=== PATIENT | male | born 1940 | race African-American/Black ===

== ENCOUNTER 2016-03-14 09:25 | Inpatient (IN) | payer OTHER ==
[~2016-03-14] VITALS: Ht 182.9 cm; Wt 72.1 kg
[~2016-03-14 09:25] MED LIST: ACETAMINOPHEN325 M2 GT; ACETAMINOPHEN325 M2 PO; AMLODIPINE10 M1 PO; ASPIRIN EC325 MG PO; BACTROBAN 2%20 MG/GM NS; COLACE100 M1 PO; DULCOLAX10 MG RC; FLEET ENEMA118 ML RC; GLUCOPHAGE500 MG PO; LANTUS INS100 UNITS/ SUBQ; LANTUS100 U/ML SC; LEVAQUIN500 MG PO; METFORMIN850 MG PO; MILK OF MA400 MG/5 M GT; MVI-1210 ML PO; NICOTINE T14 MG/241 TD; ROCEPHIN1 G1 IV; THERAGRAN M PO; ZESTRIL30 MG PO; [UNRECOGNIZED DRUG - OTHER]; [UNRECOGNIZED DRUG - OTHER] PO
--- NOTE | 2016-03-14 09:30 | NUR ---
75/M [facility] C/O NO EATING OR TAKING PO PILLS AND GENERALIZED WEAKNESS X3 DAYS. HX CVA, R HEMIPLEGIA, DM, DYSPHAGIA. DENIES N/V/D; SKIN IS PINK/WARM/DRY. DRAINING PRESSURE WOUND TO RIGHT HEEL; ALOC, NON-VERBAL. BEDRIDDEN WITH RIGHT SIDE FLACCID; LUNGS CLEAR BL; HR EVEN, REGULAR, TACHYCARDIC; CEC DENIES ANY FEVER, CP, SOB, OR COUGH AT THIS TIME; VSS; PATIENT POSITIONED FOR COMFORT; HOB ELEVATED; BEDRAILS UP X2; BED DOWN. ER MD MADE AWARE OF PT STATUS.
[2016-03-14 09:42] VITALS: BP 143/85
--- NOTE | 2016-03-14 10:39 | NUR ---
SHELLEY ORTIZ SON UPDATED ABOUT PTS CONDITION.
[2016-03-14] MEDS ORDERED: AZITHROMYCIN 500 MG in DEXTROSE 5% 250 ML IV ONE (10:55)
[2016-03-14] MEDS ORDERED: cefTRIAXone 1,000 MG in DEXT 5% MINI-BAG PLUS 50 ML IV ONE (10:55)
--- NOTE | 2016-03-14 10:55 | NUR ---
Patient being evaluated by physician at bedside.
[2016-03-14] MEDS ORDERED: NACL 0.9% 1,000 ML IV ONE (11:05)
[2016-03-14] MEDS ORDERED: cefTRIAXone 1,000 MG VIAL ONE (11:10)
--- NOTE | 2016-03-14 11:59 | NUR ---
UPDATED SHELLEY, SON OF PT, REGARDING ADMISSION. ADMIT TO RM 120.
[2016-03-14] MEDS ORDERED: AZITHROMYCIN 500 MG INJ VIAL IV ONE ×2 (12:13→12:25)
--- NOTE | 2016-03-14 12:49 | NUR ---
Patient will be admitted to care of DR. SPAIN. Admited to TELE. Will go to [id number]. Belongings list completed. GAVE Report to SATHYA GONZALES.
[2016-03-14] MEDS ORDERED: BISACODYL 10 MG SUPP RC SCH (12:55)
[2016-03-14] MEDS: NACL 0.45% 1,000 ML IV SCH (12:55)
[2016-03-14] MEDS ORDERED: ONDANSETRON 4 MG/2 ML VIAL IVP PRN (13:00)
[2016-03-14] MEDS ORDERED: MAG SULF 2000 MG/WATER PREMIX 50 ML IV PRN (13:00)
[2016-03-14] MEDS ORDERED: IPRATROPIUM 0.02% 0.5 MG/2.5 ML NEBU INH PRN (13:00)
[2016-03-14] MEDS ORDERED: diphenhydrAMINE 50 MG/ML VIAL IVP PRN (13:00)
[2016-03-14] MEDS ORDERED: ACETAMINOPHEN 325 MG TAB PO PRN (13:00)
[2016-03-14] MEDS ORDERED: MORPHINE SULFATE 2 MG/ML SYR IVP PRN (13:00)
[2016-03-14] MEDS ORDERED: ALBUTEROL 0.083% 2.5 MG/3 ML NEBU INH PRN (13:00)
[2016-03-14] MEDS ORDERED: SODIUM PHOSPHATE 118 ML ENEM RC PRN (13:00)
[2016-03-14] MEDS ORDERED: ACETAMINOPHEN 650 MG SUPP RC PRN (13:00)
[2016-03-14] MEDS ORDERED: DEXTROSE 50% 50 ML SYR IVP PRN (13:00)
[2016-03-14] MEDS ORDERED: POTASSIUM CHLORIDE 10 MEQ TABER PO PRN (13:00)
[2016-03-14] MEDS ORDERED: cloNIDine 0.1 MG TAB PO PRN (13:00)
[2016-03-14] MEDS ORDERED: HYDROcodone/APAP 5/325 MG 1 TAB TAB PO PRN ×2 (13:00)
[2016-03-14] MEDS ORDERED: MAGNESIUM OXIDE 400 MG TAB PO PRN (13:00)
[2016-03-14] MEDS ORDERED: ALUMINUM HYD/MAG/SIMETHICONE 30 ML UDC PO PRN (13:00)
[2016-03-14] MEDS ORDERED: guaiFENesin DM 200/20 MG-10 ML 10 ML UDC PO PRN (13:00)
[2016-03-14] MEDS ORDERED: POTASSIUM CHLORIDE 40 MEQ, LIDOCAINE 1% 25 MG in NACL 0.9% 250 ML IV PRN (13:00)
[2016-03-14] MEDS ORDERED: LORazepam 2 MG/ML VIAL IVP PRN (13:00)
--- NOTE | 2016-03-14 13:10 | NUR ---
PT LEAVING TO TELE RM 120B WITH MONITOR.
[2016-03-14 13:27] VITALS: BP 116/69
--- NOTE | 2016-03-14 13:27 | NUR ---
PT ON UNIT. NO S/S OF ACUTE DISTRESS. PT IS NONVERBAL, BUT RESPONDS TO NAME. IV SITE PATENT AND INTACT. FLACC-0. WOUND TO RIGHT HEEL NOTED. PT ORIENTED TO ROOM. CALL LIGHT WITHIN REACH. WILL CONTINUE TO MONITOR.
[2016-03-14] MEDS: PIPER/TAZO 2.25GM/D5W PREMIX 50 ML IV SCH ×2 (14:04→20:09)
[2016-03-14] MEDS ORDERED: PNEUMOCOCCAL VACCINE 23 MCG/0.5 ML VIAL IMVAC SCH (15:50)
[2016-03-14] MEDS ORDERED: INFLUENZA VIRUS VACCINE QUAD 0.5 ML SYR IMVAC SCH (15:50)
[2016-03-14 16:00] VITALS: BP 118/69
--- NOTE | 2016-03-14 16:00 | NUR ---
SPOKE TO PT'S SON REGARDING NG TUBE PLACEMENT. PT'S SON EDUCATED ON NEED FOR NG-TUBE. PT'S SON REFUSED NG-TUBE. DR. SPAIN MADE AWARE.
[2016-03-14] MEDS: BLOOD GLUCOSE MONITORING 1 DEV DEV FS SCH ×2 (16:55→20:13)
[2016-03-14] MEDS: INSULIN ASPART SLIDING SCALE 100 UNITS/ML VIAL SUBQ PRN (16:56)
--- NOTE | 2016-03-14 16:56 | NUR ---
PT RESTING IN BED. NO S/S OF ACUTE DISTRESS. FLACC-0. SON AT BEDSIDE. CALL LIGHT WITHIN REACH. WILL CONTINUE TO MONITOR.
--- NOTE | 2016-03-14 19:20 | NUR ---
RECEIVED PT IN STABLE CONDITION FROM SATHYA GONZALES. NO SOB, NO SIGNS OF DISTRESS. PT IS AOX1, APHASIC. FLACC 0. VS STABLE ON ROOM AIR. IV TO RT HAND 22G PATENT, ASYMPTOMATIC, INTACT, IVF RUNNING. SON AT BEDSIDE. WOUND TO RT HEEL, HEEL PROTECTORS ON, SKIN OTHERWISE INTACT. PLAN OF CARE DISCUSSED WITH PT AND SON. SAFETY MEASURES IN PLACE. CALL LIGHT WITHIN REACH. WILL CONTINUE TO MONITOR.
--- NOTE | 2016-03-14 19:22 | NUR ---
ENDORSED PLAN OF CARE TO NIGHT RN. PT REMAINS IN STABLE CONDITION.
[2016-03-14 20:00] VITALS: BP 104/64
--- NOTE | 2016-03-14 20:00 | NUR ---
MOVED PT ONTO A WOUND BED. SCDS IN PLACE.
[2016-03-14] MEDS: DOCUSATE SODIUM 100 MG GELCAP PO SCH (20:13)
--- NOTE | 2016-03-14 20:13 | NUR ---
HELD COLACE SINCE PT IS NPO. BLOOD SUGAR 325, HELD LEVEMIR AND PRN NOVOLOG SINCE PT IN NPO, SON AGREED. ADMINISTERED ZOSYN PER MD ORDER, PT TOLERATING WELL. NO SOB, NO SIGNS OF DISTRESS. IV SITE PATENT, ASYMPTOMATIC, INTACT, IVF RUNNING. PLAN OF CARE DISCUSSED WITH PT AND SON. SAFETY MEASURES IN PLACE. CALL LIGHT WITHIN REACH. WILL CONTINUE TO MONITOR.
[2016-03-14] MEDS: INSULIN DETEMIR 100 UNITS/ML 10 ML VIAL SUBQ SCH (20:24)
--- NOTE | 2016-03-14 20:56 | NUR ---
CRITICAL LAB RECEIVED, PTS SECOND TROPONIN INCREASED TO 0.150. PAGED MD ZAIDI MATHEMATICS IMPROVEMENT TEACHER FOR MD SPAIN. WAITING FOR CALL BACK.
--- NOTE | 2016-03-14 20:57 | NUR ---
SPOKE WITH MD DEJUAN MD MADE AWARE OF PTS 2ND ELEVATED TROPONIN LEVEL. NO ORDERS RECEIVED.
--- NOTE | 2016-03-14 22:15 | NUR ---
PT AWAKE, RESTING COMFORTABLY IN BED. SON AT BEDSIDE. NO SOB, NO SIGNS OF DISTRESS. IV SITE ASYMPTOMATIC, INTACT, PATENT, IVF RUNNING. FLACC 0. PLAN OF CARE DISCUSSED WITH PT AND SON. SAFETY MEASURES IN PLACE. CALL LIGHT WITHIN REACH. WILL CONTINUE TO MONITOR.
[2016-03-15] VITALS: BP 96/67
--- NOTE | 2016-03-15 00:10 | NUR ---
VS STABLE ON ROOM AIR. NO SOB, NO SIGNS OF DISTRESS. IV SITE ASYMPTOMATIC, INTACT, PATENT, IVF RUNNING. SON AT BEDSIDE. FLACC 0. PLAN OF CARE DISCUSSED WITH PT AND SON. SAFETY MEASURES IN PLACE. CALL LIGHT WITHIN REACH. WILL CONTINUE TO MONITOR.
--- NOTE | 2016-03-15 01:42 | NUR ---
PT WITH EPISODE OF V-TACH, CHECKED ON PT, VS STABLE, NO SOB, NO SIGNS OF DISTRESS. IV SITE ASYMPTOMATIC, INTACT, PATENT, IVF RUNNING. SON AT BEDSIDE. PLAN OF CARE DISCUSSED WITH PT AND SON, SAFETY MEASURES IN PLACE. CALL LIGHT WITHIN REACH. WILL CONTINUE TO MONITOR.
--- NOTE | 2016-03-15 03:36 | NUR ---
PT WITH 2ND EPISODE OF V-TACH, CHECKED ON PT. PT AWAKE, VS STABLE, NO SOB, NO SIGNS OF DISTRESS. CLEANED AND TURNED PATIENT, TOLERATED WELL. SON AT BEDSIDE. PLAN OF CARE DISCUSSED WITH PT AND SON, SAFETY MEASURES IN PLACE. CALL LIGHT WITHIN REACH. WILL CONTINUE TO MONITOR.
[2016-03-15 04:00] VITALS: BP 131/59
--- NOTE | 2016-03-15 04:00 | NUR ---
VS STABLE ON ROOM AIR. NO SOB, NO SIGNS OF DISTRESS. IV SITE TO RT HAND INFILTRATED, RT HAND SWOLLEN, DC IV TO RT HAND AND STARTED NEW IV TO LT HAND 22G PATENT, ASYMPTOMATIC, INTACT, IVF RUNNING. SON AT BEDSIDE. PLAN OF CARE DISCUSSED WITH PT AND SON, SAFETY MEASURES IN PLACE. CALL LIGHT WITHIN REACH. WILL CONTINUE TO MONITOR.
[2016-03-15] MEDS: PIPER/TAZO 2.25GM/D5W PREMIX 50 ML IV SCH ×3 (04:27→21:22)
--- NOTE | 2016-03-15 04:36 | NUR ---
CALL FROM KOBY IN LAB, CRITICAL TROPONIN AND BUN BOTH TRENDING DOWN.
[2016-03-15] MEDS: BLOOD GLUCOSE MONITORING 1 DEV DEV FS SCH ×4 (06:28→21:23)
--- NOTE | 2016-03-15 06:31 | NUR ---
BLOOD SUGAR 326, LITTLE CHANGE SINCE LAST NIGHT, DID NOT PROVIDE INSULIN COVERAGE SINCE PT IS NPO.
[2016-03-15] MEDS: NACL 0.45% 1,000 ML IV SCH ×2 (06:57→08:55)
--- NOTE | 2016-03-15 07:10 | NUR ---
ENDORSED PT IN STABLE CONDITION TO ANALILIA SALAZAR RN. ALL NEEDS HAVE BEEN MET AT THIS TIME.
--- NOTE | 2016-03-15 07:11 | NUR ---
PAGED MD SPAIN TO MAKE AWARE OF V-TACH EPISODES. WAITING FOR CALL BACK.
--- NOTE | 2016-03-15 07:12 | NUR ---
RECEIVED REPORT FROM TELESALES TEAM LEADER NURSE. SON AT BEDSIDE. PT IS AAOX1, ABLE TO STATE NAME. NO S/SX OF PAIN/DISTRESS NOTED. IV IS PATENT AND FLOWING. WOUND TO RIGHT HEEL NOTED WITH HEEL PROTECTOR INTACT. PT IS ON WOUND CARE BED, SCD'S IN PLACE. PT IS ON ROOM AIR, VITALS STABLE. CALL LIGHT WITHIN REACH.
--- NOTE | 2016-03-15 07:14 | NUR ---
SPOKE WITH MD GRABIEL MD MADE AWARE OF BOTH EPISODES OF V-TACH. NO ORDERS GIVEN, MD TO SEE PATIENT.
[2016-03-15 08:00] VITALS: BP 127/73
--- NOTE | 2016-03-15 08:30 | NUR ---
PATIENT HAS BEEN SCREENED AND CATEGORIZED HIGH NUTRITION RISK. PATIENT WILL BE SEEN WITHIN 1-2 DAYS OF ADMISSION. 03/15/16-03/16/[address]
[2016-03-15] MEDS: DOCUSATE SODIUM 100 MG GELCAP PO SCH ×2 (08:44→21:00)
[2016-03-15] MEDS: INSULIN DETEMIR 100 UNITS/ML 10 ML VIAL SUBQ SCH ×2 (08:44→21:26)
[2016-03-15] MEDS: MULTIVITAMIN/MINERALS 1 TAB PO SCH (08:44)
[2016-03-15] MEDS: ASPIRIN 81MG PO SCH (08:44)
--- NOTE | 2016-03-15 08:50 | NUR ---
WOUND CARE EVALUATION NOTES: REASON FOR EVALUATION: RIGHT HEEL WOUND COMPLETE SKIN ASSESSMENT DONE ON THIS 75 Y/O MALE PATIENT FROM [facility] TO [facility], WITH INITIAL DIAGNOSIS OF PNEUMONIA, ELEVATED TROPONIN, RENAL FAILURE AND HYPERNATREMIA. PAST MEDICAL HISTORY INCLUDE CVA WITH RIGHT SIDED WEAKNESS, DEMENTIA, DM AND HYPERTENSION. ALL ABOVE INFORMATION WAS OBTAINED FROM THE ADMISSION H&P. LABS ARE WBC 14.0, H/H 12.8/39.6, GLUCOSE 366, ALBUMIN 2.8, PT/INR 11.1/1.2 AND PTT 21.4. CURRENT MEDS INCLUDE MULTIVITAMINS/MINERALS, ASPIRIN, INSULIN, MORPHINE AND NORCO. PATIENT IS AWAKE, NO VERBAL, UNABLE TO FOLLOW SIMPLE COMMANDS. EYES ABLE TO TRACK MOVEMENTS. SKIN WARM TO TOUCH WNL, TOENAILS ARE THICKENED AND DISCOLORED, NO EDEMA, NO HAIR GROWTH AND +2 BILATERAL PEDAL PULSES. URINE AND BOWEL INCONTINENT. NEEDS MAX ASSISTANCE IN TURNING. INITIAL PLAN OF CARE AND PRESSURE PREVENTIVE MEASURES DISCUSSED WITH PATIENT'S SON, ABLE TO VERBALIZE UNDERSTANDING. INTEGUMENTARY: RIGHT HEEL - ST III - PW WITH FLUID FILLED BLISTER. OPEN AREA MEASURES 1 X 1 X 0.1CM, 10% THIN YELLOW AND 90% PALE RED. SACRALCOCCYX TO PERIAREA - RED AND MOIST DUE TO URINE AND BOWEL INCONTINENCE. RECOMMENDATIONS: -RIGHT HEEL: CLEANSE WITH NS AND GAUZE, PAT DRY, APPLY THERAHONEY GEL TO OPEN AREA, PAINT PERIWOUND WITH BETADINE, COVER WITH ADAPTIC, GAUZE AND WRAP WITH AKASH Q DAY AND PRN WITH SOILING/DISPLACEMENT -CLEANSE SACRALCOCCYX TO PERIAREA WITH MILD SOAP AND WATER, PAT DRY, APPLY HYDRAGUARD BIDWC AND PRN WITH SOILING. LEAVE OPEN TO AIR --TURN AND REPOSITION PATIENT Q2H -ASSESS AND MONITOR SKIN CONDITION DURING POSITION CHANGE, PLEASE PAY PARTICULAR ATTENTION TO SACRALCOCCYX, ELBOWS AND HEELS -OFFLOAD BILATERAL HEELS BY PLACING HEEL RAISER BOOT, REMOVE AND ASSESS Q4H FOR PROPER CIRCULATION, THEN REAPPLY. UNLESS OTHERWISE CONTRAINDICATED -PRESSURE REDISTRIBUTION SURFACE THERAPY -KEEP SKIN CLEAN AND DRY AT ALL TIMES. -ARTERIAL AND VENOUS U/S OF BLE IF OK WITH PMD -PODIATRY CONSULT IF OK WITH PMD. RECOMMENDATIONS DISCUSSED WITH PRIMARY RN. WILL FOLLOW UP PATIENT Q 7 DAYS AND PRN. PLEASE CONTACT [facility] FOR ANY CONCERNS, QUESTIONS AND CHANGES IN WOUND CONDITION.
--- NOTE | 2016-03-15 09:24 | NUR ---
PO MEDS HELD. PT NPO.
[2016-03-15] MEDS ORDERED: THERAHONEY GEL 42.5 GM TP PRN (11:10)
[2016-03-15] MEDS ORDERED: HYDRAGUARD CREAM TP PRN (11:10)
[2016-03-15] MEDS ORDERED: POTASSIUM CHL 20 MEQ / DEXT 5% 1,000 ML IV SCH (11:20)
--- NOTE | 2016-03-15 11:31 | NUR ---
VITALS REMAIN STABLE. WILL CONTINUE TO MONITOR.
--- NOTE | 2016-03-15 11:39 | NUR ---
03/15/16 RD INITIAL ASSESSMENT COMPLETED PLEASE REFER TO NUTRITION ASSESSMENT UNDER CARE ACTIVITY FOR ESTIMATED NUTRITIONAL NEEDS. RD RECOMMENDATIONS: 1. CONTINUE NPO MEDICALLY APPROPRIATE PER MD 2. CONSIDER SWALLOW EVALUATION 3. IF PT INAPPROPRIATE FOR PO DIET, CONSIDER NUTRITIONAL SUPPORT DIABETISOUCE AT 10 ML/HR AND ADVANCE TOLERATED TO 60 ML/HR VIA NGTUBE --AT GOAL OF 60 ML/HR, NUTRITIONAL SUPPORT WILL PROVIDE 1440 ML TOTAL VOLUME, 1728 KCAL, 86 GM PROTEIN AND WILL MEET 78% OF PT ESTIMATED KCAL NEEDS AND 100% OF PT ESTIMATED PROTEIN NEEDS 4. IF PT ABLE TO BEGIN PO DIET CONSIDER ADVANCE DIET TOLERATED TO CCHO 60 GM WITH TEXTURE MODIFICATIONS PER SPEECH THERAPY SWALLOW EVALUATION RECOMMENDATIONS. 5. RD WILL F/U 2-3 DAYS; HIGH RISK. ANDREW ROSARIO RD
--- NOTE | 2016-03-15 11:44 | NUR ---
PAGED DR. SPAIN, AWAITING CALLBACK.
[2016-03-15 11:47] VITALS: BP 114/73
[2016-03-15] MEDS: INSULIN ASPART SLIDING SCALE 100 UNITS/ML VIAL SUBQ PRN ×3 (12:11→21:27)
--- NOTE | 2016-03-15 12:12 | NUR ---
SPOKE WITH DARIELA FROM PT, SHE STATED THAT SPEECH THERAPIST WILL BE HERE THIS AFTERNOON.
--- NOTE | 2016-03-15 12:42 | NUR ---
SECOND ATTEMPT IN CALLING AWAITING CALLBACK.
--- NOTE | 2016-03-15 12:47 | NUR ---
DR. SPAIN AWARE OF K+ 4.6, D5 WITH 20 MEQ K+ ORDERED PER MD. MD AWARE OF 2 EPISODES OF VTACH ON 03/15 AND ELEVATED TROPONIN, PER MD, NO CARDIO CONSULT NEEDED.
--- NOTE | 2016-03-15 13:00 | NUR ---
WOUND CARE NOTES: MD AWARE OF RECOMMENDATIONS, NO ORDERS MADE.
[2016-03-15] MEDS: HYDRAGUARD CREAM TP SCH (13:05)
[2016-03-15] MEDS: THERAHONEY GEL 42.5 GM TP SCH (13:05)
--- NOTE | 2016-03-15 13:32 | NUR ---
SWALLOW EVAL COMPLETE.
--- NOTE | 2016-03-15 13:47 | NUR ---
SS NOTE: I RECEIVED A CALL BACK FROM PT'S DTR, MENA. SHE STATED THAT SHE IS THE PRIMARY MEDICAL DECISION MAKER AND THEN HER SISTER, CANDELARIA ART ([phone]) IS THE SECONDARY. SHE ALSO STATED THAT IF BOTH OF THEM ARE UNABLE TO BE REACHED THEN THEIR BROTHER, PT'S SON, SHELLEY ORTIZ ([phone]) CAN BE CONTACTED. SHE REPORTED THAT SHE WILL SEND A COPY OF PT'S POWER OF SUGAR PRESSER PAPERWORK TO CASE MANAGEMENT.
--- NOTE | 2016-03-15 13:55 | NUR ---
CARPET INSTALLER note (bedside swallow evaluation completed) 12:45-13:30. Bedside swallow evaluation completed, please see report for details. CARPET INSTALLER provided pt/pt's son with education regarding purpose of evaluation and rationale for recommendations. Pt did not appear to benefit from education provided. Pt's son verbalized understanding and agreement at this time. Recommend: 1) thin liquids (pt refused to accept solid PO trials at this time) 2) consider alternative/supplemental method(s) of nutrition/hydration/medication to assist pt with meeting his needs safely (as pt does not appear likely to meet his nutrition/hydration/medication needs via PO only) 3) strict aspiration precautions (including pt must be fully awake/alert/upright for any PO intakes, small/slow PO intakes, stop giving PO if pt becomes sleepy/less alert/SOB/coughing) 4) 100% feeding assistance (pt's baseline) 5) CARPET INSTALLER to f/u for dysphagia/diet tolerance as pt willing/able to participate safely CARPET INSTALLER d/w RN (Pratibha) following evaluation completion. G-codes: [id number] [id number] BRIGETTE NOMS level 3: alternative method of feeding required as individual takes less than 50% of nutrition and hydration by mouth, and/or swallowing is safe with consistent use of moderate cues to use compensatory strategies and/or requires maximum diet texture restrictions. PVE for nursing education provided.
--- NOTE | 2016-03-15 14:00 | NUR ---
DRESSING APPLIED TO RIGHT HEEL PER ORDER. PT LEOLA WELL.
--- NOTE | 2016-03-15 14:36 | NUR ---
PER PT'S SON, FLU AND PNA VACCINE TO BE ADMINISTERED UPON DISCHARGE.
[2016-03-15] MEDS ORDERED: NACL 0.45% 500 ML IV ONE (15:35)
[2016-03-15 16:00] VITALS: BP 114/75
[2016-03-15] MEDS: DEXTROSE 5% 1,000 ML IV SCH (16:13)
--- NOTE | 2016-03-15 16:44 | NUR ---
02/[address] CARMEN.
--- NOTE | 2016-03-15 19:05 | NUR ---
PATIENT HAD EPISODE, OF V-TACH, PATIENT RESTING IN BED. VS STABLE. BP 134/69, O2 SAT 99% ON ROM AIR. WILL NOTIFY .
--- NOTE | 2016-03-15 19:08 | NUR ---
ENDORSED TO HOME CARE SCHEDULER NURSE FOR CONTINUITY OF CARE.
--- NOTE | 2016-03-15 19:15 | NUR ---
RECEIVED REPORT FROM DAY NURSEARABELLA. PATIENT RESTING IN BED. NO RESPIRATORY DISTRESS, SOB, OR DISCOMFORT. INITIAL ASSESSMENT AND BODY CHECK DONE. PATIENT IS AWAKE, NON-VERBAL. AROUSABLE TO NAME, WITHDRAWS TO LIGHT PAIN. BOTH HEELS IN SOFT BOOT, PRESSURE ULCER NOTED TO RIGHT HEEL COVER WITH DRESSING, DRY AND INTACT. REDNESS NOTED TO SACRAL AREA. PATIENT HAS IV TO LEFT HAND 22G AND LEFT FOREARM 22G, BOTH PORTS PATENT. DISCUSSED PLAN OF CARE, MEDICATION REGIMENT, AND PAIN MANAGEMENT WITH PATIENT. PLACED PATIENT ON SAFETY/FALL/PRESSURE ULCER/ASPIRATION PRECAUTIONS. CALL LIGHT LEFT WITHIN REACH, WILL CONTINUE TO MONITOR.
[2016-03-15 20:00] VITALS: BP 134/69
--- NOTE | 2016-03-15 20:00 | NUR ---
PAGED DR. ZAIDI, ON-CALL FOR DR. SPAIN, TO NOTIFY MD OF PATIENT'S EPISODE OF V-TACH. WILL AWAIT CALL BACK.
--- NOTE | 2016-03-15 20:04 | NUR ---
SPOKE WITH DR. ZAIDI OVER THE PHONE, MD MADE AWARE OF PATIENT'S RUN OF V-TACH. MD VERBALIZED UNDERSTANDING, MD WANTED TO CONFIRM MORNING LABS ALREADY ORDER, NO NEW ORDERS AT THIS TIME.
--- NOTE | 2016-03-15 21:21 | NUR ---
PATIENT HAD ANOTHER EPISODE OF V-TACH. PATIENT RESTING IN BED. NO RESPIRATORY DISTRESS, SOB, OR DISCOMFORT. B/P 112/65, ALREADY AWARE. WILL CONTINUE TO MONITOR.
--- NOTE | 2016-03-15 21:50 | NUR ---
SPOKE WITH PATIENT'S FAMILY MEMBER OVER THE PHONE, UPDATED OF PATIENT'S STATUS. VERBALIZED UNDERSTANDING.
--- NOTE | 2016-03-15 22:09 | NUR ---
PATIENT IN BED, SLEEPING. NO RESPIRATORY DISTRESS, SOB, OR DISCOMFORT. CALL LIGHT LEFT WITHIN REACH, WILL CONTINUE TO MONITOR.
[2016-03-16] VITALS: BP 128/69
--- NOTE | 2016-03-16 00:59 | NUR ---
ASSISTED VALVE GRINDER, LIBERTY WITH PATIENT CLEAN UP, LINEN, AND BEDDING CHANGE. PATIENT TOLERATED WELL. NO RESPIRATORY DISTRESS, SOB, OR DISCOMFORT. CALL LIGHT LEFT WITHIN REACH, WILL CONTINUE TO MONITOR.
[2016-03-16] MEDS: HYDRAGUARD CREAM TP SCH ×2 (01:00→12:44)
--- NOTE | 2016-03-16 03:10 | NUR ---
PATIENT ASLEEP. NO RESPIRATORY DISTRESS, SOB, OR DISCOMFORT. CALL LIGHT LEFT WITHIN REACH, WILL CONTINUE TO MONITOR.
[2016-03-16 04:00] VITALS: BP 106/70
[2016-03-16] MEDS: DEXTROSE 5% 1,000 ML IV SCH ×3 (04:35→21:53)
[2016-03-16] MEDS: PIPER/TAZO 2.25GM/D5W PREMIX 50 ML IV SCH ×3 (04:35→21:52)
--- NOTE | 2016-03-16 06:08 | NUR ---
PATIENT SLEEPING. NO RESPIRATORY DISTRESS, SOB, OR DISCOMFORT. CALL LIGHT LEFT WITHIN REACH, WILL CONTINUE TO MONITOR.
[2016-03-16] MEDS: BLOOD GLUCOSE MONITORING 1 DEV DEV FS SCH ×4 (06:29→21:51)
[2016-03-16] MEDS: INSULIN ASPART SLIDING SCALE 100 UNITS/ML VIAL SUBQ PRN ×4 (06:30→21:57)
[2016-03-16] MEDS ORDERED: BISACODYL 10 MG SUPP RC PRN (07:05)
--- NOTE | 2016-03-16 07:16 | NUR ---
RECEIVED REPORT FROM NIGHT NURSE, PT IS NON-VERBAL BUT AWAKE AT THIS TIME. PT IS ON ROOM AIR, IV TO LEFT HAND 22G SALINE LOCK PATENT AND INTACT, LEFT FA 22G WITH D5 AT 100ML/HR INFUSING WELL. RIGHT HEEL STAGE III PRESSURE ULCER WITH DRESSING DRY AND INTACT WITH HEEL BOOT. REDNESS TO SACRAL AREA. SCD'S NOTED. INITIAL ASSESSMENT COMPLETED, REVIEW PLAN OF CARE WITH PT, PT UNABLE TO VERBALIZE UNDERSTANDING, REORIENTED PT TO ROOM AND ENVIRONMENT, ALL FALL/SAFETY PRECAUTIONS MET, ALL NEEDS MET. CALL LIGHT WITHIN REACH. WILL CONTINUE TO MONITOR.
--- NOTE | 2016-03-16 07:16 | NUR ---
REPORT GIVEN TO DAY NURSELOUIS. PATIENT RESTING IN BED, STABLE. NO RESPIRATORY DISTRESS, SOB, OR DISCOMFORT. ALL NEEDS ATTENDED TO DURING SHIFT, CALL LIGHT LEFT WITHIN REACH.
[2016-03-16 08:00] VITALS: BP 115/65
[2016-03-16] MEDS: ASPIRIN 81MG PO SCH (09:00)
[2016-03-16] MEDS: MULTIVITAMIN/MINERALS 1 TAB PO SCH (09:00)
[2016-03-16] MEDS: DOCUSATE SODIUM 100 MG GELCAP PO SCH ×2 (09:00→21:00)
[2016-03-16] MEDS: INSULIN DETEMIR 100 UNITS/ML 10 ML VIAL SUBQ SCH ×2 (09:20→21:59)
--- NOTE | 2016-03-16 09:21 | NUR ---
PO MEDICATIONS NOT GIVEN, PT IS CURRENTLY NPO, PT CURRENTLY RESTING IN BED. NO S/S OF DISTRESS NOTED. CALL LIGHT WITHIN REACH. WILL CONTINUE TO MONITOR.
--- NOTE | 2016-03-16 10:25 | NUR ---
SPOKE WITH REGARDING PT HEART RATE OF 185 AND V-TACH ON TELE MONITOR. NO NEW ORDERS RECEIVED. WILL CONTINUE TO MONITOR PT.
[2016-03-16 12:00] VITALS: BP 122/70
[2016-03-16] MEDS: THERAHONEY GEL 42.5 GM TP SCH (12:45)
--- NOTE | 2016-03-16 12:58 | NUR ---
DR SPAIN IN TO SEE PT.
--- NOTE | 2016-03-16 13:10 | NUR ---
DUE MEDICATIONS GIVEN. PT CURRENTLY AWAKE, NO S/S OF DISTRESS OR DISCOMFORT NOTED. ALL NEEDS MET CALL LIGHT WITHIN RAECH. WILL CONTINUE TO MONITOR.
[2016-03-16] MEDS ORDERED: NACL 0.45% 500 ML IV SCH (13:30)
--- NOTE | 2016-03-16 13:34 | NUR ---
DR. CARMEN IN TO SEE PT
[2016-03-16] MEDS ORDERED: KCL 20 MEQ/WATER INJ PREMIX 100 ML IV SCH (14:00)
--- NOTE | 2016-03-16 14:16 | NUR ---
STARTED NACL 0.45 500ML AT 250ML/HR. PT CURRENTLY AWAKE, NO S/S OF DISTRESS OR PAIN NOTED, CALL LIGHT WITHIN REACH WILL CONTINUE TO MONITOR.
[2016-03-16 16:00] VITALS: BP 121/71
--- NOTE | 2016-03-16 16:14 | NUR ---
POTASSIUM CHL 20MEQ IVPB GIVEN AT THIS TIME, PT CURRENTLY AWAKE . ALL NEEDS MET, CALL LIGHT WITHIN REACH WILL CONTINUE TO MONITOR.
--- NOTE | 2016-03-16 16:59 | NUR ---
* ST NOTE * ST Follow-up treatment completed at pt's bedside. Pt initially refusing to open his mouth for PO intake, requiring maximal verbal, tactile & visual cues from clinician for pt to accept PO feeding trials. Pt eventually accepting and tolerating 3/3 alternating PO trials of puree apple sauce 3-5 CCs at a time via a teaspoon w/out s/s of aspiration, exhibiting a 7-8 second delay in swallow initiation. Pt also unable to accept thin liquids via a straw at this time despite maximal education and maximal verbal, tactile & visual cueing from the clinician. Pt however tolerating 4/4 alternating PO trials of thin liquid apple juice 4-5 CCs at a time via a teaspoon w/out s/s of aspiration, exhibiting no delay in swallow initiation or laryngeal elevation for thin liquids. Pt however requiring extended amount of time to consume minimal amount of solids and liquids. Thus it is recommended that pt's PO diet consistency be modified to puree textures with thin liquids via a teaspoon, with total assistance for feeding from staff/caregivers as well as close supervision during PO intake to assure aspiration precautions are in place secondary to pt being at high risk for aspiration. Considering extended amount of time for pt to consume such little puree textures and liquids PO, it is also recommended pt be referred to RD for consideration of alternate means of nutrition secondary to severely decreased PO intake to avoid further malnutrition, dehydration and weight loss. Pt and caregiver/nursing education completed regarding results of ST treatment, benefits of abiding by recommended PO diet consistency and aspiration precautions, and prognosis for improvement, with pt appearing indifferent to clinician's remarks and caregiver/nursing agreeable with and verbalizing understanding of clinician's recommendations. Recommend: - D/C previous diet consistency recommendation of thin liquids/full liquid diet - New PO Diet consistency order of Puree textures with thin liquids via a teaspoon secondary to pt being unable to drink liquids from a straw at this time - Pt requires total assistance for feeding and supervision by staff/caregiver to assure aspiration precautions are in place during PO intake secondary to pt being at high risk for aspiration - RD referral to consider alternate means of nutrition secondary to severely decreased PO intake, placing pt at further risk for dehydration & malnutrition - D/C pt from skilled HAIR ASSISTANT services No further ST follow up recommended at this time. G8997 CK G8998 NOMS LEVEL 3 Time In/Out 16:30 - 17:00
--- NOTE | 2016-03-16 17:10 | NUR ---
PT CURRENTLY AWAKE, NO S/S OF DISTRESS OR DISCOMFORT. ALL NEEDS MET. CALL LIGHT WITHIN REACH
--- NOTE | 2016-03-16 18:24 | NUR ---
PT CURRENTLY EATING DINNER, PT ABLE TO EAT 25% BUT PT DOESN'T OPEN MOUTH TO EAT. WILL CONTINUE TO MONITOR.
--- NOTE | 2016-03-16 19:18 | NUR ---
RECEIVED PT FROM LOUIS MCDONNELL AT BEDSIDE FOR CONTINUITY OF CARE. PT NOTED STABLE, NO ACUTE DISTRESS.
--- NOTE | 2016-03-16 19:20 | NUR ---
ENDORSED PLAN OF CARE TO NIGHT NURSE. PT IN STABLE CONDITION.
[2016-03-16 20:00] VITALS: BP 119/63
--- NOTE | 2016-03-16 20:36 | NUR ---
SHIFT ASSESSMENT DONE. PT IS NOTED TO BE APHASIC, STABLE. PT IS ABLE TO FOLLOW COMMAND BY SQUEEZING HAND WHEN ASKED TO, ALSO RESPONSIVE TO LIGHT TOUCH, AND NOTED AWAKE. PT HAS HX DEMENTIA AND RT SIDED CVA. RT SIDED WEAKNESS NOTED. DISCUSSED PLAN OF CARE TO PT. REINFORCEMENT OF TEACHING IS NEEDED. VITAL SIGNS ARE STABLE, PT ON ROOM AIR, AFEBRILE AND NOTED RELAXED, NO PAIN NOTED. IV ACCESS NOTED TO LEFT FOREARM #22G, PATENT AND INTACT AND LEFT HAND #22G, PATENT AND INTACT, SALINE LOCKED. NOTED SACRAL REDNESS, AND SCAR TRAY, DRY AND INTACT. PT HAS WOUND DRESSING TO RT HEEL, PT HAS BILATERAL FEET ELEVATED BY FOAM BOOTS TO OFFLOAD HEEL PRESSURE. SAFETY PRECAUTION AND FALL RISK PRECAUTIONS IMPLEMENTED. CALL LIGHT WITHIN REACH. WILL CONTINUE TO MONITOR PT.
--- NOTE | 2016-03-16 21:57 | NUR ---
ADMINISTER PT INSULIN PER MD SLIDING SCALE FOR BLOOD GLUCOSE OF 275. PT REMAIN STABLE AND ASYMPTOMATIC AT THIS TIME. NO DISTRESS. WILL CONTINUE TO MONITOR PT.
[2016-03-17] VITALS: BP 134/69
[2016-03-17] MEDS: HYDRAGUARD CREAM TP SCH ×2 (00:23→13:35)
--- NOTE | 2016-03-17 00:40 | NUR ---
VS REMAIN STABLE. PT NOTED RELAXED, SLEEPING. NO ACUTE S/S OF RESPIRATORY OR ANY DISTRESS NOTED. WILL CONTINUE TO MONITOR.
--- NOTE | 2016-03-17 02:49 | NUR ---
PT SLEEPING WELL, NO ACUTE DISTRESS NOTED.
[2016-03-17 04:00] VITALS: BP 141/53
--- NOTE | 2016-03-17 04:00 | NUR ---
VSS, NO DISTRESS NOTED. PULSE OX. IS 100%. WILL CONTINUE TO MONITOR.
[2016-03-17] MEDS: PIPER/TAZO 2.25GM/D5W PREMIX 50 ML IV SCH ×3 (05:04→20:18)
[2016-03-17] MEDS: BLOOD GLUCOSE MONITORING 1 DEV DEV FS SCH ×4 (06:17→20:18)
[2016-03-17] MEDS: INSULIN ASPART SLIDING SCALE 100 UNITS/ML VIAL SUBQ PRN ×4 (06:21→20:22)
--- NOTE | 2016-03-17 06:21 | NUR ---
ADMINISTERED INSULIN COVERAGE FOR PT BLOOD GLUCOSE OF 209, PT STABLE.
--- NOTE | 2016-03-17 07:15 | NUR ---
RECEIVED REPORT FROM NIGHT NURSE, PT IS NON-VERBAL BUT AWAKE AT THIS TIME. PT IS ON ROOM AIR, IV TO LEFT HAND 22G SALINE LOCK PATENT AND INTACT, LEFT FA 22G WITH D5 AT 100ML/HR INFUSING WELL. RIGHT HEEL STAGE III PRESSURE ULCER WITH DRESSING DRY AND INTACT WITH HEEL BOOT. REDNESS TO SACRAL AREA NOTED. SCD'S NOTED. INITIAL ASSESSMENT COMPLETED, REVIEW PLAN OF CARE WITH PT, PT UNABLE TO VERBALIZE UNDERSTANDING, REORIENTED PT TO ROOM AND ENVIRONMENT, ALL FALL/SAFETY PRECAUTIONS MET, ALL NEEDS MET. CALL LIGHT WITHIN REACH. WILL CONTINUE TO MONITOR.
--- NOTE | 2016-03-17 07:15 | NUR ---
ENDORSED PT TO LOUIS RN AT PT BEDSIDE FOR CONTINUITY OF CARE. PT STABLE.
[2016-03-17] MEDS: DEXTROSE 5% 1,000 ML IV SCH ×2 (07:35→11:17)
[2016-03-17 08:00] VITALS: BP 138/78
[2016-03-17] MEDS: INSULIN DETEMIR 100 UNITS/ML 10 ML VIAL SUBQ SCH ×2 (08:57→20:21)
--- NOTE | 2016-03-17 08:59 | NUR ---
0900 PO MEDICATIONS NOT GIVEN, PT UNABLE TO SWALLOW. PT CURRENTLY AWAKE, NO S/S OF DISTRESS OR DISCOMFORT NOTED. CALL LIGHT WITHIN REACH WILL CONTINUE TO MONITOR.
[2016-03-17] MEDS: ASPIRIN 81MG PO SCH (09:00)
[2016-03-17] MEDS: DOCUSATE SODIUM 100 MG GELCAP PO SCH ×2 (09:00→20:18)
[2016-03-17] MEDS: MULTIVITAMIN/MINERALS 1 TAB PO SCH (09:00)
--- NOTE | 2016-03-17 10:59 | NUR ---
CHECKED IN ON PT, PT CURRENTLY SLEEPING BUT AWAKENS TO TOUCH. CALL LIGHT WITHIN REACH. WILL CONTINUE TO MONITOR.
[2016-03-17 12:00] VITALS: BP 130/53
--- NOTE | 2016-03-17 12:17 | NUR ---
IVPB MEDICATIONS GIVEN. PT CURRENTLY AWAKE. CALL LIGHT WITHIN REACH. WILL CONTINUE WITH FREQUENT CHECKS
[2016-03-17] MEDS ORDERED: diphenhydrAMINE 50 MG/ML VIAL ONE (13:17)
[2016-03-17] MEDS ORDERED: MIDAZOLAM 2 MG/2 ML VIAL ONE (13:17)
[2016-03-17] MEDS ORDERED: fentaNYL 0.05 MG/ML VIAL ONE (13:17)
--- NOTE | 2016-03-17 13:25 | NUR ---
PT OUT FROM UNIT TO OR, PT IN STABLE CONDITION.
[2016-03-17] MEDS: THERAHONEY GEL 42.5 GM TP SCH (13:35)
--- NOTE | 2016-03-17 14:35 | NUR ---
PT ARRIVED TO UNIT FROM OR. VS: TEMP 97.5, BP 135/82, HR 64, PULSE OX 100% ON ROOM AIR. LLQ PEG TUBE IN PLACE WITH ABDOMINAL BINDER. PT CURRENTLY ASLEEP, WILL CONTINUE TO MONITOR.
--- NOTE | 2016-03-17 14:50 | NUR ---
VS:97.8 TEMP, 148/81, HR 66, PULSE OX 100% ON ROOM AIR, WILL CONTINUE TO MONITOR.
--- NOTE | 2016-03-17 15:05 | NUR ---
VS TEMP 97.6, BP 143/81, HR 65, PULSE OX 100% ON ROOM AIR. PT CURRENTLY AWAKE, FLACC-0, NO S/S OF DISTRESS OR DISCOMFORT NOTED. CALL LIGHT WITHIN REACH. WILL CONTINUE TO MONITOR.
--- NOTE | 2016-03-17 15:20 | NUR ---
VS TEMP 97.6, BP 129/85, HR 57, PULSE OX 100% ON ROOM AIR. PT CURRENTLY AWAKE. WILL CONTINUE WITH FREQUENT CHECKS
--- NOTE | 2016-03-17 15:40 | NUR ---
VS TEMP 97.3, BP 145/70, HR 68, PULSE OX 100% ON ROOM AIR.
[2016-03-17 16:10] VITALS: BP 121/66
--- NOTE | 2016-03-17 16:10 | NUR ---
VS TEMP 97.6, BP 121/66, HR 74, PULSE OX 100% ON ROOM AIR.
--- NOTE | 2016-03-17 16:35 | NUR ---
TUBE FEEDING STARTED. PT CURRENTLY AWAKE. ALL NEEDS MET. WILL CONTINUE TO MONITOR.
--- NOTE | 2016-03-17 17:19 | NUR ---
PER MD ORDERS TUBE FEEDING FREE WATER SET AT 150ML Q2HRS, PT TOLERATING TUBE FEEDING WELL , NO RESIDUAL. PT CURRENTLY AWAKE. CALL LIGHT WITHIN REACH.
[2016-03-17] MEDS ORDERED: POTASSIUM CHLORIDE 20% 40 MEQ/15 ML UDC GT SCH (17:45)
--- NOTE | 2016-03-17 19:05 | NUR ---
ENDORSED PLAN OF CARE TO NIGHT NURSE PT IN STABLE CONDITION.
--- NOTE | 2016-03-17 19:06 | NUR ---
RECEIVED PT IN STABLE CONDITION FROM SATHYA MCNALLY. NO SOB, NO SIGNS OF DISTRESS. PT IS AOX1, APHASIC, BEDBOUND WITH RT SIDED SEVERE WEAKNESS. FLACC 0. VS STABLE ON ROOM AIR. IV TO LT HAND 22G PATENT, ASYMPTOMATIC, INTACT, SALINE LOCKED. IV TO LT FA 22G PATENT, ASYMPTOMATIC, INTACT, SALINE LOCKED. PT WITH G-TUBE AND FEEDING. WOUND TO RT HEEL, HEEL PROTECTORS ON, SKIN OTHERWISE INTACT. PLAN OF CARE DISCUSSED WITH PT. SAFETY MEASURES IN PLACE. CALL LIGHT WITHIN REACH. WILL CONTINUE TO MONITOR.
[2016-03-17 20:00] VITALS: BP 134/64
--- NOTE | 2016-03-17 20:20 | NUR ---
BOTH IV SITES TO LT FA AND LT HAND FOUND PULLED OUT, PT WAS RUBBING HIS ARM AGAINST SIDE RAIL, CLEANED IV SITES, MINIMAL BLEEDING NOTED. STARTED NEW IV TO RT AC 22G PATENT, ASYMPTOMATIC, INTACT.
--- NOTE | 2016-03-17 20:22 | NUR ---
200 ML RESIDUAL IN G-TUBE NOTED. HELD FEELING. PT TOLERATED DUE MEDS WELL. GAVE INSULIN FOR BLOOD SUGAR OF 221 PER MD ORDER. NO SOB, NO SIGNS OF DISTRESS. IV SITE PATENT, ASYMPTOMATIC, INTACT, IVPB RUNNING. PLAN OF CARE DISCUSSED WITH PT. SAFETY MEASURES IN PLACE. CALL LIGHT WITHIN REACH. WILL CONTINUE TO MONITOR.
--- NOTE | 2016-03-17 22:00 | NUR ---
CHECKED G-TUBE RESIDUAL, 100. RESUMED G-TUBE FEEDING PER MD ORDER.
[2016-03-18] VITALS: BP 112/56
--- NOTE | 2016-03-18 00:02 | NUR ---
VS STABLE ON ROOM AIR. NO SOB, NO SIGNS OF DISTRESS. NO G-TUBE RESIDUAL NOTED, PT TOLERATING FEEDING WELL. IV SITE ASYMPTOMATIC, INTACT, PATENT, SALINE LOCKED. FLACC 0. PLAN OF CARE DISCUSSED WITH PT. SAFETY MEASURES IN PLACE. CALL LIGHT WITHIN REACH. WILL CONTINUE TO MONITOR.
[2016-03-18] MEDS: HYDRAGUARD CREAM TP SCH ×2 (01:09→13:04)
--- NOTE | 2016-03-18 02:23 | NUR ---
PT ASLEEP IN BED. NO SOB, NO SIGNS OF DISTRESS. IV SITE ASYMPTOMATIC, INTACT, SALINE LOCKED. SAFETY MEASURES IN PLACE. CALL LIGHT WITHIN REACH. WILL CONTINUE TO MONITOR.
[2016-03-18 04:00] VITALS: BP 123/69
--- NOTE | 2016-03-18 04:10 | NUR ---
VS STABLE ON ROOM AIR. NO SOB, NO SIGNS OF DISTRESS. FLACC 0. IV SITE ASYMPTOMATIC, INTACT, SALINE LOCKED. PLAN OF CARE DISCUSSED WITH PT. SAFETY MEASURES IN PLACE. CALL LIGHT WITHIN REACH. WILL CONTINUE TO MONITOR.
[2016-03-18] MEDS: PIPER/TAZO 2.25GM/D5W PREMIX 50 ML IV SCH ×2 (04:22→12:30)
[2016-03-18] MEDS: BLOOD GLUCOSE MONITORING 1 DEV DEV FS SCH ×2 (06:31→12:06)
[2016-03-18] MEDS: INSULIN ASPART SLIDING SCALE 100 UNITS/ML VIAL SUBQ PRN ×2 (06:32→14:49)
--- NOTE | 2016-03-18 07:16 | NUR ---
ENDORSED PT IN STABLE CONDITION TO SATHYA ARNETT. ALL NEEDS HAVE BEEN MET AT THIS TIME.
--- NOTE | 2016-03-18 07:17 | NUR ---
RECEIVED REPORT FROM NIGHT NURSE SATHYA GUERRIER. PATIENT APPEARED TO BE CALM AWAKE, AND RESTING WELL IN BED. PATIENT NON VERBAL APHASIC. AAOX1 TO SELF. NO SOB OR SIGN OF RESPIRATORY DISTRESS NOTED. INITIAL ASSESSMENT DONE. RIGHT SIDE WEAKNESS NOTED. VSS WITH NO FEVER NOTED. PATIENT HAS GTUBE TO LEFT UPPER QUADRANT INFUSING WELL WITH FEEDING FORMULA AT 40ML/HR WITH 150ML WATER FLUSHING. PATIENT ALSO HAS REDNESS TO SACRAL AND ACTIVE WOUND WITH DRY AND INTACT DRESSING TO RIGHT FOOT. PATIENT HAS HEEL PROTECTIVE BOOTS TO BLE. HEAD OF BED ELEVATED FOR BREATHING. SAFETY AND FALL RISK MEASURES IN PLACE. CALL LIGHT WITHIN REACH. WILL CONTINUE TO MONITOR. Addendum: 03/18/16 at 0801 by Sen Darnell RN PATIENT HAS IV 22G TO RIGHT AC INTACT AND FLUSHED WELL.
[2016-03-18 08:00] VITALS: BP 109/71
[2016-03-18] MEDS ORDERED: LACTULOSE 20 GM/30 ML UDC PO SCH (09:00)
[2016-03-18] MEDS: DOCUSATE SODIUM 100 MG GELCAP PO SCH (09:00)
[2016-03-18] MEDS: INSULIN DETEMIR 100 UNITS/ML 10 ML VIAL SUBQ SCH (09:47)
[2016-03-18] MEDS: MULTIVITAMIN/MINERALS 1 TAB PO SCH (09:47)
[2016-03-18] MEDS: ASPIRIN 81MG PO SCH (09:47)
--- NOTE | 2016-03-18 10:00 | NUR ---
G-TUBE SITE CHECK AND WNL, 5ML OF RESIDUAL NOTED. MEDICATIONS GIVEN THROUGH G-TUBE, PATIENT TOLERATED WELL. NO SIGN OF DISTRESS NOTED. GTUBE FEEDING INFUSING WELL. ALL NEEDS ARE MET. ALL COMFORT MEASURE GIVEN, TURNED PATIENT Q2HR. CALL LIGHT WITHIN REACH. WILL CONTINUE TO MONITOR.
--- NOTE | 2016-03-18 11:47 | NUR ---
03/18/2016 RD FOLLOW UP COMPLETED PLEASE REFER TO NUTRITION PROGRESS NOTE UNDER CARE ACTIVITY FOR ESTIMATED NUTRITION NEEDS. RD RECOMMENDATIONS: 1. D/C CURRENT TUBE FEEDING REGIMEN. 2. CONSIDER INCREASING TUBE FEEDING REGIMEN TO DIABETISOURCE AC AT 80 ML/HR X 24 HOURS. THIS PROVIDES 1920 ML TOTAL VOLUME, 2304 KCAL, 115 GM PROTEIN, 1570 ML TOTAL FREE WATER. INCREASE BY 10 ML/HR EVERY SHIFT UNTIL GOAL RATE OF 80 ML/HR IS REACHED. 3. RD WILL F/U 2-3 DAYS; HIGH RISK. HAROLDO RUSSELL, , RDN
[2016-03-18 12:00] VITALS: BP 104/66
--- NOTE | 2016-03-18 12:04 | NUR ---
PATIENT SLEEP WELL AND SOUNDLY IN BED. NO CHANGE IN CONDITION NOTED. NO SIGN OF DISTRESS. CALL LIGHT WITHIN REACH. WILL CONTINUE TO MONITOR.
[2016-03-18] MEDS: THERAHONEY GEL 42.5 GM TP SCH (13:04)
--- NOTE | 2016-03-18 14:00 | NUR ---
UNABLE TO COLLECT SPUTUM FOR CULTURE AT THIS TIME.
--- NOTE | 2016-03-18 15:15 | NUR ---
REPORT GIVEN TO NURSE CONNELLY RN OVER [facility] AND TOLD HER PATIENT WILL BE TRANSFERRED OVER AROUND 1600.
[2016-03-18 16:00] VITALS: BP 110/70
--- NOTE | 2016-03-18 16:00 | NUR ---
SPOKE TO PATIENT'S DAUGHTER RUBENS GAONA ON THE PHONE AND LET HER KNOW THAT PATIENT WILL BE TRANSFERRED BACK TO [facility] TODAY, ALSO UPDATED HER WITH LATEST PATIENT PLAN OF CARE, DAUGHTER VERBALIZED UNDERSTANDING.
--- NOTE | 2016-03-18 16:05 | NUR ---
ALL DISCHARGE PAPERS SIGNED. ALL DISCHARGE MEDICATION AND FOLLOW UP WITH PCP WITHIN 1 WEEK OF DISCHARGE INSTRUCTIONS GIVEN, PATIENT ABLE TO VERBALIZE UNDERSTANDING. AND IV'S ID BANDS AND TELE MONITOR REMOVED. PATIENT WILL BE TRANSFERRED TO [facility]IA [facility]. PATIENT LEFT THE HOSPITAL WITH G-TUBE IN PLACE FLUSHED AND PATENT. PHOTO TO RIGHT HEEL TAKEN AND PUT IN CHART. PATIENT HAS NO SIGN OF SOB OR RESPIRATORY DISTRESS. ALL BELONGINGS WITH PATIENT.
[2016-03-19] MEDS ORDERED: LEVOFLOXACIN 500 MG TAB GT SCH (09:00)
[2016-03-27] MEDS ORDERED: SIMVASTATIN40 M1 PO (09:35)
[2016-03-27] MEDS ORDERED: CORDARONE200 M1 PO ×2 (09:35)
[2016-03-27] MEDS ORDERED: IPRATROPIUM BROM3 M1 IH ×2 (09:35)
[2016-03-27] MEDS ORDERED: LOPRESSOR25 MG PO (09:35)
[2016-03-27] MEDS ORDERED: ISORDIL10 M1 PO (09:35)
[2016-03-27] MEDS ORDERED: HEPARIN SOD5000 U/M1 SUBQ (09:35)
[2016-03-27] MEDS ORDERED: NOVOLOG100 UNIT/1 SUBQ (09:35)
[2016-03-27] MEDS ORDERED: CLEOCIN HCL300 MG PEG (09:36)
== END 2016-03-18 16:05 | DRG 871 ==
LOC: MED 09:25 → MTU 11:25
PROVIDERS: ADMIT Internal Medicine Pulmonary Disease; ATTEND Internal Medicine Pulmonary Disease
PROC: 0DH68UZ Insertion of Feeding Device into Stomach, Via Natural or Artificial Opening Endoscopic (ICD-10-PCS; principal; 2016-03-17 16:50)
DX: A41.9 Sepsis, unspecified organism (principal); J69.0 Pneumonitis due to inhalation of food and vomit; G93.41 Metabolic encephalopathy; R53.2 Functional quadriplegia; N17.9 Acute kidney failure, unspecified; E87.0 Hyperosmolality and hypernatremia; I69.351 Hemiplegia and hemiparesis following cerebral infarction affecting right dominant side; E86.0 Dehydration; L89.612 Pressure ulcer of right heel, stage 2; F01.50 Vascular dementia, unspecified severity, without behavioral disturbance, psychotic disturbance, mood disturbance, and anxiety; I12.9 Hypertensive chronic kidney disease with stage 1 through stage 4 chronic kidney disease, or unspecified chronic kidney disease; R13.10 Dysphagia, unspecified; I69.311 Memory deficit following cerebral infarction; E11.22 Type 2 diabetes mellitus with diabetic chronic kidney disease; E11.65 Type 2 diabetes mellitus with hyperglycemia; E11.51 Type 2 diabetes mellitus with diabetic peripheral angiopathy without gangrene; N18.9 Chronic kidney disease, unspecified; R62.7 Adult failure to thrive; Z87.891 Personal history of nicotine dependence; Z74.01 Bed confinement status

== ENCOUNTER 2016-04-23 21:54 | Inpatient (IN) | payer OTHER ==
[~2016-04-23] VITALS: Ht 170.2 cm; Wt 71.7 kg
--- NOTE | 2016-04-23 00:23 | NUR ---
2200 PT BROUGHT IN BY PARAMEDICS AND WAS INTUBATED WITH 7.5 TUBE AT LIPLINE 23. SXNED PT AND SENT SPUTUM SAMPLE TO LAB. PLACED PT ON VENT WITH SETTINGS OF AC 12 VT 550 PEEP 5 AND 50% FIO2.
--- NOTE | 2016-04-23 00:26 | NUR ---
234 PT TAKEN TO CAT SCAN BEING BAGGED WITH 100% FIO2 CAT SCAN DONE AND PT TAKEN BACK AND PLACED BACK ON VENT WITH NO INCIDENT. SAME SETTINGS
[2016-04-23 21:54] VITALS: BP 117/64
[~2016-04-23 21:54] MED LIST changes: +CLEOCIN HCL300 MG PEG; +CORDARONE200 M1 PO; +HEPARIN SOD5000 U/M1 SUBQ; +IPRATROPIUM BROM3 M1 IH; +ISORDIL10 M1 PO; +LOPRESSOR25 MG PO; +NOVOLOG100 UNIT/1 SUBQ; +SIMVASTATIN40 M1 PO
--- NOTE | 2016-04-23 21:54 | NUR ---
Note undone in EDM - 04/24/16 at 0455 by ALEKS 75 Y/O BIBA in RESP DISTRESS. upon arrival in ER, IO established. Dr Kwon at bedside and crashcart opened and appropriate meds given. RT at bedside, pt entubated with 7.5 ET tube and placement verified with xray. Labs drawn. no family at bedside. unable to obtain history at this time.
--- NOTE | 2016-04-23 21:54 | NUR ---
75 Y/O BIBA in RESP DISTRESS. upon arrival in ER, IO established. Dr Kwon at bedside and crashcart opened and appropriate meds given. Labs drawn. no family at bedside. unable to obtain history at this time.
--- NOTE | 2016-04-23 21:55 | NUR ---
Patient being evaluated by physician at bedside.
--- NOTE | 2016-04-23 21:55 | NUR ---
BIBA TO ER BED 5
[2016-04-23] MEDS ORDERED: NACL 0.9% 1,000 ML IV ONE ×2 (22:11→23:35)
--- NOTE | 2016-04-23 22:13 | NUR ---
RT at bedside, pt entubated with 7.5 ET tube, AWATING FOR X-RAY TO VERIFY PLACEMENT.
[2016-04-23] MEDS ORDERED: PROPOFOL 1000 MG/100 ML PREMIX 100 ML IV ONE (22:15)
[2016-04-23] MEDS ORDERED: SUCCINYLCHOLINE CHLORIDE 200 MG/10 ML VIAL IVP ONE (22:15)
[2016-04-23] MEDS ORDERED: PIPERACILLIN/TAZOBACTAM 3.375 GM in DEXTROSE 5% 50 ML IV ONE (22:15)
[2016-04-23] MEDS ORDERED: LEVOFLOXACIN 750 MG/D5W PREMIX 150 ML IV ONE (22:15)
[2016-04-23] MEDS ORDERED: ETOMIDATE 20 MG/10 ML VIAL IVP ONE (22:15)
[2016-04-23] MEDS ORDERED: fentaNYL 0.05 MG/ML VIAL IVP ONE (22:15)
--- NOTE | 2016-04-23 22:18 | NUR ---
ETT PLACEMENT VERIFIED BY X-RAY.
[2016-04-23] MEDS ORDERED: PIPERACILLIN/TAZOBACTAM 3.375 GM VIAL IV ONE (22:21)
--- NOTE | 2016-04-23 22:50 | NUR ---
Salvatore swanson in ED - 04/24/16 at 0515 by ALEKS PT TAKEN TO CT SCAN. ACCOMPANIED BY RT, AND RN.
[2016-04-23] MEDS ORDERED: SODIUM POLYSTYRENE 15 GM/60 ML UDBTL PO ONE (23:35)
--- NOTE | 2016-04-23 23:50 | NUR ---
PT TAKEN TO CT SCAN. ACCOMPANIED BY RT, AND RN.
[2016-04-24] VITALS (84 sets, daily range): BP systolic 68–149; BP diastolic 39–73
--- NOTE | 2016-04-24 00:20 | NUR ---
PT BACK FROM CT SCAN.
[2016-04-24] MEDS ORDERED: NACL 0.9% 1,500 ML IV ONE (00:30)
--- NOTE | 2016-04-24 00:40 | NUR ---
CALLED UP HER DAUGHTER NAMED MENA WEI ([phone]) REGARDING INSERTION OF CENTRAL LINE,TO OBTAIN CONSENT AND I WASNT ABLE TO TALK TO HER AND I JUST LEAVE MESSAGES.
[2016-04-24] MEDS ORDERED: VANCOMYCIN PER PHARMACY MC PRN ×2 (00:50→20:45)
[2016-04-24] MEDS: NACL 0.9% 1,000 ML IV SCH ×3 (00:50→14:10)
--- NOTE | 2016-04-24 00:58 | NUR ---
REPORT GIVEN TO LEOPOLDO SATHYA.
[2016-04-24] MEDS ORDERED: MORPHINE SULFATE 2 MG/ML SYR IVP PRN ×2 (01:00→08:02)
[2016-04-24] MEDS ORDERED: LORazepam 2 MG/ML VIAL IVP PRN ×2 (01:00→08:03)
[2016-04-24] MEDS ORDERED: ACETAMINOPHEN 325 MG TAB PO PRN (01:00)
[2016-04-24] MEDS ORDERED: ONDANSETRON 4 MG/2 ML VIAL IVP PRN ×2 (01:00→08:03)
[2016-04-24] MEDS ORDERED: DEXTROSE 50% 50 ML SYR IVP PRN (01:00)
[2016-04-24] MEDS ORDERED: LORazepam 2 MG/ML VIAL IVP ONE (01:15)
[2016-04-24] MEDS ORDERED: ZOFRAN4 M1 GT (01:40)
[2016-04-24] MEDS ORDERED: LANTUS SOLOS100 U/ML SUBQ (01:40)
--- NOTE | 2016-04-24 01:58 | NUR ---
CENTRAL LINE PLACE IN BY ER MD DR TODD, R SIDE OF NECK. AWATING FOR X-RAY TO CHECK FOR PLACEMENT.
--- NOTE | 2016-04-24 01:59 | NUR ---
EJ DISCONTINUE BY DR TODD.
[2016-04-24] MEDS ORDERED: VANCOMYCIN 1GM/DEXT 5% PREMIX 200 ML IV SCH (02:00)
--- NOTE | 2016-04-24 02:09 | NUR ---
ER MD AWARED OF PT'S VS. AWATING FOR CENTRAL LINE PLACEMENT VERIFICATION TO CONTINUE RUNING FLUIDS.
--- NOTE | 2016-04-24 02:16 | NUR ---
PER ER PT CENTRAL LINE OK TO USE.
--- NOTE | 2016-04-24 02:45 | NUR ---
Patient will be admitted to care of DR SPAIN . Admited to ICU. Will go to room 3. Belongings list completed. Report to LEOPOLDO MCDONNELL, BY SATHYA BURCHCONDOMINIUM PROPERTY MANAGER NURSE.
--- NOTE | 2016-04-24 02:55 | NUR ---
ADMITTED THIS 75 YEAR OLD MALE PATIENT FROM ER PER GURNEY DUE S/P RESP. ARREST FROM [facility] WITH THE ADMITTING DIAGNOSIS OF SEPSIS, RESP. FAILURE AND ASPIRATION. ADMISSION PROTOCOL/ASSESSMENT. ADMITTED IN ICU BED 3. PATIENT IS SEDATED; ORALLY INTUBATED AND VENTILATED AT 50% FIO2, SO2 98%. CARDIAC SCOPE SHOWS ON SINUS TACHY HR 122/MIN NO ARRYTHMIAS SEEN. WITH CENTRAL ON RIGHT INTERNAL JUGULAR; PATENT AND INTACT. STARTED ON IVF NORMAL SALINE AT 150 ML/HR. ABDOMEN IS SOFT, NON TENDER, GT IN PLACE; CLAMPED. WITH THOMAS CATH IN PLACE DRAINING TO CLOUDY YELLOW WITH SEDIMENT URINE OUTPUT. WITH GENERALIZED WEAKNESS OF THE EXTREMITIES.
--- NOTE | 2016-04-24 03:15 | NUR ---
0305 TRANSPORTED PT TO ICU BED 3 BEING BAGGED WITH 100% FIO2. PLACED PT BACK ON VENT WITH SAME SETTING.
--- NOTE | 2016-04-24 03:15 | NUR ---
MRSA NARES SCREENING; SPECIMEN SENT TO LAB.
[2016-04-24] MEDS ORDERED: VANCOMYCIN 1,000 MG VIAL ONE (03:37)
[2016-04-24] MEDS ORDERED: PIPERACILLIN/TAZOBACTAM 2.25 GM VIAL IV ONE (03:38)
[2016-04-24] MEDS ORDERED: SODIUM POLYSTYRENE 15 GM/60 ML UDBTL ONE (03:39)
--- NOTE | 2016-04-24 04:00 | NUR ---
SPOKE TO PATIENT'S DAUGHTER RADHAMES; UPDATED ON PATIENT'S MEDICAL CONDITION.
--- NOTE | 2016-04-24 05:20 | NUR ---
PAGED DR. SPAIN; REPORTED ABNORMAL OR CRITICAL LAB RESULTS AND UPDATED HIM ON PATIENT'S MEDICAL CONDITION; WITH NEW ORDERS, CARRIED OUT.
[2016-04-24] MEDS ORDERED: NOREPINEPHRINE 4 MG/4 ML VIAL IV ONE (05:30)
--- NOTE | 2016-04-24 05:40 | NUR ---
BP LOW 74/46; STARTED ON LEVOPHED DRIP AT 5 MCG/MIN THEN TITRATED ACCORDINGLY.
[2016-04-24] MEDS: NOREPINEPHRINE 8 MG in DEXTROSE 5% 250 ML IV PRN ×2 (05:42→16:36)
[2016-04-24] MEDS ORDERED: SODIUM BICARBONATE 8.4% PFS 50 MEQ/50 ML SYR IVP ONE (05:53)
[2016-04-24] MEDS ORDERED: PIPERACILLIN/TAZOBACTAM 2.25 GM in DEXTROSE 5% 50 ML IV SCH (06:00)
[2016-04-24] MEDS ORDERED: NACL 0.9% 1,000 ML IV SCH (06:00)
[2016-04-24] MEDS ORDERED: SODIUM BICARBONATE 8.4% PFS 50 MEQ/50 ML SYR IVP SCH (06:00)
--- NOTE | 2016-04-24 06:00 | NUR ---
VISITED BY PATIENT'S SON.
[2016-04-24] MEDS: ALBUTEROL 0.083% 2.5 MG/3 ML NEBU INH SCH ×5 (06:36→23:00)
--- NOTE | 2016-04-24 06:37 | NUR ---
RECEIVED PT ON CARESCAPE ON A/C 16 VT 550 PEEP 5 FIO2 50 ALARMS ARE ON AND FUNCTIONAL BMV HOB PTS ET TUBE SIZE 7.5 IS SECURE [address] FAST IN PLACE BS DIMINISHED I\L LAVAGE AND SX SCANT YELLOW PT IN HF QUIET VENT PLUGGED INTO RED OUTLET HHN GIVEN I\L WITH 2.5 MG ALBUTEROL
--- NOTE | 2016-04-24 06:45 | NUR ---
HAD BM TO A LARGE AMOUNT OF LOOSE WATERY DARK BROWN TO BLACKISH STOOL; KEPT CLEAN DRY AND COMFORTABLE.
--- NOTE | 2016-04-24 07:43 | NUR ---
ENDORSED TO AM SHIFT RN GARY HERMOSILLO FOR CONTINUITY OF CARE.
--- NOTE | 2016-04-24 07:45 | NUR ---
RECEIVED PT FROM FRONT TENDER RN. PT IS UNRESPONSIVE TO NAME STIMULI. FULL CODE.BEDSIDE MONITOR SHOWS ST. ORALLY INTUBATED AND VENTING SETTING FIO2 50%,AC 16, TV 550, PEEP 5. NO S/S OF RESPIRATORY DISTRESS NOTED. LUNG SOUND DIMINISHED UPON AUSCULTATION. G-TUBE IN PLACE,CLAMPED. ABDOMEN SOFT WITH ACTIVE BOWEL SOUND. THOMAS CATH IN PLACE WITH SMALL AMOUNT OF CLOUDY YELLOW URINE. PT HAS RIGHT I.J WITH LEVOPHED DRIP AND IVF 0.9 %NS AT THIS TIME. SITE INTACT AND PATENT.SKIN NON INTACT( SEE WOUND ASSESSMENT). PT DOES NOT MOVE ALL HIS EXTREMITIES AT THIS TIME. SCDS IN PLACE, HOB ELEVATED 30 DEGREES WITH LOW BED POSITION. WILL CONTINUE TO CLOSELY MONITOR PT.
[2016-04-24] MEDS: BLOOD GLUCOSE MONITORING 1 DEV DEV FS SCH ×4 (07:54→20:18)
--- NOTE | 2016-04-24 08:30 | NUR ---
PT'S SON AT BEDSIDE, QUESTIONS ANSWERED.
[2016-04-24] MEDS: FAMOTIDINE 20 MG/2 ML VIAL IVP SCH (08:42)
--- NOTE | 2016-04-24 08:42 | NUR ---
VENT CHECK BS CLEAR AIRWAY IS PATENT SON BEDSIDE
[2016-04-24] MEDS: ENOXAPARIN 30 MG/0.3 ML SYR SUBQ SCH (08:43)
--- NOTE | 2016-04-24 09:06 | NUR ---
PATIENT HAS BEEN SCREENED AND CATEGORIZED HIGH NUTRITION RISK. PATIENT WILL BE SEEN WITHIN 1-2 DAYS OF ADMISSION. 04/24/16-04/25/[address]
--- NOTE | 2016-04-24 10:00 | NUR ---
CALLED DR. HADDAD. REMINDED HIM TO DO MED RECON. ON ADM. NOTIFIED ALSO OF THE CT ABDOMEN RESULTS. GAVE ORDERS.
--- NOTE | 2016-04-24 10:10 | NUR ---
PT HAD A LARGE AMOUNT OF LOOSE WATERY BLACK BROWNISH STOOL, CLEANED PT. TURNED AND REPOSITIONED PT WITH CHARGE NURSE. SUCTIONED PT WITH SMALL AMOUNT OF COFFEE GROUND SECRETION. ORAL CARE GIVEN. WILL CONTINUE TO MONITOR.
--- NOTE | 2016-04-24 10:38 | NUR ---
VENT CHECK BS DIMINISHED I\L LAVAGE AND SX SM YELLOW HHN GIVEN I\L WITH 2.5MG ALBUTEROL
--- NOTE | 2016-04-24 10:59 | NUR ---
INCREASE FLOW TO 55
--- NOTE | 2016-04-24 11:30 | NUR ---
WOUND CARE EVALUATION NOTES: REASON FOR EVALUATION: OPEN WOUND SACRAL COMPLETE SKIN ASSESSMENT DONE ON THIS 75 Y/O MALE PATIENT FROM [facility] TO [facility] [address], WITH INITIAL DIAGNOSIS OF SEPSIS, ASPIRATION AND RESPIRATORY FAILURE. PAST MEDICAL HISTORY INCLUDE CVA WITH RIGHT SIDED WEAKNESS, DEMENTIA, DIABETES, HYPERTENSION AND SEIZURES. ALL ABOVE INFORMATION WAS OBTAINED FROM THE ADMISSION H&P. LABS ARE WBC 16.6, H/H 8.0/25.4, GLUCOSE 128, ALBUMIN 1.5 AND PT/INR 10.9/1.2. CURRENT MEDS INCLUDE ZOSYN, ENOXAPARIN, ATIVAN, MORPHINE, INSULIN AND VANCOMYCIN. PATIENT IS LETHARGIC AT THIS TIME, ABLE TO RESPOND TO PAINFUL STIMULI. ORALLY INTUBATED TO VENT. FC 14FR PATENT AND INTACT TO MODERATE AMOUNT YELLOW URINE. LUQ G TUBE ATTACHED TO DRAINAGE BAG. NOTED TO HAVE LOOSE GREENISH STOOLS IN MODERATE AMOUNT. NEEDS MAX ASSISTANCE IN TURNING. INITIAL PLAN OF CARE AND PRESSURE PREVENTIVE MEASURES DISCUSSED WITH PATIENT'S SON ABLE TO VERBALIZE UNDERSTANDING. INTEGUMENTARY: SACRALCOCCYX - UTD RIGHT HEEL - RESURFACING ST III RECOMMENDATIONS: -CLEANSE SACRALCOCCYX WITH WOUND CLEANSER, PAT DRY, APPLY THERAHONEY GEL, COVER WITH ADAPTIC AND DRY DRESSING DAILY AND PRN WITH SOILING/DISPLACEMENT -CLEANSE PERIAREA TO SCROTAL AREA WITH MILD SOAP AND WATER, PAT DRY, APPLY Z GUARD BIDWC AND PRN WITH SOILING. LEAVE OPEN TO AIR -PAINT RIGHT HEEL WITH SKIN PREP WIPES BIDWC AND LEAVE OPEN TO AIR -TURN AND REPOSITION PATIENT Q 2H TO LEFT AND RIGHT SIDE ONLY TO OFFLOAD SACRALCOCCYX -ASSESS AND MONITOR SKIN CONDITION DURING POSITION CHANGE, PLEASE PAY PARTICULAR ATTENTION TO SACRALCOCCYX, ELBOWS AND HEELS -OFFLOAD BILATERAL HEELS BY PLACING PILLOWS UNDER CALVES AT ALL TIMES, UNLESS OTHERWISE CONTRAINDICATED -KEEP SKIN CLEAN AND DRY AT ALL TIMES. RECOMMENDATIONS DISCUSSED WITH PRIMARY RN. WILL FOLLOW UP PATIENT Q 7 DAYS AND PRN. PLEASE CONTACT [facility] FOR ANY CONCERNS, QUESTIONS AND CHANGES IN SKIN CONDITION.
--- NOTE | 2016-04-24 11:55 | NUR ---
( NEPHRO) CALLED IN, UPDATED PT'S CONDITION. DR. LAWRENCE AWARE PT'S VITALS SIGNS, LAB REPORT , VENT SETTING,I&O, AND IV FLUIDS, MEDS. NO NEW ORDER RECEIVED YET.
[2016-04-24] MEDS ORDERED: METOCLOPRAMIDE 10 MG/2 ML INJ VIAL IVP SCH ×2 (12:00→12:31)
[2016-04-24] MEDS: PIPER/TAZO 2.25GM/D5W PREMIX 50 ML IV SCH ×2 (12:26→17:38)
--- NOTE | 2016-04-24 12:33 | NUR ---
VENT CHECK BS CL\DIM AIRWAY IS PATENT
[2016-04-24] MEDS: INSULIN LISPRO SLIDING SCALE 100 UNITS/ML VIAL SUBQ PRN ×3 (12:39→20:06)
[2016-04-24] MEDS: metroNIDAZOLE 250 MG TAB PO SCH ×3 (12:44→20:39)
[2016-04-24] MEDS: Z-GUARD PASTE TP SCH (13:00)
[2016-04-24] MEDS ORDERED: THERAHONEY GEL 42.5 GM TP PRN (13:00)
[2016-04-24] MEDS ORDERED: Z-GUARD PASTE TP PRN (13:00)
[2016-04-24] MEDS: THERAHONEY GEL 42.5 GM TP SCH (13:00)
--- NOTE | 2016-04-24 13:53 | NUR ---
DR. DILLON AND DR. LAWRENCE IN TO SEE PT. DR. LAWRENCE CALLED PT'S DAUGHTER CANDELARIA ART ) TO NOTIFY HER PT'S CONDITION.
--- NOTE | 2016-04-24 15:06 | NUR ---
abg drawn on rb without incident and at 1516 given the abg results with no changes made to vent
--- NOTE | 2016-04-24 15:09 | NUR ---
VENT CHECK BS RHONCI I\L LAVAGE AND SX LG BROWN I\LHHN GIVEN WITH 2.5 MG ALBUTEROL
--- NOTE | 2016-04-24 15:47 | NUR ---
04/24/16 RD INITIAL ASSESSMENT COMPLETED PLEASE REFER TO NUTRITION ASSESSMENT UNDER CARE ACTIVITY FOR ESTIMATED NUTRITIONAL NEEDS. RD RECOMMENDATIONS: 1. CONITNUE NPO MEDICALLY NECESSARY PER MD 2. WHEN MEDICALLY APPROPRIATE CONSIDER BEGIN NUTRITION SUPPORT DIABETISOURCE AT 10 ML/HR AND GRADUALLY INCREASE TOLERATED 10 ML Q6H TO GOAL OF 70 ML/HR. --GOAL OF 70 ML/HR, WILL PROVIDE 1680 ML TOTAL VOLUME, 2016 KCAL, 101 GM PROTEIN, 1374 ML TOTAL FREE WATER. THIS WILL MEET 97% OF PT ESTIMATED KCAL AND PROTEIN NEEDS 3. SHOULD PT NEED TPN FOR NUTRITION SUPPORT PLEASE CONSULT RD PRN 4. RD WILL F/U 2-3 DAYS; HIGH RISK. ANDREW ROSARIO RD
--- NOTE | 2016-04-24 16:10 | NUR ---
PT TRANSFERRED TO ICU 1 WITHOUT INCIDENT PT WEARING SOFT MITTEN LEFT HAND
--- NOTE | 2016-04-24 16:30 | NUR ---
TRANSFERRED PT FROM ICU BED 3 TO BED1 FOR CONTACT ISOLATION. PT OPENS EYES OCCASIONALLY BUT DOES NOT FOLLOW COMMANDS. NO S/S OF RESPIRATORY DISTRESS NOTED.TURNED AND REPOSITIONED PT, CLEANED PT, SACRAL AREA DRESSING CHANGED. WILL CONTINUE TO MONITOR.
--- NOTE | 2016-04-24 16:42 | NUR ---
VENT CHECK BS DIMINISHED AIRWAY IS PATENT Addendum: 04/24/16 at 1747 by Melly Hardin RT DECREASE FIO2 TO 40
[2016-04-24] MEDS: METOCLOPRAMIDE 10 MG/2 ML INJ VIAL IVP SCH (17:39)
--- NOTE | 2016-04-24 19:05 | NUR ---
BEDSIDE REPORT GIVEN TO FRANKLIN MCDONNELL. NO RESPIRATORY DISTRESS NOTED. NO FEVER.
--- NOTE | 2016-04-24 19:05 | NUR ---
RECEIVED REPORT FROM SATHYA VEGA AT BEDSIDE. PT IS NON-VERBAL, OPEN EYES SOMETIMES, UNABLE TO FOLLOW COMMAND. ETT TO VENT WITH FIO2 40%,AC 16, TV 550, PEEP 5. NO S/S OF RESPIRATORY DISTRESS NOTED, DIMINISHED LUNG SOUNDS UPON AUSCULTATION. ST ON CONSTRUCTION REP. G-TUBE IN PLACE, CLAMPED, RESIDUALS 0ML AT THIS TIME. ABDOMEN SOFT WITH ACTIVE BOWEL SOUND. THOMAS CATH IN PLACE WITH CLOUDY YELLOW URINE. RECTAL BAG IN PLACE WITH YELLOWISH WATERARY STOOL NOTED. PT IS ON CONTACT ISOLATION FOR C-DIFF AT THIS TIME. CENTRAL LINE ON RIGHT I.J, TLC, PATENT, C/D/I, RUNNING WITH LEVOPHED DRIP AT 17MCG/MIN AND IVF 0.9 %NS AT 150ML/HR. SKIN IS NON INTACT( SEE WOUND ASSESSMENT). UNABLE TO MOVE ALL HIS EXTREMITIES. SCDS ON BLE. ASPIRATION PRECAUTION AND FALL PRECAUTION IN PLACE. WILL CONTINUE TO MONITOR.
--- NOTE | 2016-04-24 19:25 | NUR ---
PT RECEIVED FROM [facility] ON NOTED VENT SETTINGS. PT QUIET, HAS A #7.5 ETT SECURED AT 23 LIP LINE WITH AN ANCHOR FAST. BREATH SOUNDS APPEAR CLEAR/DIMINISHED. HHN TX GIVEN VIA INLINE. PT LAVAGED AND SUCTIONED MODERATE AMOUNT OF THICK PALE YELLOW SECRETIONS. NO ADVERSE EFFECTS NOTED. VENT ALARMS ON AND AUDIBLE. VENT PLUGGED INTO RED ELECTRICAL OUTLET. AMBU BAG ON FRONT ON VENT.
--- NOTE | 2016-04-24 20:00 | NUR ---
ELEVATED TEMP NOTED, EDUCATED AND MEDICATED. POSITION CHANGED FOR OFF LOAD PRESSURE, ORAL CARE PROVIDED.
--- NOTE | 2016-04-24 20:40 | NUR ---
DR. BELLO CAME TO EVALUATE PATIENT AT BEDSIDE, NEW ORDER OBTAINED AND CARRIED OUT.
--- NOTE | 2016-04-24 21:00 | NUR ---
PT'S TEMP REDUCED TO 100.1 AT THIS TIME, COOLING MEASURE IN USE. SCHEDULED MEDICATION GIVEN ORDERED, PT TOLERATED WELL.
--- NOTE | 2016-04-24 21:22 | NUR ---
VENT CHECKED. ETT MOVED TO MIDDLE OF MOUTH. GOOD BILATERAL DIMINISHED/CLEAR BREATH SOUNDS AUSCULTATED. PT LAVAGED AND SUCTIONED SMALL AMOUNT OF THICK PALE YELLOW SECRETIONS. NO ADVERSE EFFECTS NOTED.
--- NOTE | 2016-04-24 22:00 | NUR ---
NO CHANGE OF CONDITION AT THIS TIME. POSITION CHANGED FOR OFF LOAD PRESSURE.
--- NOTE | 2016-04-24 23:11 | NUR ---
VENT CHECKED. PT ASLEEP, BREATH SOUNDS DIMINISHED BILATERALLY. HHN TX GIVEN VIA INLINE. NO SUCTIONING DONE AT THIS TIME. NO ADVERSE EFFECTS NOTED.
[2016-04-25] VITALS (94 sets, daily range): BP systolic 97–135; BP diastolic 49–83
--- NOTE | 2016-04-25 | NUR ---
PT'S TEMP STILL ELEVATED TO 100.0F, COOLING MEASURE INPLACE, ORAL CARE PROVIDED, POSITION CHANGED FOR OFF LOAD PRESSURE.
[2016-04-25] MEDS: PIPER/TAZO 2.25GM/D5W PREMIX 50 ML IV SCH ×5 (00:24→23:44)
[2016-04-25] MEDS: METOCLOPRAMIDE 10 MG/2 ML INJ VIAL IVP SCH ×5 (00:24→23:44)
[2016-04-25] MEDS: NACL 0.9% 1,000 ML IV SCH ×4 (00:26→19:40)
[2016-04-25] MEDS: Z-GUARD PASTE TP SCH ×2 (00:26→13:00)
[2016-04-25] MEDS: NOREPINEPHRINE 8 MG in DEXTROSE 5% 250 ML IV PRN ×2 (00:49→18:37)
--- NOTE | 2016-04-25 01:11 | NUR ---
VENT CHECKED. PT ASLEEP, BREATH SOUNDS DIMINISHED/CLEAR. NO SUCTIONING DONE AT THIS TIME.
--- NOTE | 2016-04-25 02:00 | NUR ---
NO CHANGE OF CONDITION AT THIS TIME, POSITION CHANGED FOR OFF LOAD PRESSURE
[2016-04-25] MEDS: ALBUTEROL 0.083% 2.5 MG/3 ML NEBU INH SCH ×6 (03:17→23:45)
--- NOTE | 2016-04-25 03:20 | NUR ---
VENT CHECKED. PT ASLEEP, BREATH SOUNDS DIMINISHED/CLEAR. HHN TX GIVEN INLINE. PT LAVAGED AND SUCTIONED SMALL AMOUNT THICK PALE YELLOW SECRETIONS. ETT REPOSITIONED TO RIGHT SIDE OF MOUTH. NO ADVERSE EFFECTS NOTED.
--- NOTE | 2016-04-25 04:00 | NUR ---
AM CARE PROVIDED, ORAL CARE PROVIDED, POSITION CHANGED FOR OFFLOAD PRESSURE, DRESSING ON SACRAL AREA CHANGED. PT TOLERATED WELL, VSS.
--- NOTE | 2016-04-25 05:15 | NUR ---
VENT CHECKED. PT AWAKE, HME CHANGED. PT LAVAGED AND SUCTIONED SCANT AMOUNT THICK PALE YELLOW SECRETIONS. NO ADVERSE EFFECTS NOTED.
--- NOTE | 2016-04-25 06:00 | NUR ---
POSITION CHANGED FOR OFFLOAD PRESSURE, NO CHANGE OF CONDITION AT THIS TIME, VSS.
--- NOTE | 2016-04-25 06:33 | NUR ---
REC'D PT ON CARESCAPE VENT SETTINGS AC16 VT 550 PEEP 5 FIO2 40% ALARMS ON AND FUNCTIONING PROPERLY, AMBU BAG AT SIDE OF VENTILATOR AND VENTILATOR IS PLUGGED INTO RED OUTLET, I\L TX GIVEN WITH ALBUTEROL 2.5MG WITH NO ADVERSE REACTION POST TX, B\S ARE CLEAR BILATERALLY, PT IS ORALLY INTUBATED WITH 7.5 ET TUBE SECURED WITH ANCHOR FAST AT 23 CM AT MIDLINE OF MOUTH AND SKIN INTEGRITY IS INTACT PT IS SLEEPING WITH NO SIGNS OF DISTRESS NOTED AT THIS TIME
[2016-04-25] MEDS: BLOOD GLUCOSE MONITORING 1 DEV DEV FS SCH ×4 (06:40→20:21)
[2016-04-25] MEDS: INSULIN LISPRO SLIDING SCALE 100 UNITS/ML VIAL SUBQ PRN ×3 (06:45→20:22)
--- NOTE | 2016-04-25 07:20 | NUR ---
REPORT GIVEN TO SATHYA LOVE FOR CONTINUE OF CARE.
--- NOTE | 2016-04-25 07:25 | NUR ---
RECEIVED REPORT FROM FRANKLIN MCDONNELL, PT, IS INTUBATER ORAL ET TUBE TO VENT AC 16 VT 550 FIO2 40% . he open his eye DOES NOT FOLLOW COMMAND IV FLUID HAS TLC ON RT IJ, Addendum: 04/25/16 at 1525 by Elizabeth Whyte RN THIS NOTE IS NOT FOR THIS PATIENT
[2016-04-25] MEDS ORDERED: PROBIOTIC SCREEN 1 EA MISC MC PRN (07:55)
[2016-04-25] MEDS: ENOXAPARIN 30 MG/0.3 ML SYR SUBQ SCH (08:28)
[2016-04-25] MEDS: FAMOTIDINE 20 MG/2 ML VIAL IVP SCH (08:29)
[2016-04-25] MEDS: metroNIDAZOLE 250 MG TAB PO SCH ×4 (08:30→20:25)
[2016-04-25] MEDS: AMIODARONE 200 MG TAB PO SCH (08:30)
[2016-04-25] MEDS: LACTOBACILLUS RHAMNOSUS GG 1 EACH CAP PO SCH (08:31)
[2016-04-25] MEDS: ACETAMINOPHEN 325 MG TAB PO PRN ×2 (08:35→20:25)
--- NOTE | 2016-04-25 08:45 | NUR ---
VENT CHECK, NO SXN REQUIRED AIRWAY IS PATENT FAMILY AT BEDSIDE
[2016-04-25] MEDS ORDERED: KCL 20 MEQ/WATER INJ PREMIX 100 ML IV SCH (09:00)
[2016-04-25] MEDS ORDERED: AMIODARONE 200 MG TAB PO SCH (09:00)
[2016-04-25] MEDS: VANCOMYCIN 1,250 MG in NACL 0.9% 250 ML IV SCH (09:54)
--- NOTE | 2016-04-25 10:28 | NUR ---
VENT CHECK, I\L TX GIVEN WITH ALBUTEROL 2.MG WITH NO ADVERSE REACTION POST TX B\S ARE CLEAR BILATERALLY, SXN PT SMALL AMT OF CLEAR SECRETIONS, DAUGHTER AT BEDSIDE Addendum: 04/25/16 at 1041 by Vicki Zavala RT YELLOW SECRETIONS
--- NOTE | 2016-04-25 11:08 | NUR ---
FNS REFERRAL RECEIVED FOR CALORIE COUNT X3 DAYS. CONSULT INAPPROPRIATE AT THIS TIME D/T PATIENT IS ORALLY INTUBATED AND NPO. RD SPOKE WITH CLOTH BALER REGARDING FNS CONSULT. RD IS FOLLOWING PATIENT AND PATIENT IS HIGH NUTRITION RISK PLEASE CONSULT RD INITIAL ASSESSMENT DATED 04/24/16 FOR NUTRITIONAL NEEDS AND RECOMMENDATIONS. ANDREW ROSARIO RD
--- NOTE | 2016-04-25 11:52 | NUR ---
SS NOTE: I SPOKE WITH PT'S DTRCANDELARIA REGARDING PT'S POA PAPERWORK. SHE STATED THAT [facility] SHOULD HAVE A COPY OF IT. SHE ALSO STATED THAT SHE DID NOT BRING A COPY WITH HER WHEN SHE CAME FROM [place]. I SPOKE WITH SHLOMO FROM [facility] REGARDING PT'S POA PAPERWORK AND SHE STATED THAT THEY DO NOT HAVE A COPY OF IT. I SPOKE WITH PT'S DTRCANDELARIA AGAIN REGARDING [facility] NOT HAVING PT'S POA PAPERWORK. SHE STATED THAT HER BROTHER, SHELLEY WILL FOLLOW UP WITH [facility] AND THEY WILL WORK ON OBTAINING A COPY FOR PT'S RECORDS.
--- NOTE | 2016-04-25 12:20 | NUR ---
PT'S DAUGHTERS CANDELARIA AND MENA AT BEDSIDE. UPDATED ON PT'S CONDITION.
--- NOTE | 2016-04-25 12:25 | NUR ---
PER CANDELARIA, SELAM OR MENA ARE THE DECISION MAKERS FOR THEIR FATHER. STATES THEY HAVE BEEN DOING IT FOR THE LAST 3 YEARS. CANDELARIA SPOKE TO SW. YANCY
--- NOTE | 2016-04-25 12:30 | NUR ---
DR. CATIE HERNANDES. SPOKE TO CANDELARIA. PER CANDELARIA HADDAD HAS ANSWERED ALL HER QUESTIONS.
[2016-04-25] MEDS: ASPIRIN 81 MG TAB.CHEW PO SCH (12:38)
--- NOTE | 2016-04-25 12:40 | NUR ---
VENT CHECK, NO SXN REQUIRED AIRWAY PATENT AND PT IS SLEEPING WITH NO SIGNS OF DISTRESS NOTED AT THIS TIME RN IVAN AT BEDSIDE
[2016-04-25] MEDS ORDERED: CALCIUM GLUCONATE 10% 2,000 MG in NACL 0.9% 50 ML IV SCH (13:00)
[2016-04-25] MEDS: THERAHONEY GEL 42.5 GM TP SCH (13:00)
[2016-04-25] MEDS ORDERED: POTASSIUM CHLORIDE 20% 40 MEQ/15 ML UDC GT SCH (13:14)
--- NOTE | 2016-04-25 13:40 | NUR ---
DR. LAWRENCE HERE TO SEE AND EXAMINE PT. SPOKE TO RADHAMES RE: PT'S CONDITION.
--- NOTE | 2016-04-25 15:09 | NUR ---
VENT CHECK, I\L TX GIVEN WITH ALBUTEROL 2.5MG WITH NO ADVERSE REACTION POST TX, B\S ARE CLEAR, SXN PT SMALL AMT OF YELLOW SECRETIONS, SON AT BEDSIDE
--- NOTE | 2016-04-25 17:09 | NUR ---
VENT CHECK, NO SXN REQUIRED AIRWAY IS PATENT AND PT IS RESTING WITH NO SIGNS OF DISTRESS NOTED AT THIS TIME
--- NOTE | 2016-04-25 19:20 | NUR ---
RECEIVED REPORT FROM SATHYA LOVE AT BEDSIDE. PT IS NON-VERBAL, OPEN EYES SOMETIMES, UNABLE TO FOLLOW COMMAND. ETT TO VENT WITH FIO2 40%,AC 16, TV 550, PEEP 5. NO S/S OF RESPIRATORY DISTRESS NOTED, DIMINISHED LUNG SOUNDS UPON AUSCULTATION. ST ON OPTICAL MECHANIC. G-TUBE IN PLACE, FEEDING WITH DIABETISOURCE AC AT 20ML/HR, RESIDUALS 0ML AT THIS TIME. ABDOMEN SOFT WITH ACTIVE BOWEL SOUND. THOMAS CATH IN PLACE WITH CLOUDY YELLOW URINE. RECTAL BAG IN PLACE WITH NO STOOL AT THIS TIME. PT IS ON CONTACT ISOLATION FOR C-DIFF AT THIS TIME. CENTRAL LINE ON RIGHT I.J, TLC, PATENT, C/D/I, RUNNING WITH LEVOPHED DRIP AT 6 MCG/MIN AND IVF 0.9 %NS AT 75 ML/HR. SKIN IS NON INTACT( SEE WOUND ASSESSMENT). UNABLE TO MOVE ALL HIS EXTREMITIES. +1 PITTING EDEMA NOTED ON BLE, WITH SCD'S IN PLACE. VSS. ASPIRATION PRECAUTION AND FALL PRECAUTION IN PLACE. WILL CONTINUE TO MONITOR.
--- NOTE | 2016-04-25 19:29 | NUR ---
RCV'D PT ON CARESCAPE VENT SETTINGS ARE AC16,550,5,40%. PT HAS 7.5 ETT AT 23 AT THE LIP. SKIN IS PATENT ETT IS SECURED AND IN PLACE. VENT IS PLUGGED INTO RED OUTLET. ALARMS ARE AUDIBLE. AMBU BAG AT BEDSIDE. SV'D SMALL AMT OF THICK GREEN SECRETIONS. NO SOB/DISTRESS NOTED AT THIS TIME. HHN TX GIVEN. WILL CONTINUE TO MONITOR.
--- NOTE | 2016-04-25 20:00 | NUR ---
PT'S TEMP IS 100.9, COOLING MEASURE IN USE, AND MEDICATED WITH TYLENOL. POSITION CHANGED FOR OFF LOAD PRESSURE, ORAL CARE PROVIDED.
--- NOTE | 2016-04-25 21:00 | NUR ---
SCHEDULED MEDICATION GIVEN, PATIENT TOLERATED WELL.
--- NOTE | 2016-04-25 21:30 | NUR ---
DR. BELLO CAME TO EVALUATE PATIENT AT BEDSIDE, NO NEW ORDER AT THIS TIME.
--- NOTE | 2016-04-25 22:00 | NUR ---
PT'S TEMP REDUCED, COOLING MEASURE IN PLACE, NO CHANGE OF CONDITION AT THIS TIME, POSITION CHANGED FOR OFF LOAD PRESSURE.
--- NOTE | 2016-04-25 23:00 | NUR ---
RESIDUALS 10ML, PT TOLERATED WELL ON GT FEEDING, FEEDING RATE INCREASED TO 30ML/HR ORDERED.
--- NOTE | 2016-04-25 23:52 | NUR ---
HHN GIVEN. PT IS AWAKE AND QUITE. ETT AT RT SIDE OF MOUTH AT 23 AT THE LIP. NO SOB/DISTRESS NOTED AT THIS TIME. WILL CONTINUE TO MONITOR.
[2016-04-26] VITALS (47 sets, daily range): BP systolic 99–168; BP diastolic 51–88
--- NOTE | 2016-04-26 | NUR ---
NO CHANGE OF CONDITION AT THIS TIME, VSS. ORAL CARE PROVIDED, POSITION CHANGED FOR OFF LOAD PRESSURE.
[2016-04-26] MEDS: Z-GUARD PASTE TP SCH ×2 (00:16→13:00)
--- NOTE | 2016-04-26 02:00 | NUR ---
NO CHANGE OF CONDITION AT THIS TIME, POSITION CHANGED FOR OFF LOAD PRESSURE.
[2016-04-26] MEDS: ALBUTEROL 0.083% 2.5 MG/3 ML NEBU INH SCH ×6 (02:55→23:19)
--- NOTE | 2016-04-26 04:00 | NUR ---
AM CARE PROVIDED, ORAL CARE PROVIDED, JASBIR CARE PROVIDED, PT HAD A LARGE SOFT YELLOWISH STOOL, POSITION CHANGED FOR OFF LOAD PRESSURE.
--- NOTE | 2016-04-26 05:20 | NUR ---
VENT CHECK. SN'D SMALL AMT OF THICK YELLOW SECRETIONS. CHANGED SUCTION MATHUR AND FILTER. NO SOB/DISTRESS NOTED AT THIS TIME. RN FRANKLIN AT BEDSIDE. WILL CONTINUE TO MONITOR.
[2016-04-26] MEDS: PIPER/TAZO 2.25GM/D5W PREMIX 50 ML IV SCH ×3 (05:59→18:07)
[2016-04-26] MEDS: METOCLOPRAMIDE 10 MG/2 ML INJ VIAL IVP SCH ×3 (05:59→18:07)
--- NOTE | 2016-04-26 06:00 | NUR ---
VSS, NO CHANGE OF CONDITION AT THIS TIME, POSITION CHANGED FOR OFF LOAD PRESSURE.
--- NOTE | 2016-04-26 06:11 | NUR ---
LAB CALLED HG 6.5. HCT 19 BLOOD DRAWN FOR CVP LINE ,RE BLOOD AND RE CHECK BEFORE NOTIFY MD, PT IS NO S/S BLEEDING ,LAST HG 8 /HCT 25.4 ON 04/24/16.
[2016-04-26] MEDS: BLOOD GLUCOSE MONITORING 1 DEV DEV FS SCH ×4 (06:35→21:23)
[2016-04-26] MEDS: INSULIN LISPRO SLIDING SCALE 100 UNITS/ML VIAL SUBQ PRN ×3 (06:39→21:25)
--- NOTE | 2016-04-26 06:55 | NUR ---
CRITICAL LAB RESULT OF HGB 6.8, DR. RODRIGUEZ PAGED, WAIT FOR CALL BACK.
--- NOTE | 2016-04-26 07:15 | NUR ---
REPORT GIVEN TO SATHYA LOVE FOR CONTINUE OF CARE, NO CHANGE OF CONDITION AT THIS TIME, VSS.
--- NOTE | 2016-04-26 07:20 | NUR ---
RECEIVED REPORT FROM FRANKLIN PT ON ETT TO JOHANN SETTING AC 16 VT 550 FIO2 40% SKIN DRY WARM TO TOUCH COLOR PALE. GT FEEDING WITH DIABETIC SAURCE AT 30 ML/HR RESIDUAL CHECH 8ML FEEDING CONTINUEF/C TO GRAVITY DRAINAGE.
--- NOTE | 2016-04-26 07:30 | NUR ---
REPORTED DR. HADDAD ABOUT CRITICAL LAB RESULT OF HGB 6.8, NEW ORDER OBTAINED AND CARRIED OUT.
--- NOTE | 2016-04-26 08:46 | NUR ---
RECEIVED ON A [employer] R860 VENTILATOR PLUGGED INTO RED OUTLET TOLERATING WELL WITHOUT ADVERSE REACTIONS NOTED TO AN ETT #7.5 SECURED AT 23CM WITH AN ANCHOR FAST ETT REPOSITIONED TO MIDLINE CUFF PRESSURE CHECKED FOR MOV AMBU BAG NOTED AT [facility] LOC AWAKE ON OCCASION BREATH SOUND COARSE RHONCHI BILATERAL WITH GOOD CHEST RISE ENDOTRACHEAL SUCTION FOR COPIOUS THICK YELLOW SECRETIONS AIRWAY PATENT DR. JOSIANE HADDAD AT BEDSIDE AT THIS TIME
[2016-04-26] MEDS: ENOXAPARIN 30 MG/0.3 ML SYR SUBQ SCH (09:00)
[2016-04-26] MEDS: POTASSIUM CHLORIDE 20% 40 MEQ/15 ML UDC GT SCH (09:16)
[2016-04-26] MEDS: AMIODARONE 200 MG TAB PO SCH (09:17)
[2016-04-26] MEDS: metroNIDAZOLE 250 MG TAB PO SCH ×4 (09:17→20:31)
[2016-04-26] MEDS: LACTOBACILLUS RHAMNOSUS GG 1 EACH CAP PO SCH (09:17)
[2016-04-26] MEDS: ASPIRIN 81 MG TAB.CHEW PO SCH (09:18)
[2016-04-26] MEDS: FAMOTIDINE 20 MG/2 ML VIAL IVP SCH (09:18)
--- NOTE | 2016-04-26 09:30 | NUR ---
GT FEEDING UP TO 40 ML/HR.
[2016-04-26] MEDS: ACETAMINOPHEN 325 MG TAB PO PRN ×2 (09:56→19:05)
--- NOTE | 2016-04-26 10:03 | NUR ---
ASLEEP RESTING WELL NO PULMONARY DISTRESS NOTED BREATH SOUNDS CLEAR BILATERAL WITH GOOD CHEST RISE AIRWAY PATENT SATURATION 100% ON FIO2 OF 40% TITRATED FIO2 TO 35% ION NOTIFIED Addendum: 04/26/16 at 1011 by Oneil Hess RT YOUNGEST SON IN ROOM AT THIS TIME
--- NOTE | 2016-04-26 10:05 | NUR ---
WAS NOTIFIED OF THE PATIENT HAS TEMP 100.7 F AND PATIENT NEEDS TO HAVE THE BLOOD TRANSFUSION. ALSO WAS NOTIFIED OF LOVENOX IS ON HOLD DUE TO LOW HGB & HCT. PER : GIVE TYLENOL AND BENADRYL 30 MINUTES BEFORE BLOOD TRANSFUSION AND HOLD LOVENOX FOR TODAY ONLY. NURSE LOVE WAS INFORMED.
[2016-04-26] MEDS ORDERED: diphenhydrAMINE 50 MG/ML VIAL IVP SCH (10:10)
[2016-04-26] MEDS: VANCOMYCIN 1,250 MG in NACL 0.9% 250 ML IV SCH (10:17)
--- NOTE | 2016-04-26 10:50 | NUR ---
IST UNIT STARTED INFUSING AFTER TYLENAL AND BENADRYL GIVEN,
--- NOTE | 2016-04-26 10:52 | NUR ---
SS NOTE: LEFT A MESSAGE FOR PT'S DTR, CANDELARIA REGARDING WHETHER SHE WAS ABLE TO OBTAIN A COPY OF POA PAPERWORK FOR PT
--- NOTE | 2016-04-26 11:05 | NUR ---
BLOOD TRANSFUTION IN PROGRESS NO REACTION NOTED.
--- NOTE | 2016-04-26 12:00 | NUR ---
REPOSITION, ORAL CARTE GIVEN BL GLUCOSE 245 INSULIN COVER ORDERED.
--- NOTE | 2016-04-26 12:50 | NUR ---
1ST UNIT OF TRANSFUTIN COMPLEATED NO REACTION NOTED,
--- NOTE | 2016-04-26 13:10 | NUR ---
2ND UNIT OF BLOOD STARTE
--- NOTE | 2016-04-26 13:25 | NUR ---
TRANSFUTION IN PROGRESS NO REACTION.
--- NOTE | 2016-04-26 14:02 | NUR ---
ASLEEP OCCASIONALLY OPENING EYES BREATH SOUNDS CLEAR BILATERAL WITH GOOD CHEST RISE AIRWAY PATENT PER BARNETT/RN PATIENT ON 2ND PRBC FAMILY IN ROOM
--- NOTE | 2016-04-26 15:49 | NUR ---
AWAKE AND ALERT RESPONSIVE TO PLANT INSPECTOR VERBAL COMMANDS TOLERATING VENTILATOR WELL WITHOUT INCIDENT BREATH SOUNDS COARSE RHONCHI BILATERAL GOOD CHEST RISE ENDOTRACHEAL SUCTION FOR COPIOUS THICK TO SEMI THICK YELLOW SECRETIONS AIRWAY PATENT SON IN ROOM LEAVING AT THIS TIME NASIRI/RN AND IVAN/RN AT BEDSIDE FOR PATIENT PHYSICAL HYGIENE AND REPOSITION
[2016-04-26] MEDS: NACL 0.9% 1,000 ML IV SCH (16:30)
--- NOTE | 2016-04-26 16:50 | NUR ---
2ND UNIT COMPLETED NO REACTION NOTED.
[2016-04-26] MEDS ORDERED: FUROSEMIDE 20 MG/2 ML VIAL IVP SCH (17:50)
--- NOTE | 2016-04-26 17:51 | NUR ---
AWAKE STABLE NO DISTRESS NOTED BREATH SOUNDS CLEAR BILATERAL WITH GOOD CHEST RISE AIRWAY PATENT SATURATION 98% ON FIO2 OF 35% TITRATED FIO2 TO 30% ION NOTIFIED Addendum: 04/26/16 at 1800 by Oneil Hess RT SATURATION 100% ON FIO2 OF 35%
[2016-04-26] MEDS: THERAHONEY GEL 42.5 GM TP SCH (18:09)
[2016-04-26] MEDS: PHARMACY COMMENTS MC SCH (18:10)
[2016-04-26] MEDS: VANCOMYCIN 500 MG VIAL PO SCH (18:10)
--- NOTE | 2016-04-26 19:00 | NUR ---
BLOOD GLUCOSE 265 INSULIN GIVEN ORDERED.
--- NOTE | 2016-04-26 19:05 | NUR ---
PT RECEIVED FROM [facility] ON NOTED VENT SETTINGS. PT AWAKE, HAS A 7.5 ETT SECURED AT 23 LIP LINE WITH AN ANCHOR FAST. BREATH SOUNDS APPEAR CLEAR BILATERALLY, HHN TX GIVEN INLINE. PT LAVAGED AND SUCTIONED SMALL AMOUNT THIN YELLOW SECRETIONS. NO ADVERSE EFFECTS NOTED. VENT ALARMS ON AND AUDIBLE. VENT PLUGGED INTO RED ELECTRICAL OUTLET. AMBU BAG ON FRONT OF VENT.
--- NOTE | 2016-04-26 19:21 | NUR ---
RECEIVED REPORT FROM RODRÍGUEZ MCDONNELL. PATIENT IS NONVERBAL, SPONTANEOUSLY OPENS EYES, BUT DOES NOT FOLLOW COMMANDS, AND IS RESTING IN BED. NO SIGNS OF SOB OR RESPIRATORY DISTRESS NOTED. PATIENT IS ETT TO VENT WITH SETTINGS OF FIO2 30%, TIDAL VOLUME IS 550, A/C 16, AND PEEP 5. BREATH SOUNDS ARE CLEAR UPON AUSCULTATION AND BOWEL SOUNDS ARE ACTIVE. THERE IS A G-TUBE PRESENT WITH FEEDING OF DIABETESOURCE OF 40ML/HR. PATIENT IS TOLERATED G-TUBE FEEDING WELL WITH RESIDUAL OF 10 ML NOTED. PATIENT HAD TEMPERATURE OF 100.2 AND ADMINISTERED TYLENOL. THERE IS A THOMAS CATHETER DRAINING TO GRAVITY WITH MODERATE AMOUNT OF CLOUDY YELLOW URINE NOTED. SCDS ARE IN PLACE FOR VTE PROPHYLAXIS. THERE IS A RIJ TRIPLE LUMEN CATHETER PRESENT WITH NORMAL SALINE AT 10 ML/HR TKO. VAP ORAL CARE RENDERED. HOB AT 30 DEGREES WITH BED IN LOW POSITION. CONTINUE TO MONITOR PATIENT.
--- NOTE | 2016-04-26 19:30 | NUR ---
COOLING MEASURES INITIATED. WILL CONTINUE TO MONITOR PATIENT.
--- NOTE | 2016-04-26 20:20 | NUR ---
TEMPERATURE IS 98.4 AFTER ADMINISTRATION OF TYLENOL AND COOLING MEASURES. CONTINUE TO MONITOR PATIENT.
--- NOTE | 2016-04-26 20:42 | NUR ---
PATIENT REPOSITIONED FOR COMFORT. NO S/S OF SOB NOTED. INCREASED TF TO 50 ML/HR PER DR. CARR'S ORDERS. HOB AT 30 DEGREES WITH BED IN LOW POSITION. CONTINUE TO MONITOR PATIENT.
--- NOTE | 2016-04-26 21:05 | NUR ---
VENT CHECKED. NO DISTRESS/SOB NOTED AT THIS TIME. PT RESTING COMFORTABLY. WILL CONTINUE TO MONITOR.
--- NOTE | 2016-04-26 21:09 | NUR ---
DR. BELLO ON UNIT TO SEE PATIENT. PROVIDED MD WITH PATIENT'S STATUS. NEW ORDERS GIVEN. DR. BELLO DISCONTINUED FLAGYL PO AND IVPB VANCOCIN ABX. WILL FOLLOW UP WITH NEW DOCTOR'S ORDERS.
--- NOTE | 2016-04-26 22:29 | NUR ---
PATIENT'S DAUGHTER LAVEEDA IN TO VISIT PATIENT. NO SIGNS OF DISTRESS OR SOB NOTED. PROVIDED STATUS UPDATE TO DAUGHTER AND ANSWERED ALL QUESTIONS AND CONCERNS. WILL CONTINUE TO MONITOR PATIENT.
--- NOTE | 2016-04-26 23:05 | NUR ---
PATIENT REPOSITIONED FOR COMFORT.
--- NOTE | 2016-04-26 23:14 | NUR ---
RESPIRATORY THERAPIST AT BEDSIDE TO SUCTION PATIENT AND FOR SCHEDULED BREATHING TX.
--- NOTE | 2016-04-26 23:22 | NUR ---
VENT CHECKED. PT APPEARS AGITATED,BITING ON ETT. RN SYDNEE AT BEDSIDE TO GIVE MEDICATION. , ATTEMPTED TO PLACE BITE BLOCK BUT UNABLE TO INSERT DUE TO PT BITING ON ETT. WILL ATTEMPT AGAIN LATER. PT BREATH SOUNDS APPEAR CLEAR DIMINISHED, HHN TX GIVEN INLINE. PT LAVAGED AND SUCTIONED SMALL AMOUNT THICK PALE YELLOW SECRETIONS. FAMILY AT BEDSIDE. WILL CONTINUE TO MONITOR.
[2016-04-27] VITALS (25 sets, daily range): BP systolic 94–159; BP diastolic 52–82
--- NOTE | 2016-04-27 00:10 | NUR ---
PATIENT TOLERATED FEEDING WELL. RESIDUAL OF 5ML NOTED. CHANGED TUBE FEEDING BAG. CONTINUE TO MONITOR PATIENT.
--- NOTE | 2016-04-27 00:15 | NUR ---
PATIENT'S DAUGHTER MENA LEFT UNIT.
[2016-04-27] MEDS: PIPER/TAZO 2.25GM/D5W PREMIX 50 ML IV SCH ×5 (00:16→23:30)
[2016-04-27] MEDS: PHARMACY COMMENTS MC SCH ×5 (00:17→23:30)
[2016-04-27] MEDS: VANCOMYCIN 500 MG VIAL PO SCH ×5 (00:17→23:31)
[2016-04-27] MEDS: METOCLOPRAMIDE 10 MG/2 ML INJ VIAL IVP SCH ×5 (00:17→23:30)
--- NOTE | 2016-04-27 00:46 | NUR ---
PATIENT HAD MODERATE LOOSE BROWN BM. PERINEAL AND MORNING CARE PROVIDED. BED BATH GIVEN. CHANGED PATIENT'S GOWN AND LINENS. REPOSITIONED PATIENT FOR COMFORT. VAP ORAL CARE RENDERED. NO S/S OF SOB NOTED. HOB AT 30 DEGREES WITH BED IN LOW POSITION. CONTINUE TO MONITOR PATIENT.
[2016-04-27] MEDS: Z-GUARD PASTE TP SCH ×2 (00:52→12:10)
--- NOTE | 2016-04-27 01:15 | NUR ---
VENT CHECKED. PT QUIET AT THIS TIME. BREATH SOUNDS APPEAR CLEAR, NO SUCTIONING NEEDED.
--- NOTE | 2016-04-27 02:16 | NUR ---
PATIENT SLEEPING IN BED. NO SIGNS OF RESPIRATORY DISTRESS OR SOB NOTED. HOB AT 30 DEGREES WITH BED IN LOW POSITION. CONTINUE TO MONITOR PATIENT.
--- NOTE | 2016-04-27 03:40 | NUR ---
VENT CHECKED. PT AWAKE, HME CHANGED. BREATH SOUNDS APPEAR CLEAR BILATERALLY. HHN TX GIVEN INLINE. PT LAVAGED AND SUCTIONED SMALL AMOUNT PALE YELLOW SECRETIONS. NO ADVERSE EFFECTS NOTED.
--- NOTE | 2016-04-27 03:44 | NUR ---
PATIENT HAD SMALL LOOSE BROWN BM. PERINEAL CARE PROVIDED. PATIENT REPOSITIONED FOR COMFORT. VAP ORAL CARE RENDERED. NO SIGNS OF SOB NOTED. HOB AT 30 DEGREES WITH BED IN LOW POSITION. CONTINUE TO MONITOR PATIENT.
[2016-04-27] MEDS: ALBUTEROL 0.083% 2.5 MG/3 ML NEBU INH SCH ×6 (03:46→23:22)
--- NOTE | 2016-04-27 04:29 | NUR ---
[employer] BI ARCHITECT AT BEDSIDE FOR SCHEDULED BLOOD DRAWS.
--- NOTE | 2016-04-27 05:23 | NUR ---
VENT CHECKED. PT QUIET, NO DISTRESS/SOB NOTED AT THIS TIME.
[2016-04-27] MEDS: BLOOD GLUCOSE MONITORING 1 DEV DEV FS SCH ×4 (06:23→21:02)
[2016-04-27] MEDS: INSULIN LISPRO SLIDING SCALE 100 UNITS/ML VIAL SUBQ PRN ×4 (06:27→21:02)
--- NOTE | 2016-04-27 07:11 | NUR ---
PATIENT SLEEPING IN BED. NO S/S OF SOB OR RESPIRATORY DISTRESS NOTED. ALL PATIENT'S NEEDS ATTENDED TO DURING SHIFT. ENDORSED CONTINUITY OF CARE TO SLY MCDONNELL.
--- NOTE | 2016-04-27 07:15 | NUR ---
PATIENT ASSESSMENT COMPLETED PRIOR TO WEANING TRIAL REVIEWED HEMATOLOGY RESULTS DATED 04/27/2016 AT 04:32; MICROBIOLOGY; CXR DATED 04/26/2016 AT 10:01; HISTORY POSITIVES
--- NOTE | 2016-04-27 07:18 | NUR ---
ORDERED PLACED ON WEANING MODE TOLERATED AT THIS TIME CPAP/PS 14 PEEP 10 SPOKE TO DAUGHTERS ON WEANING PROCESS
--- NOTE | 2016-04-27 07:18 | NUR ---
RECEIVED ON A [employer] R860 VENTILATOR PLUGGED INTO RED OUTLET TOLERATING WELL WITHOUT ADVERSE REACTIONS NOTED TO AN ENDOTRACHEAL TUBE #7.5 SECURED AT 23CM WITH AN ANCHOR FAST CUFF PRESSURE CHECKED FOR MOV AMBU BAG NOTED AT HOB RESTING COMFORTABLY BREATH SOUNDS CLEAR LEFT SIDE RUL AND RML INSP RALE RLL NO ENDOTRACHEAL SUCTIONING AT THIS TIME ECOLOGICAL ECONOMIST TO MONITOR AIRWAY PATENT DAUGHTERS AT ROOM Addendum: 04/27/16 at 922 by Oneil Hess RT ACTUAL ASSESSMENT TIME 705 Addendum: 04/27/16 at 24 by Oneil Hess RT PATIENT PRESENTING WITH PERIODS OF TACHYPNEA RR 30-40
--- NOTE | 2016-04-27 07:25 | NUR ---
RECEIVED PATIENT ON BED.INITIAL ASSESSMENT DONE TO PATIENT.ETT SIZE 7.5 WITH VENT SETTING FOLLOWS FIO2=30 PERCENT,PS=14,PEEP=5.PT IS BEING WEANED SATURATION IS 96 PERCENT.GTUBE WITH DIABETISOURCE AT 50 ML/H WITH 200 ML WATER FLUSH.RIGHT IJ TRIPLE LUMEN CATHETER INTACT AND FLUSHABLE.NO SIGNS OF INFILTRATION.THOMAS TO GRAVITY.ST ON THE MONITOR.ON CONTACT ISOLATION FOR CDIFF.LEFT HAND WITH MITTEN PT IS REACHING ETT .WILL MONITOR.
[2016-04-27] MEDS: POTASSIUM CHLORIDE 20% 40 MEQ/15 ML UDC GT SCH (08:55)
[2016-04-27] MEDS: LACTOBACILLUS RHAMNOSUS GG 1 EACH CAP PO SCH (08:55)
[2016-04-27] MEDS: AMIODARONE 200 MG TAB PO SCH (08:55)
[2016-04-27] MEDS: ASPIRIN 81 MG TAB.CHEW PO SCH (08:55)
[2016-04-27] MEDS: ENOXAPARIN 30 MG/0.3 ML SYR SUBQ SCH (08:57)
--- NOTE | 2016-04-27 11:08 | NUR ---
PATIENT PRESENTING WITH PERIODS OF APNEA AT 20 SECONDS NOW IN BACK UP SETTINGS AC MODE RATE 12 VT 550 PEEP 5 FIO2 30% WILL LEAVE SETTINGS TO REST PATIENT AT THIS TIME BREATH SOUNDS DECREASED RIGHT SIDE ANTONIA LML WITH INSP RALES LLL GOOD CHEST RISE THROUGHOUT ENDOTRACHEAL SUCTION FOR MODERATE THIN PALE YELLOW SECRETIONS AIRWAY PATENT Addendum: 04/27/16 at 1135 by Oneil Hess RT ART IN ROOM A THIS TIME
[2016-04-27] MEDS ORDERED: PHARMACY COMMENTS MC SCH (12:00)
[2016-04-27] MEDS: THERAHONEY GEL 42.5 GM TP SCH (12:11)
[2016-04-27] MEDS ORDERED: KCL 20 MEQ/WATER INJ PREMIX 200 ML IV SCH (12:30)
--- NOTE | 2016-04-27 13:00 | NUR ---
DR HADDAD NOTIFIED THAT PER CHIEF MEDICAL PHYSICIST AT LEAST INCREASE FEEDING TO 60 ML/H.PER MD NO NEED TO INCREASE.KEEP IS.
[2016-04-27] MEDS: NACL 0.45% 1,000 ML IV SCH (13:01)
--- NOTE | 2016-04-27 13:18 | NUR ---
REVIEWED PATIENT WEANING PERIOD WITH DR. JOSIANE HADDAD NEW ORDERS GIVEN
--- NOTE | 2016-04-27 13:35 | NUR ---
AWAKE STABLE NO EVIDENCE OF RESPIRATORY DISTRESS NOTED BREATH SOUNDS CLEAR RIGHT SIDE ANTONIA LML; INSP RALE LLL GOOD CHEST RISE AIRWAY PATENT NO DEEP SUCTIONING AT THIS TIME CORRECTIONAL PROGRAM SPECIALIST TO MONITOR SON AT BEDSIDE
--- NOTE | 2016-04-27 14:25 | NUR ---
AWAKE AND ALERT NO DISTRESS NOTED BREATH SOUNDS CLEAR BILATERAL WITH GOOD CHEST RISE WEANING TRIAL CHANGED MODE TO CPAP/PS 10 cmH20 PEEP 5 cmH20 30% SON IN ROOM
--- NOTE | 2016-04-27 14:57 | NUR ---
04/27/16 RD FOLLOW UP ASSESSMENT COMPLETED PLEASE REFER TO NUTRITION ASSESSMENT UNDER CARE ACTIVITY FOR ESTIMATED NUTRITIONAL NEEDS. RD RECOMMENDATIONS: 1. CONTINUE NUTRITION SUPPORT DIABETISOURCE AT 50 ML/HR WITH PROTEIN SUPPLEMENTATION BID VIA GTUBE TOLERATED. 2. IF/WHEN PT TOLERATES CURRENT TUBE FEEDING REGIMENT, CONSIDER ADVANCE TUBE FEEDING TO GOAL OF 60 ML/HR WITH PROTEIN SUPPLEMENTATION BID. --THIS WILL PROVIDE 1500 ML TOTAL VOLUME, 1920 KCAL, 120 GM PROTEIN. THIS WILL MEET 93% OF PT ESTIMATED KCAL NEEDS AND 100% OF PT ESTIMATED PROTEIN NEEDS 3. RD WILL F/U 2-3 DAYS; HIGH RISK. ANDREW ROSARIO, RD
--- NOTE | 2016-04-27 15:33 | NUR ---
AWAKE STABLE TOLERATING WEANING WELL WITHOUT INCIDENT ABG DRAWN AT LEFT BRACHIAL TOLERATED PROCEDURE WELL SON IN ROOM
--- NOTE | 2016-04-27 15:50 | NUR ---
CALLED [facility] TO [place] DR. ELVIA HADDAD TO REVIEW ABG REPORT
--- NOTE | 2016-04-27 15:54 | NUR ---
PATIENT WITH LABORED BREATHING USING THE ACCESSORY MUSCLES FOR BREATHING DESATURATION TO 70S .RESPIRATORY THERAPIST CALLED AND PLACED PATIENT ON AC MODE.SATHYA SUCTIONED PATIENT AND GOT ALOT OF THICK CREAMY SECRETIONS .DR SRIRAM HERNANDES.SON AT THE BEDSIDE AND UPDATED ABOUT PATIENTS CONDITION. Addendum: 04/27/16 at 1617 by Kelsey Escobedo RN RN ABOVE MD HI HADDAD
--- NOTE | 2016-04-27 15:54 | NUR ---
CALLED TO BEDSIDE BY SLY/RN PATIENT AWAKE USING ACCESSORY MUSCLES SATURATION DESCENDING TO 90% VENTILATOR WEANING: CPAP/PS [id number] PEEP 5 cmH20 30% CHANGED MODE TO BACK TO AC WITH SAME SETTINGS NOTED TO REST PATIENT AT THIS TIME
--- NOTE | 2016-04-27 15:55 | NUR ---
DR HADDAD MADE AWARE OF THE INCIDENT THAT HAPPENED AT 1554 .RESPIRATORY THERAPIST TALKED TO MD TOO .PER RESPIRATORY THERAPIST HOLD OFF WEANING TODAY PER DR HADDAD.
--- NOTE | 2016-04-27 15:55 | NUR ---
CALL BACK FROM DR. ELVIA HADDAD REVIEWED ABG REPORT WITH PATIENT STATUS NOTED AT 1554. PER DR. HADDAD REST PATIENT FOR REMAINDER OF DAY AND THROUGHOUT NOCS ATTEMPT WEANING IN AM 0600 Addendum: 04/27/16 at 1605 by Oneil Hess RT [facility]/SATHYA OF [facility]
--- NOTE | 2016-04-27 16:11 | NUR ---
RESTING COMFORTABLY STABLE NO PULMONARY DISTRESS NOTED SKIN TONE PINK BREATH SOUNDS CLEAR LEFT SIDE RUL RML; INSP RALES RLL HYPER OXYGENATION PRE AND POST SUCTIONING ENDOTRACHEAL SUCTION FOR SMALL THIN YELLOW SECRETIONS AIRWAY PATENT Addendum: 04/27/16 at 1627 by Oneil Hess RT ART IN ROOM
--- NOTE | 2016-04-27 16:28 | NUR ---
LOC AWAKE LEFT NASAL SUCTION FOR MINUTE AMOUNT OF THICK PALE YELLOW TO CLEAR SECRETIONS TOLERATED PROCEDURE WELL WITHOUT INCIDENT SON IN ROOM Addendum: 04/27/16 at 1633 by Oneil Hess RT CUFF PRESSURE CHECKED FOR MOV ENDOTRACHEAL TUBE REMAINS AT LEFT SIDE OF MOUTH
--- NOTE | 2016-04-27 17:20 | NUR ---
AWAKE STABLE NO EVIDENCE OF RESPIRATORY DISTRESS NOTED BREATH SOUNDS DECREASED BILATERAL WITH GOOD AERATION THROUGHOUT AND CHEST RISE AIRWAY PATENT SLY/RN AND SAMMIE/RN AT BEDSIDE FOR PHYSICAL HYGIENE, WOUND CARE AND REPOSITION
--- NOTE | 2016-04-27 19:30 | NUR ---
ASSUMED CARE OF PT.INITIAL ASSESSMENT COMPLETED/PT AWAKE.DOES NOT FOLLOW COMMANDS.ORALLY INTUBATED TO VENT FIO2 30% TV550 AC 16 PEEP 5.INTERMITTENT COUGHING NOTED.WITH TLC TO RT IJ INTACT.GOOD BLOOD RETURN TO ALL 3 PORTS;1 PORT INFUSING ORDERED IVF.W/G TUBE ALREADY IN PLACE.NO RESIDUAL NOTED.ON CONTINUOUS FEEDING DIABETISOURCE AT 50ML/HR W/ 250ML Q4HRS WATER FLUSH.W/THOMAS CATHETER TO BSD DRAINING CLOUDY YELLOW URINE.ALL EXTREMITIES W/GEN WEAKNESS.EDEMA NOTED TO BLE AND RT HAND.FLACC 0.SEE WOUND ASSESSMENT
--- NOTE | 2016-04-27 20:00 | NUR ---
ORAL CARE USING VAP KIT RENDERED.PT ON PROTONIX FOR GI PROPHYLAXIS AND SCD TO BLE FOR DVT PROPHYLAXIS.REPOSITIONED.
--- NOTE | 2016-04-27 22:45 | NUR ---
PHONE CALL FROM PTS SON SHELLEY;UPDATED ON PTS PRESENT CONDITION.QUESTIONS ANSWERED. PER SHELLEY, TO NEVIN HIM ONCE PT WILL BE EXTUBATED AND THAT ITS OK NOT TO CALL HIM PRIOR TO WEANING PT IN AM.
[2016-04-28] VITALS (18 sets, daily range): BP systolic 105–139; BP diastolic 54–71
--- NOTE | 2016-04-28 00:33 | NUR ---
PT AWAKE;STILL ETT TO VENT;SAME VENT SETTINGS.02SAT 96%.ORAL CARE RENDERED.REPOSITIONED.FLACC 0
[2016-04-28] MEDS: Z-GUARD PASTE TP SCH ×2 (00:49→13:20)
--- NOTE | 2016-04-28 01:44 | NUR ---
PT APPEARS IN PAIN.FLACC 6.MORPHINE GIVEN ORDERED.WILL CONTINUE TO MONITOR PT
--- NOTE | 2016-04-28 02:03 | NUR ---
PT STILL AWAKE.FLACC 0.REPOSITIONED
[2016-04-28] MEDS: ALBUTEROL 0.083% 2.5 MG/3 ML NEBU INH SCH ×6 (03:20→23:43)
--- NOTE | 2016-04-28 04:19 | NUR ---
PTS CONDITION REMAINS UNCHANGED.FLACC 0.REPOSITIONED
[2016-04-28] MEDS: METOCLOPRAMIDE 10 MG/2 ML INJ VIAL IVP SCH ×3 (05:32→17:49)
[2016-04-28] MEDS: PIPER/TAZO 2.25GM/D5W PREMIX 50 ML IV SCH ×3 (05:32→17:48)
[2016-04-28] MEDS: PHARMACY COMMENTS MC SCH ×3 (05:33→17:49)
[2016-04-28] MEDS: VANCOMYCIN 500 MG VIAL PO SCH ×3 (05:33→17:48)
--- NOTE | 2016-04-28 05:49 | NUR ---
MORNING CARE DONE.BM NOTED.MODERATE AMT OF SOFT BROWNISH/GREENISH STOOL NOTED.DRESSING TO COCCYX SOILED,CHANGED.PT REPOSITIONED.SECRETIONS SUCTIONED.FLACC 0
--- NOTE | 2016-04-28 07:00 | NUR ---
RECIVED PT ON VENT WITH SETTINGS CHARTED BREATH PRESENT BILAT CLEAR SXN PT WITH MIN AMOUNT OFF WHITE THICK SECS PT OPENS EYES NO RESPONSE TO VERBAL COMMANDS VENT PLUGGED INTO RED OUTLET AMBU BAG AT BEDSIDE
--- NOTE | 2016-04-28 07:50 | NUR ---
SWITCHED PT TO CPAPO PS 10 PEEP 5 PT SEEMS OK OF NOW UN ABLE TO FOLLOW VERBAL COMMANDS WIOLL CONTINUE TO MONITOR PT AMBU BAG AT [facility]
--- NOTE | 2016-04-28 08:00 | NUR ---
INITIAL SHIFT ASSESSMENT DONE (SEE ASSESSMENT PART). DROWSY, DOES NOT FOLLOW COMMAND. NO SIGNS OF PAIN. MOVES LEFT UPPER EXTREMITY ONLY D/T HX OF CVA. ON VENTILATOR AT CPAP MODE AT THIS TIME, TOLERATING WELL. O2 SAT 96-97%. SR ON MONITOR. SBP IN 100'S-110'S. NO ECTOPY NOTED. ON TUBE FEEDING VIA G-TUBE, TOLERATING WELL. NO RESIDUALS NOTED. DRESSINGS ON SACRAL WOUND ARE CLEAN, DRY, AND INTACT. HOB ELEVATED. UPDATED OF PLAN OF CARE. WILL CONTINUE TO MONITOR.
[2016-04-28] MEDS: BLOOD GLUCOSE MONITORING 1 DEV DEV FS SCH ×4 (08:12→20:50)
[2016-04-28] MEDS: INSULIN LISPRO SLIDING SCALE 100 UNITS/ML VIAL SUBQ PRN ×4 (08:17→21:11)
--- NOTE | 2016-04-28 08:49 | NUR ---
PT UNABLE TO LEOLA CPAP AT THIS TIME
[2016-04-28] MEDS: AMIODARONE 200 MG TAB PO SCH (08:59)
[2016-04-28] MEDS: ASPIRIN 81 MG TAB.CHEW PO SCH (08:59)
[2016-04-28] MEDS: POTASSIUM CHLORIDE 20% 40 MEQ/15 ML UDC GT SCH (09:00)
[2016-04-28] MEDS: LACTOBACILLUS RHAMNOSUS GG 1 EACH CAP PO SCH (09:00)
[2016-04-28] MEDS: ENOXAPARIN 30 MG/0.3 ML SYR SUBQ SCH (09:01)
--- NOTE | 2016-04-28 10:00 | NUR ---
SLEEPING AT THIS TIME BUT AROUSABLE. OPENING EYES OCCASIONALLY BUT NOT FOLLOWING COMMAND. NO SIGNS OF PAIN OR AGITATION. TOLERATING VENTILATOR WELL. O2 SAT 96-98%. SR ON MONITOR. SBP IN 88-120'S. NO ECTOPY NOTED. HOB ELEVATED. WILL CONTINUE TO MONITOR.
--- NOTE | 2016-04-28 10:10 | NUR ---
DR HADDAD IS IN THE ROOM. UPDATED OF STATUS. NEW ORDERS RECEIVE. RT IS ALSO IN THE ROOM. RT PUT PATIENT BACK TO CPAP MODE PER DR HADDAD'S ORDER. WILL CONTINUE TO MONITOR.
--- NOTE | 2016-04-28 10:15 | NUR ---
PLACED PT BACK ON CPAP WITH SETTINGS CHATED BREATH SOUNDS PRESENT BILAT ABG TO FOLLOW S PER DR HADDAD
--- NOTE | 2016-04-28 10:15 | NUR ---
TUBE FEEDING TURN OFF PER DR GUERRERO'S ORDER.
[2016-04-28] MEDS ORDERED: FUROSEMIDE 40 MG/4 ML VIAL IVP SCH (10:22)
[2016-04-28] MEDS: NACL 0.45% 1,000 ML IV SCH (11:54)
--- NOTE | 2016-04-28 12:00 | NUR ---
REASSESSMENT DONE. NEURO STATUS UNCHANGED. NO SIGNS OF PAIN OR AGITATION. TOLERATING CPAP WELL. O2 SAT 95-99%. SR ON MONITOR. SBP IN 100'S. NO ECTOPY NOTED. HOB ELEVATED. UPDATED OF PLAN OF CARE. WILL CONTINUE TO MONITOR.
--- NOTE | 2016-04-28 12:05 | NUR ---
ART ROSA IS HERE. SHELLEY TALK TO DR GUERRERO ON THE PHONE. DR GUERRERO ORDER RT TO EXTUBATE THE PATIENT PER RT BILL.
--- NOTE | 2016-04-28 12:16 | NUR ---
RT QUILES EXTUBATED THE PATIENT AT THIS TIME AFTER THOROUGHLY SUCTIONING THE ETT AND MOUTH PER DR HADDAD'S ORDER. DAUGHTER CANDELARIA AND SON SHELLEY ARE AWARE. SON SHELLEY IS OUTSIDE THE ROOM TALKING TO HIS SISTER CANDELARIA ON THE PHONE BEFORE EXTUBATING THE PATIENT. PUT ON VM AT 40% O2. TOLERATED THE PROCEDURE WELL. WILL CONTINUE TO MONITOR.
--- NOTE | 2016-04-28 12:16 | NUR ---
PT EXTUBATED PER REQUESTS OF 'S ORDER. PT PLACED ON 40% VENTURI MASK. PT TOLERATING WELL AT THIS TIME. SPO2 96%. PT SLIGHTLY TACHYPNEIC. BIPAP SET UP AT BEDSIDE PRN SOB. WILL CONTINUE TO MONITOR.
[2016-04-28] MEDS: THERAHONEY GEL 42.5 GM TP SCH (13:20)
--- NOTE | 2016-04-28 14:00 | NUR ---
HAS BM AT THIS TIME, LARGE AMOUNT, PASTY, AND BROWN COLOR. GIVEN PARTIAL BATH AND LINENS ARE CHANGE. DRESSING ON COCCYX IS ALSO CHANGE. TOLERATED THE PROCEDURE WELL. NO C/O PAIN OR DYSPNEA. O2 SAT 98-100%. SR ON MONITOR. SBP IN 110'S-130'S. NO ECTOPY NOTED. HOB ELEVATED. WILL CONTINUE TO MONITOR.
[2016-04-28] MEDS ORDERED: SODIUM PHOSPHATE 30 MMOLE in NACL 0.9% 250 ML IV SCH (15:00)
--- NOTE | 2016-04-28 16:00 | NUR ---
REASSESSMENT DONE. MORE AWAKE BUT STILL DOES NOT FOLLOW COMMAND. NO SIGNS OF PAIN OR AGITATION NOTED. TOLERATING O2 WELL. O2 SAT 97-99%. SR ON MONITOR. SBP IN 110'S-120'S. NO ECTOPY NOTED. HOB ELEVATED. TOLERATING TF FEEDING WELL. NO RESIDUALS NOTED. UPDATED OF PLAN OF CARE. WILL CONTINUE TO MONITOR.
--- NOTE | 2016-04-28 18:00 | NUR ---
RESTING IN BED WITH SON AT BEDSIDE. NO SIGNS OF PAIN, DYSPNEA, OR AGITATION NOTED. TOLERATING O2 WELL. O2 SAT 94-96%. SR ON MONITOR. SBP IN 130'S. NO ECTOPY NOTED. HOB ELEVATED. WILL CONTINUE TO MONITOR.
--- NOTE | 2016-04-28 19:18 | NUR ---
RECEIVED REPORT FROM SATHYA YAO AT BEDSIDE. PT IS NON-VERBAL, OPEN EYES WHEN CALLING NAMES, BUT UNABLE TO FOLLOW COMMAND. ON MASK WITH FIO2 40%. NO S/S OF RESPIRATORY DISTRESS NOTED, RHONCHI LUNG SOUNDS UPON AUSCULTATION. SR ON OVEN DAUBER. G-TUBE IN PLACE, FEEDING WITH DIABETISOURCE AC AT 50 ML/HR, RESIDUALS 50 ML AT THIS TIME. ABDOMEN SOFT WITH ACTIVE BOWEL SOUND. THOMAS CATH IN PLACE WITH CLOUDY YELLOW URINE. PT IS STILL ON CONTACT ISOLATION FOR C-DIFF. CENTRAL LINE ON RIGHT I.J, TLC, PATENT, C/D/I, RUNNING WITH IVF. SKIN IS NON INTACT( SEE WOUND ASSESSMENT). UNABLE TO MOVE BLE AND RIGHT ARM, WEAKNESS ON LEFT AM. +1 PITTING EDEMA NOTED ON BLE, WITH SCD'S IN PLACE. VSS. ASPIRATION PRECAUTION AND FALL PRECAUTION IN PLACE. WILL CONTINUE TO MONITOR.
--- NOTE | 2016-04-28 19:18 | NUR ---
REPORT GIVEN TO INCOMING MANAGER FREELANCE RN, RN FRANKLIN.
--- NOTE | 2016-04-28 19:19 | NUR ---
CALLED [facility] AND SPEAK WITH LITZY, REPORT GIVEN ABOUT THE OF THE PATIENT. LITZY STATED THAT SOMEBODY FROM [facility] WILL CALL BACK THE UNIT. Addendum: 04/29/16 at 0645 by Agency 02 SATHYA RN WRONG PATIENT.
--- NOTE | 2016-04-28 20:00 | NUR ---
NO CHANGE OF CONDITION AT THIS TIME, POSITION CHANGED FOR OFF LOAD PRESSURE, ORAL CARE PROVIDED. VSS.
--- NOTE | 2016-04-28 21:00 | NUR ---
RECEIVED DR. HADDAD'S ORDER TO TRANSFER PT TO [facility].
--- NOTE | 2016-04-28 21:10 | NUR ---
ACCU CHECK DONE, INSULIN GIVEN ORDERED, PT TOLERATED WELL. VSS.
--- NOTE | 2016-04-28 21:50 | NUR ---
DR. BELLO CAME TO SEE PT AT BEDSIDE, NO NEW ORDER AT THIS TIME.
--- NOTE | 2016-04-28 22:00 | NUR ---
NO CHANGE OF CONDITION AT THIS TIME, POSITION CHANGED FOR OFF LOAD PRESSURE, VSS.
[2016-04-29] VITALS (8 sets, daily range): BP systolic 105–133; BP diastolic 49–69
--- NOTE | 2016-04-29 | NUR ---
NO CHANGE OF CONDITION AT THIS TIME, POSITION CHANGED FOR OFF LOAD PRESSURE.
[2016-04-29] MEDS: PIPER/TAZO 2.25GM/D5W PREMIX 50 ML IV SCH ×4 (00:32→17:05)
[2016-04-29] MEDS: VANCOMYCIN 500 MG VIAL PO SCH ×4 (00:32→17:06)
[2016-04-29] MEDS: PHARMACY COMMENTS MC SCH ×4 (00:32→17:06)
[2016-04-29] MEDS: Z-GUARD PASTE TP SCH ×2 (00:32→13:41)
[2016-04-29] MEDS: METOCLOPRAMIDE 10 MG/2 ML INJ VIAL IVP SCH ×4 (00:32→17:05)
[2016-04-29] MEDS ORDERED: VANCOMYCIN 1,000 MG VIAL ONE (00:54)
[2016-04-29] MEDS: ALBUTEROL 0.083% 2.5 MG/3 ML NEBU INH SCH ×6 (03:28→23:33)
--- NOTE | 2016-04-29 04:00 | NUR ---
AM CARE PROVIDED, POSITION CHANGED FOR OFF LOAD PRESSURE, VSS.
--- NOTE | 2016-04-29 06:00 | NUR ---
NO CHANGE OF CONDITION AT THIS TIME, POSITION CHANGED FOR OFF LOAD PRESSURE.
[2016-04-29] MEDS: BLOOD GLUCOSE MONITORING 1 DEV DEV FS SCH ×4 (06:48→21:42)
[2016-04-29] MEDS: INSULIN LISPRO SLIDING SCALE 100 UNITS/ML VIAL SUBQ PRN ×4 (06:48→21:43)
[2016-04-29] MEDS ORDERED: MAG SULF 2000 MG/WATER PREMIX 50 ML IV SCH (07:05)
--- NOTE | 2016-04-29 07:15 | NUR ---
GIVE REPORT TO SATHYA BASHIR FOR CONTINUE OF CARE.
--- NOTE | 2016-04-29 07:16 | NUR ---
RECEIVED REPORT FROM SATHYA REID. NO SIGNS OF ACUTE DISTRESS AT THIS TIME. FLACC 0. PT IS ON O2 2L/MIN NC. PT HAS RIJ X3 LUMEN, ALL PORTS PATENT AND INTACT. G TUBE IN PLACE TO TUBE FEEDING. THOMAS CATHETER IN PLACE DRAINING TO GRAVITY DRAINAGE BAG. WOUND TO SACRUM NOTED. PT IS CURRENTLY SR ON THE MONITOR. PT IS ON CONTACT ISOLATION WITH SIGNS POSTED OUTSIDE OF PT'S ROOM. SAFETY PRECAUTIONS IN PLACE WITH BED IN LOWEST POSITION AND SIDE RAILS UP. CALL LIGHT WITHIN REACH. WILL CONTINUE TO MONITOR.
--- NOTE | 2016-04-29 08:12 | NUR ---
SXN PT NASAL TRACHEAL WITH MOD AMT OFF WHITE SECS
--- NOTE | 2016-04-29 08:44 | NUR ---
DR. PRAJAPATI IN TO SEE PT. WILL FOLLOW UP ON ORDERS
[2016-04-29] MEDS: POTASSIUM CHLORIDE 20% 40 MEQ/15 ML UDC GT SCH (09:32)
[2016-04-29] MEDS: AMIODARONE 200 MG TAB PO SCH (09:33)
[2016-04-29] MEDS: LACTOBACILLUS RHAMNOSUS GG 1 EACH CAP PO SCH (09:33)
[2016-04-29] MEDS: POTASSIUM CHL 20 MEQ/ 1/2 NS 1,000 ML IV SCH ×2 (09:41→23:45)
--- NOTE | 2016-04-29 10:03 | NUR ---
CHECKED TUBE FEEDING RESIDUAL: NONE NOTED. ADMINISTERED MEDICATION ORDERED. PT TOLERATED WELL.
[2016-04-29] MEDS ORDERED: POTASSIUM CHLORIDE 20% 40 MEQ/15 ML UDC GT SCH (11:20)
--- NOTE | 2016-04-29 11:42 | NUR ---
DR. AHN IN TO SEE PT. WILL FOLLOW UP ON ORDERS.
--- NOTE | 2016-04-29 11:59 | NUR ---
CHECKED TUBE FEEDING RESIDUAL: NONE NOTED. ADMINISTERED MEDICATION ORDERED. PT TOLERATED WELL.
[2016-04-29] MEDS: THERAHONEY GEL 42.5 GM TP SCH (13:41)
--- NOTE | 2016-04-29 13:41 | NUR ---
CHECKED ON PT. NO ACUTE DISTRESS AT THIS TIME, FLACC 0. WILL CONTINUE TO MONITOR.
--- NOTE | 2016-04-29 14:28 | NUR ---
PT HAD A MODERATE-SIZED BOWEL MOVEMENT. LIQUID, YELLOW-BROWN IN COLOR. PROVIDED HYGIENE CARE, TURNED AND REPOSITIONED FOR COMFORT.
--- NOTE | 2016-04-29 16:40 | NUR ---
PT'S SON IN TO SEE PT
--- NOTE | 2016-04-29 17:22 | NUR ---
CHECKED TUBE FEEDING RESIDUAL: 50 ML NOTED, RETURNED TO PT. ADMINISTERED MEDICATION ORDERED. PT TOLERATED WELL
--- NOTE | 2016-04-29 19:02 | NUR ---
RECEIVED PT FROM ROSA Brush RN FOR PT CONTINUITY OF CARE. PT NOTES STABLE, NASAL CANNULA IN PLACE.
--- NOTE | 2016-04-29 19:08 | NUR ---
PT TRANSFERRED TO [facility], ROOM 116.
--- NOTE | 2016-04-29 19:23 | NUR ---
ENDORSED CARE TO SATHYA LINK. PT IN STABLE CONDITION.
--- NOTE | 2016-04-29 20:10 | NUR ---
SHIFT ASSESSMENT DONE AT THIS TIME. PT IS NOTED TO BE APHASIC, NON-VERBAL, EYES OPEN TO NAME. NO ACUTE DISTRESS NOTED. REINFORCEMENT OF TEACHING IS NEEDED. VITAL SIGNS TAKEN, PT ON 2L NASAL CANNULA WITH OXYGEN SATURATION AT 95%. PT NOTED TO HAVE MILD TACHYPNEA 26RR. LUNG SOUNDS ARE RHONCHI. ALL OTHER VITAL SIGNS STABLE, IS AFEBRILE. UPON INSPECTION NOTED PT TO HAVE RT IJ TRIPLE LUMEN ALL PATENT AND INTACT. ALL LUMENS HAVE GOOD BLOOD RETURN. NOTED G-TUBE FEEDING INTACT AND PATENT, RESIDUALS AT THIS TIME ARE 170ML. FEEDING HELD AT THIS TIME, WILL REASSESS IN 1 HR PER ORDERS. PT HOB IS ELEVATED 30 DEGREES. SCD'S ARE INTACT. THOMAS CATHETER IN PLACE, DRAINING TO GRAVITY OF YELLOW URINE, INTACT AND IN PLACE. NOTED PT TO HAVE GENERALIZED EDEMA. EXTREMITIES ARE ELEVATED BY PILLOWS. PT NOTED TO BE BEDBOUND. NOTED PT TO HAVE SACRAL DRESSING, DRY AND INTACT. PROVIDED TURNING TO PT. SAFETY AND CONTACT PRECAUTIONS IN PLACE. CALL LIGHT WITHIN REACH. WILL CONTINUE TO MONITOR PT.
--- NOTE | 2016-04-29 21:43 | NUR ---
PROVIDED PT WITH INSULIN PER MD SLIDING SCALE FOR BLOOD GLUCOSE OF 200. PT REMAINS STABLE. NO ACUTE DISTRESS.
--- NOTE | 2016-04-29 21:58 | NUR ---
SPOKE TO DR. CARVAJAL COVERING FOR DR. SPAIN. MADE HIM AWARE OF PT G-TUBE RESIDUALS WAS ASSESSED AND NOTED AT 170ML, WAS HELD FOR AN HOUR AND RESIDUALS ARE STILL AT 150ML. PER DR. CARVAJAL RECEIVED VERBAL ORDER TO HOLD G-TUBE FEEDING FOR THE REST OF THE NIGHT AND REASSESS RESIDUALS IN THE MORNING, IF RESIDUALS ARE DECREASED LESS THAN 100ML, OK TO RESTART FEEDING AT 30ML/HR.
[2016-04-30] VITALS (7 sets, daily range): BP systolic 104–146; BP diastolic 51–63
--- NOTE | 2016-04-30 00:05 | NUR ---
PT VITAL SIGNS STILL REMAIN STABLE. NO S/S OF ACUTE DISTRESS NOTED. WILL CONTINUE TO MONITOR PT.
[2016-04-30] MEDS: PIPER/TAZO 2.25GM/D5W PREMIX 50 ML IV SCH ×5 (00:14→23:35)
[2016-04-30] MEDS: METOCLOPRAMIDE 10 MG/2 ML INJ VIAL IVP SCH ×5 (00:23→21:14)
[2016-04-30] MEDS: Z-GUARD PASTE TP SCH ×2 (00:24→12:32)
[2016-04-30] MEDS: PHARMACY COMMENTS MC SCH ×5 (00:24→23:43)
[2016-04-30] MEDS: VANCOMYCIN 500 MG VIAL PO SCH ×5 (00:24→23:38)
--- NOTE | 2016-04-30 02:15 | NUR ---
PROVIDED TURNING TO PT. NO ACUTE DISTRESS NOTED. PT REMAINS STABLE. CALL LIGHT WITHIN REACH. NASAL CANNULA STILL INTACT.
[2016-04-30] MEDS: ALBUTEROL 0.083% 2.5 MG/3 ML NEBU INH SCH ×6 (03:32→23:10)
--- NOTE | 2016-04-30 04:30 | NUR ---
PT VITAL SIGNS REMAINS STABLE. NASAL CANNULA INTACT. OXYGEN SATURATION 100%. PROVIDED PT WITH ORAL CARE AND SUCTIONS ALSO PROVIDED TURNING. PROVIDED PT WITH JASBIR CARE CLEANSE.
[2016-04-30] MEDS: POTASSIUM CHL 20 MEQ/ 1/2 NS 1,000 ML IV SCH (06:08)
[2016-04-30] MEDS: BLOOD GLUCOSE MONITORING 1 DEV DEV FS SCH ×4 (06:14→21:14)
--- NOTE | 2016-04-30 06:35 | NUR ---
BLOOD GLUCOSE IS 170, PROVIDED PT WITH INSULIN COVERAGE PER MD ORDERS. ALSO CHECKED G-TUBE RESIDUALS AT THIS TIME, NOTED TO BE 0ML. RESUMED G-TUBE FEEDING AT 30ML/HR PER MD ORDERS.
[2016-04-30] MEDS: INSULIN LISPRO SLIDING SCALE 100 UNITS/ML VIAL SUBQ PRN ×3 (06:37→16:30)
--- NOTE | 2016-04-30 07:15 | NUR ---
ENDORSED PT TO DAVID MCDONNELL FOR PT CONTINUITY OF CARE. PT NOTED STABLE.
--- NOTE | 2016-04-30 07:16 | NUR ---
RECEIVED PT ASLEEP BUT EASILY AROUSABLE BY NAME AND SHAKING, WITH O2 AT 2LPM VIA NC, NO S/S OF RESPIRATORY DISCOMFORT.WITH IV ACCESS AT RIGHT IJ 3 LUMENS, ONE LUMEN INFUSING FLUIDS WELL. OTHER TWO ARE PATENT AND INTACT. WITH THOMAS CATHETER CONNECTED TO URINE BAG DRAINING DARK YELLOW URINE. WITH GTUBE, AUSCULTATED AND ASPIRATED 100ML OF RESIDUAL, TUBE FEEDING HELD AND WILL RECHECK. WITH STAGE 3 SACRAL WOUND WITH DRESSING DRY AND INTACT. SAFETY PRECAUTIONS IN PLACE, WILL CONTINUE TO MONITOR.
--- NOTE | 2016-04-30 07:30 | NUR ---
PT CONGESTED, WITH CRACKLES BEING HEARD, SUCTIONED PRN. SPO2 AT 98%. WILL CONTINUE TO MONITOR.
--- NOTE | 2016-04-30 07:45 | NUR ---
DR MEDRANO AT BEDSIDE. WILL CARRY OUT NEW ORDERS
[2016-04-30] MEDS: LACTOBACILLUS RHAMNOSUS GG 1 EACH CAP PO SCH (08:13)
[2016-04-30] MEDS: POTASSIUM CHLORIDE 20% 40 MEQ/15 ML UDC GT SCH (08:13)
[2016-04-30] MEDS: AMIODARONE 200 MG TAB PO SCH (08:13)
--- NOTE | 2016-04-30 08:16 | NUR ---
RESIDUAL AT 60ML/HR, TUBE FEEDING RESUMED.
[2016-04-30] MEDS: POTASSIUM CHL 20 MEQ / DEXT 5% 1,000 ML IV SCH (08:34)
--- NOTE | 2016-04-30 10:00 | NUR ---
PT REPOSITIONED TO SIDE, KEPT CLEAN AND DRY. CALL LIGHT WITHIN REACH, WILL CONTINUE TO MONITOR.
--- NOTE | 2016-04-30 10:15 | NUR ---
DR. PRAJAPATI AT BEDSIDE.
--- NOTE | 2016-04-30 12:00 | NUR ---
PT REPOSITIONED TO SIDE, KEPT CLEAN AND DRY. WILL CONTINUE TO MONITOR.
--- NOTE | 2016-04-30 12:31 | NUR ---
04/30/16 RD F/U COMPLETED PLEASE REFER TO NUTRITION PROGRESS NOTE UNDER CARE ACTIVITY FOR ESTIMATED NUTRITIONAL NEEDS. RD RECOMMENDATIONS: 1. CONTINUE NUTRITION SUPPORT DIABETISOURCE AT 30 ML/HR WITH PROTEIN SUPPLEMENTATION BID VIA GTUBE TOLERATED. 2. IF/WHEN PT TOLERATES CURRENT TUBE FEEDING REGIMENT, CONSIDER ADVANCE TUBE FEEDING BY 10MLS/HR Q8HRS TO GOAL OF 60 ML/HR WITH PROTEIN SUPPLEMENTATION BID. --@60MLS/HR PT WILL BE GETTING 1920 KCAL, 120 GM PROTEIN. THIS WILL MEET 93% OF PT ESTIMATED KCAL NEEDS AND 100% OF PT ESTIMATED PROTEIN NEEDS 3. RD WILL F/U 2-3 DAYS; HIGH RISK. ANITA HUNT MBA, RD
[2016-04-30] MEDS: THERAHONEY GEL 42.5 GM TP SCH (12:32)
--- NOTE | 2016-04-30 12:36 | NUR ---
METOCLOPRAMIDE 5MG PRIOR TO BEING DISCONTINUED, 10MG OF METOCLOPRAMIDE HELD AT 1300. Addendum: 04/30/16 at 1539 by Mar Hook RN METOCLOPRAMIDE 5MG GIVEN PRIOR TO BEING DISCONTINUED
--- NOTE | 2016-04-30 13:46 | NUR ---
PT AWAKE, GTUBE RESIDUAL AT 55ML. HOB KEPT ELEVATED, NO S/S OF DISTRESS. CALL LIGHT WITHIN REACH, WILL CONTINUE TO MONITOR.
--- NOTE | 2016-04-30 14:03 | NUR ---
REPOSITIONED PT TO SIDE, ALL NEEDS MET AT THIS TIME
--- NOTE | 2016-04-30 16:33 | NUR ---
GTUBE RESIDUAL AT 170 ML/HR, HELD TUBE FEEDING. WILL REASSESS. REPOSITIONED PT TO SIDE. WILL CONTINUE TO MONITOR.
--- NOTE | 2016-04-30 17:34 | NUR ---
GTUBE RESIDUAL CHECKED-- 280ML/HR. RESIDUAL APPEARS TO BE COFFEE GROUND. VS RECHECKED--BP 110/53, P-81, R-29, SPO2 95% T 97.8. LEFT VOICEMAIL AT DR. CARR'S OFFICE NUMBER WILL AWAIT FOR A CALL. GTUBE FEEDING HELD
--- NOTE | 2016-04-30 18:33 | NUR ---
GTUBE RESIDUAL AT 170ML. RESIDUAL IS COFFEE GROUND. TUBE FEEDING STILL ON HOLD.
--- NOTE | 2016-04-30 19:15 | NUR ---
SPOKE WITH DR CARR REGARDING RESIDUAL, WILL CARRY OUT NEW ORDERS.
--- NOTE | 2016-04-30 19:16 | NUR ---
ENDORSED PT TO SATHYA MINA FOR CONTINUITY OF CARE
--- NOTE | 2016-04-30 19:30 | NUR ---
RECEIVED FROM AM RN IN BED. AWAKE. APHASIC. TOTAL CARE. WITH RIGHT SIDED WEAKNESS. TURNED TO SIDES Q 2H. PILLOW SUPPORT TO PRESSURE AREAS.TELEMETRY MONITORING. GT FEEDING HELD RT WITH COFFEE GROUND RESIDUAL AND MORE THAN 100 ML. AM RN CALLED MD CARR/GI SPECIALIST AND WITH NEW ORDERS GIVEN. FOR EGD /COLONOSCOPY IN A.M. CHARGE NURSE AWARE OF IT. NEEDS WILL BE ANTICIPATED AND WILL BE MET.
[2016-04-30] MEDS: PANTOPRAZOLE 40 MG INJ VIAL IVP SCH (21:14)
--- NOTE | 2016-04-30 21:41 | NUR ---
PT. TURNED TO SIDES BY CNAS AND WITH PILLOW SUPPORT PLACED TO PRESSURE AREAS. DRESSING TO SACRAL WOUND INTACT AND DRY. FLACC 0-. NO RESTLESSNESS NOTED.
[2016-05-01] VITALS (8 sets, daily range): BP systolic 106–142; BP diastolic 49–67
--- NOTE | 2016-05-01 00:15 | NUR ---
PT. SLEEPING. TURNED BY CNAS. PILLOW SUPPORT TO PRESSURE AREAS. KEPT CLEAN AND DRY. HAD BM , LOOSE AND DARK COLORED. NEEDS WILL BE ANTICIPATED AND WILL BE MET. TOTAL CARE.
[2016-05-01] MEDS: POTASSIUM CHL 20 MEQ / DEXT 5% 1,000 ML IV SCH ×2 (00:35→06:37)
[2016-05-01] MEDS: Z-GUARD PASTE TP SCH ×2 (01:00→12:13)
[2016-05-01] MEDS: ALBUTEROL 0.083% 2.5 MG/3 ML NEBU INH SCH ×6 (03:06→22:48)
--- NOTE | 2016-05-01 03:07 | NUR ---
PT. SLEEPING AT THIS TIME. TURNED BY CNAS Q 2H. PILLOW SUPPORT TO PRESSURE AREAS. NO NOTED RESTLESSNESS. TELEMETRY MONITORING. WITH RIJ TRIPLE LUMEN IN PLACE AND INTACT. NO BLEEDING. PATENT. FLUSH ALL PORTS WITH 10 ML NS . GT FEEDING ON HOLD.
[2016-05-01] MEDS: METOCLOPRAMIDE 10 MG/2 ML INJ VIAL IVP SCH (04:44)
[2016-05-01] MEDS: PIPER/TAZO 2.25GM/D5W PREMIX 50 ML IV SCH ×3 (05:12→17:29)
[2016-05-01] MEDS: VANCOMYCIN 500 MG VIAL PO SCH (05:13)
[2016-05-01] MEDS: PHARMACY COMMENTS MC SCH (05:15)
[2016-05-01] MEDS: BLOOD GLUCOSE MONITORING 1 DEV DEV FS SCH ×4 (05:40→20:56)
--- NOTE | 2016-05-01 06:07 | NUR ---
CALLED RESPIRATORY THERAPIST FOR BREATHING TREATMENT FOR PT. RT CONGESTED. RESPIRATORY THERAPIST SUCTIONED PT AND PLACED HIM ON BIPAP AT 30 % FIO2. 02 SAT AT THIS TIME 98%. PT. SOUNDS MUCH BETTER. SLEPT BACK.
--- NOTE | 2016-05-01 06:16 | NUR ---
CALLED TO BEDSIDE TO SXN PT BY LEOPOLDO MCDONNELL. SXN'D SMALL WHITE THIN SECRETIONS. PT HAD LABORED BREATHING SO PLACED PT ON BIPAP FOR SUPPORT. TOLERATING WELL, LEOPOLDO MCDONNELL AWARE, WILL CONTINUE TO MONITOR.
--- NOTE | 2016-05-01 07:19 | NUR ---
PAGELen MICHAELS ATTACHE FOR MD SPAIN . CALLED BACK WITH IN 10 MINUTES. MD AVENDANO ATTACHE . NO FURTHER ORDERS RE : PLUSH BRUSHER STRIP AT 0500 PT. RUN A VTAC. "I WILL BE THERE IN 20 MINUTES. AT PRESENT INFORMED HER TOO THAT PT. PLACED ON BIPAP AND PLUSH BRUSHER SHOWS NSR AT 80 BPM.
--- NOTE | 2016-05-01 07:30 | NUR ---
ENDORSED TO THE NEXT RN FOR CONTINUITY OF CARE.
--- NOTE | 2016-05-01 07:35 | NUR ---
RECEIVED REPORT FROM NIGHT SATHYA MINA. PT RESTING IN BED.PT IS APHASIC. PT IS TACHYPNEIC BUT TOLERATED BIPAP WELL. FLACC 0 R IJ TRIPLE LUMEN PATENT AND INTACT. GT NOTED TO ABDOMEN FEEDING HELD PER DR CARR. THOMAS CATHETER PATENT AND INTACT. DRESSING TO SACRAL AREA DRY AND INTACT. CALL LIGHT WITHIN REACH. WILL CONTINUE TO MONITOR.
--- NOTE | 2016-05-01 08:04 | NUR ---
RECEIVED PT ON BIPAP. SETTINGS 12/5, R 12 AND FIO2 30%. PT IS TACHYPNEIC BUT NOT IN RESPIRATORY DISTRESS. BIPAP ALARMS ARE ON AND FUNCTIONING. BIPAP IS PLUGGED INTO RED OUTLET. PROTECTA-GEL PLACED UNDER MASK FOR SKIN PROTECTIONS NO REDNESS NOTED.WILL CONTINUE TO MONITOR.
--- NOTE | 2016-05-01 08:15 | NUR ---
PER DR PRAJAPATI HOLD GT TUBE MEDICATIONS.
[2016-05-01] MEDS: POTASSIUM CHLORIDE 20% 40 MEQ/15 ML UDC GT SCH ×2 (09:00→20:44)
[2016-05-01] MEDS: AMIODARONE 200 MG TAB PO SCH (09:00)
[2016-05-01] MEDS: PANTOPRAZOLE 40 MG INJ VIAL IVP SCH (09:00)
[2016-05-01] MEDS: LACTOBACILLUS RHAMNOSUS GG 1 EACH CAP PO SCH (09:00)
[2016-05-01] MEDS ORDERED: AMIODARONE 150 MG in DEXTROSE 5% 100 ML IV SCH (09:09)
[2016-05-01] MEDS ORDERED: METOPROLOL 5 MG/5 ML VIAL IV SCH (09:33)
--- NOTE | 2016-05-01 09:44 | NUR ---
PT REMAINS TACHYPNEIC, TOLERATING BIPAP WELL AT THIS TIME. NO CHANGES MADE TO BIPAP. WILL CONTINUE TO MONITOR.
--- NOTE | 2016-05-01 10:31 | NUR ---
SS NOTE: SENT CURRENT MICROBIOLOGY TO [facility], RECEIVED FAX CONFIRMATION
--- NOTE | 2016-05-01 10:45 | NUR ---
PT RESTING IN BED. PT IS TACHYPNEIC ON BIPAP AND TOLERATING WELL. FLACC 0. CALL LIGHT WITHIN REACH. WILL CONTINUE TO MONITOR.
[2016-05-01] MEDS ORDERED: FUROSEMIDE 40 MG/4 ML VIAL IVP SCH (11:20)
--- NOTE | 2016-05-01 12:09 | NUR ---
DR. CARR IN TO SEE PT. PER MD START TUBE FEEDING AT 30MLS.
[2016-05-01] MEDS: THERAHONEY GEL 42.5 GM TP SCH (12:13)
--- NOTE | 2016-05-01 12:15 | NUR ---
WOUND CARE FOLLOW UP NOTES: SEEN PATIENT TODAY RE: SACRALCOCCYX - UTD. PLEASE REFER TO WOUND ASSESSMENT FLOWSHEET FOR UPDATED ENTRY. WILL CONTINUE CURRENT PLAN OF CARE. WILL CONTINUE TO MONITOR PATIENT.
[2016-05-01] MEDS: INSULIN LISPRO SLIDING SCALE 100 UNITS/ML VIAL SUBQ PRN ×3 (12:18→20:57)
--- NOTE | 2016-05-01 13:35 | NUR ---
PT TOLERATING WELL. WORK OF BREATHING IS STILL INCREASED. PT REMAINS TACHYPNEIC. BIPAP INDICATED AT THIS TIME. WILL CONTINUE TO MONITOR.
--- NOTE | 2016-05-01 14:40 | NUR ---
PT IS AWAKE AND RESTING IN BED. HE SHOWS NO SIGNS OF DISTRESS. PT IS TOLERATING BIPAP WELL WITH FIO2 30%. WILL CONTINUE TO MONITOR.
--- NOTE | 2016-05-01 15:18 | NUR ---
PT TAKEN OFF OF BIPAP PLACED ON 3L NASAL CANNULA. SPO2 100%. PT NOT SOB AND NOT IN RESPIRATORY DISTRESS AT THIS TIME. NO RETRACTIONS NOTED. WILL CONTINUE TO MONITOR. NURSE CHRISTIAN AWARE.
--- NOTE | 2016-05-01 16:51 | NUR ---
CHECKED ON PT, NO SIGNS OF RESPIRATORY DISTRESS OR SOB AT THIS TIME. PT REMAINS ON 3L NASAL CANNULA SPO2 98%.
[2016-05-01] MEDS: METOCLOPRAMIDE 10 MG/10 ML SYRP UDC GT SCH (17:29)
--- NOTE | 2016-05-01 17:42 | NUR ---
PT IS RESTING IN BED WITH NO SIGNS OR SYMPTOMS OF DISTRESS. PT IS ON 3L NASAL CANULA WITH A SPO2 97%. WILL CONTINUE TO MONITOR.
--- NOTE | 2016-05-01 17:50 | NUR ---
PT TRANSFERRED ONTO WOUND BED. PT TOLERATED WELL.
--- NOTE | 2016-05-01 17:57 | NUR ---
PT'S RESIDUAL 105MLS, PT'S ABDOMEN DISTENDED. DR. LILLY HERNANDES.
--- NOTE | 2016-05-01 18:42 | NUR ---
PAGED LILLY KEVIN AGAIN REGARDING TUBE FEEDING.
--- NOTE | 2016-05-01 19:17 | NUR ---
ENDORSED PLAN OF CARE TO NIGHT RN. PT REMAINS IN STABLE CONDITION.
--- NOTE | 2016-05-01 19:45 | NUR ---
RECEIVED PT IN STABLE CONDITION FROM SONJA NURSE. AWAKE, BUT APHASIC. ON TELE MONITOR-SR. ON O23L/NC . NO ACUTE DISTRESS NOTED. RESPIRATION UNLABORED AND EVEN. BEDREST . REPOSITIONED PT FOR COMFORT. HAS IVF INFUSING WELL ON THE RT INTERNAL JUGULAR CENTRAL LINE TRIPLE LUMEN. HAS THOMAS CATH TO GRAVITY. WITH GT FEEDING ON HOLD. BED ON LOW POSITION. SIDE RAILS UP X2. NEED FREQUENT ROUNDS. WILL CONTINUE TO MONITOR.
--- NOTE | 2016-05-01 20:07 | NUR ---
CHECKED RESIDUAL ON GT . NO RESIDUAL NOTED. ABDOMEN NOT DISTENDED . GT FEEDING STARTED AGAIN AT 20 ML /HR. WITH H2O FLUSH 50ML Q6HRS. WILL CONTINUE TO MONITOR.
[2016-05-01] MEDS: METOPROLOL 5 MG/5 ML VIAL IV SCH (20:46)
--- NOTE | 2016-05-01 20:54 | NUR ---
PT HAS EPISODE RUN OF V TACH ON THE MONITOR. .ASSESSED PT COMFORTABLE WITH NO SIGNS OF ANY DISTRESS NOTED. HR BACK TO SR. WILL CONTINUE TO MONITOR.
--- NOTE | 2016-05-01 22:03 | NUR ---
ABDOMEN SLIGHTLY DISTENDED. RECHECKED GT RESIDUAL 80ML. FEEDING HOLD FOR NOW FOR PT IS CONGESTED . NAUSEATED. ZOFRAN IVP GIVEN. WILL CONTINUE TO MONITOR.
--- NOTE | 2016-05-01 22:11 | NUR ---
DR. BELLO CAME AND SEEN PT.
--- NOTE | 2016-05-01 22:50 | NUR ---
PT GETTING BREATHING TREATMENT AT THIS TIME. WILL CONTINUE TO MONITOR
[2016-05-02] MEDS: PIPER/TAZO 2.25GM/D5W PREMIX 50 ML IV SCH ×4 (00:04→17:23)
[2016-05-02] MEDS: Z-GUARD PASTE TP SCH ×2 (00:06→13:01)
--- NOTE | 2016-05-02 00:30 | NUR ---
RECHECKED GT FOR RESIDUAL,STILL WITH 50 ML. RESTARTED FEEDING. WILL CONTINUE TO MONITOR.
--- NOTE | 2016-05-02 00:40 | NUR ---
PT RESPIRATION IS TACHYPNEIC RESP 30-32/MIN, O2 SAT ONLY 89%. RT WAS PAGED AND CAME @0020. PLACED ON BIPAP . STARTED ON 30 % FIO2,IPAP 1 EPAP 5, RESP-12. BUT STILL ONLY 91%. INCREASED TO 40 %. O2 SAT NOW IS 97%-98%. PT IS MORE RELAXED AND RESP @25/MIN.
--- NOTE | 2016-05-02 01:14 | NUR ---
SLEEPING AT THIS TIME. NO DISTRESS NOTED. ON BIPAP MACHINE. O2 SAT 98%.
[2016-05-02] MEDS: ALBUTEROL 0.083% 2.5 MG/3 ML NEBU INH SCH ×6 (02:21→22:26)
--- NOTE | 2016-05-02 02:40 | NUR ---
JUST HAD A BREATHING TREATMENT BY RT. PT IS STABLE. O2 SAT 99% BACK ON BIPAP.
--- NOTE | 2016-05-02 03:24 | NUR ---
DECREASED FIO2 BACK TO 30%, SAO2 96% HR 91 RR 25
[2016-05-02 03:49] VITALS: BP 104/55
--- NOTE | 2016-05-02 04:00 | NUR ---
GT RESIDUAL CHECKED ONLY 10ML. CONTINUE WITH FEEDING @20ML/HR.
[2016-05-02] MEDS: LANSOPRAZOLE 30 MG CAPDR GT SCH (05:36)
--- NOTE | 2016-05-02 06:00 | NUR ---
ABG WAS DONE BY RT. PT NOT ON ANY RESPIRATORY DISTRESS NOTED. RT CAME WITH RESULT OF ABG PO2 59.1 AND INCREASED THE BIPAP FIO2 FROM 30% TO 40%. o2 SAT 99%.
[2016-05-02] MEDS: METOCLOPRAMIDE 10 MG/10 ML SYRP UDC GT SCH ×3 (06:10→17:21)
[2016-05-02] MEDS: BLOOD GLUCOSE MONITORING 1 DEV DEV FS SCH ×4 (06:17→21:11)
--- NOTE | 2016-05-02 06:25 | NUR ---
BLOOD SUGAR WAS CHECKED THIS AM RESULT 135. NO INSULIN NEEDED.
--- NOTE | 2016-05-02 07:10 | NUR ---
ENDORSED PT IN STABLE CONDITION TO AM NURSE.
--- NOTE | 2016-05-02 07:30 | NUR ---
RECEIVED REPORT FROM NIGHT NURSE. PT APHASIC. NO S/S OF DISTRESS. PT ON BIPAP 40% FIO2. RIGHT IJ TRIPLE LUMEN PATENT AND INTACT. THOMAS CATH PATENT. SCDS AT BEDSIDE. FEEDING INFUSING, PT TOLERATING WELL. DRESSING TO SACRAL AREA, CLEAN DRY AND INTACT. REDNESS TO HEELS NOTED. CALL LIGHT WITHIN REACH. SAFETY MEASURES IN PLACE. WILL CONTINUE TO MONITOR.
[2016-05-02 08:00] VITALS: BP 104/59
[2016-05-02] MEDS: METOPROLOL 5 MG/5 ML VIAL IV SCH ×2 (09:00→21:00)
[2016-05-02] MEDS: AMIODARONE 200 MG TAB PO SCH (09:52)
[2016-05-02] MEDS: POTASSIUM CHLORIDE 20% 40 MEQ/15 ML UDC GT SCH ×2 (09:53→21:29)
[2016-05-02] MEDS: LACTOBACILLUS RHAMNOSUS GG 1 EACH CAP PO SCH (09:53)
--- NOTE | 2016-05-02 10:00 | NUR ---
PT TOLERATED AM MEDS WELL. PT RESTING IN BED. SACRAL DRESSING CHANGED. PT REPOSITIONED, OFFLOAD PRESSURE AREAS. CALL LIGHT WITHIN REACH. SAFETY MEASURES IN PLACE. WILL CONTINUE TO MONITOR.
[2016-05-02 12:00] VITALS: BP 109/59
[2016-05-02] MEDS: INSULIN LISPRO SLIDING SCALE 100 UNITS/ML VIAL SUBQ PRN ×3 (12:26→21:15)
--- NOTE | 2016-05-02 12:30 | NUR ---
PT TOLERATED MEDICATIONS WELL. PT RESTING IN BED. NO S/S OF DISTRESS. CALL LIGHT WITHIN REACH. SAFETY MEASURES IN PLACE. WILL CONTINUE TO MONITOR.
[2016-05-02] MEDS: THERAHONEY GEL 42.5 GM TP SCH (13:01)
--- NOTE | 2016-05-02 15:10 | NUR ---
SS NOTE: I SPOKE WITH PT'S DTRCANDELARIA TO FOLLOW UP REGARDING PT'S POA PAPERWORK. SHE STATED THAT SHE WILL FAX OVER THE PAPERWORK TOMORROW, I PROVIDED HER WITH CASE MANAGEMENT'S FAX NUMBER. SHE ALSO STATED THAT SHE WOULD LIKE TO SEE IF THERE IS ANOTHER SNF CLOSER TO WHERE HER BROTHER, SHELLEY LIVES ([place]). I INFORMED HER THAT PLACEMENT MAY BE DIFFICULT DUE TO PT'S ISOLATION NEEDS AND [facility] BUT WE CAN CALL TO SEE IF THERE IS ANOTHER FACILITY FOR PT. SHE REPORTED THAT SHE IS IN AGREEMENT WITH PT RETURNING TO [facility] IF OTHER PLACEMENT CANNOT BE FOUND.
[2016-05-02 16:00] VITALS: BP 107/70
--- NOTE | 2016-05-02 16:00 | NUR ---
PT RESTING IN BED. PT ON O2 2L NC. FLACC 0. NO S/S OF DISTRESS. CALL LIGHT WITHIN REACH. SAFETY MEASURES ENSURED. WILL CONTINUE TO MONITOR.
--- NOTE | 2016-05-02 18:30 | NUR ---
PT IN BIPAP LOOK COMFORTABLE, MED NEB IN LINE, BS ARE BILAT CLEAR, NO DISTRESS NOTED
--- NOTE | 2016-05-02 19:12 | NUR ---
ENDORSED PLAN OF CARE TO NIGHT NURSE. CONDITION STABLE.
--- NOTE | 2016-05-02 19:30 | NUR ---
RECEIVE PT IN STABLE CONDITION FROM SONJA NURSE. Addendum: 05/02/16 at 2147 by Missy Castillo RN DUPLICATE.
--- NOTE | 2016-05-02 19:30 | NUR ---
RECEIVED PT IN STABLE CONDITION FROM AM NURSE. AWAKE, BUT APHASIC. NO ACUTE DISTRESS NOTED ON O23L/NC. BEDBOUND. TURN Q2HRS. WITH IV ACCESS ON THE RT INTERNAL JUGULAR CENTRAL LINE TRIPLE LUMEN. GT FEEDING TOLERATING WELL. THOMAS CATH TO GRAVITY. HAS SACRAL WOUND ,DRESSING CLEAN AND DRY. BLE ELEVATED ON PILLOW. WITH SCD MACHINE ON. SIDE RAILS UP X2. BED ON LOW POSITION. CALL LIGHT WITHIN EASY REACH. WILL CONTINUE TO MONITOR.
[2016-05-02 20:00] VITALS: BP 112/58
--- NOTE | 2016-05-02 21:35 | NUR ---
DR. EBLLO HERE. REVIEWED ORDERS. TO RESTART VANCOMYCIN GT.
--- NOTE | 2016-05-02 22:28 | NUR ---
PLACED PATIENT ON BIPAP 12/5 RATE 12, FIO2 35% SAO2-98 HR-83. TOLERATING WELL
[2016-05-02] MEDS ORDERED: WATER STERILE 20 ML MC ONE (23:05)
[2016-05-03 00:23] VITALS: BP 106/57
[2016-05-03] MEDS: PIPER/TAZO 2.25GM/D5W PREMIX 50 ML IV SCH ×2 (00:26→05:28)
[2016-05-03] MEDS: VANCOMYCIN 500 MG VIAL PO SCH ×2 (00:28→05:29)
--- NOTE | 2016-05-03 00:30 | NUR ---
RESIDUAL ON GT CHECKED . NONE NOTED.
[2016-05-03] MEDS: Z-GUARD PASTE TP SCH ×2 (00:35→16:12)
--- NOTE | 2016-05-03 02:35 | NUR ---
ASLEEP. NO DISTRESS NOTED. WILL CONTINUE TO MONITOR.
[2016-05-03] MEDS: ALBUTEROL 0.083% 2.5 MG/3 ML NEBU INH SCH ×6 (03:07→23:28)
--- NOTE | 2016-05-03 04:00 | NUR ---
HAS BEEN TURNED TO SIDES Q2HRS AND REPOSITIONED FOR COMFORT. NO DISTRESS NOTED.
--- NOTE | 2016-05-03 04:00 | NUR ---
SLEEPING AT THIS TIME. NO S/S OF ANY RESPIRATORY DISTRESS NOTED. ON BIPAP MACHINE. WILL CONTINUE TO MONITOR.
[2016-05-03 04:06] VITALS: BP 126/56
[2016-05-03] MEDS: LANSOPRAZOLE 30 MG CAPDR GT SCH (05:30)
[2016-05-03] MEDS: BLOOD GLUCOSE MONITORING 1 DEV DEV FS SCH ×4 (06:04→20:50)
--- NOTE | 2016-05-03 06:28 | NUR ---
REC'D PT ON JENNIFER V60 BIPAP SETTINGS 12/ RR12 FIO2 35% ALARMS ON AND FUNCTIONING PROPERLY, AMBU BAG AT SIDE OF BIPAP AND BIPAP IS PLUGGED INTO RED OUTLET, I\L TX GIVEN WITH ALBUTEROL 2.5MG WITH NO ADVERSE REACTION POST TX B\S ARE CLEAR BILATERALLY PT IS WEARING LARGE FACE MASK WITH PROTETIC GEL IN PLACE PT IS RESTING WITH NO SIGNS OF DISTRESS NOTED AT THIS TIME
[2016-05-03] MEDS: METOCLOPRAMIDE 10 MG/10 ML SYRP UDC GT SCH ×3 (06:31→16:06)
--- NOTE | 2016-05-03 07:26 | NUR ---
RECEIVED PT IN BED. ASLEEP. AROUSABLE TO VOICE. BREATHING EVEN ON BIPAP. NO SIGNS AND SYMPTOMS OF ACUTE PAIN OR DISCOMFORT NOTED. POSITIVE BOWEL SOUNDS ON ALL FOUR QUADRANTS. GT INTACT. WITH 30 ML RESIDUAL. NO DISCHARGE NOTED ON GT SITE. KEPT CLEAN DRY AND COMFORTABLE. SAFETY PRECAUTION IN PLACE. CALL LIGHT WITHIN REACH.
--- NOTE | 2016-05-03 07:26 | NUR ---
ENDORSED PT IN STABLE CONDITION TO AM NURSE.
[2016-05-03 08:00] VITALS: BP 141/57
--- NOTE | 2016-05-03 09:05 | NUR ---
BIPAP CHECK, PT IS RESTING WITH NO SIGNS OF DISTRESS NOTED AT THIS TIME
[2016-05-03] MEDS: POTASSIUM CHLORIDE 20% 40 MEQ/15 ML UDC GT SCH ×2 (09:41→20:45)
[2016-05-03] MEDS: AMIODARONE 200 MG TAB PO SCH ×2 (09:42→20:45)
[2016-05-03] MEDS: LACTOBACILLUS RHAMNOSUS GG 1 EACH CAP PO SCH (09:42)
[2016-05-03] MEDS: METOPROLOL 5 MG/5 ML VIAL IV SCH (09:42)
--- NOTE | 2016-05-03 10:37 | NUR ---
BIPAP CHECK, I\L TX GIVEN WITH ALBUTEROL 2.5MG WITH NO ADVERSE REACTION POST TX PT IS RESTING WITH NO SIGNS OF DISTRESS NOTED AT THIS TIME
[2016-05-03 12:00] VITALS: BP 119/63
[2016-05-03] MEDS: VANCOMYCIN 500 MG VIAL GT SCH ×3 (12:23→23:52)
--- NOTE | 2016-05-03 12:57 | NUR ---
BIPAP CHECK, PT IS SLEEPING WITH NO SIGNS OF DISTRESS NOTED AT THIS TIME
--- NOTE | 2016-05-03 13:28 | NUR ---
05/03/16 RD FOLLOW UP COMPLETED PLEASE REFER TO NUTRITION PROGRESS NOTE UNDER CARE ACTIVITY FOR ESTIMATED NUTRITION NEEDS. RD RECOMMENDATIONS: 1. CONTINUE DIABETISOURCE AT 20 ML/HR WITH 50 ML FREE WATER FLUSH Q6H WITH PROSOURCE PROTEIN SUPPLEMENTATION BID VIA GTUBE TOLERATED 2. IF/WHEN PT CONTINUES TO TOLERATE CURRENT TUBE FEEDING RATE CONSIDER ADVANCE TOLERATED 10 ML Q6H TO GOAL OF 65 ML/HR; KEEPING PROSOURCE PROTEIN SUPPLEMENTATION BID --AT GOAL THIS WILL PROVIDE 1560 ML TOTAL VOLUME, 1992 KCAL, 114 GM PROTEIN TO MEET 96% OF PT ESTIMATED KCAL NEEDS AND 100% OF PT ESTIMATED PROTEIN NEEDS 3. RD WILL F/U 2-3 DAYS; HIGH RISK. ANDREW ROSARIO RD
--- NOTE | 2016-05-03 14:00 | NUR ---
LATE ENTRY AT 1354: V-TACH SHOWING ON THE MONITOR. PT ASYMPTOMATIC, NO SOB NOTED. NO SIGNS AND SYMPTOMS OF ACUTE DISTRESS NOTED. DR. BOATENG HERE AND MADE AWARE. NEW ORDERS GIVEN AND CARRIED OUT.
[2016-05-03] MEDS ORDERED: MAG SULF 2000 MG/WATER PREMIX 50 ML IV PRN (14:05)
[2016-05-03] MEDS ORDERED: AMIODARONE 200 MG TAB PO SCH (14:05)
--- NOTE | 2016-05-03 14:42 | NUR ---
BIPAP CHECK, I\L TX GIVEN WITH ALBUTEROL 2.5MG WITH NO ADVERSE REACTION POST TX B\S ARE CLEAR AND PT IS RESTING SATHYA MONTEMAYOR AND JORGE LUIS AT BEDSIDE
[2016-05-03] MEDS ORDERED: FUROSEMIDE 40 MG/4 ML VIAL IVP SCH (15:00)
[2016-05-03] MEDS ORDERED: POTASSIUM CHLORIDE 8 MEQ TABER PO SCH (15:00)
[2016-05-03] MEDS ORDERED: MAG SULF 2000 MG/WATER PREMIX 50 ML IV SCH (15:00)
[2016-05-03 16:00] VITALS: BP 148/68
[2016-05-03] MEDS: THERAHONEY GEL 42.5 GM TP SCH (16:11)
--- NOTE | 2016-05-03 16:40 | NUR ---
BIPAP CHECK, PT IS RESTING WITH NO SIGNS OF DISTRESS NOTED AT THIS TIME
--- NOTE | 2016-05-03 17:00 | NUR ---
PICC LINE DRESSING CHANGE DONE. NO DISCHARGE NOTED. PICC LINE INTACT. NO SIGNS AND SYMPTOMS OF ACUTE DISTRESS NOTED. ASEPTIC TECHNIQUE OBSERVED.
[2016-05-03] MEDS ORDERED: VANCOMYCIN 500 MG VIAL GT SCH (18:00)
[2016-05-03] MEDS: INSULIN LISPRO SLIDING SCALE 100 UNITS/ML VIAL SUBQ PRN (18:46)
--- NOTE | 2016-05-03 19:25 | NUR ---
ENDORSED TO YANCY MCDONNELL. PATIENT ON STABLE CONDITION. NO SIGNS AND SYMPTOMS OF ACUTE DISTRESS NOTED. NEEDS ATTENDED. KEPT CLEAN DRY AND COMFORTABLE.
--- NOTE | 2016-05-03 19:30 | NUR ---
RECEIVED REPORT FROM DAY RN AT BEDSIDE, PATIENT IS RESTING IN BED, NON VERBAL BUT RESPONDS TO PAIN STIMULI OR SHAKING. PATIENT IS ON BIPAP WITH CONTINUOUS PULSE OX, NO SOB OR SIGN OF DISTRESS AT THIS TIME. PATIENT IS ON TUBE FEEDING DIABETISOURCE AT 20CC/HR. THOMAS PRESENT, CENTRAL LINE RIGHT IJ X3 LUMEN, PATENT AND INTACT. SACRAL ULCER WITH DRESSING DRY AND INTACT, NOTED INCONTINENT DERMATITIS TO SCROTUM, NOTED RIGHT SIDED WEAKNESS. PATIENT ON CONTACT ISOLATION FOR POSITIVE C-DIFF. DISCUSSED PLAN OF CARE WITH PATIENT, PATIENT UNABLE TO COMPREHEND. SAFETY MEASURES CHECKED, CALL LIGHT WITHIN REACH. WILL CONTINUE TO CLOSELY MONITOR.
[2016-05-03 20:00] VITALS: BP 109/61
[2016-05-03] MEDS: METOPROLOL 25 MG TAB PO SCH (20:50)
--- NOTE | 2016-05-03 20:50 | NUR ---
PM MEDS ADMINISTERED THROUGH G TUBE, PATIENT TOLERATED WELL, HELD LOPRESSOR FOR LOW BP AND CO ADMINISTRATION OF AMIODORONE, PATIENT RESTING IN BED, NO SOB OR SIGN OF DISTRESS AT THIS TIME, CALL LIGHT WITHIN REACH. WILL CONTINUE TO CLOSELY MONITOR.
--- NOTE | 2016-05-03 21:10 | NUR ---
PATIENT HAD BM, CLEANED, TURNED AND REPOSITIONED, PATIENT TOLERATED WELL. WILL CONTINUE TO CLOSELY MONITOR.
--- NOTE | 2016-05-03 23:39 | NUR ---
BIPAP CK DONE, PT ASLEEP, MED NEB IN LINE , NO DISTRESS NOTED AT HIS TIME
[2016-05-04] VITALS: BP 115/67
--- NOTE | 2016-05-04 00:13 | NUR ---
PATIENT RESTING IN BED, NO SOB OR SIGN OF DISTRESS, VITAL SIGNS STABLE, CALL LIGHT WITHIN REACH. WILL CONTINUE TO MONITOR.
[2016-05-04] MEDS: Z-GUARD PASTE TP SCH ×2 (01:31→12:44)
--- NOTE | 2016-05-04 02:20 | NUR ---
PATIENT AWAKE IN BED, NO SOB OR SIGN OF DISTRESS, WILL CONTINUE TO CLOSELY MONITOR.
[2016-05-04] MEDS: ALBUTEROL 0.083% 2.5 MG/3 ML NEBU INH SCH ×6 (03:23→23:04)
[2016-05-04 04:00] VITALS: BP 125/67
--- NOTE | 2016-05-04 04:37 | NUR ---
VITAL SIGNS STABLE, PATIENT AWAKE IN BED, NO SOB OR SIGN OF DISTRESS, CALL LIGHT WITHIN REACH. WILL CONTINUE TO CLOSELY MONITOR.
[2016-05-04] MEDS: VANCOMYCIN 500 MG VIAL GT SCH ×3 (05:47→17:13)
[2016-05-04] MEDS: METOPROLOL 25 MG TAB PO SCH ×3 (05:47→21:13)
[2016-05-04] MEDS: LANSOPRAZOLE 30 MG CAPDR GT SCH (05:48)
--- NOTE | 2016-05-04 06:15 | NUR ---
PATIENT AWAKE IN BED, NO SOB OR SIGN OF DISTRESS, DUE MEDS ADMINISTERED, PATIENT TURNED REPOSITIONED AND CLEANED, PATIENT TOLERATED WELL, WILL CONTINUE TO CLOSELY MONITOR
[2016-05-04] MEDS: BLOOD GLUCOSE MONITORING 1 DEV DEV FS SCH ×4 (06:26→21:13)
[2016-05-04] MEDS: METOCLOPRAMIDE 10 MG/10 ML SYRP UDC GT SCH ×3 (06:38→17:13)
--- NOTE | 2016-05-04 07:15 | NUR ---
ENDORSED PATIENT FRO CONTINUITY OF CARE TO DAY RN AT BEDSIDE, PATIENT IN STABLE CONDITION
--- NOTE | 2016-05-04 07:16 | NUR ---
RECEIVED PT ASLEEP BUT AROUSABLE TO SHAKING, APHASIC, ON BIPAP WITH SPO2 OF 100%, NO S/S OF RESPIRATORY DISTRESS. WITH IJ CENTRAL LINE X3 LUMENS PATENT AND INTACT. WITH GTUBE CONNECTED TO DIABETISOURCE TOLERATING WELL WITH 15ML RESIDUAL, WITH THOMAS CATHETER CONNECTED TO URINE BAG DRAINING DARK YELLOW URINE, WITH SACRAL WOUND WITH DRY AND INTACT DRESSING. SAFETY PRECAUTIONS ENFORCED. CALL LIGHT WITHIN REACH, WILL CONTINUE TO MONITOR.
--- NOTE | 2016-05-04 07:40 | NUR ---
RECEIVED ON A JENNIFER RESPIRProximagenS V60 BIPAP PLUGGED INTO RED OUTLET TOLERATING WELL WITHOUT INCIDENT TO A LARGE FACIAL MASK SECURED WITH A HEAD STRAP LOC AWAKE REMOVED BIPAP (NOC) TO MASK MASK HHN THERAPY GIVEN AT THIS TIME TOLERATED WELL WITHOUT ADVERSE REACTIONS NOTED POST THERAPY PLACED ON SUPPLEMENTAL OXYGEN AT 2 LPM VIA NC
[2016-05-04 08:00] VITALS: BP 125/66
[2016-05-04] MEDS: POTASSIUM CHLORIDE 20% 40 MEQ/15 ML UDC GT SCH ×2 (08:12→21:09)
[2016-05-04] MEDS: PHARMACY COMMENTS MC SCH (08:13)
[2016-05-04] MEDS: AMIODARONE 200 MG TAB PO SCH ×2 (08:13→21:10)
[2016-05-04] MEDS: LACTOBACILLUS RHAMNOSUS GG 1 EACH CAP PO SCH (08:13)
--- NOTE | 2016-05-04 08:27 | NUR ---
DUE MEDS GIVEN VIA GTUBE WITH RESIDUAL OF 15ML, PT TOLERATED WELL. PT NOW ON O2 2LPM NC SPO2 AT 98%.
--- NOTE | 2016-05-04 08:51 | NUR ---
SS NOTE: SENT SIGNED VENTILATOR REFERRAL FORM, PT'S FACE SHEET, PHYSICIAN'S ORDER, PHYSICIAN'S PROGRESS NOTES, H&P, BLOOD GAS & RT NOTES TO [email or web address], RECEIVED FAX CONFIRMATION
--- NOTE | 2016-05-04 09:27 | NUR ---
REPOSITIONED PT TO SIDE.
--- NOTE | 2016-05-04 10:21 | NUR ---
GT RESIDUAL AT 80ML, CONTINUE FEEDING. NO S/S OF RESPIRATORY DISTRESS. WILL CONTINUE TO MONITOR.
--- NOTE | 2016-05-04 10:52 | NUR ---
SS NOTE: MESSAGE LEFT FOR BERNY AT [employer] ([phone]) TO FOLLOW UP REGARDING PT'S BI-PAP
--- NOTE | 2016-05-04 11:22 | NUR ---
DR LAGUNA AT BEDSIDE
[2016-05-04 12:00] VITALS: BP 120/55
[2016-05-04] MEDS ORDERED: FUROSEMIDE 20 MG/2 ML VIAL IVP SCH (12:00)
--- NOTE | 2016-05-04 12:03 | NUR ---
DUE MEDS GIVEN VIA GTUBE WITH RESIDUAL OF 45ML. TOLERATED WELL. KEPT CLEAN AND DRY
[2016-05-04] MEDS: THERAHONEY GEL 42.5 GM TP SCH (12:44)
--- NOTE | 2016-05-04 12:49 | NUR ---
DR SPAIN AT NURSES' STATION.
--- NOTE | 2016-05-04 13:04 | NUR ---
SNF PLACEMENT INQUIRIES PER AKILA FROM [facility], NO ISOLATION BEDS AVAILABLE. PER LAYLA FROM [facility] ), THEY NEED TO REVIEW PT'S INFO. SENT PACKET TO FAX # [phone]. PER CARLI FROM [facility], NO ISO BEDS AVAILABLE AND THEY DON'T TAKE SENIOR MOBILE DEVELOPER PTS. PER VIELKA FROM [facility], NO ISO BEDS AVAILABLE. PER WILLY FROM [facility] ), THEY NEED TO REVIEW PT'S INFO. SENT PACKET TO FAX # [phone]. PER MARY FROM [facility], NO ISO BEDS AVAILABLE. PER KOBY FROM [facility], NO ISO BEDS AVAILABLE. PER LORRAINE FROM [facility] ([phone]), THEY WILL REVIEW PT'S INFO. SENT PACKET TO FAX # [phone]. PER MARCIN FROM [facility] , NO FCI BED AVAILABLE. Addendum: 05/04/16 at 1520 by Cathleen SCHROEDER PER LORRAINE FROM [facility], THEY DO NOT HAVE AN ISO/FCI BED AVAILABLE AT THIS TIME
--- NOTE | 2016-05-04 13:59 | NUR ---
SS NOTE: ANOTHER MESSAGE LEFT FOR BERNY AT [employer] ([phone]) TO FOLLOW UP REGARDING PT'S BI-PAP
--- NOTE | 2016-05-04 14:19 | NUR ---
SS NOTE: PER GERARDO FROM [email or web address], BERNY FROM THEIR OFFICE IS WAITING FOR PT'S REFERRAL TO BE REVIEWED BY THEIR RESPIRATORY THERAPY SUPERVISORS
--- NOTE | 2016-05-04 14:28 | NUR ---
GT RESIDUAL AT 45, CONTINUE FEEDING. NO S/S OF DISTRESS, WILL CONTINUE TO MONITOR.
[2016-05-04 16:00] VITALS: BP 115/55
--- NOTE | 2016-05-04 16:45 | NUR ---
PT KEPT CLEAN AND DRY, ALL NEEDS MET. GT RESIDUAL AT 50ML
[2016-05-04] MEDS: INSULIN LISPRO SLIDING SCALE 100 UNITS/ML VIAL SUBQ PRN (17:24)
--- NOTE | 2016-05-04 18:15 | NUR ---
PT AWAKE, NO S/S OF DISTRESS. KEPT CLEAN AND DRY. ALL NEEDS MET AT THIS TIME.
--- NOTE | 2016-05-04 19:30 | NUR ---
RECEIVED REPORT FROM DAY RN AT BEDSIDE, PATIENT IS RESTING IN BED AWAKE, APHASIC. ON 2L 02 VIA NC. NO SOB OR SIGN OF DISTRESS AT THIS TIME. PATIENT HAS CENTRAL LINE TO THE RIGHT IJ X3 LUMEN PATENT AND INTACT. PATIENT IS ON TUBE FEEDING TO G-TUBE DIABETISOURCE AT 20 ML/HR, G TUBE PATENT AND INTACT, RESIDUAL OF 20. NOTED PATIENT HAS A THOMAS WITH CLEAR YELLOW URINE. SACRAL WOUND WITH DRESSING DRY AND INTACT, INCONTINENT DERMATITIS TO SCROTUM, AND RIGHT HEEL REDNESS. PATIENT FLACC OF 0. ON TELE MONITOR. CONTACT ISOLATION PRECAUTION NOTED, SIGNS POSTED. SAFETY MEASURES CHECKED, WILL CONTINUE TO CLOSELY MONITOR.
--- NOTE | 2016-05-04 19:31 | NUR ---
ENDORSED PT TO YANCY MCDONNELL IN STABLE CONDITION FOR CONTINUITY OF CARE
[2016-05-04 20:00] VITALS: BP 115/60
--- NOTE | 2016-05-04 21:21 | NUR ---
PM MEDS ADMINISTERED THROUGH G TUBE PER MD ORDER, PATIENT RESTING AWAKE IN BED, NO SOB OR SIGN OF DISTRESS AT THIS TIME, WILL CONTINUE TO CLOSELY MONITOR. BP 120/61 HR 86
[2016-05-05] VITALS: BP 112/55
--- NOTE | 2016-05-05 00:20 | NUR ---
VITAL SIGNS STABLE, PATIENT RESTING AWAKE IN BED, NO SOB OR SIGN OF DISTRESS, PATIENT ON O2 2L NC SATURATIONS BETWEEN 95-97%. FLACC 0, WILL CONTINUE TO CLOSELY MONITOR.
[2016-05-05] MEDS: VANCOMYCIN 500 MG VIAL GT SCH ×4 (00:31→17:55)
[2016-05-05] MEDS: Z-GUARD PASTE TP SCH ×2 (01:25→13:15)
--- NOTE | 2016-05-05 02:30 | NUR ---
PATIENT RESTING IN BED, NO SIGN OF DISTRESS AT THIS TIME. WILL CONTINUE TO FREQUENTLY MONITOR.
[2016-05-05] MEDS: ALBUTEROL 0.083% 2.5 MG/3 ML NEBU INH SCH ×6 (03:20→22:47)
[2016-05-05 04:00] VITALS: BP 125/55
--- NOTE | 2016-05-05 04:00 | NUR ---
VITAL SIGNS STABLE, PATIENT SLEEPING, NO SOB OR SIGN OF DISTRESS, ON O2 2L NC, WILL CONTINUE TO CLOSELY MONITOR.
[2016-05-05] MEDS: LANSOPRAZOLE 30 MG CAPDR GT SCH (05:43)
[2016-05-05] MEDS: METOPROLOL 25 MG TAB PO SCH ×3 (05:43→21:11)
--- NOTE | 2016-05-05 06:00 | NUR ---
PATIENT SLEEPING, NO SIGN OF DISTRESS, ON O2 2L VIA NC, WILL CONTINUE TO MONITOR.
[2016-05-05] MEDS: BLOOD GLUCOSE MONITORING 1 DEV DEV FS SCH ×4 (06:19→21:00)
[2016-05-05] MEDS: METOCLOPRAMIDE 10 MG/10 ML SYRP UDC GT SCH ×3 (06:38→17:21)
--- NOTE | 2016-05-05 07:30 | NUR ---
ENDORSED REPORT TO DAY RN AT BEDSIDE, PATIENT IN STABLE CONDITION
--- NOTE | 2016-05-05 07:35 | NUR ---
RECEIVED REPORT FROM SATHYA HAINES. PT SLEEPING IN BED, A/OX1, PT IS APHASIC, PT HAS A RT IJ, PATENT, INTACT, INFUSING WELL, PT HAS GTUBE LEFT SIDE ABDOMEN, 45ML RESIDUAL, SKIN IS INTACT, PT IS ON 2L NC, NO S/S OF RESPIRATORY DISTRESS OR DISCOMFORT NOTED, SAFETY/FALL/ASPIRATION PRECAUTIONS ARE IN PLACE, DISCUSSED PLAN OF CARE WITH PT, PT UNABLE TO COMPREHEND, CALL LIGHT WITHIN REACH, WILL CONTINUE TO MONITOR.
[2016-05-05 08:00] VITALS: BP 113/56
[2016-05-05] MEDS: PHARMACY COMMENTS MC SCH (09:00)
[2016-05-05] MEDS: POTASSIUM CHLORIDE 20% 40 MEQ/15 ML UDC GT SCH ×2 (09:38→21:11)
[2016-05-05] MEDS: AMIODARONE 200 MG TAB PO SCH ×2 (09:40→21:11)
[2016-05-05] MEDS: LACTOBACILLUS RHAMNOSUS GG 1 EACH CAP PO SCH (09:41)
--- NOTE | 2016-05-05 10:02 | NUR ---
SS NOTE: PER JESENIA FROM [employer] ([phone]), IN ORDER TO QUALIFY FOR PT'S BI-PAP, HIS PCO2 HAS TO BE 45MMHG OR MORE ON HIS ABG. SHE ALSO STATED THAT PT WILL ALSO REQUIRE A PULMONARY FUNCTION TEST WELL.
--- NOTE | 2016-05-05 11:52 | NUR ---
SS NOTE: PER ARNOLD FROM [facility] ([phone]), THEY MAY BE ABLE TO ACCEPT PT BUT SHE WILL AWAIT THEIR DIRECTOR OF NURSES' APPROVAL. I SPOKE WITH PT'S DTR, CANDELARIA. SHE STATED THAT HER SISTER, MENA IS DIFFICULT TO GET A HOLD OF AT TIMES AND SHE USUALLY HANDLES PT'S FINANCES. SHE ALSO STATED THAT SHE TAKES CARE OF PT'S MEDICAL DECISIONS AND WILL SEND OVER A COPY OF PT'S POWER OF SIEBEL DEVELOPER FORMS TODAY. I INFORMED HER OF THE ABOVE INFORMATION. SHE REPORTED THAT SHE WILL LOOK INTO [facility] AND DECIDE IF SHE WOULD LIKE PT TO GO THERE OR TO RETURN TO [facility].
[2016-05-05 12:00] VITALS: BP 125/55
[2016-05-05] MEDS: THERAHONEY GEL 42.5 GM TP SCH (12:38)
--- NOTE | 2016-05-05 14:56 | NUR ---
05/05/16 RD FOLLOW UP COMPLETED PLEASE REFER TO NUTRITION PROGRESS NOTE UNDER CARE ACTIVITY FOR ESTIMATED NUTRITION NEEDS. RD RECOMMENDATIONS: 1. CONTINUE DIABETISOURCE AT 20 ML/HR WITH 50 ML FREE WATER FLUSH Q6H WITH PROSOURCE PROTEIN SUPPLEMENTATION BID VIA GTUBE TOLERATED 2. IF/WHEN PT CONTINUES TO TOLERATE CURRENT TUBE FEEDING RATE CONSIDER ADVANCE TOLERATED 10 ML Q6H TO GOAL OF 65 ML/HR; KEEPING PROSOURCE PROTEIN SUPPLEMENTATION BID --AT GOAL THIS WILL PROVIDE 1560 ML TOTAL VOLUME, 1992 KCAL, 114 GM PROTEIN TO MEET 96% OF PT ESTIMATED KCAL NEEDS AND 100% OF PT ESTIMATED PROTEIN NEEDS 3. IF PT CONTINUES TO NOT TOLERATE TUBE FEEDING PER MD CONSIDER TUBE FEEDING FORMULA CHANGE TO PEPTAMEN AF WITH GOAL OF 65 ML/HR. 4. RD WILL F/U 2-3 DAYS; HIGH RISK. ANDREW ROSARIO RD
--- NOTE | 2016-05-05 15:48 | NUR ---
SS NOTE: I RECEIVED A CALL FROM PT'S SON, SHELLEY ([phone]). HE STATED THAT HIS SISTER, CANDELARIA CALLED HIM REGARDING POSSIBLE PLACEMENT AT [facility]. HE ALSO STATED THAT CANDELARIA WANTS HIM TO LOOK AT THE FACILITY BEFORE HAVING PT GO THERE. PER SHLOMO FROM [facility] ([phone]), PT CAN GO TO ROOM 10B UNDER DR. MARISELA ROSEN IF PT'S FAMILY DECIDE TO HAVE PT RETURN TO THEM. PER ARNOLD FROM [facility] ([phone]), PT CAN GO TO ROOM 18A UNDER DR. WILLAMS IF PT'S FAMILY CHOOSES TO HAVE PT COME TO THEM. Addendum: 05/05/16 at 1607 by Cathleen SCHROEDER CORRECTION: ACCEPTING AT [facility] WILL BE DR. MICHELLE Addendum: 05/05/16 at 1619 by Cathleen SCHROEDER SHELLEY REPORTED THAT HE WILL CALL THE NURSES' STATION TODAY WITH HIS FAMILY'S DECISION AFTER HE TOURS [facility]. Addendum: 05/05/16 at 1627 by Cathleen Knutson SS CORRECTION: PT'S ROOM AT [facility] WILL BE ROOM 32
[2016-05-05 16:00] VITALS: BP 124/51
--- NOTE | 2016-05-05 16:58 | NUR ---
IF NEEDED, TRANSPORT BY [facility], AUTH [id number] FROM [facility].
--- NOTE | 2016-05-05 19:10 | NUR ---
ENDORSED PT TO SATHYA HAINES. FOR CONTINUITY OF CARE. PT COUGHING AT THIS TIME, ASKED RT IF THEY CAN PLEASE SUCTION. PT IN STABLE CONDITION.
--- NOTE | 2016-05-05 19:24 | NUR ---
RCV'D PT ON 2 L NC WITH A HUMIDIFIER. PT SAT IS 97% HR 75. HHN TX GIVEN. PT HAS NO SOB OR DISTRESS NOTED. NO BIPAP NEEDED AT THIS TIME. WILL CONTINUE TO MONITOR.
--- NOTE | 2016-05-05 19:30 | NUR ---
RECEIVED REPORT FROM DAY RN AT BEDSIDE, PATIENT IS AWAKE IN BED, APHASIC, RESPONDS TO TOUCH LIGHT PAIN. ON O2 AT 2L VIA NC. ON TUBE FEEDING DIABETISOURCE AT 2OML/HR, THOMAS PRESENT, NOTED SACRAL ULCER WITH DRESSING DRY AND INTACT, INCONTINENT DERMATITIS TO SCROTAL AREA, AND RIGHT HEEL REDNESS.SCDS IN PLACE. ON CONTACT ISOLATION, SIGNS POSTED, SAFETY MEASURES CHECKED, WILL CONTINUE TO FREQUENTLY MONITOR.
[2016-05-05 20:00] VITALS: BP 140/64
--- NOTE | 2016-05-05 21:22 | NUR ---
PM MEDS ADMINISTERED PER MD ORDER. THROUGH G TUBE, PATIENT SLEEPING, NO SOB OR SIGN OF DISTRESS, WILL CONTINUE TO FREQUENTLY MONITOR.
--- NOTE | 2016-05-05 21:51 | NUR ---
CALLED AND SPOKE TO PATIENT'S SON SHELLEY Coy TO FOLLOW UP IF THEY HAVE DECIDED ON A FACILITY FOR THE PATIENT TO BE TRANSFERRED TO. PER SON THE PATIENT'S DAUGHTER CANDELARIA OR HIMSELF WILL CALL TOMORROW MORNING OR AFTERNOON AND LET US KNOW WHICH PLACE THEY HAVE DECIDED.
[2016-05-06] VITALS (7 sets, daily range): BP systolic 101–119; BP diastolic 48–57
--- NOTE | 2016-05-06 00:30 | NUR ---
PATIENT AWAKE IN BED, NO SIGN OF DISTRESS, PATIENT STABLE, VITAL SIGNS STABLE, PATIENT TURNED CLEANED AND REPOSITIONED, SAFETY MEASURES CHECKED, WILL CONTINUE TO FREQUENTLY MONITOR.
[2016-05-06] MEDS: VANCOMYCIN 500 MG VIAL GT SCH ×3 (00:32→12:21)
[2016-05-06] MEDS: Z-GUARD PASTE TP SCH ×2 (01:12→12:22)
--- NOTE | 2016-05-06 02:18 | NUR ---
PATIENT RESTING IN BED, NO SOB OR SIGN OF DISTRESS AT THIS TIME, ON O2 AT 2L NC, SAFETY MEASURES CHECKED, WILL CONTINUE TO FREQUENTLY MONITOR.
[2016-05-06] MEDS: ALBUTEROL 0.083% 2.5 MG/3 ML NEBU INH SCH ×6 (03:30→23:51)
--- NOTE | 2016-05-06 04:30 | NUR ---
PATIENT SLEEPING NO SOB OR SIGN OF DISTRESS. WILL CONTINUE TO MONITOR.
[2016-05-06] MEDS: LANSOPRAZOLE 30 MG CAPDR GT SCH (05:47)
[2016-05-06] MEDS: METOPROLOL 25 MG TAB PO SCH ×3 (05:48→20:47)
[2016-05-06] MEDS: BLOOD GLUCOSE MONITORING 1 DEV DEV FS SCH ×4 (06:37→21:00)
[2016-05-06] MEDS: METOCLOPRAMIDE 10 MG/10 ML SYRP UDC GT SCH ×3 (06:38→16:47)
--- NOTE | 2016-05-06 07:21 | NUR ---
ENDORSED PATIENT TO DAY SHIFT RN AT BEDSIDE, PATIENT IS IN STABLE CONDITION.
--- NOTE | 2016-05-06 07:23 | NUR ---
RECEIVED REPORT FROM NIGHT RN. PT RESTING IN BED. PT IS APHASIC. NO S/S OF ACUTE DISTRESS. FLACC-0. R IJ TRIPLE LUMEN PATENT AND INTACT. G-TUBE FEEDING INFUSING WELL. PT TOLERATED FEEDING. ON O2 2L NC. THOMAS CATHETER PATENT. DRESSING TO SACRAL AREA DRY AND INTACT. CALL LIGHT WITHIN REACH. SAFETY MEASURES ENSURED. WILL CONTINUE TO MONITOR.
--- NOTE | 2016-05-06 07:45 | NUR ---
NOTIFIED DR. SPAIN OF PLATELET LEVEL [phone]. NO NEW ORDERS.
[2016-05-06] MEDS: LACTOBACILLUS RHAMNOSUS GG 1 EACH CAP PO SCH (09:26)
[2016-05-06] MEDS: PHARMACY COMMENTS MC SCH (09:27)
[2016-05-06] MEDS: AMIODARONE 200 MG TAB PO SCH ×2 (09:27→20:41)
[2016-05-06] MEDS: POTASSIUM CHLORIDE 20% 40 MEQ/15 ML UDC GT SCH ×2 (09:27→20:41)
--- NOTE | 2016-05-06 09:39 | NUR ---
PT RESTING IN BED. NO S/S OF ACUTE DISTRESS. FLACC-0. PT TOLERATED AM MEDS WELL. FLACC-0. CALL LIGHT WITHIN REACH. WILL CONTINUE TO MONITOR.
--- NOTE | 2016-05-06 11:00 | NUR ---
PT RESTING IN BED. NO S/S OF ACUTE DISTRESS. ON O2 2L NC. FLACC-0. PT TOLERATING FEEDING WELL. CALL LIGHT WITHIN REACH. WILL CONTINUE TO MONITOR.
--- NOTE | 2016-05-06 11:37 | NUR ---
CALLED [facility] REGARDING TRANSFER. LEFT MESSAGE, AWAITING CALLBACK.
[2016-05-06] MEDS: THERAHONEY GEL 42.5 GM TP SCH (12:21)
--- NOTE | 2016-05-06 12:28 | NUR ---
G-TUBE RESIDUAL 165. FEEDING WILL BE HELD FOR 1 HOUR. NO S/S OF ACUTE DISTRESS. WILL CONTINUE TO MONITOR.
--- NOTE | 2016-05-06 13:28 | NUR ---
RESIDUAL 20, FEEDING RESUMED.
--- NOTE | 2016-05-06 14:47 | NUR ---
PT'S SON SHELLEY CONTACTED. MESSAGE LEFT. AWAITING CALL BACK
--- NOTE | 2016-05-06 17:19 | NUR ---
SPOKE WITH DAUGHTER CANDELARIA. SHE STATES THEY DON'T WANT HIM SENT TO [facility] OR [facility]. SHE REQUEST TO SEE IF THERE IS ANOTHER LOCATION CLOSER. CLOSET ORGANIZER MADE AWARE.
--- NOTE | 2016-05-06 17:34 | NUR ---
SPOKE TO CANDELARIA, INFORMED HER THAT THERE AREN'T ANY CLOSER LOCATIONS AVAILABLE. IF SHE CAN'T DECIDE BETWEEN [facility] SHE WOULD NEED TO WAIT UNTIL SUNDAY TO TALK TO CASE MANAGEMENT, BUT WAITING UNTIL SUNDAY RISKS LOSING THE AVAILABLE BEDS. CANDELARIA STATES SHE NEEDS TO TALK TO HER BROTHER AND WILL CALL BACK WITHIN 1 HOUR. AWAITING PHONE CALL.
--- NOTE | 2016-05-06 18:32 | NUR ---
FEEDING RESIDUAL 170. FEEDING HELD. WILL CONTINUE TO MONITOR.
--- NOTE | 2016-05-06 19:00 | NUR ---
NO WORD BACK FROM DAUGHTER CANDELARIA.
--- NOTE | 2016-05-06 19:03 | NUR ---
ENDORSED PLAN OF CARE TO NIGHT RN. PT REMAINS IN STABLE CONDITION.
--- NOTE | 2016-05-06 19:14 | NUR ---
RECEIVED REPORT FROM DAY RN FOR CONTINUITY OF CARE. PATIENT IS APHASIC, OPENS EYES TO NAME. EXPLAINED PLAN OF CARE TO PATIENT. SHIFT ASSESSMENT DONE, VS TAKEN, STABLE. NO S/S OF RESPIRATORY DISTRESS NOTED ON 2L NC. NO S/S OF PAIN NOTED. PT HAS BILATERAL EDEMA TO FEET, SACRAL PRESSURE ULCER DRESSING INTACT, INCONTINENT DERMATITIS NOTED TO SCROTAL AREA AND RIGHT HEEL REDNESS. SCDS IN PLACE. CENTRAL LINE TO RT IJ TRIPLE LUMEN PATENT, DRESSING INTACT. THOMAS CATHETER IN PLACE. TUBE FEEDING RESUMED, RESIDUAL 20 ML. SAFETY/FALL/CONTACT PRECAUTIONS ENFORCED. WILL CONTINUE TO MONITOR.
--- NOTE | 2016-05-06 20:41 | NUR ---
DUE MEDICATIONS ADMINISTERED PER MD ORDER. HELD BP MEDS DUE TO DECREASED BLOOD PRESSURE. TURNED AND REPOSITIONED PATIENT. VS STABLE. SAFETY PRECAUTIONS ENFORCED.
--- NOTE | 2016-05-06 22:14 | NUR ---
TURNED AND REPOSITIONED PATIENT. O2 SAT 98% ON 2L NC. NO S/S OF DISTRESS OR DISCOMFORT NOTED. WILL CONTINUE TO MONITOR.
[2016-05-07] VITALS: BP 111/51
--- NOTE | 2016-05-07 00:04 | NUR ---
VS TAKEN, STABLE. TURNED AND REPOSITIONED PATIENT. CHECK RESIDUAL LESS THAN 20 ML NOTED. SAFETY PRECAUTIONS ENFORCED. WILL CONTINUE TO MONITOR.
[2016-05-07] MEDS: Z-GUARD PASTE TP SCH ×2 (01:42→11:50)
--- NOTE | 2016-05-07 02:03 | NUR ---
TURNED AND REPOSITIONED PATIENT TO OFFLOAD PRESSURE. EMPTIED THOMAS BAG 550 ML URINE NOTED. WILL CONTINUE TO MONITOR.
[2016-05-07] MEDS: ALBUTEROL 0.083% 2.5 MG/3 ML NEBU INH SCH ×6 (02:26→22:27)
[2016-05-07 04:00] VITALS: BP 91/66
--- NOTE | 2016-05-07 04:08 | NUR ---
VS TAKEN, STABLE. TURNED PATIENT AND PROVIDED AM CARE. WILL CONTINUE TO MONITOR.
[2016-05-07] MEDS: METOPROLOL 25 MG TAB PO SCH ×3 (05:00→20:18)
[2016-05-07] MEDS: METOCLOPRAMIDE 10 MG/10 ML SYRP UDC GT SCH ×3 (06:31→16:39)
[2016-05-07] MEDS: LANSOPRAZOLE 30 MG CAPDR GT SCH (06:31)
[2016-05-07] MEDS: BLOOD GLUCOSE MONITORING 1 DEV DEV FS SCH ×4 (06:40→20:26)
--- NOTE | 2016-05-07 06:40 | NUR ---
DUE MEDICATIONS ADMINISTERED. CHANGED TUBE FEEDING BAG AND TUBING. BLOOD SUGAR 122, NO COVERAGE NEEDED.
--- NOTE | 2016-05-07 07:09 | NUR ---
ENDORSED PATIENT TO CHRISTIAN MCDONNELL FOR CONTINUITY OF CARE, PT IS IN STABLE CONDITION.
--- NOTE | 2016-05-07 07:11 | NUR ---
RECEIVED REPORT FROM NIGHT RN. PT RESTING IN BED. PT IS APHASIC. NO S/S OF ACUTE DISTRESS. FLACC-0. RIGHT IJ TRIPLE LUMEN PATENT AND INTACT. PT FEEDING INFUSING, PT TOLERATING FEEDING WELL. THOMAS CATHETER PATENT. SACRAL DRESSING DRY AND INTACT. PT ON O2 2L NC. CALL LIGHT WITHIN REACH. SAFETY MEASURES ENSURED. HOB ELEVATED. WILL CONTINUE TO MONITOR.
[2016-05-07 07:26] VITALS: BP 118/49
[2016-05-07] MEDS: POTASSIUM CHLORIDE 20% 40 MEQ/15 ML UDC GT SCH ×2 (09:18→20:18)
[2016-05-07] MEDS: LACTOBACILLUS RHAMNOSUS GG 1 EACH CAP PO SCH (09:19)
[2016-05-07] MEDS: AMIODARONE 200 MG TAB PO SCH ×2 (09:19→20:18)
--- NOTE | 2016-05-07 09:30 | NUR ---
PT RESTING IN BED. NO S/S OF ACUTE DISTRESS. FLACC-0. FEEDING INFUSING, PT TOLERATING WELL. PT REPOSITIONED. PT TOLERATED AM MEDS WELL. CALL LIGHT WITHIN REACH. SAFETY MEASURES ENSURED. WILL CONTINUE TO MONITOR.
--- NOTE | 2016-05-07 11:48 | NUR ---
PT RESTING IN BED. NO S/S OF ACUTE DISTRESS. PT REPOSITIONED. DRESSING TO SACRAL AREA CHANGED. FLACC-0. CALL LIGHT WITHIN REACH. SAFETY MEASURES ENSURED. WILL CONTINUE TO MONITOR.
[2016-05-07] MEDS: THERAHONEY GEL 42.5 GM TP SCH (11:50)
[2016-05-07 12:00] VITALS: BP 112/52
--- NOTE | 2016-05-07 13:39 | NUR ---
PT RESTING IN BED. NO S/S OF ACUTE DISTRESS. FLACC-0. ON O2 2L NC. CALL LIGHT WITHIN REACH. SAFETY MEASURES ENSURED. WILL CONTINUE TO MONITOR.
--- NOTE | 2016-05-07 14:51 | NUR ---
RIGHT IJ TRIPLE LUMEN TAKEN OUT. TIP INTACT. NO BLEEDING NOTED. NO S/S OF ACUTE DISTRESS. FLACC-0. CALL LIGHT WITHIN REACH. SAFETY MEASURES ENSURED. WILL CONTINUE TO MONITOR.
[2016-05-07 16:00] VITALS: BP 108/50
--- NOTE | 2016-05-07 16:22 | NUR ---
PATIENT'S SON SHELLEY IN THE UNIT STATED HE CHECKED THE [facility] FACILITY AND DOESN'T WANT HIS DAD TO GO TO [facility]. HE ALSO CONCERNED THAT NOT TO LOOSE THE BED AT [facility] ,CALLED [facility] SPOKE WITH [facility] BED IS STILL AVAILABLE BUT SHELLEY NEEDED TO WAIT UNTIL SUNDAY TO SEE MORE SNF AROUND THE AREA .HE WILL CALL SUNDAY TO TALK TO CM AND HE WILL DECIDE.
[2016-05-07] MEDS: INSULIN LISPRO SLIDING SCALE 100 UNITS/ML VIAL SUBQ PRN (16:49)
--- NOTE | 2016-05-07 19:15 | NUR ---
ENDORSED PLAN OF CARE TO NIGHT RN. PT REMAINS IN STABLE CONDITION.
--- NOTE | 2016-05-07 19:20 | NUR ---
RECEIVED REPORT FROM DAY RN FOR CONTINUITY OF CARE. PATIENT IS APHASIC, OPENS EYES TO NAME WHEN CALLED. EXPLAINED PLAN OF CARE TO PATIENT. SHIFT ASSESSMENT DONE, VS TAKEN, IN STABLE CONDITION. NO S/S OF RESPIRATORY DISTRESS NOTED ON 2L NC. NO S/S OF PAIN NOTED, FLACC-0. PT HAS BILATERAL EDEMA TO FEET NOTED, SACRAL PRESSURE ULCER DRESSING INTACT, INCONTINENT DERMATITIS TO SCROTAL AREA AND RIGHT HEEL REDNESS. SCDS IN PLACE. THOMAS CATHETER IN PLACE. TUBE FEEDING STOPPED FOR RESIDUAL OVER 100ML. SAFETY/FALL/CONTACT PRECAUTIONS ENFORCED. WILL CONTINUE TO MONITOR.
[2016-05-07 20:00] VITALS: BP 136/68
--- NOTE | 2016-05-07 20:26 | NUR ---
TURNED AND REPOSITIONED PATIENT, SMALL BM, CLEANED AND PROVIDED LINEN CHANGE. DUE MEDICATIONS ADMINISTERED, TOLERATED WELL. CHECKED RESIDUAL NOW AT 20 ML RESTARTED TUBE FEEDING. BLOOD SUGAR TAKEN, 141, NO COVERAGE NEEDED. WILL CONTINUE TO MONITOR.
--- NOTE | 2016-05-07 22:15 | NUR ---
TURNED AND REPOSITIONED PATIENT. NO SOB OR DISTRESS NOTED. WILL CONTINUE TO MONITOR.
[2016-05-08] VITALS: BP 105/57
--- NOTE | 2016-05-08 00:06 | NUR ---
VS TAKEN, STABLE. REPOSITIONED PATIENT AND MADE COMFORTABLE. WILL CONTINUE TO MONITOR.
[2016-05-08] MEDS: Z-GUARD PASTE TP SCH ×2 (01:01→13:00)
[2016-05-08] MEDS: ALBUTEROL 0.083% 2.5 MG/3 ML NEBU INH SCH ×3 (02:04→10:55)
--- NOTE | 2016-05-08 02:04 | NUR ---
EMPTIED THOMAS BAG 550 ML NOTED. NO S/S OF DISTRESS OR DISCOMFORT NOTED. WILL CONTINUE TO MONITOR.
[2016-05-08 04:00] VITALS: BP 114/59
--- NOTE | 2016-05-08 04:22 | NUR ---
PATIENT TURNED AND REPOSITIONED, PROVIDED WOUND CARE AND DRESSING CHANGE. NO S/S OF DISTRESS NOTED, FLACC-0. WILL CONTINUE TO MONITOR.
[2016-05-08] MEDS: METOPROLOL 25 MG TAB PO SCH (05:21)
[2016-05-08] MEDS: BLOOD GLUCOSE MONITORING 1 DEV DEV FS SCH ×2 (06:02→11:32)
[2016-05-08] MEDS: LANSOPRAZOLE 30 MG CAPDR GT SCH (06:02)
--- NOTE | 2016-05-08 06:02 | NUR ---
BLOOD SUGAR 118, NO COVERAGE NEEDED. TURNED AND REPOSITIONED PATIENT. PT HAD SMALL BOWEL MOVEMENT. PT IS REMOVING NASAL CANNULA, O2 SAT STILL AT 98% ON ROOM AIR. REAPPLIED NC. WILL CONTINUE TO MONITOR.
[2016-05-08] MEDS: METOCLOPRAMIDE 10 MG/10 ML SYRP UDC GT SCH ×2 (06:32→11:23)
--- NOTE | 2016-05-08 07:10 | NUR ---
ENDORSED PATIENT TO DAY RN FOR CONTINUITY OF CARE, PATIENT IS IN STABLE CONDITION.
--- NOTE | 2016-05-08 07:14 | NUR ---
RECEIVED REPORT FROM SATHYA BASHIR. PT SLEEPING IN BED, A/OX1, PT IS APHASIC, PT HAS GTUBE LEFT SIDE ABDOMEN, 20ML RESIDUAL, PT HAS A SACRAL WOUND, PT IS ON 2L NC, NO S/S OF RESPIRATORY DISTRESS OR DISCOMFORT NOTED, SAFETY/FALL/ASPIRATION PRECAUTIONS ARE IN PLACE, DISCUSSED PLAN OF CARE WITH PT, PT UNABLE TO COMPREHEND, CALL LIGHT WITHIN REACH, WILL CONTINUE TO MONITOR.
[2016-05-08 08:00] VITALS: BP 121/57
[2016-05-08] MEDS: POTASSIUM CHLORIDE 20% 40 MEQ/15 ML UDC GT SCH (09:14)
[2016-05-08] MEDS: AMIODARONE 200 MG TAB PO SCH (09:14)
--- NOTE | 2016-05-08 09:14 | NUR ---
DUE MEDICATIONS GIVEN, PT TOLERATED. NO S/S OF RESPIRATORY DISTRESS OR DISCOMFORT NOTED, CALL LIGHT IS WITHIN REACH, WILL CONTINUE TO MONITOR.
[2016-05-08] MEDS: LACTOBACILLUS RHAMNOSUS GG 1 EACH CAP PO SCH (09:15)
--- NOTE | 2016-05-08 09:33 | NUR ---
CALLED [facility] AND SPOKE WITH SHLOMO . THEY WILL ACCEPT THE PATIENT. HE CAN GO TO ROOM 32 B.
--- NOTE | 2016-05-08 10:52 | NUR ---
SS NOTE: I SPOKE WITH PT'S SON, SHELLEY. HE STATED THAT HE DID NOT LIKE [facility]. HE INQUIRED IF THERE WERE ANY OTHER AVAILABLE BEDS. I INFORMED PT THAT DUE TO PT'S ISOLATION NEEDS, [facility] AND [facility] WERE THE ONLY SNFS THAT HAD AN ISO BED AVAILABLE. HE ALSO STATED THAT HIS SISTERS HAVE GIVEN HIM THE POWER TO DECIDE WHERE PT WILL BE DISCHARGED TO AND HE IS IN AGREEMENT WITH PT RETURNING TO [facility]. HE REQUESTED THAT A CALL BE MADE TO HIS SISTER, CANDELARIA TO UPDATE HER ON THE CONVERSATION AND PT'S D/C PLAN. MESSAGE LEFT FOR PT'S DTR, CANDELARIA REGARDING THE ABOVE INFORMATION
--- NOTE | 2016-05-08 11:15 | NUR ---
PT SLEEPING IN BED, AWAKEN TO NAME, NO S/S OF RESPIRATORY DISTRESS OR DISCOMFORT NOTED, CALL LIGHT IS WITHIN REACH, WILL CONTINUE TO MONITOR.
--- NOTE | 2016-05-08 11:42 | NUR ---
CALLED [facility] AND SET UP TRANSPORT FOR 1P.Chantel SIMON RN AWARE.
[2016-05-08 12:00] VITALS: BP 116/57
--- NOTE | 2016-05-08 12:08 | NUR ---
CALLED [facility] AT [phone], GAVE REPORT TO SATHYA BUCIO.
--- NOTE | 2016-05-08 12:15 | NUR ---
WOUNDS DRESSING CHANGED, PICTURES OF WOUNDS TAKEN, PT TOLERATED WELL.
--- NOTE | 2016-05-08 12:51 | NUR ---
05/08/16 RD FOLLOW UP COMPLETED PLEASE REFER TO NUTRITION PROGRESS NOTE UNDER CARE ACTIVITY FOR ESTIMATED NUTRITION NEEDS. RD RECOMMENDATIONS: 1. D/T PT CONTINUED NON TOLERANCE OF CURRENT TUBE FEEDING, CONSIDER TUBE FEEDING CHANGE TO PEPTAMEN AF AT 10 ML/HR AND ADVANCE 10 ML Q6H TO GOAL OF 65 ML/HR --AT GOAL OF 65 ML/HR THIS WILL PROVIDE 1560 ML TOTAL VOLUME, 1872 KCAL, 119 GM PROTEIN TO MEET 90% OF PT ESTIMATED KCAL NEEDS AND 100% OF PT ESTIMATED PROTEIN NEEDS 3. RD WILL F/U 2-3 DAYS; HIGH RISK. ANDREW ROSARIO RD
[2016-05-08] MEDS: THERAHONEY GEL 42.5 GM TP SCH (13:00)
--- NOTE | 2016-05-08 13:30 | NUR ---
[facility] HERE TO HOUSEKEEPING SUPERVISOR PT, REMOVED AGER OPERATOR, ID WRIST BAND, NO IV IN PLACE, PT STABLE UPON DISCHARGE.
== END 2016-05-08 13:30 | DRG 870 ==
LOC: MED 21:54 → MIC 04-24 00:41 → MTU 04-29 18:37
PROVIDERS: ADMIT Internal Medicine Pulmonary Disease; ATTEND Internal Medicine Pulmonary Disease
PROC: 5A1955Z Respiratory Ventilation, Greater than 96 Consecutive Hours (ICD-10-PCS; principal; 2016-04-24)
PROC: 0BH17EZ Insertion of Endotracheal Airway into Trachea, Via Natural or Artificial Opening (ICD-10-PCS; 2016-04-24)
PROC: 02HV33Z Insertion of Infusion Device into Superior Vena Cava, Percutaneous Approach (ICD-10-PCS; 2016-04-24)
PROC: B548ZZA Ultrasonography of Superior Vena Cava, Guidance (ICD-10-PCS; 2016-04-24)
PROC: 05HP33Z Insertion of Infusion Device into Right External Jugular Vein, Percutaneous Approach (ICD-10-PCS; 2016-04-24)
PROC: 30233N1 Transfusion of Nonautologous Red Blood Cells into Peripheral Vein, Percutaneous Approach (ICD-10-PCS; 2016-04-26)
PROC: 5A09457 Assistance with Respiratory Ventilation, 24-96 Consecutive Hours, Continuous Positive Airway Pressure (ICD-10-PCS; 2016-05-01)
DX: A41.9 Sepsis, unspecified organism (principal); R65.21 Severe sepsis with septic shock; J69.0 Pneumonitis due to inhalation of food and vomit; L89.153 Pressure ulcer of sacral region, stage 3; G93.40 Encephalopathy, unspecified; J96.01 Acute respiratory failure with hypoxia; N17.9 Acute kidney failure, unspecified; N39.0 Urinary tract infection, site not specified; A04.7 Enterocolitis due to Clostridium difficile; E46 Unspecified protein-calorie malnutrition; K56.0 Paralytic ileus; I69.351 Hemiplegia and hemiparesis following cerebral infarction affecting right dominant side; Z66 Do not resuscitate; F03.90 Unspecified dementia, unspecified severity, without behavioral disturbance, psychotic disturbance, mood disturbance, and anxiety; E11.65 Type 2 diabetes mellitus with hyperglycemia; G40.909 Epilepsy, unspecified, not intractable, without status epilepticus; N18.9 Chronic kidney disease, unspecified; E87.5 Hyperkalemia; D64.9 Anemia, unspecified; E87.8 Other disorders of electrolyte and fluid balance, not elsewhere classified; I12.9 Hypertensive chronic kidney disease with stage 1 through stage 4 chronic kidney disease, or unspecified chronic kidney disease; E11.22 Type 2 diabetes mellitus with diabetic chronic kidney disease; I25.10 Atherosclerotic heart disease of native coronary artery without angina pectoris; J44.9 Chronic obstructive pulmonary disease, unspecified; L89.159 Pressure ulcer of sacral region, unspecified stage; R13.10 Dysphagia, unspecified; Z87.891 Personal history of nicotine dependence; Z93.1 Gastrostomy status; Z79.899 Other long term (current) drug therapy; Z74.01 Bed confinement status; Z68.24 Body mass index [BMI] 24.0-24.9, adult; Z28.21 Immunization not carried out because of patient refusal

== ENCOUNTER 2016-05-13 07:45 | Inpatient (IN) | payer OTHER ==
[~2016-05-13] VITALS: Ht 182.9 cm; Wt 81.6 kg
[~2016-05-13 07:45] MED LIST changes: +LANTUS SOLOS100 U/ML SUBQ; +ZOFRAN4 M1 GT
--- NOTE | 2016-05-13 07:45 | NUR ---
Patient BIBA ACLS from [facility], transferred to bed 7. RN evaluating patient at bedside.
--- NOTE | 2016-05-13 07:45 | NUR ---
PATIENT PRESENTS TO ED IN RESP DISTRESS WITH SHALLOW RAPID RESP--FULL ACCESSORY MUSCLE USE . PT STATES .SKIN IS PALE/HOT/DRY; AAOX4 WITH EVEN AND STEADY GAIT; LUNGS CLEAR BL; HR EVEN AND REGULAR; SOB, PATIENT STATES PAIN OF 0/10 AT THIS TIME; VSS; PATIENT POSITIONED FOR COMFORT; HOB ELEVATED; BEDRAILS UP X2; BED DOWN. ER MD MADE AWARE OF PT STATUS.
[2016-05-13 07:51] VITALS: BP 134/68
--- NOTE | 2016-05-13 07:51 | NUR ---
Dr. Mendoza evaluating patient at bedside.
[2016-05-13] MEDS ORDERED: cefTRIAXone 2,000 MG in DEXTROSE 5% 100 ML IV ONE (08:00)
[2016-05-13] MEDS ORDERED: NACL 0.9% 1,000 ML IV ONE ×2 (08:00→09:25)
[2016-05-13] MEDS ORDERED: cefTRIAXone 2,000 MG VIAL ONE (08:09)
--- NOTE | 2016-05-13 08:20 | NUR ---
central sterile supply technician at bedside.
[2016-05-13] MEDS ORDERED: ALBUTEROL 0.083% 2.5 MG/3 ML NEBU INH ONE (08:30)
[2016-05-13] MEDS ORDERED: IPRATROPIUM 0.02% 0.5 MG/2.5 ML NEBU INH ONE (08:30)
[2016-05-13] MEDS ORDERED: ACETAMINOPHEN 650 MG/20.3 ML UDC ONE (09:20)
[2016-05-13] MEDS ORDERED: VANCOMYCIN PER PHARMACY MC PRN (09:40)
[2016-05-13] MEDS ORDERED: ONDANSETRON 4 MG/2 ML VIAL IVP PRN (09:40)
[2016-05-13] MEDS: NACL 0.9% 1,000 ML IV SCH ×2 (09:40→22:35)
[2016-05-13] MEDS ORDERED: LORazepam 2 MG/ML VIAL IVP PRN (09:40)
[2016-05-13] MEDS ORDERED: MORPHINE SULFATE 2 MG/ML SYR IVP PRN (09:40)
--- NOTE | 2016-05-13 09:55 | NUR ---
ABBIE MCDONNELL TELE NOT READY TO RECEIVE REPORT AT THIS TIME
--- NOTE | 2016-05-13 10:04 | NUR ---
# 16 FR Francois catheter with ml utilizing sterile technique. Immediate return of ml urine noted. Bedside drainage bag placed below level of bladder. Urine sample collected and sent to lab. Pt tolerated procedure . PRE-EXISTING CATHETER D/C'D UPON ARRIVAL
--- NOTE | 2016-05-13 10:04 | NUR ---
PT'S SON AT BEDSIDE
--- NOTE | 2016-05-13 10:44 | NUR ---
Pt transferred to Tele via [facility], REPORT GIVEN TO ABBIE MCDONNELL
--- NOTE | 2016-05-13 10:50 | NUR ---
RECEIVED PT FROM ER. ALERT, ORIENTED X0. BREATHING WITH 02 VIA FACE MASK 6LPM. NO SIGNS AND SYMPTOMS OF ACUTE PAIN OR DISTRESS NOTED. WITH GT IN PLACE, INTACT NO DISCHARGE NOTED, POSITIVE GASTRIC ACTIVITY ON ALL FOUR QUADRANTS, WITH 40 ML GASTRIC RESIDUAL NOTED. PT HAS SACRAL PRESSURE ULCER, RIGHT HEEL NON BLANCHABLE REDNESS, AND SCROTAL INFLAMMATION AND REDNESS. SAFETY PRECAUTION IN PLACE. CALL LIGHT WITHIN REACH.
[2016-05-13] MEDS: BLOOD GLUCOSE MONITORING 1 DEV DEV FS SCH ×3 (11:30→20:30)
[2016-05-13] MEDS: LEVOFLOXACIN 750 MG/D5W PREMIX 150 ML IV SCH (12:38)
--- NOTE | 2016-05-13 12:49 | NUR ---
IVF NS ALREADY STARTED AT ER
[2016-05-13] MEDS ORDERED: VANCOMYCIN 1GM/DEXT 5% PREMIX 200 ML IV SCH (13:00)
[2016-05-13] MEDS ORDERED: PIPERACILLIN/TAZOBACTAM 3.375 GM in DEXTROSE 5% 50 ML IV SCH (13:00)
[2016-05-13] MEDS: IPRATROPIUM 0.02% 0.5 MG/2.5 ML NEBU IH SCH ×2 (13:39→19:48)
[2016-05-13] MEDS: ALBUTEROL 0.083% 2.5 MG/3 ML NEBU IH PRN ×2 (13:39→19:48)
[2016-05-13] MEDS: PIPER/TAZO 3.375GM/D5W PREMIX 50 ML IV SCH ×2 (13:56→20:33)
--- NOTE | 2016-05-13 13:58 | NUR ---
PT ON 4L NASAL CANNULA AT THIS TIME. SPO2 95%. PT NASOTRACHEAL SUCTIONED OBTAINED MODERATE AMOUNT OF THICK YELLOW SECRETIONS. PT SUCTIONED WITHOUT INCIDENT VITALS REMAINED STABLE DURING SUCTIONING. PT NOT SOB NOT IN RESPIRATORY DISTRESS AT THIS TIME.
[2016-05-13 14:32] VITALS: BP 111/52
[2016-05-13 16:00] VITALS: BP 96/55
--- NOTE | 2016-05-13 19:20 | NUR ---
PT ASLEEP. NO SOB NOTED. NO ACUTE DISTRESS NOTED. ENDORSED TO NEXT SHIFT ON STABLE CONDITION.
--- NOTE | 2016-05-13 19:30 | NUR ---
RECEIVED REPORT FROM SATHYA KANG, AT BEDSIDE. INITIAL ASSESSMENT AND BODY CHECK DONE. PATIENT IS APHASIC, EYES OPEN TO TACTILE STIMULI, UNABLE TO MAKE NEEDS KNOWN AND ON BEDBOUND. PATIENT CURRENTLY LYING DOWN ON THE BED. NO S/S OF DISTRESS AND FLACC 0. G-TUBE AND THOMAS CATHETER REMAINS IN PLACE AND PATENT. NOTED PATIENT HAS: SACRAL WOUND, INCONTINENT DERMATITIS AND RT HEEL REDNESS WITH DRESSING. DISCUSSED PLAN OF CARE, PAIN MANAGEMENT AND MEDICATION REGIMEN WITH PATIENT'S SON AND HE VERBALIZED UNDERSTANDING. PLACED PATIENT ON SAFETY/FALL/ASPIRATION/SEIZURE/PRESSURE ULCER PRECAUTIONS AND WILL CONTINUE TO MONITOR WITH REPOSITION Q 2 HOURS. CALL LIGHT LEFT WITHIN REACH.
[2016-05-13] MEDS ORDERED: HYDRAGUARD CREAM TP PRN (19:55)
[2016-05-13 20:00] VITALS: BP 118/61
--- NOTE | 2016-05-13 21:50 | NUR ---
ADMINISTERED ABX MEDICATION MD'S ORDERED WITH EDUCATION GIVEN AND REPOSITION/ OFFLOADED PRESSURE AREAS. PATIENT TOLERATED WELL. WILL CONTINUE TO MONITOR.
[2016-05-14] VITALS: BP 118/56
[2016-05-14] MEDS: HYDRAGUARD CREAM TP SCH ×2 (00:37→13:00)
[2016-05-14] MEDS: NACL 0.9% IRR 250 ML BOTTLE IR SCH ×3 (00:37→13:00)
[2016-05-14] MEDS: MILD SOAP AND WATER TP SCH ×2 (00:38→13:00)
--- NOTE | 2016-05-14 00:38 | NUR ---
VARIABLE ATRIAL FLUTTER Addendum: 05/14/16 at 0039 by Rocio Salgado RN WRONG INPUT
--- NOTE | 2016-05-14 00:39 | NUR ---
PATIENT RESTED COMFORTABLY IN BED WITH STABLE CONDITION AND NO APPARENT DISTRESS NOTED. FLACC 0. SKIN TX DONE AND REPOSITION FOR COMFORT/PRESSURE RELIEF. PATIENT TOLERATED WELL. WILL CONTINUE TO MONITOR.
[2016-05-14] MEDS: IPRATROPIUM 0.02% 0.5 MG/2.5 ML NEBU IH SCH ×4 (01:40→19:54)
[2016-05-14 04:00] VITALS: BP 108/56
[2016-05-14] MEDS: PIPER/TAZO 3.375GM/D5W PREMIX 50 ML IV SCH ×3 (04:07→20:43)
--- NOTE | 2016-05-14 04:20 | NUR ---
PATIENT RESTED QUIETLY IN BED WITH EVEN AND UNLABORED RESPIRATORY RATE. NO CHANGE IN CONDITION NOTED. AM CARE/JASBIR-CARE GIVEN WITH LINENS/GOWN CHANGED AND REPOSITION BY TWO [employer]AB[employer]ITATION CONSULTANT. PATIENT TOLERATED WELL. WILL CONTINUE TO MONITOR.
--- NOTE | 2016-05-14 04:24 | NUR ---
NOTED SHORT RUN V-TACH ON MONITOR FOR 3 SECS AND THEN CONVERTED BACK TO SR. PATIENT IS ASYMPTOMATIC. WILL CONTINUE TO MONITOR CLOSELY.
[2016-05-14] MEDS: BLOOD GLUCOSE MONITORING 1 DEV DEV FS SCH ×4 (05:37→20:41)
[2016-05-14] MEDS: ALBUTEROL 0.083% 2.5 MG/3 ML NEBU IH PRN ×2 (06:59→13:11)
--- NOTE | 2016-05-14 07:03 | NUR ---
RECEIVED CRITICAL LAB VALUES: HGB 6.6 AND HCT [address]ED DR. WALTON AND NEW ORDERS GIVEN: TYPE AND SCREEN, 2 UNITS PRBC, STOOL OB 3 TIMES, PROTONIC 40 MG IVP DAILY AND CBC AFTER 1ST UNIT OF BLOOD TRANSFUSION, NOTED AND CARRIED-OUT. NOTIFIED LAB AND BLOOD BANK REGARDING THE NEW ORDERS.
--- NOTE | 2016-05-14 07:24 | NUR ---
RECEIVED PT IN BED, APHASIC, OPENS EYES, BEDBOUND. ON 02 AT 2LPM VIA NC. NO SOB NOTED. NO ACUTE SIGNS AND SYMPTOMS OF PAIN OR DISCOMFORT NOTED AT THIS TIME. POSITIVE BOWEL SOUNDS NOTED ON FOUR QUADRANTS. PT ON GT. NPO. PT HAS SACRAL WOUND, RIGHT HEEL REDNESS, AND SCROTAL EXCORIATION. GOOD SKIN CARE PROVIDED. OFF LOAD BONY PROMINENCE. SAFETY PRECAUTION IN PLACE. CALL LIGHT WITHIN REACH.
--- NOTE | 2016-05-14 07:37 | NUR ---
OBTAINED TELE PHONE CONSENT FROM PATIENT'S SON AND VERIFIED WITH 2 RN. THEN, ENDORSED PLAN OF CARE TO SATHYA HUDSON, AT BEDSIDE.
--- NOTE | 2016-05-14 07:50 | NUR ---
NOTIFIED PATIENT'S DAUGHTERS: CANDELARIA ART AND MENA WEI REGARDING BLOOD TRANSFUSION PER MD'S ORDERED AND THEY BOTH AGREED.
--- NOTE | 2016-05-14 07:52 | NUR ---
VTACH NOTED ON PT'S EKG. ASSESSED PT. VS FOLLOWS BP 121/61, HR, 89, 02 97% RR 18. T 97.1. PT AWAKE OPENS EYES. AROUSABLE TO VOICE. PT ON STABLE CONDITION.
[2016-05-14 08:00] VITALS: BP 119/58
[2016-05-14] MEDS ORDERED: GAUZE TP PRN (08:10)
[2016-05-14] MEDS ORDERED: NACL 0.9% IRR 250 ML BOTTLE IR PRN (08:10)
[2016-05-14] MEDS ORDERED: COMPOSITE DRESSING TP PRN (08:10)
--- NOTE | 2016-05-14 08:35 | NUR ---
ADDITIONAL: GT INTACT. NO DISCHARGE ON SITE, DRESSING CLEAN AND DRY. GASTRIC RESIDUAL NOTED AT 3ML, CREAMY IN COLOR. IV LINE ON RIGHT HAND AND LEFT AC FLUSHED AND PATENT.
--- NOTE | 2016-05-14 09:40 | NUR ---
PREPARING PT FOR BLOOD TRANSFUSION. VITAL SIGNS FOLLOWS. BP 125/61, HR 92, 94% ON 2LPM VIA NC., RR 18. NO SIGNS AND SYMPTOMS OF ACUTE PAIN OR DISCOMFORT NOTED AT THIS TIME. VERIFIED BLOOD WITH 2 IDENTIFIERS. CHECKED BLOOD WITH ANOTHER RN. STARTED BLOOD TRANSFUSION.
[2016-05-14] MEDS: LEVOFLOXACIN 750 MG/D5W PREMIX 150 ML IV SCH (09:49)
[2016-05-14] MEDS: PANTOPRAZOLE 40 MG INJ VIAL IVP SCH (09:49)
--- NOTE | 2016-05-14 09:55 | NUR ---
FIRST UNIT OF PACKED RBC STARTED. WILL MONITOR FOR BLOOD TRANSFUSION REACTION.
--- NOTE | 2016-05-14 10:05 | NUR ---
STOOL SPECIMEN COLLECTED FOR STOOL OCCULT BLOOD #1 AND SENT TO LAB.
--- NOTE | 2016-05-14 10:50 | NUR ---
CALLED DR. ZAIDI'S OFFICE TO VERIFY AN ORDER. AWAITING CALL BACK.
--- NOTE | 2016-05-14 10:54 | NUR ---
DR. ZAIDI CALLED BACK AND VERIFIED AN ORDER TO DO H&H AFTER FIRST UNIT OF PACKED RBC.
[2016-05-14 12:00] VITALS: BP 116/60
[2016-05-14] MEDS: NACL 0.9% 1,000 ML IV SCH ×2 (12:22→22:47)
[2016-05-14] MEDS: INSULIN LISPRO SLIDING SCALE 100 UNITS/ML VIAL SUBQ PRN (12:23)
--- NOTE | 2016-05-14 12:40 | NUR ---
1ST UNIT PRBC COMPLETED WITH NO BLOOD TRANSFUSION REACTIONS NOTED. STAT H&H DRAWN BY HIDE INSPECTOR AND SORTER.
[2016-05-14] MEDS: GAUZE TP SCH (13:00)
[2016-05-14] MEDS: COMPOSITE DRESSING TP SCH (13:00)
--- NOTE | 2016-05-14 13:10 | NUR ---
DR. ZAIDI ON ROUNDS AND MADE AWARE OF PT'S LATEST H&H POST TRANSFUSION OF 1ST UNIT. NEW ORDERS GIVEN. BLOOD WORKS IN AM.
--- NOTE | 2016-05-14 13:30 | NUR ---
SECOND UNIT OF PRBC GIVEN TO PT. VITAL SIGNS ON STABLE CONDITION WILL CONTINUE TO MONITOR. NO ADVERSE REACTION NOTED AT THIS TIME.
[2016-05-14] MEDS: VANCOMYCIN 1,250 MG in DEXTROSE 5% 250 ML IV SCH (15:16)
[2016-05-14 16:00] VITALS: BP 135/58
--- NOTE | 2016-05-14 16:45 | NUR ---
SECOND UNIT OF PRBC CONSUMED. PT ON STABLE CONDITION. NO ADVERSE REACTION NOTED. VITALS STABLE FOLLOWS: T 97.0, BP 125/66, RR 20, CA 84. 94 ON 02 AT 2 LPM NC.
--- NOTE | 2016-05-14 19:25 | NUR ---
PT IN BED. APHASIC. OPENS EYES. NO SOB NOTED. NO SIGNS AND SYMPTOMS OF ACUTE DISTRESS NOTED. PT KEPT CLEAN DRY AND COMFORTABLE NEEDS ATTENDED. PT ON STABLE CONDITION. ENDORSED TO NEXT SHIFT.
--- NOTE | 2016-05-14 19:30 | NUR ---
RECEIVED REPORT FROM JORGE LUIS/SATHYA MONTEMAYOR, AT BEDSIDE. INITIAL ASSESSMENT AND BODY CHECK DONE. PATIENT IS APHASIC, EYES OPEN TO TACTILE STIMULI, UNABLE TO MAKE NEEDS KNOWN AND ON BEDBOUND. PATIENT CURRENTLY LYING DOWN ON THE BED. VSS. NO S/S OF DISTRESS AND FLACC 0. G-TUBE AND THOMAS CATHETER REMAINS IN PLACE AND PATENT. NOTED PATIENT STILL HAS: SACRAL WOUND, INCONTINENT DERMATITIS AND RT HEEL WOUD WITH REDNESS. DISCUSSED PLAN OF CARE, PAIN MANAGEMENT AND MEDICATION REGIMEN WITH PATIENT, BUT PATIENT UNABLE TO COMPREHEND. PLACED PATIENT ON SAFETY/FALL/ASPIRATION/SEIZURE/PRESSURE ULCER PRECAUTIONS AND WILL CONTINUE TO MONITOR WITH REPOSITION Q 2 HOURS. CALL LIGHT LEFT WITHIN REACH.
[2016-05-14 20:00] VITALS: BP 123/69
[2016-05-14] MEDS ORDERED: FERRIC GLUCONATE 62.5 MG/5 ML AMP IV ONE (20:51)
[2016-05-14] MEDS: FERRIC GLUCONATE 125 MG in NACL 0.9% 100 ML IV SCH (21:16)
--- NOTE | 2016-05-14 21:20 | NUR ---
ADMINISTERED DUE MEDICATIONS MD'S ORDERED WITH EDUCATION GIVEN AND PATIENT TOLERATED WELL. MAINTAINED PROPER BODY ALIGNMENT, REPOSITION AND KEPT PATIENT WARM. WILL CONTINUE TO MONITOR.
--- NOTE | 2016-05-14 22:46 | NUR ---
ROUNDS MADE, SEEN PATIENT RESTED COMFORTABLY IN BED WITH EVEN AND UNLABORED RESPIRATORY RATE. NO CHANGE IN CONDITION NOTED. REPOSITION FOR COMFORT/PRESSURE RELIEF AND WILL CONTINUE TO MONITOR.
[2016-05-15] VITALS: BP 130/71
[2016-05-15] MEDS: NACL 0.9% IRR 250 ML BOTTLE IR SCH ×4 (00:42→13:00)
[2016-05-15] MEDS: MILD SOAP AND WATER TP SCH ×2 (00:43→13:00)
[2016-05-15] MEDS: HYDRAGUARD CREAM TP SCH (00:43)
--- NOTE | 2016-05-15 01:10 | NUR ---
PATIENT IS CLINICALLY STABLE WITH UNCHANGED V/S. SKIN TX DONE AND REPOSITION FOR COMFORT/PRESSURE RELIEF. WILL CONTINUE TO MONITOR.
[2016-05-15] MEDS: IPRATROPIUM 0.02% 0.5 MG/2.5 ML NEBU IH SCH ×4 (01:56→19:08)
[2016-05-15] MEDS: NACL 0.9% 1,000 ML IV SCH ×2 (03:58→23:30)
[2016-05-15 04:00] VITALS: BP 133/64
--- NOTE | 2016-05-15 04:05 | NUR ---
PATIENT RESTING WELL IN BED, EASILY AROUSED AND REMAINED IN STABLE CONDITION. WILL CONTINUE TO MONITOR.
[2016-05-15] MEDS: PIPER/TAZO 3.375GM/D5W PREMIX 50 ML IV SCH ×3 (04:31→20:23)
[2016-05-15] MEDS: BLOOD GLUCOSE MONITORING 1 DEV DEV FS SCH ×4 (05:54→21:13)
--- NOTE | 2016-05-15 07:10 | NUR ---
RECEIVED PATIENT REPORT AT BEDSIDE. PATIENT AWAKE BUT APHASIC. NO S/S OF DISTRESS NOTED. PATIENT ON 2L O2 VIA NC. PATIENT IS BEDBOUND. WOUND DRESSING NOTED TO THE RIGHT HEEL AND SACRUM. DRESSING CLEAN DRY AND INTACT. IV LINE NOTED TO THE RIGHT HAND WITH IVF INFUSING WELL. PATIENT ON TELE MONITORING. BED LOWERED WITH CALL LIGHT WITHIN REACH. WILL CONTINUE TO MONITOR
[2016-05-15] MEDS: ALBUTEROL 0.083% 2.5 MG/3 ML NEBU IH PRN ×2 (07:40→10:27)
--- NOTE | 2016-05-15 07:40 | NUR ---
ENDORSED PLAN OF CARE TO SATHYA WARD, AT BEDSIDE. PATIENT RESTED WELL THROUGHOUT THE SHIFT AND REMAINED IN STABLE CONDITION.
[2016-05-15 08:00] VITALS: BP 116/49
--- NOTE | 2016-05-15 08:05 | NUR ---
WOUND CARE EVALUATION NOTES: REASON FOR EVALUATION: SACRAL WOUND, SCROTAL EXCORIATION, RIGHT HEEL BLANCHABLE REDNESS COMPLETE SKIN ASSESSMENT DONE ON THIS 75 Y/O MALE PATIENT FROM [facility], WITH INITIAL DIAGNOSIS OF ALTERED LEVEL OF CONSCIOUSNESS , PNEUMONIA AND SEPSIS. PAST MEDICAL HISTORY INCLUDE CVA WITH RESIDUAL RIGHT SIDED HEMIPARESIS, DM AND SEIZURE DISORDER. ALL ABOVE INFORMATION WAS OBTAINED FROM THE ADMISSION H&P. LABS ARE WBC 13.1, H/H 9.5/, GLUCOSE 126, ALBUMIN 1.0, PT/INR 14.2/1.5 AND PTT 24.5. CURRENT MEDS INCLUDE VANCOMYCIN, ZOSYN, INSULIN, MORPHINE, ATIVAN AND LEVOFLOXACIN. PATIENT IS AWAKE, NON VERBAL, BUT EYES ARE ABLE TO TRACK MOVEMENTS. SKIN WARM TO TOUCH WNL, TOENAILS ARE SLIGHTLY THICKENED, NO EDEMA, NO HAIR GROWTH AND +1 BILATERAL PEDAL PULSES. FC 14FR PATENT AND INTACT TO CLOUDY YELLOW URINE IN MODERATE AMOUNT. LUQ G TUBE NOTED TO BE CLAMPED AT THIS TIME. ON 02 PER NASAL CANNULA. INITIAL PLAN OF CARE AND PRESSURE PREVENTIVE MEASURES DISCUSSED, UNABLE TO VERBALIZE UNDERSTANDING. WILL REINFORCE TEACHING. NO FAMILY MEMBER PRESENT AT BEDSIDE AT THIS TIME. WILL FOLLOW UP. INTEGUMENTARY: SACRALCOCCYX - UTD RIGHT HEEL - ST II RECOMMENDATIONS: -CLEANSE SACRALOCCYX WITH NS AND GAUZE, PAT DRY, APPLY THERAHONEY GEL, COVER WITH ADAPTIC, GAUZE AND COMPOSITE DRESSING Q DAY AND PRN WITH SOILING/DISPLACEMENT -CLEANSE RIGHT HEEL WITH NS AND GAUZE, PAT DRY, COVER WITH ADAPTIC, ABD PAD AND WRAP WITH AKASH Q DAY AND PRN WITH SOILING/DISPLACEMENT -CLEANSE PERIAREA AND SCROTAL AREA WITH MILD SOAP AND WATER, PAT DRY, APPLY Z GUARD BIDWC AND PRN WITH SOILING. LEAVE OPEN TO AIR -PAINT LEFT HEEL WITH SKIN PREP WIPES BIDWC AND LEAVE OPEN TO AIR -TURN AND REPOSITION PATIENT Q2H TO LEFT AND RIGHT SIDE ONLY TO OFFLOAD SACRALCOCCYX -ASSESS AND MONITOR SKIN CONDITION DURING POSITION CHANGE, PLEASE PAY PARTICULAR ATTENTION TO SACRALCOCCYX, ELBOWS AND HEELS -OFFLOAD BILATERAL HEELS BY PLACING PILLOWS UNDER CALVES (ONE PILLOW EACH LEG) AT ALL TIMES, UNLESS OTHERWISE CONTRAINDICATED -PRESSURE REDISTRIBUTION SURFACE THERAPY -SURGICAL CONSULT IF OK WITH PMD. -KEEP SKIN CLEAN AND DRY AT ALL TIMES. RECOMMENDATIONS DISCUSSED WITH PRIMARY RN AND PMD. WILL FOLLOW UP PATIENT Q 7 DAYS AND PRN. PLEASE CONTACT [facility] FOR ANY CONCERNS, QUESTIONS AND CHANGES IN SKIN CONDITION.
--- NOTE | 2016-05-15 08:10 | NUR ---
PATIENT SEEN BY WOUND CARE NURSE. WOUND DRESSING TO THE SACRUM AND RIGHT HEEL CHANGED
--- NOTE | 2016-05-15 08:25 | NUR ---
PATIENT HAS BEEN SCREENED AND CATEGORIZED HIGH NUTRITION RISK. PATIENT WILL BE SEEN WITHIN 1-2 DAYS OF ADMISSION. 05/14/16-05/15/[address]
[2016-05-15] MEDS ORDERED: THERAHONEY GEL 42.5 GM TP PRN (08:45)
[2016-05-15] MEDS ORDERED: ABDOMINAL PAD TP PRN (08:45)
[2016-05-15] MEDS ORDERED: Z-GUARD PASTE TP PRN (08:45)
[2016-05-15] MEDS: ABDOMINAL PAD TP SCH (09:00)
[2016-05-15] MEDS: PANTOPRAZOLE 40 MG INJ VIAL IVP SCH (10:47)
[2016-05-15] MEDS: LEVOFLOXACIN 750 MG/D5W PREMIX 150 ML IV SCH (10:47)
--- NOTE | 2016-05-15 10:57 | NUR ---
WOUND CARE NOTES: DR. DILLON MADE AWARE OF CONSULT.
[2016-05-15 12:00] VITALS: BP 113/53
--- NOTE | 2016-05-15 12:00 | NUR ---
PATIENT ASLEEP IN BED. NO S/S OF DISTRESS NOTED
[2016-05-15] MEDS: COMPOSITE DRESSING TP SCH (13:00)
[2016-05-15] MEDS: Z-GUARD PASTE TP SCH (13:00)
[2016-05-15] MEDS: GAUZE TP SCH (13:00)
[2016-05-15] MEDS: THERAHONEY GEL 42.5 GM TP SCH (13:00)
--- NOTE | 2016-05-15 13:53 | NUR ---
05/15/16 RD INITIAL ASSESSMENT COMPLETED PLEASE REFER TO NUTRITION ASSESSMENT UNDER CARE ACTIVITY FOR ESTIMATED NUTRITIONAL NEEDS. RD RECOMMENDATIONS: 1. CONTINUE NPO MEDICALLY NECESSARY PER MD 2. WHEN MEDICALLY APPROPRIATE CONSIDER BEGIN NUTRITION SUPPORT ISOSOURCE 1.5 AT 10 ML/HR AND ADVANCE TOLERATED 10 ML Q6H TO GOAL OF 60 ML/HR WITH PROSOURCE TID --AT GOAL, AND WITH PROTEIN SUPPLEMENTATION, THIS WILL PROVIDE 1530 ML TOTAL VOLUME, 2160 KCAL. 143 GM PROTEIN TO MEET 95% OF PT ESTIMATED KCAL NEEDS AND 100% OF PT ESTIMATED PROTEIN NEEDS 3. RD WILL F/U 2-3 DAYS; HIGH RISK. ANDREW ROSARIO RD
[2016-05-15] MEDS: VANCOMYCIN 1,250 MG in DEXTROSE 5% 250 ML IV SCH (15:54)
[2016-05-15 16:00] VITALS: BP 119/71
--- NOTE | 2016-05-15 16:00 | NUR ---
PT CALMLY RESTING IN BED. NO S/S OF DISTRESS NOTED
--- NOTE | 2016-05-15 18:00 | NUR ---
PT SEEN BY DR DILLON
[2016-05-15] MEDS: FERRIC GLUCONATE 125 MG in NACL 0.9% 100 ML IV SCH (18:42)
--- NOTE | 2016-05-15 19:18 | NUR ---
CONSENT FOR DEBRIDEMENT OBTAINED FROM PT'S DAUGHTER. CONSENT FILED IN THE CHART
--- NOTE | 2016-05-15 19:30 | NUR ---
PATIENT REPORT GIVEN AT BEDSIDE. ENDORSED PATIENT IN STABLE CONDITION
--- NOTE | 2016-05-15 19:32 | NUR ---
RECEIVED PT FROM CATHERINE RN PT OPEN EYES, NON VERBAL ON 2 LTS VIA NC, IV ON RT HAND INFUSING WELL , THOMAS CATH DRAINING WELL YELLOW URINE, ON TELEMETRY SRGTUBE IN [facility] ZERO RESIDUAL DRESSING DRY ON SACRUYM AN RT HEEL INITIAL ASSESSMENT DONE.
[2016-05-15 20:00] VITALS: BP 151/74
--- NOTE | 2016-05-15 21:30 | NUR ---
BLOOD SUGAR TEST 114 PT REPOSITIONED NOT SOB NOTED
--- NOTE | 2016-05-15 23:31 | NUR ---
PT SLEEPING IV ON RT WRIST INFUSING WELL ON TELEMETRY SR, REPOSITIONED Q2H
[2016-05-16] VITALS: BP 126/76
[2016-05-16] MEDS: Z-GUARD PASTE TP SCH ×2 (01:00→13:00)
[2016-05-16] MEDS: MILD SOAP AND WATER TP SCH ×2 (01:00→13:00)
[2016-05-16] MEDS: NACL 0.9% IRR 250 ML BOTTLE IR SCH ×4 (01:00→13:00)
[2016-05-16] MEDS: IPRATROPIUM 0.02% 0.5 MG/2.5 ML NEBU IH SCH ×4 (01:37→19:53)
--- NOTE | 2016-05-16 02:00 | NUR ---
PT REPOSITIONED ON TELMETRY SR NOT SOB NOTED FLEY CATH DRAINING WELL YELLOW URINE
[2016-05-16 04:00] VITALS: BP 138/61
[2016-05-16] MEDS: PIPER/TAZO 3.375GM/D5W PREMIX 50 ML IV SCH ×3 (04:47→21:11)
--- NOTE | 2016-05-16 05:27 | NUR ---
SLPONGE BATH GIVEN , LINEN CHANGED PT NON VERBAL ON TELEMETRY SR IV ON RT HAND INFUSING WELL REPOSITIONED INITIAL ASSESSMENT DONE.
[2016-05-16] MEDS: BLOOD GLUCOSE MONITORING 1 DEV DEV FS SCH ×4 (05:55→21:11)
--- NOTE | 2016-05-16 06:29 | NUR ---
BLOOD SUGAR TEST 122
--- NOTE | 2016-05-16 07:20 | NUR ---
RECEIVED PATIENT REPORT AT BEDSIDE. PATIENT ASLEEP WITH NO S/S OF DISTRESS NOTED. WOUND DRESSING ON THE RIGHT LEG AND SACRUM CLEAN DRY AND INTACT. PATIENT ON 2L O2. IV LINE TO THE RIGHT WRIST INTACT WITH IVF INFUSING WELL. PATIENT ON TELE MONITORING. BED LOWERED WITH CALL LIGHT WITHIN REACH. WILL CONTINUE TO MONITOR
[2016-05-16 08:00] VITALS: BP 140/68
[2016-05-16] MEDS: LEVOFLOXACIN 750 MG/D5W PREMIX 150 ML IV SCH (08:50)
[2016-05-16] MEDS: PANTOPRAZOLE 40 MG INJ VIAL IVP SCH (08:50)
[2016-05-16] MEDS: ABDOMINAL PAD TP SCH (09:00)
--- NOTE | 2016-05-16 09:48 | NUR ---
PATIENT LEFT FOR DEBRIDEMENT
--- NOTE | 2016-05-16 10:14 | NUR ---
PATIENT BACK TO THE UNIT. DEBRIDEMENT NOT DONE. PROCEDURE POSTPONED FOR LATER TODAY OR TOMORROW
--- NOTE | 2016-05-16 11:28 | NUR ---
PATIENT SEEN BUY DR ZAIDI. PER KIRSTIN KEVIN TO RESUME FEEDING AFTER DEBRIDEMENT
[2016-05-16 12:00] VITALS: BP 139/66
[2016-05-16] MEDS: THERAHONEY GEL 42.5 GM TP SCH (13:00)
[2016-05-16] MEDS: COMPOSITE DRESSING TP SCH (13:00)
[2016-05-16] MEDS: GAUZE TP SCH (13:00)
[2016-05-16] MEDS: VANCOMYCIN 1,500 MG in DEXTROSE 5% 250 ML IV SCH (15:45)
--- NOTE | 2016-05-16 15:48 | NUR ---
WOUND DRESSING TO THE SACRUM AND RIGHT HEEL CHANGED. PATIENT REPOSITIONED AND TURNED. PATIENT TOLERATED WELL
[2016-05-16 16:00] VITALS: BP 146/72
[2016-05-16] MEDS: NACL 0.9% 1,000 ML IV SCH (16:27)
[2016-05-16] MEDS: FERRIC GLUCONATE 125 MG in NACL 0.9% 100 ML IV SCH (18:42)
--- NOTE | 2016-05-16 19:32 | NUR ---
RECEIVED REPORT TO DAY SHIFT NURSE. PT IS SLEEPING AT THIS TIME, NO SIGNS OF DISTRESS. NO SOB NOTED, NO S/S OF RESPIRATORY DISTRESS/DISCOMFORT NOTED. THOMAS CATHETER IN PLACED. SAFETY MEASURES CHECKED, CALL LIGHT WITHIN REACH. WILL CONTINUE TO MONITOR.
--- NOTE | 2016-05-16 19:32 | NUR ---
PATIENT REPORT GIVEN AT BEDSIDE. PATIENT ENDORSED IN STABLE CONDITION
[2016-05-16 20:00] VITALS: BP 127/60
--- NOTE | 2016-05-16 21:20 | NUR ---
DUE MEDS GIVEN. PT TOLERATED WELL.
--- NOTE | 2016-05-16 21:41 | NUR ---
RECEIVED A CALL FROM SHELLEY, SON OF THE PT.
[2016-05-17] VITALS: BP 138/65
--- NOTE | 2016-05-17 | NUR ---
V/S CHECKED AND STABLE. HAS NO SIGNS OF DISTRESS. NO S/S OF RESPIRATORY DISTRESS/DISCOMFORT NOTED.
[2016-05-17] MEDS: NACL 0.9% 1,000 ML IV SCH ×2 (01:10→08:17)
[2016-05-17] MEDS: IPRATROPIUM 0.02% 0.5 MG/2.5 ML NEBU IH SCH ×4 (01:15→19:42)
[2016-05-17] MEDS: ALBUTEROL 0.083% 2.5 MG/3 ML NEBU IH PRN (01:19)
[2016-05-17] MEDS: NACL 0.9% IRR 250 ML BOTTLE IR SCH ×4 (01:29→12:38)
[2016-05-17] MEDS: Z-GUARD PASTE TP SCH ×2 (01:30→12:39)
[2016-05-17] MEDS: MILD SOAP AND WATER TP SCH ×2 (01:30→12:38)
--- NOTE | 2016-05-17 02:00 | NUR ---
PT SLEEPING. NOT IN DISTRESS. CALL LIGHT WITHIN REACH.
[2016-05-17 04:00] VITALS: BP 131/63
--- NOTE | 2016-05-17 04:00 | NUR ---
V/S CHECKED AND STABLE. PT IS NOT IN DISTRESS. HAS NO S/S OF RESPIRATORY DISTRESS/DISCOMFORT. CALL LIGHT WITH IN REACH.
[2016-05-17] MEDS: PIPER/TAZO 3.375GM/D5W PREMIX 50 ML IV SCH ×3 (04:23→21:09)
--- NOTE | 2016-05-17 06:15 | NUR ---
AM CARE DONE. EMPTIED THOMAS CATHETER. REPOSITIONED THE PT. PT TOLERATED WELL. NOT IN DISTRESS. NO SOB.
[2016-05-17] MEDS: BLOOD GLUCOSE MONITORING 1 DEV DEV FS SCH ×4 (06:32→21:09)
--- NOTE | 2016-05-17 06:33 | NUR ---
BLOOD SUGAR CHECKED. BSL= 111, NO INSULIN COVERAGE.
[2016-05-17 08:00] VITALS: BP 126/62
[2016-05-17] MEDS: PANTOPRAZOLE 40 MG INJ VIAL IVP SCH (08:07)
--- NOTE | 2016-05-17 08:16 | NUR ---
RECEIVED A CRITICAL VALUE FROM NICOLE PUENTES. POTASSIUM=2.9. VITALIY BHATTI MD.
--- NOTE | 2016-05-17 08:20 | NUR ---
PAGED FOR CRITICAL VALUE OF POTASSIUM LEVEL. WAITING FOR CALLBACK.
--- NOTE | 2016-05-17 08:30 | NUR ---
CALL BACK RECEIVED. SPOKE WITH DR. ZAIDI, REPORTED POTASSIUM LEVEL OF 2.9. NEW ORDER MADE.
--- NOTE | 2016-05-17 08:35 | NUR ---
PT LEFT TO OR FOR DEBRIDEMENT PROCEDURE ACCOMPANIED BY OR NURSES.
[2016-05-17] MEDS: ABDOMINAL PAD TP SCH (09:00)
[2016-05-17] MEDS: BUPIVACAINE-MPF/EPI 0.25% 30 ML VIAL INJ ONE ×2 (09:00→10:00)
[2016-05-17] MEDS ORDERED: ceFAZolin 1,000 MG VIAL ONE (09:00)
[2016-05-17] MEDS ORDERED: PROPOFOL 200 MG/20 ML VIAL IV ONE (09:24)
[2016-05-17] MEDS: LEVOFLOXACIN 750 MG/D5W PREMIX 150 ML IV SCH (09:40)
--- NOTE | 2016-05-17 10:23 | NUR ---
PT STILL IN OR.
--- NOTE | 2016-05-17 10:42 | NUR ---
PT BACK TO THE UNIT.
[2016-05-17 10:45] VITALS: BP 143/79
--- NOTE | 2016-05-17 11:00 | NUR ---
ENDORSED REPORT TO SATHYA GONZALES. PT IN STABLE CONDITION.
--- NOTE | 2016-05-17 11:02 | NUR ---
RECEIVED REPORT FROM RN. PT RESTING IN BED. AAOX1, APHASIC. NO S/S OF ACUTE DISTRESS. ON ON O2 2L NC. IV SITE PATENT AND INTACT. DRESSING TO SACRAL AREA DRY AND INTACT. CALL LIGHT WITHIN REACH. SAFETY MEASURES ENSURED. WILL CONTINUE TO MONITOR.
[2016-05-17] MEDS ORDERED: POTASSIUM CHLORIDE 60 MEQ, LIDOCAINE 1% 25 MG in NACL 0.9% 250 ML IV SCH (12:00)
[2016-05-17] MEDS: COMPOSITE DRESSING TP SCH (12:38)
[2016-05-17] MEDS: GAUZE TP SCH (12:38)
[2016-05-17] MEDS: THERAHONEY GEL 42.5 GM TP SCH (12:39)
--- NOTE | 2016-05-17 14:01 | NUR ---
PT RESTING IN BED. NO S/S OF ACUTE DISTRESS. ON O2 2L NC. CALL LIGHT WITHIN REACH. SAFETY MEASURES ENSURED. WILL CONTINUE TO MONITOR.
[2016-05-17 16:00] VITALS: BP 149/72
[2016-05-17] MEDS: VANCOMYCIN 1,500 MG in DEXTROSE 5% 250 ML IV SCH (16:48)
--- NOTE | 2016-05-17 17:00 | NUR ---
PT REPOSITIONED. NO S/S OF ACUTE DISTRESS. FLACC-0. ON O2 2L NC. CALL LIGHT WITHIN REACH. SAFETY MEASURES ENSURED. WILL CONTINUE TO MONITOR.
[2016-05-17] MEDS: FERRIC GLUCONATE 125 MG in NACL 0.9% 100 ML IV SCH (18:23)
--- NOTE | 2016-05-17 19:18 | NUR ---
ENDORSED PLAN OF CARE TO NIGHT RN. PT REMAINS IN STABLE CONDITION.
--- NOTE | 2016-05-17 19:20 | NUR ---
RECEIVED PT IN STABLE CONDITION FROM AM NURSE. AWAKE BUT NON VERBAL. ON TELE MONITOR. BED REST. ON O22L/NC. NO ACUTE DISTRESS NOTED. IVF INFUSING WELL ON THE RT WRIST #20. AND FERRLICET IV INFUSING ON THE LT AC#22. THOMAS CATH TO GRAVITY. SACRAL WOUND WITH DRESSING . RT HEEL ALSO WITH DRESSING. BED ON LOW POSITION. SIDE RAILS UP X2. NEED TURNING. FREQUENT ROUNDS NEEDED. WILL CONTINUE TO MONITOR.
[2016-05-17 20:00] VITALS: BP 152/78
--- NOTE | 2016-05-17 21:09 | NUR ---
BLOOD SUGAR WAS CHECKED RESULT 105. NO INSULIN COVERAGE NEEDED. WITH CONTINUOUS IVF.
--- NOTE | 2016-05-17 22:00 | NUR ---
REPOSITIONED FOR COMFORT. DRESSING ON THE SACRAL AREA AND RT HEEL , DRY AND INTACT.
[2016-05-18] MEDS: Z-GUARD PASTE TP SCH ×2 (01:00→10:33)
[2016-05-18] MEDS: MILD SOAP AND WATER TP SCH ×2 (01:00→10:32)
[2016-05-18] MEDS: NACL 0.9% IRR 250 ML BOTTLE IR SCH ×4 (01:00→10:32)
[2016-05-18 01:10] VITALS: BP 145/68
[2016-05-18] MEDS: IPRATROPIUM 0.02% 0.5 MG/2.5 ML NEBU IH SCH ×4 (01:55→19:01)
--- NOTE | 2016-05-18 02:00 | NUR ---
PT HAS BEEN TURNED TO SIDES . NO S/S OF ANY DISCOMFORT NOTED.
[2016-05-18] MEDS: NACL 0.9% 1,000 ML IV SCH ×3 (02:10→14:40)
[2016-05-18 04:00] VITALS: BP 149/77
--- NOTE | 2016-05-18 04:00 | NUR ---
TURNED TO SIDE . NO DISCOMFORT NOTED. SCROTAL AREA INCONTINENT DERMATITIS ,GETTING DRY.
[2016-05-18] MEDS: BLOOD GLUCOSE MONITORING 1 DEV DEV FS SCH ×4 (06:21→20:26)
--- NOTE | 2016-05-18 06:21 | NUR ---
BLOOD SUGAR WAS CHECKED RESULT 80. WITH CONTINUOUS IVF INFUSING.
[2016-05-18] MEDS ORDERED: POTASSIUM CHLORIDE 10 MEQ TABER PO SCH (07:22)
--- NOTE | 2016-05-18 07:22 | NUR ---
WAS SEEN BY DR. ZAIDI. NEW ORDERS RECEIVED. NOTED AND CARRIED OUT.
--- NOTE | 2016-05-18 07:30 | NUR ---
ENDORSED PT IN STABLE CONDITION TO AM NURSE.
--- NOTE | 2016-05-18 07:31 | NUR ---
PT AWAKE ALERT AND RESPONSIVE, APHASIC. BREATHING EVENLY AND UNLABORED, WITH O2 AT 2L/MIN VIA NC. NO SIGNS OF ACUTE DISTRESS. SKIN IS WARM AND DRY, NOTED SACRAL DRESSING, OFFLOAD TO PRESSURE AREAS, TURN AND REPOSITION Q2H. NO NOTED EPISODES OF ANY BOWEL/BLADDER DISCOMFORT. G TUBE IN PLACE, INTACT AND PATENT. NPO ORDERED. THOMAS CATHETER NOTED INTACT AND WITH 300CC FO CLEAR YELLOW URINE. FLACC 0. ALL NEEDS ANTICIPATED, SAFETY AND CONTACT PRECAUTIONS MAINTAINED. CALL LIGHT WITHIN REACH.
[2016-05-18 07:52] VITALS: BP 139/68
--- NOTE | 2016-05-18 08:03 | NUR ---
CLARIFICATION OF ORDER FOR K DUR 40 MEQ PO X1 CHANGE TO GT LIQUID [address] ZAIDI. NOTED AND CARRIED OUT.
[2016-05-18] MEDS ORDERED: POTASSIUM CHLORIDE 20% 40 MEQ/15 ML UDC GT SCH (08:06)
[2016-05-18] MEDS: PANTOPRAZOLE 40 MG INJ VIAL IVP SCH (08:29)
[2016-05-18] MEDS: ABDOMINAL PAD TP SCH (08:40)
--- NOTE | 2016-05-18 09:39 | NUR ---
SS NOTE: I SPOKE WITH PT'S DTRCANDELARIA AND INFORMED HER OF PT'S D/C ORDER. I ALSO OBTAINED CLARIFICATION REGARDING THE FAMILY'S CONSIDERATION OF HOSPICE FOR PT. SHE STATED THAT THEY WOULD LIKE A HOSPICE EVAL DONE PRIOR TO PT RETURNING TO [facility]. SATHYA ROSA MADE AWARE. Addendum: 05/18/16 at 4369 by Cathleen Knutson SS SHE ALSO STATED THAT THEY WOULD LIKE [facility] FOR HOSPICE SERVICES.
--- NOTE | 2016-05-18 09:41 | NUR ---
PAGED DR. ZAIDI PER SS, FAMILY REQUESTS FOR HOSPICE EVAL. AWAITING [facility] MICHAELS'S RESPONSE.
--- NOTE | 2016-05-18 09:43 | NUR ---
SPOKE WITH DR. ZAIDI, RECEIVED ORDER FOR HOSPICE EVAL. NOTED AND CARRIED OUT.
--- NOTE | 2016-05-18 10:29 | NUR ---
WOUND CARE DONE AND PT TOLERATED WELL. KEPT DRESSING INTACT CLEAN AND DRY. CONTINUE TO MONITOR.
--- NOTE | 2016-05-18 10:30 | NUR ---
SS NOTE: PER EMMANUELLE FROM [facility] ([phone]), THEIR NURSE WILL BE AT [facility] BETWEEN [phone] TO EVALUATE PT. SHE ALSO STATED THAT THEY WILL ALSO CONTACT PT'S FAMILY AFTER THE EVAL.
[2016-05-18] MEDS: COMPOSITE DRESSING TP SCH (10:32)
[2016-05-18] MEDS: GAUZE TP SCH (10:32)
[2016-05-18] MEDS: THERAHONEY GEL 42.5 GM TP SCH (10:33)
[2016-05-18 12:00] VITALS: BP 124/88
[2016-05-18] MEDS: ALBUTEROL 0.083% 2.5 MG/3 ML NEBU IH PRN ×2 (12:43→19:01)
--- NOTE | 2016-05-18 13:21 | NUR ---
SS NOTE: PER NURSE KARELY FROM [facility] ([phone]), PT'S FAMILY IS IN AGREEMENT WITH HOSPICE SERVICES AND HER OFFICE WILL FAX THE CONSENT FORMS OVER TO PT'S DTRCANDELARIA. SHE ALSO STATED THAT THEY WILL SET UP TRANSPORTATION FOR PT TO RETURN TO [facility] TODAY AND THEY WILL DO THEIR ADMISSION AT [facility].
--- NOTE | 2016-05-18 13:41 | NUR ---
05/18/16 RD INITIAL ASSESSMENT COMPLETED PLEASE REFER TO NUTRITION ASSESSMENT UNDER CARE ACTIVITY FOR ESTIMATED NUTRITIONAL NEEDS. RD RECOMMENDATIONS: 1. CONTINUE NPO MEDICALLY NECESSARY PER MD 2. WHEN MEDICALLY APPROPRIATE CONSIDER BEGIN NUTRITION SUPPORT ISOSOURCE 1.5 AT 10 ML/HR AND ADVANCE TOLERATED 10 ML Q6H TO GOAL OF 60 ML/HR WITH PROSOURCE TID --AT GOAL, AND WITH PROTEIN SUPPLEMENTATION, THIS WILL PROVIDE 1530 ML TOTAL VOLUME, 2160 KCAL. 143 GM PROTEIN TO MEET 95% OF PT ESTIMATED KCAL NEEDS AND 100% OF PT ESTIMATED PROTEIN NEEDS 3. RD WILL F/U 2-3 DAYS; HIGH RISK. TAHMINA FROST RD Addendum: 05/18/16 at [address] CORRECTION: RD FOLLOW UP COMPLETED; NOT INITIAL ASSESSMENT. TAHMINA FROST RD
[2016-05-18 15:53] VITALS: BP 138/58
--- NOTE | 2016-05-18 17:00 | NUR ---
SPOKE WITH [facility] NURSE. WAS MADE AWARE, FAMILY NOT ABLE TO SIGN THE CONSENT AT THIS TIME. TO FOLLOW UP TOMORROW.
[2016-05-18] MEDS: FERRIC GLUCONATE 125 MG in NACL 0.9% 100 ML IV SCH (18:15)
--- NOTE | 2016-05-18 18:56 | NUR ---
PT RESTING WELL IN BED, NO SIGNS OF ACUTE DISTRESS. ENDORSED TO ONCOMING MELT ROOM OPERATOR NURSE FOR CONTINUITY OF CARE.
--- NOTE | 2016-05-18 19:04 | NUR ---
RECEIVED PT IN STABLE CONDITION FROM SATHYA ROSA. NO SOB, NO SIGNS OF DISTRESS. FLACC 0. PT IS AOX1, LOOKS AT YOU WHEN HIS NAME IS CALLED, PT WITHDRAWS TO PAIN, OPENS EYES SPONTANEOUSLY. PT IS BEDBOUND WITH SEVER WEAKNESS TO ALL EXTREMITIES. PT ON 2L 2O NC. VS STABLE. IV TO RT WRIST 20G PATENT, ASYMPTOMATIC, INTACT, IVF RUNNING. IV TO LT AC 18G PATENT, ASYMPTOMATIC, INTACT, SALINE LOCKED. PT WITH G-TUBE, CLAMPED WITH NO FEEDING RUNNING AT THIS TIME. THOMAS IN PLACE DRAINING TO GRAVITY. PT WITH SACRAL PRESSURE WOUND, DRESSING DRY AND INTACT, WOUND TO RT HEEL DRESSING DRY AND INTACT, AND INCONTINENT DERMATITIS TO SCROTUM. PLAN OF CARE DISCUSSED WITH PT. SAFETY MEASURES IN PLACE. CALL LIGHT WITHIN REACH. WILL CONTINUE TO MONITOR.
[2016-05-18 20:00] VITALS: BP 144/72
--- NOTE | 2016-05-18 20:26 | NUR ---
PT TOLERATED DUE MED WELL, NO SOB, NO SIGNS OF DISTRESS. BLOOD SUGAR 91, NO COVERAGE NEEDED. PT ON 2L O2 NC. IV SITES ASYMPTOMATIC, INTACT, PATENT, IVF RUNNING. FLACC 0. PLAN OF CARE DISCUSSED WITH PT. SAFETY MEASURES IN PLACE. CALL LIGHT WITHIN REACH. WILL CONTINUE TO MONITOR.
--- NOTE | 2016-05-18 22:26 | NUR ---
PT AWAKE, RESTING IN BED. FLACC 0. NO SOB, NO SIGNS OF DISTRESS. PT ON 2L O2 NC. IV SITE ASYMPTOMATIC, INTACT, PATENT, IVF RUNNING. SAFETY MEASURES IN PLACE. CALL LIGHT WITHIN REACH. WILL CONTINUE TO MONITOR.
[2016-05-19] VITALS: BP 147/67
[2016-05-19] MEDS: IPRATROPIUM 0.02% 0.5 MG/2.5 ML NEBU IH SCH ×4 (00:58→19:56)
[2016-05-19] MEDS: NACL 0.9% IRR 250 ML BOTTLE IR SCH ×4 (01:36→13:59)
[2016-05-19] MEDS: Z-GUARD PASTE TP SCH ×2 (01:37→13:59)
[2016-05-19] MEDS: MILD SOAP AND WATER TP SCH ×2 (01:37→13:59)
[2016-05-19] MEDS: NACL 0.9% 1,000 ML IV SCH ×2 (01:37→14:31)
--- NOTE | 2016-05-19 02:32 | NUR ---
PT ASLEEP IN BED. FLACC 0. NO SOB, NO SIGNS OF DISTRESS. PT ON 2L O2 NC. IV SITE ASYMPTOMATIC, INTACT, PATENT, IVF RUNNING. SAFETY MEASURES IN PLACE. CALL LIGHT WITHIN REACH. WILL CONTINUE TO MONITOR.
[2016-05-19 04:00] VITALS: BP 150/70
--- NOTE | 2016-05-19 04:10 | NUR ---
VS STABLE. FLACC 0. NO SOB, NO SIGNS OF DISTRESS. PT ON 2L O2 NC. IV SITE ASYMPTOMATIC, INTACT, PATENT, IVF RUNNING. SAFETY MEASURES IN PLACE. CALL LIGHT WITHIN REACH. WILL CONTINUE TO MONITOR.
[2016-05-19] MEDS: BLOOD GLUCOSE MONITORING 1 DEV DEV FS SCH ×4 (06:35→20:32)
[2016-05-19] MEDS: ALBUTEROL 0.083% 2.5 MG/3 ML NEBU IH PRN (06:59)
--- NOTE | 2016-05-19 07:20 | NUR ---
ENDORSED PT IN STABLE CONDITION TO SATHYA MONTEMAYOR. ALL NEEDS HAVE BEEN MET AT THIS TIME.
--- NOTE | 2016-05-19 07:21 | NUR ---
RECEIVED PT IN BED, APHASIC. OPENS EYES ON VOICE. NO SOB NOTED. ON 2LPM NC. NO SIGNS AND SYMPTOMS OF PAIN OR DISCOMFORT AT THIS TIME. PT ON NPO, GT IN PLACE, NO DISCHARGE NOTED ON SITE, DRESSING DRY AND INTACT. GT CLAMPED. DRESSING ON SACRAL WOUND DRY AND INTACT. RIGHT HEEL REDNESS NOTED, ELEVATED ON PILLOW. SCROTAL REDNESS NOTED. OFF BONY PROMINENCE. SAFETY PRECAUTION IN PLACE. CALL LIGHT WITHIN REACH.
[2016-05-19 08:00] VITALS: BP 154/69
--- NOTE | 2016-05-19 08:30 | NUR ---
SS NOTE: I SPOKE TO EMMANUELLE FROM [facility] TO FOLLOW UP REGARDING PT'S TRANSFER. SHE STATED THAT THEY WERE WAITING ON PT'S DTR, CANDELARIA TO SIGN PT'S CONSENT FORMS FOR HOSPICE CARE. SHE ALSO STATED THAT CANDELARIA INFORMED THEM THAT SHE WILL EMAIL BACK THE FORMS THIS MORNING. SHE REPORTED THAT THEY WILL SET UP TRANSPORT ONCE THEY RECEIVE PT'S CONSENT FORMS.
[2016-05-19] MEDS: PANTOPRAZOLE 40 MG INJ VIAL IVP SCH (09:12)
[2016-05-19] MEDS: ABDOMINAL PAD TP SCH (09:15)
[2016-05-19 12:00] VITALS: BP 139/69
--- NOTE | 2016-05-19 13:00 | NUR ---
TREATMENT DONE ON PT'S SACRAL PRESSURE ULCER, DRESSING CHANGED. GOOD SKIN CARE DONE. REPOSITIONED NEEDED. OFF LOAD BONY PROMINENCE. TREATMENT DONE ON PT'S SCROTAL REDNESS/ EXCORIATION. REDNESS STILL NOTED.
[2016-05-19] MEDS: THERAHONEY GEL 42.5 GM TP SCH (13:59)
[2016-05-19] MEDS: GAUZE TP SCH (13:59)
[2016-05-19] MEDS: COMPOSITE DRESSING TP SCH (13:59)
--- NOTE | 2016-05-19 14:30 | NUR ---
CALLED MENA WEI. SPOKE AND TRIED TO FOLLOW UP WITH THE CONSENT FOR HOSPICE CARE WITH [facility]. MENA DUVAL VERBALIZED, SHE WILL CALL BACK AFTER 10 MINUTES.
--- NOTE | 2016-05-19 14:40 | NUR ---
NO CALL BACK FROM FAMILY. WILL F/U.
--- NOTE | 2016-05-19 15:21 | NUR ---
CALLED MENA WEI [phone]. NO RESPONSE. WILL FOLLOW UP.
--- NOTE | 2016-05-19 15:30 | NUR ---
SPOKE WITH MENA WEI, VERBALIZED SHE HAS NOT RECEIVED ANY PAPERWORK, FAX OR SPOKE WITH A HOSPICE. WILL CALL A TO BE MADE AWARE.
--- NOTE | 2016-05-19 15:34 | NUR ---
SPOKE WITH [facility] REP, KRISTINA. VERBALIZED SHE WAS ABLE TO CONTACT CANDELARIA RUBENS YESTERDAY AND VERBALIZED SHE WILL SIGN THE HOSPICE CONSENT TODAY. SHE TRIED TO FOLLOW UP WITH CANDELARIA BUT WAS NOT ABLE TO RECEIVE A RESPONSE. KRISTINA WILL CALL SS OR CM IF CANDELARIA IS ABLE TO SIGN HOSPICE CONSENT.
[2016-05-19 16:00] VITALS: BP 152/72
--- NOTE | 2016-05-19 19:11 | NUR ---
PT RESTING WELL IN BED, NO SIGNS OF ACUTE DISTRESS. ENDORSED TO ONCOMING CLINICAL ATHLETIC INSTRUCTOR NURSE FOR CONTINUITY OF CARE.
--- NOTE | 2016-05-19 19:20 | NUR ---
RECEIVED REPOT FROM DAY SHIFT NURSE, RN. PT IS AWAKE, APHASIC, NO SIGNS OF DISTRESS NOTED, FLACC-0. ON NC AT 2LPM, HAS NO S/S OF RESPIRATORY DISTRESS/DISCOMFORT NOTED. GT TUBE CLAMPED. PLAN OF CARE DISCUSSED, UNABLE TO COMPREHEND. SAFETY MEASURES CHECKED, CALL LIGHT WITHIN REACH. WILL CONTINUE TO MONITOR.
[2016-05-19 20:00] VITALS: BP 143/85
--- NOTE | 2016-05-19 20:36 | NUR ---
BLOOD SUGAR CHECKED, BSL= 88, NO INSULIN COVERAGE NEEDED.
--- NOTE | 2016-05-19 22:00 | NUR ---
REPOSITIONED THE PT. FLACC 0. NO S/S OF RESPIRATORY DISTRESS/DISCOMFORT NOTED.
[2016-05-20] VITALS: BP 155/91
--- NOTE | 2016-05-20 00:09 | NUR ---
V/S CHECKED AND STABLE. NOT IN DISTRESS. SAFETY MEASURES CHECKED, CALL LIGHT WITHIN REACH.
[2016-05-20] MEDS: NACL 0.9% IRR 250 ML BOTTLE IR SCH ×4 (01:04→12:54)
[2016-05-20] MEDS: Z-GUARD PASTE TP SCH ×2 (01:05→12:52)
[2016-05-20] MEDS: MILD SOAP AND WATER TP SCH ×2 (01:05→12:52)
[2016-05-20] MEDS: IPRATROPIUM 0.02% 0.5 MG/2.5 ML NEBU IH SCH ×4 (01:20→19:17)
--- NOTE | 2016-05-20 02:00 | NUR ---
PT SLEEPING. HAS NO SIGNS OF DISTRESS, CALL LIGHT WITHIN REACH.
[2016-05-20] MEDS: NACL 0.9% 1,000 ML IV SCH (03:57)
[2016-05-20 04:00] VITALS: BP 157/79
--- NOTE | 2016-05-20 04:05 | NUR ---
V/S CHECKED AND STABLE. REPOSITIONED THE PT. HAS NO SIGNS OF DISTRESS. NO SOB NOTED.
--- NOTE | 2016-05-20 06:07 | NUR ---
AM CARE DONE, REPOSITIONED THE PT. PT TOLERATED WELL, NO SIGNS OF DISTRESS. CALL LIGHT WITHIN REACH.
[2016-05-20] MEDS: BLOOD GLUCOSE MONITORING 1 DEV DEV FS SCH ×4 (06:09→20:49)
--- NOTE | 2016-05-20 07:15 | NUR ---
ENDORSED REPORT TO DAY SHIFT NURSE FOR CONTINUITY OF CARE. PT IS IN STABLE CONDITION. ALL NEEDS MET AND ATTENDED.
--- NOTE | 2016-05-20 07:16 | NUR ---
RECEIVED REPORT FROM THE OCEANOGRAPHER GEOLOGICAL NURSE AT BEDSIDE FOR CONTINUITY OF CARE. PT IS ASLEEP. PT IS NPO, WAITING CONSENT TO HOSPICE. PT IS CONTACT ISO, HX OF URE, MDRO IN WOUND AND C-DIFF. PT IS HAS A NC 2L O2; A THOMAS CATH, URINE 600ML; AND IV ON R HAND NS AT 80ML/HR. HE ALSO HAS AN IV ON L AC 22G SL. HE HAS A WOUND IN SACRAL AREA AND R HEEL. IT IS WRAPPED AND COVERED. REDNESS IN JASBIR AREA. PT ALSO HAS A GT THAT IS NOT TO BE ACCESSED, CLAMPED. WILL HOLD ALL MEDS, UNTIL OTHER MANCILLA ORDERED. WILL CONTINUE TO MONITOR PT.
[2016-05-20 08:00] VITALS: BP 165/75
[2016-05-20] MEDS: PANTOPRAZOLE 40 MG INJ VIAL IVP SCH (09:46)
[2016-05-20] MEDS: ABDOMINAL PAD TP SCH (09:50)
--- NOTE | 2016-05-20 09:50 | NUR ---
ADMINISTERED MORNING MEDS. PT TOLERATED WELL. DID THE WOUND CARE ON THE R HEEL. PT TOLERATED WELL. WILL CONTINUE TO MONITOR PT.
[2016-05-20] MEDS ORDERED: MORPHINE SULFATE 2 MG/ML SYR IVP PRN (11:30)
[2016-05-20] MEDS ORDERED: LORazepam 2 MG/ML VIAL IVP PRN (11:30)
--- NOTE | 2016-05-20 11:30 | NUR ---
DR. AHN IS HERE. DR. AHN ORDERED RESTART GT TUBE FEEDING. ORDERED LEVAQUIN. WILL ADMINISTER ORDERED.
[2016-05-20 12:00] VITALS: BP 157/62
[2016-05-20] MEDS: LEVOFLOXACIN 500 MG/D5W PREMIX 100 ML IV SCH (12:10)
[2016-05-20] MEDS: GAUZE TP SCH (12:51)
[2016-05-20] MEDS: COMPOSITE DRESSING TP SCH (12:51)
[2016-05-20] MEDS: THERAHONEY GEL 42.5 GM TP SCH (12:52)
--- NOTE | 2016-05-20 13:11 | NUR ---
PT SLEEPING SOUNDLY. LEVAQUIN JUST FINISHED. NO ADVERSE REACTIONS. PT TOLERATED WELL. NO SIGNS OF DISTRESS. WILL CONTINUE TO MONITOR PT.
--- NOTE | 2016-05-20 14:32 | NUR ---
05/20/16 RD FOLLOW UP COMPLETED REFER TO NUTRITION PROGRESS NOTE UNDER CARE ACTIVITY FOR ESTIMATED NEEDS. RD RECOMMENDATIONS: 1. *CONCERN FOR REFEEDING*-AFTER CHECKING AND REPLETING LYTES INITIATE TF WITH ISOSOURCE 1.5 AT 10 ML/HR AND ADVANCE TOLERATED 10 ML Q6H TO GOAL OF 60 ML/HR TO PROVIDE DAILY: 1530 ML TOTAL VOLUME, 2160 KCAL, 97 GM PROTEIN, ADEQUATE TO MEET >75% ESTIMATED KCAL AND PROTEIN NEEDS. 2. CONTINUE TO CHECK AND REPLETE LYTES PRN. 3. RD WILL F/U IN 2-3 DAYS; HIGH RISK. UMESH SANDRA RD
--- NOTE | 2016-05-20 15:00 | NUR ---
PT HAD SOILED THE MEPILEX. CHANGED DRESSING. PT TOLERATED WELL. WILL CONTINUE TO MONITOR PT.
[2016-05-20 16:00] VITALS: BP 129/61
--- NOTE | 2016-05-20 16:00 | NUR ---
PT SLEEPING SOUNDLY. NO SIGNS OF DISTRESS. WILL CONTINUE TO MONITOR PT.
--- NOTE | 2016-05-20 16:30 | NUR ---
CALLED DR. AHN ABOUT LAB RESULTS: MAG1.4 AND K 3.0. MD AWARE. NO NEW ORDERS GIVEN.
--- NOTE | 2016-05-20 17:27 | NUR ---
INCREASED THE FEEDING TO 20ML/HR ORDERED. D/C'D THE NS ORDERED. PT RESTING COMFORTABLY. NO SIGNS OF DISTRESS. WILL CONTINUE TO MONITOR PT.
--- NOTE | 2016-05-20 19:22 | NUR ---
ENDORSED PT TO THE BANBURY MIXER OPERATOR NURSE AT BEDSIDE FOR CONTINUITY OF CARE. PT IS RESTING COMFORTABLY. NO SIGNS OF DISTRESS. PT IN STABLE CONDITION.
--- NOTE | 2016-05-20 19:22 | NUR ---
RECEIVED REPORT FROM THE MORNING SHIFT NURSE AT BEDSIDE. PT IS AOX1, OPEN EYES WHEN CALLING NAMES, APHASIC, UNABLE TO FOLLOW COMMANDS AND MAKE NEEDS KNOWN. FLACC 0, NO SOB/DISTRESS NOTED, DIMINISHED LUNG SOUNDS, ON O2 AT 2L VIA NC, ON TELE MONITOR WITH SR, SOFT ABD, ACTIVE BOWEL SOUNDS, G-TUBE FEEDING WITH ISOSOURCE AT 20ML PER HOUR, RESIDUAL 10ML. THOMAS CATH PRESENT, DRAINING CLEAR YELLOW URINE VIA GRAVITY, IV SITE TO RIGHT HAND 20G, AND LEFT AC 22GA, PATENT, SL, AFEBRILE, SKIN IS WARM AND DRY TO TOUCH, OPEN WOUND TO SACRAL AREA AND R HEEL(SEE WOUND ASSESSMENT). COVERED WITH DRESSING, C/D/I. GENERALIZED WEAKNESS TO ALL EXTREMITIES, REQUIRE TOTAL CARE. ON CONTACT ISOLATION, SAFETY MEASURES MAINTAINED, WILL CONTINUE TO MONITOR.
[2016-05-20 20:00] VITALS: BP 137/64
--- NOTE | 2016-05-20 21:00 | NUR ---
SCHEDULED MEDICATION GIVEN, PT TOLERATED WELL.
--- NOTE | 2016-05-20 22:00 | NUR ---
RESIDUAL CHECKED WITH 5ML, PT TOLERATED WELL WITH TUBE FEEDING, INCREASED TO 30 ML/HR ORDERED.
--- NOTE | 2016-05-20 22:00 | NUR ---
POSITION CHANGED FOR OFF LOAD PRESSURE, VSS.
[2016-05-21] VITALS: BP 130/59
--- NOTE | 2016-05-21 | NUR ---
PT IS ASLEEP, NO CHANGE OF CONDITION AT THIS TIME, ORAL CARE PROVIDED, POSITION CHANGED FOR OFF LOAD PRESSURE. VSS.
[2016-05-21] MEDS: NACL 0.9% IRR 250 ML BOTTLE IR SCH ×4 (00:45→12:29)
[2016-05-21] MEDS: MILD SOAP AND WATER TP SCH ×2 (00:46→12:30)
[2016-05-21] MEDS: Z-GUARD PASTE TP SCH ×2 (00:46→12:31)
[2016-05-21] MEDS: IPRATROPIUM 0.02% 0.5 MG/2.5 ML NEBU IH SCH ×4 (01:32→20:03)
[2016-05-21 04:00] VITALS: BP 141/59
--- NOTE | 2016-05-21 04:00 | NUR ---
NO CHANGE OF CONDITION AT THIS TIME, ORAL CARE PROVIDED, AM CARE PROVIDED, POSITION CHANGED FOR OFF LOAD PRESSURE. VSS.
--- NOTE | 2016-05-21 05:00 | NUR ---
RESIDUAL CHECKED WITH 10ML, PATIENT IS TOLERATED WELL ON G-TUBE FEEDING, INCREASED TUBE FEEDING TO 40 ML/HR ORDERED.
[2016-05-21] MEDS: BLOOD GLUCOSE MONITORING 1 DEV DEV FS SCH ×3 (06:00→16:22)
--- NOTE | 2016-05-21 07:15 | NUR ---
REPORT GIVEN TO MORNING SHIFT NURSE AT BEDSIDE FOR CONTINUE OF CARE.
--- NOTE | 2016-05-21 07:16 | NUR ---
RECEIVED REPORT FROM THE ELEMENTARY ESL TEACHER NURSE AT BEDSIDE FOR CONTINUITY OF CARE. PT IS ASLEEP. NO SIGNS OF DISTRESS. NC STILL IN PLACE, GTUBE FEEDING AT 40ML, IV ON THE R HAND 20G AND L AC 22G INTACT AND SL. PT STILL HAS THOMAS BAG, 200ML OF NINO URINE IN BAG. WILL BE BACK TO FURTHER ASSESS PT.
--- NOTE | 2016-05-21 07:35 | NUR ---
VS WITHIN NORMAL RANGE. PT IS AWAKE AND TRACKING ME WITH HIS EYES. NO SIGNS OF DISTRESS. WILL CONTINUE TO MONITOR PT.
[2016-05-21 08:00] VITALS: BP 145/67
[2016-05-21] MEDS: PANTOPRAZOLE 40 MG INJ VIAL IVP SCH (08:45)
--- NOTE | 2016-05-21 08:50 | NUR ---
STUDENT AND INSTRUCTOR GAVE MEDS TO PT. PT TOLERATED WELL. WILL CONTINUE TO MONITOR PT.
[2016-05-21] MEDS: ABDOMINAL PAD TP SCH (09:40)
[2016-05-21] MEDS: LEVOFLOXACIN 500 MG/D5W PREMIX 100 ML IV SCH (11:53)
[2016-05-21 12:00] VITALS: BP 144/69
[2016-05-21] MEDS: INSULIN LISPRO SLIDING SCALE 100 UNITS/ML VIAL SUBQ PRN (12:09)
--- NOTE | 2016-05-21 12:16 | NUR ---
PT IS RESTING COMFORTABLY. PT WAS SMACKING HIS LIPS. I PERFORMED ORAL CARE, JUST TO KEEP HIS MOUTH MOIST. PT HAS NO SIGNS OF DISCOMFORT OR DISTRESS. WILL CONTINUE TO MONITOR PT.
[2016-05-21] MEDS: COMPOSITE DRESSING TP SCH (12:30)
[2016-05-21] MEDS: GAUZE TP SCH (12:30)
[2016-05-21] MEDS: THERAHONEY GEL 42.5 GM TP SCH (12:30)
--- NOTE | 2016-05-21 14:00 | NUR ---
ADMINISTERED WOUND CARE. PT TOLERATED WELL. CLEANED, NEW DRESSING IN PLACE. REPOSITIONED.
--- NOTE | 2016-05-21 15:00 | NUR ---
SON WAS HERE. I ASKED ABOUT CANDELARIA, SISTER TO SIGN HOSPICE PAPER. PER SON, SISTER IS WAITING ON ANOTHER SISTER. HE WILL TALK TO CANDELARIA TODAY. MEANWHILE, PT IS ON CONTINUOUS GTUBE FEEDING AT 50ML. PT IS ON LEVAQUIN Q DAY. PT IS COMFORTABLE AND NO SIGNS OF DISTRESS. WILL CONTINUE TO MONITOR PT.
[2016-05-21 16:00] VITALS: BP 143/71
--- NOTE | 2016-05-21 16:28 | NUR ---
PT IS RESTING COMFORTABLY. NO SIGNS OF DISTRESS. WILL CONTINUE TO MONITOR PT.
--- NOTE | 2016-05-21 18:39 | NUR ---
PT RESTING COMFORTABLY. FEEDING NOW AT 60ML SINCE 1700. PT TOLERATING TUBE FEEDING VERY WELL. NO RESIDUAL. WILL CONTINUE TO MONITOR PT. NEW FEEDING BAG -ISO SOURCE IS INFUSING WELL. NO SIGNS OF DISTRESS. WILL CONTINUE TO MONITOR PT.
--- NOTE | 2016-05-21 19:20 | NUR ---
ENDORSED PT TO THE LOADING SHOVEL OILER NURSE AT BEDSIDE FOR CONTINUITY OF CARE. PT IS IN STABLE CONDITION. RESTING COMFORTABLY.
--- NOTE | 2016-05-21 19:30 | NUR ---
RECEIVED REPORT FROM DAY RN AT BEDSIDE, PATIENT IS AAOX1, APHASIC, DOES NOT FOLLOW COMMANDS BUT TRACKING WITH EYES OBSERVED, PATIENT IS ON NASAL CANNULA AT 2L, NO SOB OR SIGN OF DISTRESS NOTED. IV TO RH AND LAC INTACT AND PATENT. THOMAS DRAINING YELLOW CLEAR URINE. SACRAL WOUND AND RIGHT HEEL WOUND NOTED COVERED WITH DRESSINGS DRY AND INTACT. PATIENT HAS G-TUBE TO TUBE FEEDING AT 60ML/ HOUR. SAFETY MEASURES CHECKED, CALL LIGHT WITHIN REACH. WILL CONTINUE TO CLOSELY MONITOR.
[2016-05-21 19:59] VITALS: BP 137/60
[2016-05-21] MEDS: ALBUTEROL 0.083% 2.5 MG/3 ML NEBU IH PRN (20:03)
--- NOTE | 2016-05-21 20:53 | NUR ---
MEDICATION ADMINISTERED, PATIENT RESTING IN BED. TURNED AND REPOSITIONED, PATIENT TOLERATED WELL, RECEIVED BREATHING TX WILL CONTINUE TO CLOSELY MONITOR
--- NOTE | 2016-05-21 22:35 | NUR ---
PATIENT RESTING IN BED, NO SOB OR SIGN OF DISTRESS AT THIS TIME, SAFETY MEASURES CHECKED, WILL CONTINUE TO MONITOR.
[2016-05-22] VITALS: BP 141/64
--- NOTE | 2016-05-22 00:15 | NUR ---
VITAL SIGNS STABLE. NO SOB OR SIGN OF DISTRESS, FLACC-0. PATIENT RESTING IN BED, WILL CONTINUE TO CLOSELY MONITOR
[2016-05-22] MEDS: IPRATROPIUM 0.02% 0.5 MG/2.5 ML NEBU IH SCH ×4 (00:49→19:23)
[2016-05-22] MEDS: Z-GUARD PASTE TP SCH ×2 (01:20→13:33)
[2016-05-22] MEDS: NACL 0.9% IRR 250 ML BOTTLE IR SCH ×4 (01:20→13:32)
[2016-05-22] MEDS: MILD SOAP AND WATER TP SCH ×2 (01:20→13:32)
--- NOTE | 2016-05-22 02:24 | NUR ---
PATIENT SLEEPING COMFORTABLY, NO SOB OR SIGN OF DISTRESS AT THIS TIME. WILL CONTINUE TO CLOSELY MONITOR.
[2016-05-22 04:00] VITALS: BP 144/68
--- NOTE | 2016-05-22 04:10 | NUR ---
PATIENT SLEEPING COMFORTABLE, NO SOB OR SIGN OF DISTRESS AT THIS TIME, WILL CONTINUE TO CLOSELY MONITOR.
--- NOTE | 2016-05-22 06:15 | NUR ---
PATIENT SLEEPING COMFORTABLE, NO SOB OR SIGN OF DISTRESS AT THIS TIME, CALL LIGHT WITHIN REACH. WILL CONTINUE TO MONITOR.
[2016-05-22] MEDS: ALBUTEROL 0.083% 2.5 MG/3 ML NEBU IH PRN (07:29)
--- NOTE | 2016-05-22 07:30 | NUR ---
ENDORSED PATIENT TO DAY RN AT BEDSIDE, PATIENT IN STABLE CONDITION
--- NOTE | 2016-05-22 07:31 | NUR ---
RECEIVED REPORT FROM SATHYA HAINES. PT IS NONVERBAL. OPENS EYES BUT DOES NOT FOLLOW COMMANDS. PT IS ON O2 2L/MIN NC. WOUND NOTED TO SACRUM AND RIGHT HEEL WITH REDNESS TO SCROTUM. IV TO RIGHT HAND #20 AND LEFT AC #22 PATENT AND INTACT. G TUBE IN PLACE TO TUBE FEEDING. THOMAS CATHETER IN PLACE TO GRAVITY DRAINAGE BAG. PT IS ON CONTACT ISOLATION WITH SIGNS POSTED OUTSIDE OF PT'S ROOM. SAFETY PRECAUTIONS IN PLACE WITH BED IN LOWEST POSITION AND SIDE RAILS UP. CALL LIGHT WITHIN REACH. WILL CONTINUE TO MONITOR.
[2016-05-22 08:00] VITALS: BP 149/64
[2016-05-22] MEDS: PANTOPRAZOLE 40 MG INJ VIAL IVP SCH (09:07)
[2016-05-22] MEDS: ABDOMINAL PAD TP SCH (09:07)
--- NOTE | 2016-05-22 09:15 | NUR ---
PT TOLERATED MEDS WELL.
--- NOTE | 2016-05-22 10:38 | NUR ---
PT HAD MODERATE SIZED BOWEL MOVEMENT, LIQUID, BROWN/GREEN IN COLOR. PROVIDED HYGIENE CARE, TURNED AND REPOSITIONED FOR COMFORT.
[2016-05-22] MEDS: LEVOFLOXACIN 500 MG/D5W PREMIX 100 ML IV SCH (11:35)
--- NOTE | 2016-05-22 11:37 | NUR ---
PT TOLERATED MEDS WELL.
[2016-05-22 12:00] VITALS: BP 156/72
--- NOTE | 2016-05-22 12:24 | NUR ---
DR. DILLON IN TO SEE PT. WILL FOLLOW UP ON ORDERS.
[2016-05-22] MEDS: THERAHONEY GEL 42.5 GM TP SCH (13:32)
[2016-05-22] MEDS: GAUZE TP SCH (13:32)
[2016-05-22] MEDS: COMPOSITE DRESSING TP SCH (13:32)
--- NOTE | 2016-05-22 14:58 | NUR ---
CHECKED ON PT. RESTING AT THIS TIME, AROUSABLE. WILL CONTINUE TO MONITOR.
--- NOTE | 2016-05-22 15:39 | NUR ---
SPOKE WITH ERASMO FROM HOSPICE. WAS INFORMED THAT WE ARE STILL AWAITING CONSENT FROM PT'S DAUGHTER FROM [place]. ERASMO STATED SHE WILL CONTACT [facility] TO SEE IF THE PT WILL BE TAKEN ON CONTACT ISOLATION.
--- NOTE | 2016-05-22 15:54 | NUR ---
RECEIVED CALLBACK FROM ERASMO FROM HOSPICE. SHE STATED SHE SPOKED WITH [facility] AND THEY CAN HAVE A ROOM AVAILABLE IF PT IS NO LONGER ON CONTACT ISOLATION. WILL NOTIFY .
--- NOTE | 2016-05-22 15:56 | NUR ---
PAGED DR. ZAIDI REGARDING INFORMATION PRESENT BY AREN FROM HOSPICE. AWAITING CALLBACK.
[2016-05-22 16:00] VITALS: BP 143/61
--- NOTE | 2016-05-22 17:00 | NUR ---
CHECKED ON PT. NO SIGNS OF ACUTE DISTRESS AT THIS TIME. FLACC 0. WILL CONTINUE TO MONITOR.
--- NOTE | 2016-05-22 19:35 | NUR ---
RECEIVED REPORT FROM KRYSTEN MCDONNELL AT BEDSIDE. PT IS APHASIC AND UNABLE TO FOLLOW COMMANDS. ONLY OPEN HIS EYES. INITIAL ASSESSMENT DONE. NO S/S OF RESPIRATORY DISTRESS OR SOB NOTED. ON O2 @ 2L/MIN VIA NASAL CANULA. ON G-TUBE FEEDING ISOSOURCE @ 60ML/HR CONTINUOUS. PLACEMENT AND PATENCY ARE CONFIRMED. NO C/O PAIN OR ANY DISCOMFORT AT THIS TIME. PLAN OF CARE REVIEWED TO PT BUT UNABLE TO COMPREHEND. CALL LIGHT WITHIN REACH. WILL CONTINUE TO MONITOR.
--- NOTE | 2016-05-22 19:35 | NUR ---
ENDORSED CARE TO SATHYA HUTCHINS. PT IN STABLE CONDITION.
[2016-05-22 20:00] VITALS: BP 131/76
[2016-05-23] VITALS: BP 137/78
--- NOTE | 2016-05-23 00:20 | NUR ---
PT IS SLEEPING RIGHT NOW BUT EASILY AROUSABLE. NO S/S OF ANY DISCOMFORT AT THIS TIME. ALL NEEDS ARE ATTENDED. CALL LIGHT WITHIN REACH. WILL CONTINUE TO MONITOR.
[2016-05-23] MEDS: NACL 0.9% IRR 250 ML BOTTLE IR SCH ×4 (01:03→13:18)
[2016-05-23] MEDS: Z-GUARD PASTE TP SCH ×2 (01:04→13:19)
[2016-05-23] MEDS: MILD SOAP AND WATER TP SCH ×2 (01:04→13:19)
[2016-05-23] MEDS: IPRATROPIUM 0.02% 0.5 MG/2.5 ML NEBU IH SCH ×4 (01:06→19:53)
[2016-05-23 04:00] VITALS: BP 142/73
--- NOTE | 2016-05-23 05:45 | NUR ---
AM CARE RENDERED. BED LINEN CHANGED. REPOSITIONED PATIENT. KEPT CLEAN AND DRY. CALL LIGHT WITHIN REACH. WILL CONTINUE TO MONITOR.
--- NOTE | 2016-05-23 07:30 | NUR ---
PT HAS NO S/S OF ANY DISCOMFORT. PLAN OF CARE ENDORSE TO AM SHIFT NURSE FOR CONTINUITY OF CARE.
--- NOTE | 2016-05-23 07:31 | NUR ---
PT NON-VERBAL OPEN EYES TO VERBAL AND TACTILE STIMULUS, NO SIGNS OF ACUTE DISTRESS, BREATHING EVEN AND UNLABORED BILATERALLY, ABDOMEN SOFT WITH BOWEL SOUNDS PRESENT IN ALL 4 QUADRANTS, G-TUBE IN PLACE VERIFIED PLACEMENT THROUGH AUSCULTATION, NOTED 100ML RESIDUAL GASTRIC CONTENTS TUBE FEEDING HELD, SKIN WARM, DRY NOTED SACRAL AND RIGHT HEEL WOUNDS, SEE WOUND ASSESSMENT, BOWEL AND BLADDER INCONTINENCE WITH THOMAS IN PLACE, URINE 100ML YELLOW AND CLOUDY, BEDRIDDEN PATIENT OFFLOADED FROM BONY PROMINENCES AND PRESSURE AREAS, TURN AND REPOSITION Q 2 HOURS, FLACC SCALE 0, BED IN LOW POSITION WITH BILATERAL HALF SIDE RAILS UP, CALL LIGHT WITHIN REACH.
[2016-05-23 07:49] VITALS: BP 149/77
[2016-05-23] MEDS: PANTOPRAZOLE 40 MG INJ VIAL IVP SCH (08:46)
[2016-05-23] MEDS: ABDOMINAL PAD TP SCH (08:48)
--- NOTE | 2016-05-23 10:11 | NUR ---
LATE ENTRY FOR 05/22/16 1140 LEFT VM MESSAGE FOR DAUGHTER CANDELARIA REQUESTING RETURN PHONE CALL. 1357 RECEIVED CALL FROM CANDELARIA AND INQUIRED ABOUT HOSPICE CONSENT FORM [facility] HAS INDICATED THAT THEY HAVE NOT RECEIVED THEM YET. CANDELARIA STATED THAT HER SISTER MENA HAS THE FORMS AND WILL BE FAXING BACK TODAY. INFORMED CANDELARIA THAT [place] [facility] AND [place] DO NOT HAVE ANY BEDS AVAILABLE SO HOSPICE WILL MOST LIKELY SEEK PLACEMENT AT ANOTHER SNF AND CANDELARIA STATED THAT SHE IS IN AGREEMENT WITH THAT BUT DOES NOT WANT IT TOO FAR OUT OF THE AREA SO THAT HER BROTHER CAN VISIT PT. 5340 SPOKE WITH EMMANUELLE AT [facility] AND INFORMED HER THAT [facility] DOES NOT HAVE ANY BEDS AND THAT PER CANDELARIA MENA WILL BE FAXING BACK CONSENTS TODAY.
--- NOTE | 2016-05-23 11:42 | NUR ---
SS NOTE: I RECEIVED A CALL FROM EMMANUELLE AT [facility]. SHE STATED THAT SHE SPOKE WITH [facility] AND THEY WILL HAVE A BED AVAILABLE FOR PT ON SUNDAY. SHE ALSO STATED THAT THEY WILL WORK ON FINDING PT ANOTHER SNF BED IN THE MEANTIME.
[2016-05-23] MEDS: LEVOFLOXACIN 500 MG/D5W PREMIX 100 ML IV SCH (11:55)
[2016-05-23 12:00] VITALS: BP 150/70
[2016-05-23] MEDS: GAUZE TP SCH (13:18)
[2016-05-23] MEDS: COMPOSITE DRESSING TP SCH (13:18)
[2016-05-23] MEDS: THERAHONEY GEL 42.5 GM TP SCH (13:19)
--- NOTE | 2016-05-23 15:12 | NUR ---
05/23/16 RD FOLLOW UP COMPLETED PLEASE REFER TO NUTRITION ASSESSMENT UNDER CARE ACTIVITY FOR ESTIMATED NUTRITIONAL NEEDS. RD RECOMMENDATIONS: 1. CONTINUE NUTRITION SUPPORT ISOSOURCE 1.5 60 ML/HR VIA GTUBE TOLERATED --D/T PT WITH >100 ML RESIDUALS X1 TODAY, WHEN APPROPRIATE CONSIDER RESTART TUBE FEEDINGS AT LOW RATE OF 20 ML/HR AND ADVANCE SLOWLY TO GOAL OF 60 ML/HR 2. WHEN PT TOLERATES CURRENT TUBE FEEDING, CONSIDER ADDING PROSOURCE TID TO ADD ADDITIONAL 120 KCAL AND 45 GM PROTEIN DAILY --AT GOAL, AND WITH PROTEIN SUPPLEMENTATION, THIS WILL PROVIDE 1530 ML TOTAL VOLUME, 2280 KCAL. 143 GM PROTEIN TO MEET 95% OF PT ESTIMATED KCAL NEEDS AND 100% OF PT ESTIMATED PROTEIN NEEDS 3. RD WILL F/U 2-3 DAYS; HIGH RISK. ANDREW ROSARIO, RD
--- NOTE | 2016-05-23 15:36 | NUR ---
NOTED PATIENT GASTRIC CONTENT RESIDUAL OF 20ML, SPOKE WITH FNS RECEIVED RECOMMENDATION TO START TUBE FEEDING AT LOWER RATE AND GRADUALLY INCREASE IF RESIDUAL STAYS LESS THAN 100ML. PATIENT STARTED ON TUBE FEEDING AT 20ML PER HOUR IS TOLERATING WELL, WILL REASSESS FOR RESIDUAL AND WILL FOLLOW FNS RECOMMENDATION.
[2016-05-23 16:00] VITALS: BP 143/75
--- NOTE | 2016-05-23 17:35 | NUR ---
ASPIRATED 20ML GASTRIC CONTENT RESIDUAL FROM G TUBE. INCREASED RATE OF G TUBE FEEDING TO 30ML PER HOUR. WILL REASSESS RESIDUAL.
--- NOTE | 2016-05-23 18:07 | NUR ---
PT NON-VERBAL OPEN EYES TO VERBAL AND TACTILE STIMULUS, NO SIGNS OF ACUTE DISTRESS, G TUBE FEEDING TOLERATING AT 30ML PER HOUR, NO SIGNS OF GI DISCOMFORT SUCH NAUSEA, VOMITING, FULLNESS. ABDOMEN SOFT WITH BOWEL SOUNDS PRESENT IN ALL 4 QUADRANTS, DRESSINGS DRY AND INTACT, PATIENT OFFLOADED ON PRESSURE AREAS, FLACC SCALE 0, BED IN LOW POSITION WITH BILATERAL HALF SIDE RAILS UP, CALL LIGHT WITHIN REACH.
--- NOTE | 2016-05-23 19:18 | NUR ---
PATIENT ALERT AND ORIENTED X1, NON VERBAL, TRACKS WITH EYES, NO SIGNS OF ACUTE DISTRESS. GAVE REPORT TO LABOR STANDARDS DIRECTOR NURSE TO CONTINUE CARE.
--- NOTE | 2016-05-23 19:30 | NUR ---
RECEIVED FROM AM RN IN BED AWAKE . FOLLOWS ME WITH EYES. NO SOB. FLACC 0-. THOMAS CATHETER IN PLACE AND DRAINING WELL WITH YELLOW URINE. PT. TOTAL CARE. TELEMETRY MONITORING. ISOLATION PRECAUTIONS. GT FEEDING AT 30 ML/H. HOB UP 30 DEGREES FOR ASPIRATION PRECAUTIONS. NO REPORTED VOMITING OR COUGHING. NEEDS WILL BE ANTICIPATED AND WILL BE MET. BEDBOUND. APHASIC. WILL BE TURNED Q 2H. AFEBRILE.
[2016-05-23 20:00] VITALS: BP 134/78
--- NOTE | 2016-05-23 21:46 | NUR ---
RESIDUAL CHECK FROM GT FEEDING AT THIS TIME IS 60 ML. RESUME FEEDING TO 30 AT THIS TIME AM RN HAD PLACED IT.
--- NOTE | 2016-05-23 22:00 | NUR ---
PT. TURNED TO SIDES . PILLOW SUPPORT PLACED. NEEDS ANTICIPATED AND WILL BE MET. TOTAL CARE. HOB UP 30 DEGREES FOR ASPIRATION PRECAUTIONS. TELEMETRY MONITORING. NO COUGHING OR VOMITING NOTED.
--- NOTE | 2016-05-23 23:04 | NUR ---
PT. SLEEPING AT THIS TIME. TELEMETRY MONITORING.
[2016-05-24 00:34] VITALS: BP 137/78
[2016-05-24] MEDS: NACL 0.9% IRR 250 ML BOTTLE IR SCH ×4 (01:00→12:23)
[2016-05-24] MEDS: Z-GUARD PASTE TP SCH ×2 (01:03→12:23)
[2016-05-24] MEDS: MILD SOAP AND WATER TP SCH ×2 (01:03→12:23)
[2016-05-24] MEDS: IPRATROPIUM 0.02% 0.5 MG/2.5 ML NEBU IH SCH ×3 (01:33→12:56)
--- NOTE | 2016-05-24 02:00 | NUR ---
PT. SLEEPING. WAKES UP AND OPENS EYES ESILY WHEN TOUCHED. NN VERBAL. TELEMETRY MONITORING. HOB UP 30 DEGREES FOR ASPIRATION PRECAUTIONS. TURNED TO SIDES BY CNAS AT THIS TIME. NEEDS ANTICIPATED AND WILL BE MET. TOTAL CARE. NO RESTLESSNESS NOTED. NO VOMITING OR COUGHING NOTED.
[2016-05-24 04:00] VITALS: BP 130/70
--- NOTE | 2016-05-24 04:45 | NUR ---
PT. SLEEPING. WAKES UP WHEN TOUCHED . TELEMETRY MONITORING. RESIDUAL AT THIS TIME AT 60 ML. CONTINUED GT FEEDING AT 30ML/H. TURNED Q 2H. PILLOW SUPPORT TO PRESSURE AREAS. NO RESTLESSNESS NOTED.
--- NOTE | 2016-05-24 06:04 | NUR ---
AWAKE AT THIS TIME. TURNED TV ON. ABLE TO FOLLOW CAREGIVER WITH EYES. NONE VERBAL. TELEMETRY MONITORING. HOB UP 30 DEGREES FOR ASPIRATION PRECAUTIONS. NO RESTLESSNESS THIS SHIFT.
--- NOTE | 2016-05-24 07:15 | NUR ---
ENDORSED TO THE NEXT RN FOR CONTINUITY OF CARE. TOTAL CARE. TELEMETRY MONITORING.
--- NOTE | 2016-05-24 07:16 | NUR ---
RECEIVED PT AWAKE AND LYING ON BED, APHASIC, WITH NO S/S OF RESPIRATORY DISTRESS. ON ON2 2LPM VIA NC, WITH IV ACCESS ON RIGHT HAND 20G ON SALINE LOCK PATENT AND INTACT, ALSO WITH IV ACCESS ON LEFT AC 22G PATENT AND INTACT. WITH THOMAS CATHETER CONNECTED TO URINE BAG DRAINING YELLOW URINE, WITH GTUBE TO TUBE FEEDING TOLERATING WELL WITH 4OML RESIDUAL. WITH DRY AND INTACT DRESSING ON SACROCOCCYX AND RIGHT ANKLE. SAFETY PRECAUTIONS ENFORCED. CALL LIGHT WITHIN REACH, WILL CONTINUE TO MONITOR.
[2016-05-24 08:00] VITALS: BP 127/59
--- NOTE | 2016-05-24 08:15 | NUR ---
REPOSITIONED PT TO SIDE
[2016-05-24] MEDS: ABDOMINAL PAD TP SCH (08:47)
[2016-05-24] MEDS: PANTOPRAZOLE 40 MG INJ VIAL IVP SCH (08:47)
--- NOTE | 2016-05-24 08:47 | NUR ---
DUE MEDS GIVEN, PT TOLERATED WELL. RIGHT ANKLE DRESSING CHANGED.
--- NOTE | 2016-05-24 10:28 | NUR ---
REPOSITIONED PT TO SIDE, KEPT CLEAN AND DRY. WILL CONTINUE TO MONITOR
--- NOTE | 2016-05-24 10:43 | NUR ---
IGLSON FROM HOSPICE CALLED AND SHE SAID THERE A BED AT [facility] AND SHE WILL ARRANGE TRANSPORTATION FOR TODAY.
[2016-05-24 11:00] VITALS: BP 151/77
[2016-05-24] MEDS: LEVOFLOXACIN 500 MG/D5W PREMIX 100 ML IV SCH (11:41)
[2016-05-24 12:00] VITALS: BP 152/79
[2016-05-24] MEDS: COMPOSITE DRESSING TP SCH (12:22)
[2016-05-24] MEDS: THERAHONEY GEL 42.5 GM TP SCH (12:23)
[2016-05-24] MEDS: GAUZE TP SCH (12:23)
--- NOTE | 2016-05-24 12:32 | NUR ---
VS STABLE, REPOSITIONED TO SIDE. ALL NEEDS ATTENDED. GTUBE RESIDUAL AT 30ML
--- NOTE | 2016-05-24 13:23 | NUR ---
SS NOTE: PER EMMANUELLE FROM [facility], [facility] WILL BE HERE TO FRAME SAMPLE AND PATTERN SUPERVISOR PT AT 1600 TODAY.
--- NOTE | 2016-05-24 13:38 | NUR ---
SS NOTE: I SPOKE WITH PT'S SON, SHELLEY ([phone]) AND MADE HIM AWARE OF PT'S D/C TO [facility] TODAY.
--- NOTE | 2016-05-24 14:43 | NUR ---
PT ASLEEP NO S/S OF DISTRESS. REPOSITIONED PT TO SIDE
--- NOTE | 2016-05-24 15:01 | NUR ---
REPORT GIVEN TO CARLYN OF [facility]. MESSAGE LEFT TO DAUGHTERS MENA AND CANDELARIA REGARDING TRANSFER
--- NOTE | 2016-05-24 15:05 | NUR ---
PER JEFFY HAINES SHE ALREADY NOTIFIED SON RE: TRANSFER
[2016-05-24 16:00] VITALS: BP 151/77
--- NOTE | 2016-05-24 16:04 | NUR ---
REPORT GIVEN TO [facility], ID WRISTBAND, TELE MONITOR AND IV ACCESS REMOVED, CATHETER TIP INTACT. GTUBE DISCONNECTED FROM FEEDING.
--- NOTE | 2016-05-24 16:08 | NUR ---
PT LEFT UNIT WITH [facility] WITH O2 2LPM NO S/S OF DISTRESS, WITH THOMAS CATH AND GTUBE. PT STABLE
== END 2016-05-24 16:10 | DRG 853 ==
LOC: MED 07:45 → MTU 09:46
PROVIDERS: ADMIT Hospitalist; ATTEND Hospitalist
PROC: 02PYX3Z Removal of Infusion Device from Great Vessel, External Approach (ICD-10-PCS; 2016-05-13)
PROC: 30233N1 Transfusion of Nonautologous Red Blood Cells into Peripheral Vein, Percutaneous Approach (ICD-10-PCS; principal; 2016-05-14)
PROC: 0JB70ZZ Excision of Back Subcutaneous Tissue and Fascia, Open Approach (ICD-10-PCS; 2016-05-17)
DX: A41.9 Sepsis, unspecified organism (principal); J18.9 Pneumonia, unspecified organism; J96.91 Respiratory failure, unspecified with hypoxia; I69.351 Hemiplegia and hemiparesis following cerebral infarction affecting right dominant side; E87.0 Hyperosmolality and hypernatremia; L97.919 Non-pressure chronic ulcer of unspecified part of right lower leg with unspecified severity; I10 Essential (primary) hypertension; R13.10 Dysphagia, unspecified; E78.5 Hyperlipidemia, unspecified; G40.909 Epilepsy, unspecified, not intractable, without status epilepticus; L89.150 Pressure ulcer of sacral region, unstageable; E87.6 Hypokalemia; D50.9 Iron deficiency anemia, unspecified; E11.622 Type 2 diabetes mellitus with other skin ulcer; I48.2 Chronic atrial fibrillation; Y95 Nosocomial condition; Z51.5 Encounter for palliative care; F03.90 Unspecified dementia, unspecified severity, without behavioral disturbance, psychotic disturbance, mood disturbance, and anxiety; Z79.82 Long term (current) use of aspirin; Z93.1 Gastrostomy status; I69.320 Aphasia following cerebral infarction; Z79.899 Other long term (current) drug therapy; Z74.01 Bed confinement status; Z28.21 Immunization not carried out because of patient refusal

== ENCOUNTER 2016-06-02 22:11 | Inpatient (IN) | payer OTHER ==
[~2016-06-02] VITALS: Ht 177.8 cm; Wt 62.6 kg
--- NOTE | 2016-06-02 22:11 | NUR ---
PATIENT BIB BLS TO ER BED 6.
[2016-06-02 22:15] VITALS: BP 119/58
[2016-06-02] MEDS ORDERED: NACL 0.9% 1,000 ML IV ONE (22:25)
--- NOTE | 2016-06-02 22:28 | NUR ---
Patient being evaluated by physician at bedside.
--- NOTE | 2016-06-02 22:30 | NUR ---
PATIENT BIBA TO ED WITH C/O OF LOW O2 SATS AND RESP DISTRESS WITH SHALLOW RAPID RESP--FULL ACCESSORY MUSCLE USE . PT HX PROVIDED BY [facility] STATES MED HX OF COPD, HEMIPLEGIA, ALZEIHMERS, CVA, MRSA. SKIN IS PALE/HOT/DRY; AAOX4 WITH EVEN AND STEADY GAIT; LUNGS CLEAR BL; HR EVEN AND REGULAR; SOB, PATIENT STATES PAIN OF 0/10 AT THIS TIME; VSS; PATIENT POSITIONED FOR COMFORT; HOB ELEVATED; BEDRAILS UP X2; BED DOWN. ER MD MADE AWARE OF PT STATUS.
[2016-06-02] MEDS ORDERED: MORPHINE BC (23:03)
[2016-06-02] MEDS ORDERED: NACL 0.9% IV ONE (23:25)
[2016-06-02] MEDS ORDERED: PIPERACILLIN/TAZOBACTAM 3.375 GM in DEXTROSE 5% 50 ML IV ONE (23:25)
[2016-06-02] MEDS ORDERED: PIPERACILLIN/TAZOBACTAM 3.375 GM VIAL IV ONE (23:36)
[2016-06-02] MEDS ORDERED: ALBUTEROL 0.083% 2.5 MG/3 ML NEBU INH PRN (23:40)
[2016-06-02] MEDS ORDERED: ONDANSETRON 4 MG/2 ML VIAL IVP PRN (23:40)
[2016-06-02] MEDS ORDERED: VANCOMYCIN PER PHARMACY MC PRN (23:40)
[2016-06-02] MEDS ORDERED: LORazepam 2 MG/ML VIAL IVP PRN (23:40)
[2016-06-02] MEDS ORDERED: MORPHINE SULFATE 2 MG/ML SYR IVP PRN (23:40)
[2016-06-02] MEDS ORDERED: ACETAMINOPHEN 325 MG TAB PO SCH ×2 (23:50)
[2016-06-02] MEDS ORDERED: MAGNESIUM HYDROXIDE 2400 MG/30 ML UDC PO SCH (23:50)
[2016-06-02] MEDS ORDERED: ONDANSETRON 4 MG TAB GT SCH (23:50)
[2016-06-02] MEDS ORDERED: BISACODYL 10 MG SUPP RC SCH (23:50)
[2016-06-02] MEDS ORDERED: NACL 0.45% 1,000 ML IV ONE (23:50)
[2016-06-02] MEDS ORDERED: ALBUTEROL SULFATE/IPRATROPIU 3 ML SOL IH PRN (23:50)
[2016-06-02] MEDS ORDERED: DEXTROSE 50% 50 ML SYR IVP PRN (23:55)
[2016-06-03] MEDS ORDERED: PIPERACILLIN/TAZOBACTAM 4.5 GM in DEXTROSE 5% 100 ML IV SCH
--- NOTE | 2016-06-03 00:29 | NUR ---
Patient will be admitted to care of DR METCALF . Admited to TELE. Will go to room 110A. Belongings list completed. Report to SATHYA HAINES.
[2016-06-03] MEDS ORDERED: LEVOFLOXACIN 750 MG/D5W PREMIX 150 ML IV SCH (01:00)
--- NOTE | 2016-06-03 01:00 | NUR ---
PATIENT WAS ADMITTED TO THE UNIT FROM ED, VIA GURNEY, PATIENT IS LETHARGIC ON OXYGEN AT 5L , RESPIRATORY EFFORT IS LABORED AND TACHYPNEIC, PATIENT IS AAOX1, NON VERBAL, FLACC OF 0, PATIENT CONNECTED TO TELE MONITOR, WRIST BANDS APPLIED, SAFETY MEASURES CHECKED, SIGNS POSTED, PATIENT ORIENTED TO ROOM AND CALL LIGHT. PATIENT HAS SACRAL WOUND NOTED WITH DRESSING DRY AND INTACT AND WOUND TO RIGHT HEEL. PATIENT HAS RIGHT SIDED WEAKNESS. DISCUSSED PLAN OF CARE WITH PATIENT, PATIENT UNABLE TO COMPREHEND. VITAL SIGNS STABLE. WILL CONTINUE TO MONITOR. Addendum: 06/03/16 at 0627 by Cathleen Carrasco RN NOTED PATIENT HAS G TUBE TO LEFT UPPER QUADRANT, AND THOMAS IN PLACE.
[2016-06-03] MEDS: ALBUTEROL SULFATE/IPRATROPIU 3 ML SOL IH SCH ×4 (01:44→19:38)
--- NOTE | 2016-06-03 02:30 | NUR ---
PATIENT RESTING IN BED, OXYGEN LEVELS STABLE AT 97% ON 5L OXYGEN, PATIENT APPEARS COMFORTABLE, FLACC-0. WILL CONTINUE TO CLOSELY MONITOR
[2016-06-03 04:00] VITALS: BP 124/61
[2016-06-03] MEDS ORDERED: VANCOMYCIN 1GM/DEXT 5% PREMIX 200 ML IV ONE (04:00)
[2016-06-03] MEDS ORDERED: PIPERACILLIN/TAZOBACTAM 2.25 GM VIAL IV ONE (04:07)
--- NOTE | 2016-06-03 04:10 | NUR ---
VITAL SIGNS STABLE, NO SIGN OF DISTRESS, WILL CONTINUE TO CLOSELY MONITOR.
[2016-06-03] MEDS: PIPER/TAZO 2.25GM/D5W PREMIX 50 ML IV SCH ×3 (04:16→21:09)
[2016-06-03] MEDS ORDERED: VANCOMYCIN 1,000 MG VIAL ONE (04:52)
--- NOTE | 2016-06-03 06:00 | NUR ---
BS CHECK 145, NO COVERAGE NEEDED, PATIENT SLEEPING, FLACC-0, WILL CONTINUE TO CLOSELY MONITOR
[2016-06-03] MEDS: BLOOD GLUCOSE MONITORING 1 DEV DEV FS SCH ×4 (06:32→21:09)
--- NOTE | 2016-06-03 06:44 | NUR ---
PATIENT HAS BEEN SCREENED AND CATEGORIZED HIGH NUTRITION RISK. PATIENT WILL BE SEEN WITHIN 1-2 DAYS OF ADMISSION. 06/03/16-06/04/16 HAROLDO RUSSELL MS, RDN
--- NOTE | 2016-06-03 07:30 | NUR ---
RECEIVED REPORT FROM NIGHT NURSE. PT AOX1, PT APHASIC. FOOD TECHNICIAN IN PLACE. PT ON O2 5L NC, O2 SAT 90%, RT NOTIFIED. THOMAS CATH IN PLACE, DRAINING CLEAR YELLOW URINE. GTUBE IN PLACE, PLACEMENT VERIFIED, PATENT. SACRAL DRESSING, CLEAN DRY AND INTACT. RT HEEL WOUND, WAREHOUSE MAN. IV ACCESS ASYMPTOMATIC, PATENT AND INTACT. IVF INFUSING WELL. DISCUSSED AND REVIEWED PLAN OF CARE WITH PT, PT APHASIC, WILL CONTINUE TO REINFORCE TEACHING. SAFETY MEASURES ENSURED. CALL LIGHT WITHIN REACH. WILL CONTINUE TO MONITOR.
--- NOTE | 2016-06-03 07:31 | NUR ---
ENDORSED PATIENT TO DAY RN AT BEDSIDE PATIENT IN STABLE CONDITION, FLACC-0
[2016-06-03 08:00] VITALS: BP 121/57
[2016-06-03] MEDS ORDERED: DEXTROSE 5% 1,000 ML IV SCH ×2 (08:30→16:10)
[2016-06-03] MEDS ORDERED: amLODIPine 5 MG TAB PO SCH (09:00)
[2016-06-03] MEDS ORDERED: metFORMIN 850 MG TAB PO SCH (09:00)
[2016-06-03] MEDS: ENOXAPARIN 30 MG/0.3 ML SYR SUBQ SCH (09:01)
[2016-06-03] MEDS: ACETAMINOPHEN 325 MG TAB PO PRN (09:02)
[2016-06-03] MEDS: MULTIVITAMIN/MINERALS 1 TAB PO SCH (09:12)
[2016-06-03] MEDS: AMIODARONE 200 MG TAB PO SCH (09:12)
[2016-06-03] MEDS: METOPROLOL 25 MG TAB PO SCH ×2 (09:13→22:12)
[2016-06-03] MEDS: ISOSORBIDE DINITRATE 10 MG TAB PO SCH ×2 (09:17→22:00)
--- NOTE | 2016-06-03 09:31 | NUR ---
ADDENDUM: RECIEVED CALL FROM [facility] FOR CXR RESULTS. REPORT GIVEN TO DR. RAND.
--- NOTE | 2016-06-03 10:59 | NUR ---
06/03/16 RD INITIAL ASSESSMENT COMPLETED PLEASE REFER TO NUTRITION ASSESSMENT UNDER CARE ACTIVITY FOR ESTIMATED NUTRITIONAL NEEDS. RD RECOMMENDATIONS: 1. CONTINUE ON CARDIAC DIET APPROPRIATE. 2. RECOMMEND PROSOURCE 30 ML BID. 3. WHEN APPROPRIATE, CONSIDER INITIATING ENTERAL FEEDING 65 ML/HR X 24 HOURS TO PROVIDE 1560 ML, 1872 KCAL, 93.6 GM PROTEIN, AND 1276 ML FREE WATER. 4. RD WILL F/U 2-3 DAYS; HIGH RISK. ARMIDA RUSSELL MS, RDN Addendum: 06/03/16 at [address] 06/03/16 RD INITIAL ASSESSMENT COMPLETED PLEASE REFER TO NUTRITION ASSESSMENT UNDER CARE ACTIVITY FOR ESTIMATED NUTRITIONAL NEEDS. RD RECOMMENDATIONS: 1. CONTINUE ON CARDIAC DIET APPROPRIATE. 2. RECOMMEND PROSOURCE 30 ML BID. 3. WHEN APPROPRIATE, CONSIDER INITIATING ENTERAL FEEDING DIABETISOURCE AC TO RUN AT 65 ML/HR X 24 HOURS TO PROVIDE 1560 ML, 1872 KCAL, 93.6 GM PROTEIN, AND 1276 ML FREE WATER. 4. RD WILL F/U 2-3 DAYS; HIGH RISK. ARMIDA RUSSELL MS, RDN
[2016-06-03 12:00] VITALS: BP 109/60
--- NOTE | 2016-06-03 12:00 | NUR ---
DR METCALF VISITED PATIENT SPOKE WITH DAUGHTER CANDELARIA , REGARDING PATIENT'S CONDITION AND DISCUSSED TO PUT PATIENT ON MODIFIED CODE , CANDELARIA STATED WILL SEND HER BROTHER SHELLEY TO SIGN THE POLST.
--- NOTE | 2016-06-03 12:30 | NUR ---
PATIENT'S SON SHELLEY IN THE UNIT ON THE PHONE WITH CANDELARIA STATED THEY SIGNED THE DNR FORM BEFORE WITH DR HADDAD AND THIS POLST IS DIFFERENT FROM THE OTHER ONE. CALLED [facility] THEY STATED NEVER RECEIVED BACK FROM DAUGHTER CANDELARIA AND ACCORDING TO THEM PATIENT IS STILL FULL CODE, EXPLAINED THIS TO CANDELARIA AND SHELLEY BUT THEY INSIST THAT THEY SIGNED THE FORM.
--- NOTE | 2016-06-03 13:00 | NUR ---
FINALLY PATIENT'S SON SHELLEY SIGNED THE POLST FORM BUT HE WAS TOLD BY THE SISTER NOT TO FILE IT FOR THE RECORD. EXPLAINED THAT WHAT EVER WE HAVE IN THE FORM IS THE SAME ON THE PINK FORM BUT EXPLAIN DETAIL, THEY VERBALLY UNDERSTAND BUT WANTS US TO FOLLOW THE [facility]ITE FORM , VERIFIED WITH THEM PATIENT IS MODIFIED CODE SPECIFICALLY ACLS DRUGS AND BIPAP.
--- NOTE | 2016-06-03 14:59 | NUR ---
ASSISTED WITH ADLS AND ORAL CARE. PT TOLERATED WELL. CONDITION STABLE. PT RESTING COMFORTABLY, FLACC 0, NO S/S OF ACUTE DISTRESS. SAFETY MEASURES ENSURED. WILL CONTINUE TO MONITOR.
[2016-06-03 16:00] VITALS: BP 106/40
[2016-06-03] MEDS: INSULIN LISPRO SLIDING SCALE 100 UNITS/ML VIAL SUBQ PRN ×2 (16:59→21:17)
--- NOTE | 2016-06-03 17:15 | NUR ---
PT SLEEPING. CONDITION STABLE, NO S/S OF ACUTE DISTRESS. IVF INFUSING WELL. SAFETY MEASURES ENSURED. CALL LIGHT WITHIN REACH. WILL CONTINUE TO MONITOR.
--- NOTE | 2016-06-03 19:30 | NUR ---
ENDORSED PLAN OF CARE TO OUTSOLE CEMENTER MACHINE RN.
[2016-06-03 19:40] VITALS: BP 104/52
--- NOTE | 2016-06-03 19:45 | NUR ---
RECEIVED PT IN STABLE CONDITION FROM AM NURSE. AWAKE, BUT APHASIC. ON O22L/NC 91%-92% SAT. BEDREST. HOD ELEVATED 30 DEG. NO ACUTE DISTRESS NOTED. WITH GT FEEDING AT 65ML/HR. THOMAS CATH TO GRAVITY. WITH SACRAL WOUND AND RT HEEL WOUND OPEN TO AIR. REPOSITIONED FOR COMFORT. BED ON LOW POSITION. SIDE RAILS UP X2. FREQUENT ROUNDS NEEDED. CALL LIGHT PLACED WITHIN REACH. WILL CONTINUE TO MONITOR.
--- NOTE | 2016-06-03 21:00 | NUR ---
CALLED RT FOR O2 SAT 0N 02 @3L IS ONLY 88-89%. WILL COME AND CHECK PT.
--- NOTE | 2016-06-03 21:11 | NUR ---
PLACED PATIENT ON OXIMIZER 6LPM DUE TO DROP IN SAO2 TO 88%. ON 6L OXIMEZER SAO2 INCREASED TO 92%
--- NOTE | 2016-06-03 21:30 | NUR ---
GT FEEDING RESIDUAL 100ML. HOLD FEEDING ORDERED. WILL RECHECK AGAIN LATER.
[2016-06-03] MEDS: INSULIN DETEMIR 100 UNITS/ML 10 ML VIAL SUBQ SCH (21:34)
--- NOTE | 2016-06-03 21:50 | NUR ---
O2 SAT AT THIS TIME 94%. NO DISTRESS NOTED.
--- NOTE | 2016-06-03 22:04 | NUR ---
PT HEART RATE ON THE MONITOR HAS BEEN ON A FLUTTER. PAGED DR. METCALF, DR CARMEN SEED PACKER . CALLED BACK AND MADE AWARE. HE SAID TO VEENA EDMONDS, HOLD ISORDIL TONIGHT . BUT OK TO GIVE LOPRESSOR.
--- NOTE | 2016-06-03 23:00 | NUR ---
RESIDUAL ON GT 10ML. GT FEEDING RESTARTED.
[2016-06-04] VITALS (9 sets, daily range): BP systolic 95–124; BP diastolic 40–68
--- NOTE | 2016-06-04 00:30 | NUR ---
REPOSITIONED PT FOR COMFORT. NO DISTRESS NOTED. ON O2 WITH OXIMIZER. O2 SAT 97%.
[2016-06-04] MEDS: ALBUTEROL SULFATE/IPRATROPIU 3 ML SOL IH SCH ×4 (01:56→19:25)
--- NOTE | 2016-06-04 02:00 | NUR ---
SLEEPING AT THIS TIME . NO S/S OF ANY DISTRESS NOTED. WILL CONTINUE TO MONITOR.
--- NOTE | 2016-06-04 04:00 | NUR ---
SPUTUM SPECIMEN COLLECTED BY RT . SEND TO LAB.
[2016-06-04] MEDS: PIPER/TAZO 2.25GM/D5W PREMIX 50 ML IV SCH ×4 (04:36→20:08)
--- NOTE | 2016-06-04 04:40 | NUR ---
CHECKED RESIDUAL OF GT FEEDING. NO RESIDUAL NOTED.
[2016-06-04] MEDS: VANCOMYCIN 750 MG in DEXTROSE 5% 250 ML IV SCH (05:42)
[2016-06-04] MEDS: BLOOD GLUCOSE MONITORING 1 DEV DEV FS SCH ×4 (06:24→20:08)
[2016-06-04] MEDS: INSULIN LISPRO SLIDING SCALE 100 UNITS/ML VIAL SUBQ PRN ×4 (06:26→20:11)
--- NOTE | 2016-06-04 06:26 | NUR ---
BLOOD SUGAR WAS CHECKED THIS AM RESULT 201. INSULIN COVERAGE GIVEN ORDERED.
--- NOTE | 2016-06-04 06:58 | NUR ---
LAB CALLED FOR CRITICAL HGB 7.O AND HCT 22.6 PAGED KERMIT RICE SPINNING FRAME CLEANER . CALLED BACK WITH ORDERS.
--- NOTE | 2016-06-04 07:23 | NUR ---
ENDORSED PT IN STABLE CONDITION TO AM NURSE.
--- NOTE | 2016-06-04 07:30 | NUR ---
RECEIVED REPORT FROM NIGHT NURSE. PT AOX1, PT APHASIC. BRANCH OFFICE ADMINISTRATOR IN PLACE. PT ON O2 OXIMIZER. THOMAS CATH IN PLACE, DRAINING CLEAR YELLOW URINE. GTUBE IN PLACE, PLACEMENT VERIFIED, PATENT, RESIDUAL IS 300ML; TUBE FEEDING STOPPED. PT SLEEPING, NO S/S OF ACUTE DISTRESS. SACRAL DRESSING, CLEAN DRY AND INTACT. RT HEEL WOUND, TRAY. IV ACCESS ASYMPTOMATIC, PATENT AND INTACT. IVF INFUSING WELL. DISCUSSED AND REVIEWED PLAN OF CARE WITH PT, PT APHASIC, WILL CONTINUE TO REINFORCE TEACHING. SAFETY MEASURES ENSURED. CALL LIGHT WITHIN REACH. WILL CONTINUE TO MONITOR.
[2016-06-04] MEDS: ISOSORBIDE DINITRATE 10 MG TAB PO SCH (09:00)
[2016-06-04] MEDS: METOPROLOL 25 MG TAB PO SCH (09:00)
[2016-06-04] MEDS: ENOXAPARIN 30 MG/0.3 ML SYR SUBQ SCH (09:00)
[2016-06-04] MEDS: AMIODARONE 200 MG TAB PO SCH (09:00)
[2016-06-04] MEDS: MULTIVITAMIN/MINERALS 1 TAB PO SCH (10:32)
--- NOTE | 2016-06-04 10:33 | NUR ---
RECEIVED TELEPHONE CONSENT FORM FOR BLOOD TRANSFUSION FROM PT'S DAUGHTER CANDELARIA WHO VERBALIZES UNDERSTANDING, WITNESSED BY SATHYA CEE.
--- NOTE | 2016-06-04 10:34 | NUR ---
BP meds held @ this time re: BP 95/40. Latest H&H= 7.0/22.6. Lovenox held for now. Will notify MD on rounds.
--- NOTE | 2016-06-04 11:20 | NUR ---
FEVER NOTED WITH BASELINE VITALS PRIOR TO BLOOD TRANSFUSION. ICE PACKS, COOLING MEASURES AND APAP TO BE ADMINISTERED. DR METCALF MADE AWARE, STATES IT IS OKAY TO CONTINUE WITH BLOOD TRANSFUSION. ORDERS RECEIVED AND TO BE CARRIED OUT.
[2016-06-04] MEDS ORDERED: diphenhydrAMINE 50 MG/ML VIAL IVP PRN (11:35)
[2016-06-04] MEDS: ACETAMINOPHEN 325 MG TAB PO PRN (11:45)
--- NOTE | 2016-06-04 13:00 | NUR ---
BLOOD TRANSFUSION INFUSING WELL. NO S/S OF TRANSFUSION REACTION, NO S/S OF ACUTE DISTRESS. PT TOLERATING WELL. IV ZOSYN HELD UNTIL BLOOD TRANSFUSION IS COMPLETE.
--- NOTE | 2016-06-04 13:06 | NUR ---
DECREASED FIO2 TO 4L OXYMIZER
--- NOTE | 2016-06-04 14:14 | NUR ---
ABG DRAWN ON RB WITHOUT INCIDENT AND RESULTS GIVEN TO DR. METCALF AND ORDERED FOR PT TO BE PLACED ON BIPAP
[2016-06-04] MEDS ORDERED: ALBUMIN HUMAN 25% 50 ML IV SCH (14:30)
[2016-06-04] MEDS ORDERED: FUROSEMIDE 20 MG/2 ML VIAL IVP SCH (14:30)
--- NOTE | 2016-06-04 14:34 | NUR ---
PT PLACED ON BIPAP DUE TO HIGH CO2 LEVEL PER DR. METCALF, BIPAP SETTINGS 12\6 RR12 FIO2 50% ALARMS ON AND FUNCTIONING PROPERLY, AMBU BAG AT SIDE OF BIPAP AND BIPAP IS PLUGGED INTO RED OUTLET B\S ARE COARSE BILATERALLY, I\L TX GIVEN WITH ALBUTEROL 2.5MG WITH NO ADVERSE REACTION POST TX, STUDENTS NURSES AND INSTRUCTOR AT BEDSIDE CLEANING PT
--- NOTE | 2016-06-04 16:45 | NUR ---
BIPAP CHECK, PT IS SLEEPING WITH NO SIGNS OF DISTRESS NOTED AT THIS TIME
--- NOTE | 2016-06-04 17:00 | NUR ---
WOUND CARE PERFORMED, PT TOLERATED WELL. FLACC 0, NO S/S OF ACUTE DISTRESS. SAFETY MEASURES ENSURED. CALL LIGHT WITHIN REACH. WILL CONTINUE TO MONITOR.
[2016-06-04] MEDS: MIDODRINE 5 MG TAB GT SCH (18:35)
--- NOTE | 2016-06-04 19:24 | NUR ---
ENDORSED PLAN OF CARE TO NIGHT NURSE. CONDITION STABLE.
--- NOTE | 2016-06-04 19:25 | NUR ---
RECEIVED PT FROM JOSELYN RN PT BEDBOUND APHASIC AAOX1 ON TELEMETRY ATRIAL FLUTTER, THOMAS CATH DRAINING WELL YELLOW URINE, G TUBE FEEDING WELL TOLERATED RESIDUAL 25 ML HL ON RT AND LEFT HAND REP THERAPY IS HERE AND GIVE BREATHING TX PT ON BIPAP SETTING / FIO2% 40% REPOSITIONED RELATIVE AT BED SIDE INITIAL ASSESSMENT DONE
[2016-06-04] MEDS: INSULIN DETEMIR 100 UNITS/ML 10 ML VIAL SUBQ SCH (20:13)
--- NOTE | 2016-06-04 21:00 | NUR ---
BLOOD SUGR TEST 233 COVERAGE WITH SUBQ HUMALOG INSULIN
--- NOTE | 2016-06-04 23:52 | NUR ---
SPUTUM COLLECTED VIA NASO-TRACHEAL SUCTIONING Addendum: 06/04/16 at 2358 by Low Navarrete RT VIA ENTRY OF SUCTION CATHETER THROGHT LEFT NOSTRIL
[2016-06-05] VITALS: BP 117/66
--- NOTE | 2016-06-05 00:01 | NUR ---
PT REPOSITIONED G TUBE FEEDING WELL TOLERATED ON TELMETRY ATRIAL FLUTTER ,PT ON BIBPAP NOT RESP DISTRESS NOTED
[2016-06-05] MEDS: ALBUTEROL SULFATE/IPRATROPIU 3 ML SOL IH SCH ×4 (00:02→19:18)
--- NOTE | 2016-06-05 00:30 | NUR ---
PT'S GTUBE RESIDUAL CHECKED:120ML. FEEDING STILL ON HOLD. WILL RECHECK AFTER AN HR. PT REPOSITIONED FOR COMFORT. WILL CONTINUE TO MONITOR. Addendum: 06/07/16 at 0242 by Kelsey Trujillo RN NOTES FOR 06/07/16 0030
--- NOTE | 2016-06-05 02:00 | NUR ---
PT REPOSITIONED Q2H G TUBE FEEDING WELL TOLERATED ON TELEMETRY ATRIAL FLUTTER NOT DITRESS NOTED AT THIS TIME N BIPAP
--- NOTE | 2016-06-05 03:15 | NUR ---
REPORT GIVEN TO KRYSTEN MCDONNELL FOR CONTINUITY OF CARE
--- NOTE | 2016-06-05 03:16 | NUR ---
RECEIVED REPORT FROM MARILUZ MCDONNELL FOR CONTINUITY OF CARE. SHIFT ASSESSMENT DONE, VS TAKEN. PT IS APHASIC. PT ON BIPAP WITH SETTINGS: IPAP: 12, EPAP:6, RATE: 21, FIO2: 40. NO S/S OF PAIN NOTED. PT HAS THOMAS CATHETER DRAINING YELLOW URINE TO GRAVITY. G-TUBE FEEDING IN PLACE DIABETISOURCE AT 65 ML/HR, LESS THAN 10ML RESIDUAL NOTED. PT HAS LT HAND 22 GAUGE PATENT AND FLUSHED, RT HAND 22 GAUGE PATENT AND FLUSHED. SAFETY PRECAUTIONS ENFORCED. CONTACT ISO IN PLACE. WILL CONTINUE TO MONITOR.
[2016-06-05 04:00] VITALS: BP 107/55
[2016-06-05] MEDS: PIPER/TAZO 2.25GM/D5W PREMIX 50 ML IV SCH ×3 (04:48→20:37)
--- NOTE | 2016-06-05 04:48 | NUR ---
DUE ANTIBIOTICS ADMINISTERED. PT O2 SAT 98% ON BIPAP. WILL CONTINUE TO MONITOR.
[2016-06-05] MEDS: BLOOD GLUCOSE MONITORING 1 DEV DEV FS SCH ×4 (06:09→20:39)
[2016-06-05] MEDS: MIDODRINE 5 MG TAB GT SCH ×3 (06:09→18:27)
[2016-06-05] MEDS: INSULIN LISPRO SLIDING SCALE 100 UNITS/ML VIAL SUBQ PRN ×4 (06:16→21:33)
--- NOTE | 2016-06-05 06:16 | NUR ---
BLOOD SUGAR 240, ADMINISTERED INSULIN PER MD ORDER. CALL LIGHT WITHIN REACH.
[2016-06-05] MEDS: VANCOMYCIN 750 MG in DEXTROSE 5% 250 ML IV SCH (06:49)
--- NOTE | 2016-06-05 07:02 | NUR ---
RECEIVED PT ON VISION BIPAP ST 12\6 RR 12 FIO2 40 ALARMS ARE ON AND FUNCTIONAL APNEA SET 20 SECONDS BS COARSE PT IN HF ASLLEP WEARING F\F MASK SIZE LARGE BIPAP PLUGGED INTO RED OUTLET CONT POX AT BEDSIDE HHN GIVEN WITH 3 MG DUONEB
--- NOTE | 2016-06-05 07:35 | NUR ---
ENDORSED PATIENT TO DAY RN FOR CONTINUITY OF CARE, PATIENT IS IN STABLE CONDITION.
--- NOTE | 2016-06-05 07:36 | NUR ---
RECEIVED PT IN BED. ASLEEP. AROUSABLE TO VOICE. NO SIGNS AND SYMPTOMS OF ACUTE DISTRESS NOTED. NO SOB. NO SIGNS OF PAIN OR DISCOMFORT NOTED AT THIS TIME. POSITIVE BOWEL SOUNDS NOTED ON FOUR QUADRANTS. PT ON GT, FEEDING TOLERATED WELL. PT HAS SACRAL ULCER. DRESSING DRY AND INTACT. OFFLOAD BONY PROMINENCE. LEFT AND RIGHT HEEL ELEVATED ON PILLOW. REPOSITIONED NEEDED AND FOR COMFORT. PT ON THOMAS CATHETER DRAINING CLEAR YELLOW URINE. PT BEDBOUND. CONTACT AND SAFETY PRECAUTION IN PLACE. CALL LIGHT WITHIN REACH.
--- NOTE | 2016-06-05 07:37 | NUR ---
PT GASTRIC RESIDUAL CHECKED AT 10 ML. GT FEEDING TOLERATED WELL. GT SITE DRESSING CLEAN AND INTACT. NO DISCHARGE NOTED ON GT SITE.
[2016-06-05 08:00] VITALS: BP 107/56
--- NOTE | 2016-06-05 08:15 | NUR ---
PT HAS A TEMPERATURE OF 101.3. COOLING MEASURES PROVIDED. MEDICATED PRN TYLENOL 650MG FOR FEVER PER GT.
[2016-06-05] MEDS ORDERED: MAGNESIUM HYDROXIDE 2400 MG/30 ML UDC PO PRN (08:25)
[2016-06-05] MEDS: ACETAMINOPHEN 325 MG TAB PO PRN (08:28)
[2016-06-05] MEDS: MULTIVITAMIN/MINERALS 1 TAB PO SCH (08:28)
[2016-06-05] MEDS: AMIODARONE 200 MG TAB PO SCH (08:29)
[2016-06-05] MEDS: ENOXAPARIN 30 MG/0.3 ML SYR SUBQ SCH (08:33)
--- NOTE | 2016-06-05 08:43 | NUR ---
BIPAP CHECK BS DIMINISHED PLACED GEL UNDER MASK
--- NOTE | 2016-06-05 09:00 | NUR ---
RECHECKED TEMPERATURE. WENT DOWN TO 97.8. NO SOB NOTED. NO SIGNS AND SYMPTOMS OF ACUTE DISTRESS OR DISCOMFORT NOTED AT THIS TIME. WILL CONTINUE TO MONITOR VITAL SIGNS.
[2016-06-05] MEDS ORDERED: BISACODYL 10 MG SUPP RC PRN (09:02)
--- NOTE | 2016-06-05 10:18 | NUR ---
BIPAP CHECK BS DIMINISHED PT QUIET
--- NOTE | 2016-06-05 10:28 | NUR ---
SKIN CARE AND WOUND CARE DONE. PT KEPT CLEAN DRY AND COMFORTABLE. POSITIONED TO CLIENT COMFORT. OFFLOAD BONY PROMINENCE.
--- NOTE | 2016-06-05 10:49 | NUR ---
BIPAP CHECK, PT IS RESTING WITH NOW WITH SON AT BEDSIDE
--- NOTE | 2016-06-05 11:00 | NUR ---
WOUND CARE EVALUATION NOTES REASON FOR EVALUATION: WOUNDS COMPLETE SKIN ASSESSMENT DONE ON THIS 75 Y/O MALE PATIENT FROM [facility] TO [facility], WITH INITIAL DIAGNOSIS OF PNEUMONIA. PAST MEDICAL HISTORY INCLUDE CVA, RIGHT SIDED WEAKNESS, DIABETES, HYPERTENSION AND SEIZURE. ALL ABOVE INFORMATION WAS OBTAINED FROM THE ADMISSION H&P. LABS ARE WBC 15.8, H/H 8.8/27.7, GLUCOSE 258, ALBUMIN 1.2, PT/INR 11.9/1.2 AND PTT 26.5. CURRENT MEDS INCLUDE VANCOMYCIN, INSULIN, MULTIVITAMINS/MINERAL, ZOSYN AND MORPHINE. PATIENT IS AWAKE, NON VERBAL, UNABLE TO FOLLOW SIMPLE COMMANDS ON BIPAP AT THIS TIME. SKIN WARM TO TOUCH WNL, TOENAILS ARE SLIGHTLY THICKENED, NO EDEMA, NO HAIR GROWTH, BILATERAL FEET AT DRY AND FLAKY AND BILATERAL PEDAL PULSES ARE FAINT. URINE AND BOWEL INCONTINENT WITH FC 16FR PATENT AND INTACT TO LIGHT NINO URINE IN MODERATE AMOUNT. NOTED TO HAVE LOOSE BROWN STOOLS IN SMALL AMOUNT. NEEDS MAX ASSISTANCE IN TURNING. INITIAL PLAN OF CARE AND PRESSURE PREVENTIVE MEASURES DISCUSSED WITH PATIENT'S SON SHELLEY, ABLE TO VERBALIZE UNDERSTANDING. INTEGUMENTARY: SACRALCOCCYX - ST IV RIGHT HEEL - ARTERIAL ULCER LEFT HEEL - INTACT BLISTER RECOMMENDATIONS: -CLEANSE SACRALCOCCYX WITH WOUND CLEANSER, PAT DRY, APPLY THERAHONEY GEL, COVER WITH ADAPTIC, COVER WITH GAUZE AND COMPOSITE DRESSING Q DAY AND PRN WITH SOILING/DISPLACEMENT -CLEANSE PERAIREA,SCROTAL AREA AND BILATERAL FEET WITH MILD SOAP AND WATER, PAT DRY, APPLY HYDRAGUARD BIDWC AND PRN WITH SOILING. LEAVE OPEN TO AIR -CLEANSE BILATERAL HEELS WITH NS AND GAUZE, PAT DRY, COVER WITH ADAPTIC, ABD PAD AND WRAP WITH AKASH Q OTHER DAY AND PRN WITH SOILING/DISPLACEMENT. CHECK DRESSING PLACEMENT DAILY. -PRESSURE REDISTRIBUTION SURFACE THERAPY -TURN AND REPOSITION PATIENT Q2H TO LEFT AND RIGHT SIDE ONLY TO OFFLOAD SACRALCOCCYX -ASSESS AND MONITOR SKIN CONDITION DURING POSITION CHANGE, PLEASE PAY PARTICULAR ATTENTION TO SACRALCOCCYX, ELBOWS AND HEELS -OFFLOAD BILATERAL HEELS BY PLACING HEEL PROTECTORS, REMOVE AND ASSESS FOR PROPER CIRCULATION Q4H, THEN REAPPLY -KEEP SKIN CLEAN AND DRY AT ALL TIMES. RECOMMENDATIONS DISCUSSED WITH PRIMARY RN. WILL FOLLOW UP PATIENT Q 7 DAYS AND PRN. PLEASE CONTACT [facility] FOR ANY CONCERNS, QUESTIONS AND CHANGES IN SKIN CONDITION.
--- NOTE | 2016-06-05 11:16 | NUR ---
ART ROSA AT BEDSIDE. WOUND CARE BHAVIK MCDONNELL CAME TO SEE PT AND DID WOUND TREATMENT AND DRESSING CHANGE. NO SIGNS AND SYMPTOMS OF PAIN OR DISCOMFORT NOTED AT THIS TIME. NO SOB NOTED.
[2016-06-05] MEDS ORDERED: NON ADHERENT DRESSING TP PRN (11:35)
[2016-06-05] MEDS ORDERED: HYDRAGUARD CREAM TP PRN (11:35)
[2016-06-05] MEDS ORDERED: THERAHONEY GEL 42.5 GM TP PRN (11:35)
[2016-06-05 12:00] VITALS: BP 99/47
--- NOTE | 2016-06-05 12:52 | NUR ---
BIPAP CHECK BS DIMINISHED SON BEDSIDE HHN GIVEN I\L WITH 3 MG DUONEB Addendum: 06/05/16 at 1303 by Melly Hardin RT GEL UNDER MASK
[2016-06-05] MEDS ORDERED: FUROSEMIDE 20 MG/2 ML VIAL IVP SCH (13:27)
--- NOTE | 2016-06-05 13:30 | NUR ---
DR METCALF CAME TO SEE PT WITH ORDERS MADE AND CARRIED OUT. MADE AWARE OF PT'S LATEST POTASSIUM LEVEL OF 3.3. AND BLOOD PRESSURE OF 99/44. DR. METCALF ORDERED LASIX 20 MG IVP, MADE AWARE OR PT'S BLOOD PRESSURE. DR METCALF SAID TO RECHECK BP IN AN HOUR AND LET HER KNOW IF IT'S STILL LOW SO SHE CAN ORDER SOMETHING FOR THE LOW BLOOD PRESSURE. SON SHELLEY HERE AND TALKED TO MD ABOUT PT'S CURRENT STATUS.
--- NOTE | 2016-06-05 13:45 | NUR ---
ABG WAS ATTEMPTED TWICE AND UNABLE TO OBTAIN DUE TO PT MOVING TO MUCH SON AT BEDSIDE DR. METCALF WAS NOTIFIED THAT ABG WAS NOT DONE
[2016-06-05] MEDS: THERAHONEY GEL 42.5 GM TP SCH (13:55)
[2016-06-05] MEDS: HYDRAGUARD CREAM TP SCH (13:55)
--- NOTE | 2016-06-05 14:50 | NUR ---
SS NOTE: PER EMMANUELLE FROM [facility], THEY ARE ABLE TO SIGN PT BACK ONTO HOSPICE IF PT'S FAMILY WANTS TO DO SO. I SPOKE WITH PT'S SON, SHELLEY ([phone]). HE STATED THAT HE WOULD LIKE PT TO RETURN TO [facility] [place] WITHOUT HOSPICE BUT WOULD LIKE TO HAVE THAT PLAN CONFIRMED WITH HIS SISTER, CANDELARIA.
--- NOTE | 2016-06-05 14:51 | NUR ---
RECHECKED BP OF PT. BP 89/44 HR 105. WILL CALL MD AND MAKE AWARE.
[2016-06-05] MEDS: AZITHROMYCIN 250 MG in DEXTROSE 5% 250 ML IV SCH (15:05)
--- NOTE | 2016-06-05 15:15 | NUR ---
BIPAP CHECK BS COARSE ABG WILL BE DRAWN GEL UNDER MASK
--- NOTE | 2016-06-05 15:37 | NUR ---
PAGE DR TERRAZAS FOR ABG RESULTS
--- NOTE | 2016-06-05 15:39 | NUR ---
PT HAD EPISODE OF VTACH. PT ON STABLE CONDITION. NO SIGNS AND SYMPTOMS OF ACUTE PAIN OR DISCOMFORT NOTED AT THIS TIME. NO SOB NOTED.
--- NOTE | 2016-06-05 15:58 | NUR ---
PAGED DR. METCALF. DR. METCALF CALLED BACK, MADE AWARE OF LATEST BP AND LACTIC ACID. RECEIVED ORDER AND CARRIED OUT.
[2016-06-05 16:00] VITALS: BP 95/48
[2016-06-05] MEDS ORDERED: KCL 20 MEQ/WATER INJ PREMIX 200 ML IV SCH (16:00)
--- NOTE | 2016-06-05 16:00 | NUR ---
GT FEEDING HELD DUE TO GASTRIC RESIDUAL 150.
[2016-06-05] MEDS ORDERED: ALBUMIN HUMAN 25% 50 ML IV SCH (16:07)
--- NOTE | 2016-06-05 16:40 | NUR ---
DR TERRAZAS RETURNED CALL NO CHANGES MADE BIPAP CHECK
--- NOTE | 2016-06-05 19:31 | NUR ---
ENDORSED TO INCOMING SHIFT ON STABLE CONDITION. ENDORSED TO START RUNNING THE GT FEEDING ONCE GASTRIC RESIDUAL IS LESS THAN 100. NO SIGNS AND SYMPTOMS OF ACUTE PAIN OR DISCOMFORT NOTED ON SHIFT. KEPT CLEAN DRY AND COMFORTABLE.
--- NOTE | 2016-06-05 19:32 | NUR ---
RECEIVED REPORT FROM SIM MCDONNELL FOR CONTINUITY OF CARE. SHIFT ASSESSMENT DONE, VS TAKEN. PT IS APHASIC. PT ON BIPAP, NO S/S OF RESPIRATORY DISTRESS NOTED. NO S/S OF PAIN NOTED, FLACC-0. PT HAS THOMAS CATHETER DRAINING CLEAR YELLOW URINE TO GRAVITY. G-TUBE FEEDING RESUMED DIABETISOURCE AT 65 ML/HR, RESIDUAL LESS THAN 30. PT HAS IV TO LEFT HAND 22 GAUGE PATENT AND FLUSHED AND RT HAND 22 GAUGE PATENT AND FLUSHED. SAFETY/CONTACT PRECAUTIONS ENFORCED. WILL CONTINUE TO MONITOR.
[2016-06-05 20:00] VITALS: BP 93/61
--- NOTE | 2016-06-05 20:37 | NUR ---
DUE ANTIBIOTICS ADMINISTERED. BLOOD SUGAR 180, WILL ADMINISTER INSULIN PER MD ORDER.
[2016-06-05] MEDS: INSULIN DETEMIR 100 UNITS/ML 10 ML VIAL SUBQ SCH (21:32)
--- NOTE | 2016-06-05 22:15 | NUR ---
TURNED AND REPOSITIONED PATIENT. NO S/S OF DISTRESS NOTED ON BIPAP. WILL CONTINUE TO MONITOR.
[2016-06-06] VITALS: BP 119/54
--- NOTE | 2016-06-06 00:02 | NUR ---
PATIENT TURNED AND REPOSITIONED TO OFFLOAD PRESSURE. VS TAKEN, STABLE. WILL CONTINUE TO MONITOR.
--- NOTE | 2016-06-06 00:56 | NUR ---
INFORMED BY UNIT EDUCATOR PT HAD RUN OF VTACH, VS TAKEN, STABLE. WILL CONTINUE TO MONITOR.
[2016-06-06] MEDS: HYDRAGUARD CREAM TP SCH ×2 (01:00→13:00)
[2016-06-06] MEDS: ALBUTEROL SULFATE/IPRATROPIU 3 ML SOL IH SCH ×4 (01:15→19:14)
--- NOTE | 2016-06-06 02:03 | NUR ---
TURNED AND CHANGED PT, PROVIDED NEW LINENS AND GOWN. PT HAD MODERATE SIZED BM, DRESSING TO SACRAL WOUND CHANGED. O2 SAT 94% ON BIPAP. WILL CONTINUE TO MONITOR.
[2016-06-06 04:00] VITALS: BP 102/70
--- NOTE | 2016-06-06 04:07 | NUR ---
VS TAKEN, STABLE. CHANGED AND TURNED PATIENT, HAD MODERATE SIZED BM. WILL CONTINUE TO MONITOR.
[2016-06-06] MEDS: PIPER/TAZO 2.25GM/D5W PREMIX 50 ML IV SCH ×3 (05:21→21:34)
[2016-06-06] MEDS: BLOOD GLUCOSE MONITORING 1 DEV DEV FS SCH ×4 (06:09→21:31)
[2016-06-06] MEDS: VANCOMYCIN 750 MG in DEXTROSE 5% 250 ML IV SCH (06:09)
[2016-06-06] MEDS: MIDODRINE 5 MG TAB GT SCH ×3 (06:09→19:00)
[2016-06-06] MEDS: INSULIN LISPRO SLIDING SCALE 100 UNITS/ML VIAL SUBQ PRN ×4 (06:32→21:43)
--- NOTE | 2016-06-06 06:32 | NUR ---
BLOOD SUGAR 194, ADMINISTERED INSULIN PER MD ORDER.
--- NOTE | 2016-06-06 06:48 | NUR ---
REC'D PT ON VISION BIPAP SETTINGS 12\6 RR 12 FIO2 40% ALARMS ON AND FUNCTIONING PROPERLY, AMBU BAG AT SIDE OF BIPAP AND BIPAP IS PLUGGED INTO RED OUTLET AND I\L TX GIVEN WITH DUONEB 3ML WITH NO ADVERSE REACTION POST TX B\S ARE CLEAR AND PT IS WEARING LARGE FACE MASK WITH SKIN INTEGRITY INTACT PT IS RESTING WITH NO SIGNS OF DISTRESS NOTED AT THIS TIME
--- NOTE | 2016-06-06 07:30 | NUR ---
ENDORSED PATIENT TO DAY RN FOR CONTINUITY OF CARE, PATIENT IS IN STABLE CONDITION.
--- NOTE | 2016-06-06 07:31 | NUR ---
RECEIVED REPORT FROM PEDIATRIC NEPHROLOGIST NURSE AT BEDSIDE FOR CONTINUITY OF CARE. PT IS SLEEPING. PT IS ON BIPAP, O2 SAT AT 97%. PT HAS IV ON L HAND WAS LEAKING, PEDIATRIC NEPHROLOGIST NURSE WILL D/C. R HAND 22 G PATENT GETTING VANCO AT 165ML/HR. PT'S G-TUBE AT 65ML/HR. NO RESIDUAL. THOMAS CATH IN PLACE, 50 ML OF CLEAR YELLOW URINE IN BAG. SCDS ON. NO SIGNS OF DISTRESS NOTED. GOWN AND SHEET REPLACED DUE TO BEING WET FROM IV AND G-TUBE. PT HAS SACRAL PRESSURE ULCERS, DSG INTACT, BL HEEL REDNESS AND SCABS, DRY, PILLOW SUPPORTING LEGS. WILL CONTINUE TO MONITOR PT.
[2016-06-06 08:00] VITALS: BP 110/60
--- NOTE | 2016-06-06 08:27 | NUR ---
BIPAP CHECK, PT IS RESTING WITH NO SIGNS OF DISTRESS NOTED AT THIS TIME, B\S ARE CLEAR
[2016-06-06] MEDS: FLUCONAZOLE 100 MG TAB PO SCH (09:43)
[2016-06-06] MEDS: MULTIVITAMIN/MINERALS 1 TAB PO SCH (09:43)
[2016-06-06] MEDS: AMIODARONE 200 MG TAB PO SCH (09:43)
[2016-06-06] MEDS: ENOXAPARIN 30 MG/0.3 ML SYR SUBQ SCH (09:44)
--- NOTE | 2016-06-06 10:10 | NUR ---
PT HAD A BM. CLEANED PT, CHANGED SHEET AND GOWN. WOUND CARE DONE, CHANGED DSG ON SACRAL ULCER. G-TUBE DSG CHANGED. WILL STOP G-TUBE FEEDING FOR 2 HOURS DUE TO RESIDUAL OF 120 ML. ADMINISTERED MEDS THRU G-TUBE, PT TOLERATED WELL. REPOSITIONED PT. SON STOPPED BY, ANSWERED ALL QUESTIONS, SON VERBALIZED UNDERSTANDING. WILL CONTINUE TO MONITOR PT.
--- NOTE | 2016-06-06 10:53 | NUR ---
BIPAP CHECK, PT IS RESTING WITH NO SIGNS OF DISTRESS NOTED AT THIS TIME, DECREASED FIO2 TO 30% RN HALIMA NOTIFIED OF CHANGES MADE TO BIPAP
--- NOTE | 2016-06-06 11:30 | NUR ---
CHECKED BS, BS WAS 309. ADMINISTERED 8 UNITS OF INSULIN PER SLIDING SCALE. PT TOLERATED WELL. WILL CONTINUE TO MONITOR. SON AT BEDSIDE.
[2016-06-06 12:00] VITALS: BP 95/48
--- NOTE | 2016-06-06 12:00 | NUR ---
RESIDUAL WAS 25 ML. RESTARTED G-TUBE FEEDING. PT TOLERATED WELL. WILL CONTINUE TO MONITOR.
--- NOTE | 2016-06-06 12:27 | NUR ---
06/06/16 RD FOLLOW UP COMPLETED PLEASE REFER TO NUTRITION PROGRESS NOTE UNDER CARE ACTIVITY FOR ESTIMATED NUTRITION NEEDS. RD RECOMMENDATIONS: 1. RESUME ENTERAL NUTRTION SUPPORT: DIABETISOURCE AC AT GOAL RATE OF 65 ML/HR CONTINUOUS WITH 250 ML WATER FLUSH VIA G-TUBE 3. RD WILL F/U 2-3 DAYS; HIGH RISK. LOLA TRACY RD
[2016-06-06] MEDS: THERAHONEY GEL 42.5 GM TP SCH (13:00)
--- NOTE | 2016-06-06 13:18 | NUR ---
BIPAP CHECK, I\L TX GIVEN WITH DUONEB 3ML WITH NO ADVERSE REACTION POST TX B\S ARE CLEAR AND PT IS SLEEPING WITH NO SIGNS OF DISTRESS NOTED AT THIS TIME, SON AT BEDSIDE Addendum: 06/06/16 at 1546 by Vicki Zavala RT INCREASE FIO2 TO BACK TO 40%
--- NOTE | 2016-06-06 13:45 | NUR ---
PT HAD A BM. CLEANED PT, DSG SOILED AND CHANGED ON COCCYX. REPOSITIONED PT. PT TOLERATED WELL.
[2016-06-06] MEDS: AZITHROMYCIN 250 MG in DEXTROSE 5% 250 ML IV SCH (14:03)
--- NOTE | 2016-06-06 15:45 | NUR ---
CALLED DR. METCALF REGARDING PT'S 3 V-TACH EPISODES. PER MD, IT IS NON-SUSTAINING. DR AWARE, NO ORDERS GIVEN. WILL CONTINUE TO MONITOR PT.
--- NOTE | 2016-06-06 15:47 | NUR ---
BIPAP CHECK PT IS SLEEPING WITH NO SIGNS OF DISTRESS NOTED AT THIS TIME
[2016-06-06 16:00] VITALS: BP 132/56
--- NOTE | 2016-06-06 16:00 | NUR ---
PT HAD A BM. DSG ON COCCYX CHANGED, CLEANED PT, REPOSITIONED PT, PT TOLERATED WELL. WILL CONTINUE TO MONITOR.
--- NOTE | 2016-06-06 16:47 | NUR ---
BIPAP CHECK, PT IS SLEEPING WITH NO SIGNS OF DISTRESS NOTED AT THIS TIME
--- NOTE | 2016-06-06 18:00 | NUR ---
PT RESTING COMFORTABLY IN BED. NO SIGNS OF DISTRESS. FEEDING TUBE RUNNING. THOMAS BAG EMPTIED. WILL CONTINUE TO MONITOR.
--- NOTE | 2016-06-06 19:25 | NUR ---
SEEN PT APPEARS ASLEEP AND COMFORTABLE ON BIPAP. PT ON CONTACT ISOLATION. SAFETY REINFORCED.
--- NOTE | 2016-06-06 19:30 | NUR ---
ENDORSED PT TO MANAGER PORT NURSE FOR CONTINUITY OF CARE. PT IN STABLE CONDITION.
[2016-06-06 20:00] VITALS: BP 113/59
--- NOTE | 2016-06-06 20:40 | NUR ---
BLOOD SUGAR CHECKED:184. WILL COVER W/ INSULIN ORDERED.
--- NOTE | 2016-06-06 21:30 | NUR ---
PT APPEARS ASLEEP, TRACKS HIS EYES WHEN CALLED BY NAME. PT ABLE TO MOVE HIS LEFT ARM. INITIAL ASSESSMENT DONE. VITAL SIGNS CHECKED. NO DISTRESS NOTED. SAFETY REINFORCED.
--- NOTE | 2016-06-06 21:34 | NUR ---
IV ATB AND INSULIN COVERAGE GIVEN. TEACHINGS NOT PROVIDED. PT UNABLE TO COMPREHEND. PT IS APHASIC.
--- NOTE | 2016-06-06 21:35 | NUR ---
PT HAD 14 BEATS OF VTACH, NON-SUSTAINED. PT ASYMPTOMATIC. ORDER IS NOT TO CALL MD UNLESS ITS SUSTAINED.
[2016-06-06] MEDS: INSULIN DETEMIR 100 UNITS/ML 10 ML VIAL SUBQ SCH (21:42)
--- NOTE | 2016-06-06 22:30 | NUR ---
GTUBE FEEDING FINISHED. RESIDUAL CHECKED, MORE THAN 120ML. FEEDING ON HOLD FOR AN HOUR THEN WILL RECHECK AFTER PER ORDER.
[2016-06-07 00:27] VITALS: BP 109/96
[2016-06-07] MEDS: HYDRAGUARD CREAM TP SCH ×2 (00:27→13:00)
--- NOTE | 2016-06-07 00:30 | NUR ---
VITAL SIGNS CHECKED. PT REPOSITIONED FOR COMFORT. GTUBE RESIDUAL CHECKED:120ML. FEEDING ON HOLD. WILL RECHECK IN AN HOUR. WILL CONTINUE TO MONITOR.
[2016-06-07] MEDS: ALBUTEROL SULFATE/IPRATROPIU 3 ML SOL IH SCH ×3 (01:33→19:09)
--- NOTE | 2016-06-07 02:40 | NUR ---
GTUBE RESIDUAL CHECKED: 10ML. FEEDING RESUMED. WILL CONTINUE TO MONITOR. PT REPOSITIONED FOR COMFORT.
[2016-06-07 04:00] VITALS: BP 117/67
[2016-06-07] MEDS: PIPER/TAZO 2.25GM/D5W PREMIX 50 ML IV SCH ×2 (04:53→13:54)
--- NOTE | 2016-06-07 05:00 | NUR ---
GTUBE RESIDUAL CHECKED:170ML. FEEDING ON HOLD. WILL RECHECK IN AN HR. IV ATB GIVEN ORDERED. PICTURE OF PRESSURE ULCER ON BRIDGE OF THE NOSE (L) TAKEN. BIPAP MASK FIXED APPROPRIATELY.
--- NOTE | 2016-06-07 06:17 | NUR ---
CALLED LAB REGARDING PT'S VANCOMYCIN TROUGH RESULT. TALKED TO SHELLY AND SAID THEY'RE STILL RUNNING THE BLOOD.
--- NOTE | 2016-06-07 06:30 | NUR ---
RESIDUAL CHECKED:10ML. GTUBE FEEDING RESUMED. WILL CONTINUE TO MONITOR.
[2016-06-07] MEDS: INSULIN LISPRO SLIDING SCALE 100 UNITS/ML VIAL SUBQ PRN ×4 (06:39→22:13)
[2016-06-07] MEDS: MIDODRINE 5 MG TAB GT SCH ×3 (07:00→19:00)
[2016-06-07] MEDS: VANCOMYCIN 750 MG in DEXTROSE 5% 250 ML IV SCH (07:09)
--- NOTE | 2016-06-07 07:20 | NUR ---
BEDSIDE REPORT GIVEN TO DAYSHIFT NURSE.
--- NOTE | 2016-06-07 07:28 | NUR ---
RECIVED PT ON VENT WITH SETINGS CHARTED BREATH SOUNDS PRESENT BILAT CLEAR DECREASED FI02 TO .35 RN AWARE PT RESTING WILL CONTINUE TO MONITOR PT ON BIPAP
--- NOTE | 2016-06-07 07:29 | NUR ---
RECEIVED REPORT FROM SHIM PLUG CUTTER NURSE AT BEDSIDE. PT IS SLEEPING WITH BIPAP. VS WNL. UPDATED THE BOARD. G-TUBE FEEDING RUNNING AT 65. IV IN R HAND 22 G GETTING VANCO. THOMAS CATH DRAINING YELLOW URINE 100 ML IN BAG. SCDS IN PLACE. RT WAS AT BEDSIDE CHECKING ON BIPAP. NOTED NO SIGNS OF DISTRESS. WILL CONTINUE TO MONITOR PT.
[2016-06-07 08:00] VITALS: BP 114/65
[2016-06-07] MEDS ORDERED: ALBUTEROL SULFATE/IPRATROPIU 3 ML SOL IH SCH (08:00)
[2016-06-07] MEDS: BLOOD GLUCOSE MONITORING 1 DEV DEV FS SCH ×4 (08:22→21:00)
--- NOTE | 2016-06-07 08:29 | NUR ---
REMOVED PT FROM BIPAP AND PLACED ON 6LPM OXYMIZER
--- NOTE | 2016-06-07 08:45 | NUR ---
REMOVED PT FROM BIPAP PLACED ON 6LPM OXYMIZER PT SEES TO [place] OK AFTER 1 HOUR ABG DRAWN CALLED INTO DR METCALF AT 1035 DR METCALF REQUESTED PT PLACED BACK ON BIPAP WILL WILL CONTINUE TO MONITOR PT
[2016-06-07] MEDS ORDERED: NON ADHERENT DRESSING TP SCH (09:00)
[2016-06-07] MEDS: ENOXAPARIN 30 MG/0.3 ML SYR SUBQ SCH (09:28)
[2016-06-07] MEDS: AMIODARONE 200 MG TAB PO SCH (09:28)
[2016-06-07] MEDS: FLUCONAZOLE 100 MG TAB PO SCH (09:29)
[2016-06-07] MEDS: MULTIVITAMIN/MINERALS 1 TAB PO SCH (09:29)
--- NOTE | 2016-06-07 09:50 | NUR ---
CLEANED PT, CHANGED GOWN AND SHEET. CHANGED DSG ON PT'S SACRAL PRESSURE ULCER. APPLIED DSG ON BL HEELS ORDERED. PT IS ON OXIMIZER, O2 100%. RT AT BEDSIDE. WILL CONTINUE TO MONITOR.
--- NOTE | 2016-06-07 10:00 | NUR ---
CHECKED PT'S RESIDUAL, IT WAS 100ML. WILL HOLD G-TUBE FEEDING FOR 1 HOUR. WILL CONTINUE TO MONITOR.
--- NOTE | 2016-06-07 10:30 | NUR ---
PLACED PT BACK ON BIPAP WITH SETTINGS CHARTED BREATH SOUNDS PRESENT BILAT PLACED PER DR METCALF AFTER ABG DRAWN ON 6LPM OXIMIZER
--- NOTE | 2016-06-07 11:10 | NUR ---
RT CAME TO PUT PT ON BIPAP, STATED PT NEEDED MITTEN ON HAND TO PREVENT GRABBING THE MASK. PT TOLERATING WELL. WILL CONTINUE TO MONITOR.
--- NOTE | 2016-06-07 11:15 | NUR ---
TELE SECURITY COMPLIANCE ENGINEER STATED PT HAD AN EPISODE OF V-TACH, 6 BEATS, 2.5 SECONDS. PT ASYMPTOMATIC. WILL CONTINUE TO MONITOR.
[2016-06-07 12:00] VITALS: BP 124/61
--- NOTE | 2016-06-07 12:00 | NUR ---
RESTARTED G-TUBE FEEDING. RESIDUAL 20 ML. WILL CONTINUE TO MONITOR.
[2016-06-07] MEDS ORDERED: POTASSIUM CHLORIDE 10 MEQ TABER PO SCH (12:34)
--- NOTE | 2016-06-07 12:35 | NUR ---
DR. METCALF DISCONTINUED BIPAP AND ORDERED OXIMIZER AT 4 L AND BIPAP PRN. RT PUT ON THE OXIMIZER. PT TOLERATED WELL. NOTED REDNESS ON PT'S LEFT SIDE OF NOSE DUE TO BIPAP PLACEMENT. WILL TAKE A PICTURE, SPOKE TO BHAVIK THE WOUND CARE NURSE.
--- NOTE | 2016-06-07 12:54 | NUR ---
PLACED PT ON 5LPM OXYMIZER REMOVED PT FROM BIPAP PER DR METCALF [id number]
[2016-06-07] MEDS: THERAHONEY GEL 42.5 GM TP SCH (13:00)
--- NOTE | 2016-06-07 13:29 | NUR ---
SS NOTE: I SPOKE WITH PT'S DTRCANDELARIA TO CONFIRM PT'S D/C PLAN. SHE STATED THAT SHE WOULD LIKE PT TO RETURN TO [facility] UPON DISCHARGE AND WOULD LIKE PT TO BE REHOSPITALIZED IF NEEDED WHEN PT RETURNS TO [facility].
[2016-06-07] MEDS ORDERED: POTASSIUM CHLORIDE 20% 40 MEQ/15 ML UDC GT SCH ×2 (13:46→14:30)
[2016-06-07] MEDS: AZITHROMYCIN 250 MG in DEXTROSE 5% 250 ML IV SCH (13:54)
--- NOTE | 2016-06-07 14:31 | NUR ---
PT RESTING COMFORTABLY IN BED. O2 SAT 97% ON OXIMIZER. WILL CONTINUE TO MONITOR.
--- NOTE | 2016-06-07 15:00 | NUR ---
PT SLEEPING IN BED. NO SIGNS OF DISTRESS NOTED. O2 SAT IS 97% WITH OXIMIZER.
[2016-06-07 16:00] VITALS: BP 133/62
--- NOTE | 2016-06-07 17:50 | NUR ---
HELPED REPOSITION PT. PT TOLERATED WELL. WILL CONTINUE TO MONITOR.
--- NOTE | 2016-06-07 19:25 | NUR ---
ENDORSED PT TO THE SURGICAL SCRUB TECHNICIAN NURSE AT BEDSIDE FOR CONTINUITY OF CARE. PT IS IN STABLE CONDITION.
--- NOTE | 2016-06-07 19:35 | NUR ---
RECEIVED FROM AM RN IN BED. TOTAL CARE. PT. GT FEEDING OF DIABETIC SOURCE AT 65 ML/H. RESIDUAL AT THIS TIME 20 ML . NO REPORTED VOMITING OR COUGHING. PT. APHASIC . ON TELEMETRY MONITORING. BILATERAL SEQUENTIALS IN PLACE. THOMAS CATHETER IN PLACE WITH CLEAR YELLOW URINE. AFEBRILE. NEEDS WILL BE ANTICIPATED AND MET. TURNED Q 2H. PILLOW SUPPORT TO PRESSURE AREAS.
[2016-06-07 20:00] VITALS: BP 130/68
--- NOTE | 2016-06-07 20:00 | NUR ---
PT. TURNED TO SIDES BY CNAS. PILLOW SUPPORT TO PRESSURE AREAS. THOMAS CATHETER DRAINING WELL WITH YELLOW URINE.
[2016-06-07] MEDS: INSULIN DETEMIR 100 UNITS/ML 10 ML VIAL SUBQ SCH (21:00)
--- NOTE | 2016-06-07 23:55 | NUR ---
PT. NO RESTLESSNESS NOTED. RIGHT ARM MOVES AND WITH SOFT MITTENS IN PLACE TO AVOID PULLING O F TUBINGS. TURNED Q 2H. TOTAL CARE. TELEMETRY MONITORING.
[2016-06-08 00:43] VITALS: BP 110/96
[2016-06-08] MEDS: HYDRAGUARD CREAM TP SCH ×2 (01:00→12:00)
[2016-06-08] MEDS: ALBUTEROL SULFATE/IPRATROPIU 3 ML SOL IH SCH ×3 (01:05→15:31)
--- NOTE | 2016-06-08 02:00 | NUR ---
NEW GT FEEDING DIABETIC SOURCE INFUSING. RESIDUAL OF 10 ML. HOB UP FOR ASPIRATION PRECAUTIONS. TELEMETRY MONITORING. TOTAL CARE. TURNED Q 2H.
[2016-06-08 04:23] VITALS: BP 116/80
[2016-06-08] MEDS: VANCOMYCIN 750 MG in DEXTROSE 5% 250 ML IV SCH (05:39)
[2016-06-08] MEDS: BLOOD GLUCOSE MONITORING 1 DEV DEV FS SCH ×2 (05:50→11:30)
[2016-06-08] MEDS: INSULIN LISPRO SLIDING SCALE 100 UNITS/ML VIAL SUBQ PRN (05:51)
--- NOTE | 2016-06-08 06:35 | NUR ---
PT. TURNED TO SIDES Q 2H. TOTAL CARE. OPENS EYES AND FOLLOWS HUMAN RESOURCES OPERATIONS MANAGER WITH EYES. APHASIC. PILLOW SUPPORT TO PRESSURE AREAS. HOB UP 30 DEGREES FOR ASPIRATION PRECAUTION.
[2016-06-08] MEDS: MIDODRINE 5 MG TAB GT SCH ×2 (07:00→13:00)
--- NOTE | 2016-06-08 07:30 | NUR ---
ENDORSED TO THE NEXT RN FOR CONTINUITY OF CARE.
--- NOTE | 2016-06-08 07:31 | NUR ---
RECEIVED PT FROM THE UNION STEWARD NURSE AT BEDSIDE FOR CONTINUITY OF CARE. PT IS SLEEPING SOUNDLY. R.T. IS HERE TO CHECK ON O2 SATS. PT IS ON OXIMIZER AT 3L. PT IS SATURATING AT 94%. NOTED PT'S R HAND IS EDEMATOUS. POSSIBLE IV INFILTRATION. I WILL RE-EXAMINE. THOMAS STILL IN PLACE, 100ML OF CLEAR YELLOW URINE IN BAG. FEEDING INFUSING AT 65ML/HR OF DIABETASOURCE. WILL CHECK FOR RESIDUAL DURING MED PASS. SCD'S IN PLACE. WILL CONTINUE TO MONITOR PT.
[2016-06-08 08:00] VITALS: BP 135/54
[2016-06-08] MEDS: MULTIVITAMIN/MINERALS 1 TAB PO SCH (09:16)
[2016-06-08] MEDS: AMIODARONE 200 MG TAB PO SCH (09:16)
[2016-06-08] MEDS: FLUCONAZOLE 100 MG TAB PO SCH (09:16)
[2016-06-08] MEDS: ENOXAPARIN 30 MG/0.3 ML SYR SUBQ SCH (09:17)
--- NOTE | 2016-06-08 09:20 | NUR ---
CHECKED FOR PATENCY OF GTUBE. CHECKED FOR RESIDUAL. ABOUT 120. WILL HOLD FOR 1 HR. ADMINISTERED MEDS. PT TOLERATED WELL. CHANGED DRESSING IN SACRAL AREA D/T BEING SOILED. TOOK PICTURE OF SACRAL AND BILATERAL HEELS. INTERVENTIONAL SALE CONSULTANT HERE TO CHANGE LINENS, GOWN, AND REPOSITION. WILL CONTINUE TO MONITOR.
[2016-06-08 12:00] VITALS: BP 117/61
[2016-06-08] MEDS: THERAHONEY GEL 42.5 GM TP SCH (12:00)
--- NOTE | 2016-06-08 12:17 | NUR ---
SS NOTE: PER SHLOMO FROM [facility] ([phone]), PT CAN GO TO ROOM 17B ANYTIME UNDER DR. HADDAD. SHE ALSO STATED THAT THEY ORDERED A BI-PAP FOR PT AND IT HAS ARRIVED TO THE FACILITY. SATHYA RAUSCH.
--- NOTE | 2016-06-08 12:58 | NUR ---
SET UP TRANSPORT WITH [facility] FOR PICKUP AT 4 P.M HALIMA MCDONNELL AWARE.
--- NOTE | 2016-06-08 15:31 | NUR ---
REPORT GIVEN TO GLORIA ALCOCER AT [facility].
[2016-06-08] MEDS ORDERED: ZOSYN 2.252.25 GM/50 IV (15:44)
[2016-06-08] MEDS ORDERED: VANCO 750750 MG/150 IV (15:45)
--- NOTE | 2016-06-08 16:15 | NUR ---
[facility] IS HERE TO CHIEF VENDOR QUALITY PT FOR [facility]. PT IS AWAKE, TRACKING ME WITH HIS EYES. DISCONNECTED THE GTUBE. IV SL. REMOVED ALL ID BANDS. REMOVED THE TELE MONITOR. THOMAS STILL IN PLACE. OXIMIZER IN PLACE W/ 3L O2. PT'S WOUND DRESSINGS STILL IN PLACE. CHARGE NURSE GAVE REPORT TO [facility]. I CALLED [facility] AND NOTIFIED HER OF THE TRANSFER BACK. SHE WAS VERY PLEASED. PT IN STABLE CONDITION.
--- NOTE | 2016-06-08 16:25 | NUR ---
PT WHEELED OUT BY HUMAIRA ACCOMPANIED BY 2 TRANSPORTERS. PT STABLE.
[2016-06-09] MEDS ORDERED: AZITHROMYCIN 250 MG TAB PO SCH (09:00)
== END 2016-06-08 16:25 | DRG 871 ==
LOC: MED 22:11 → MTU 23:46
PROVIDERS: ADMIT Hospitalist; ATTEND Hospitalist
PROC: 30233N1 Transfusion of Nonautologous Red Blood Cells into Peripheral Vein, Percutaneous Approach (ICD-10-PCS; principal; 2016-06-04)
PROC: 5A09457 Assistance with Respiratory Ventilation, 24-96 Consecutive Hours, Continuous Positive Airway Pressure (ICD-10-PCS; 2016-06-04)
DX: A41.9 Sepsis, unspecified organism (principal); J18.9 Pneumonia, unspecified organism; J96.01 Acute respiratory failure with hypoxia; E87.0 Hyperosmolality and hypernatremia; I69.351 Hemiplegia and hemiparesis following cerebral infarction affecting right dominant side; N39.0 Urinary tract infection, site not specified; I10 Essential (primary) hypertension; R65.20 Severe sepsis without septic shock; D64.9 Anemia, unspecified; B96.89 Other specified bacterial agents as the cause of diseases classified elsewhere; F03.90 Unspecified dementia, unspecified severity, without behavioral disturbance, psychotic disturbance, mood disturbance, and anxiety; G40.909 Epilepsy, unspecified, not intractable, without status epilepticus; R13.10 Dysphagia, unspecified; E11.9 Type 2 diabetes mellitus without complications; Z93.1 Gastrostomy status; Z79.899 Other long term (current) drug therapy; Z74.01 Bed confinement status; Z28.21 Immunization not carried out because of patient refusal

== ENCOUNTER 2016-06-13 15:39 | Inpatient (IN) | payer OTHER ==
[~2016-06-13] VITALS: Ht 182.9 cm; Wt 72.6 kg
[~2016-06-13 15:39] MED LIST changes: +MORPHINE BC; +VANCO 750750 MG/150 IV; +ZOSYN 2.252.25 GM/50 IV
--- NOTE | 2016-06-13 15:39 | NUR ---
Patient BIBA ACLS, transferred to bed 8. RN evaluating patient at bedside.
[2016-06-13 15:43] VITALS: BP 138/58
--- NOTE | 2016-06-13 15:53 | NUR ---
PT BIBA FROM [facility] FOR EVALUATION OF N/V X4 EPISODES SINCE THIS AM. HX PNEUMONIA, HTN, DM, CVA W/RIGHT SIDED WEAKNESS, G-TUBE, SEPSIS, RESPIRATORY FAILURE. HR EVEN AND REGULAR; VSS;HAS DECUBITUS ULCER ON BUTTOCKS;W/ SPLINT ON RT HAND PATIENT POSITIONED FOR COMFORT; HOB ELEVATED; BEDRAILS UP X2; BED DOWN. ER MD MADE AWARE OF PT STATUS.
--- NOTE | 2016-06-13 15:59 | NUR ---
Dr. Lopez evaluating patient at bedside.
[2016-06-13] MEDS ORDERED: NACL 0.9% 1,000 ML IV ONE ×2 (16:05→17:25)
--- NOTE | 2016-06-13 16:13 | NUR ---
XRAY AT BEDSIDE.
--- NOTE | 2016-06-13 16:59 | NUR ---
Patient transferred to bed 7 for further care. RN re-evaluating patient at bedside.
--- NOTE | 2016-06-13 17:14 | NUR ---
Patient taken to CT scan via gurney by Quipper.
[2016-06-13] MEDS ORDERED: PIPERACILLIN/TAZOBACTAM 3.375 GM in DEXTROSE 5% 50 ML IV ONE (17:20)
[2016-06-13] MEDS ORDERED: LEVOFLOXACIN 500 MG/D5W PREMIX 100 ML IV ONE (17:20)
[2016-06-13] MEDS ORDERED: FUROSEMIDE 40 MG/4 ML VIAL IVP ONE (17:25)
[2016-06-13] MEDS ORDERED: SODIUM POLYSTYRENE 15 GM/60 ML UDBTL GT ONE (17:25)
[2016-06-13] MEDS ORDERED: PIPERACILLIN/TAZOBACTAM 3.375 GM VIAL IV ONE (18:17)
--- NOTE | 2016-06-13 18:25 | NUR ---
PT LYING ON BED;NO ACUTE DISTRESS NOTED ;WILL CONTINUE TO MONITOR PT.
[2016-06-13] MEDS ORDERED: MORPHINE SULFATE 2 MG/ML SYR IVP PRN (18:40)
[2016-06-13] MEDS ORDERED: ACETAMINOPHEN 325 MG TAB PO PRN (18:40)
[2016-06-13] MEDS ORDERED: ONDANSETRON 4 MG/2 ML VIAL IVP PRN (18:40)
[2016-06-13] MEDS ORDERED: ALBUTEROL SULFATE/IPRATROPIU 3 ML SOL IH PRN (18:50)
[2016-06-13] MEDS ORDERED: MAGNESIUM HYDROXIDE 2400 MG/30 ML UDC PO SCH (18:50)
[2016-06-13] MEDS ORDERED: BISACODYL 10 MG SUPP RC SCH (18:50)
--- NOTE | 2016-06-13 19:22 | NUR ---
Patient will be admitted to care of DR PRAJAPATI. Admited to TELE. Will go to room 116. Belongings list completed. Report to SATHYA HAINES.
[2016-06-13] MEDS: ALBUTEROL SULFATE/IPRATROPIU 3 ML SOL IH SCH (19:45)
--- NOTE | 2016-06-13 19:45 | NUR ---
PATIENT IS NOT IN ROOM/TELEMETRY UNIT YET
[2016-06-13 20:00] VITALS: BP 139/65
--- NOTE | 2016-06-13 20:00 | NUR ---
PATIENT ADMITTED TO UNIT FROM ED VIA GURNEY. PATIENT TRANSFERRED TO BED WITH ASSIST. PT CONNECTED TO TELE MONITOR. PATIENT IS AAOX1, NON VERBAL, ON O2 2L NC, NO SOB OR SIGN OF DISTRESS AT THIS TIME. IV PATENT AND INTACT. SKIN NON INTACT, WITH MULTIPLE WOUNDS TO SACRAL AREA, BILATERAL HEELS. THOMAS NOTED DRAINING DARK NINO URINE TO GRAVITY. PATIENT DOESN'T APPEAR TO BE IN PAIN, FLACC-0. SAFETY MEASURES CHECKED, DISCUSSED PLAN OF CARE WITH PATIENT, PATIENT UNABLE TO COMPREHEND. CALL LIGHT WITHIN REACH. WILL CONTINUE TO MONITOR..
--- NOTE | 2016-06-13 20:21 | NUR ---
PATIENT OFF UNIT TO RADIOLOGY
[2016-06-13] MEDS: METOPROLOL 25 MG TAB PO SCH (21:00)
[2016-06-13] MEDS: PIPERACILLIN/TAZOBACTAM 3.375 GM in DEXTROSE 5% 50 ML IV SCH (21:00)
[2016-06-13] MEDS: INSULIN DETEMIR 100 UNITS/ML 10 ML VIAL SUBQ SCH (21:00)
[2016-06-13] MEDS: ISOSORBIDE DINITRATE 10 MG TAB PO SCH (21:00)
--- NOTE | 2016-06-13 21:25 | NUR ---
CALLED DR METCALF ARCHIVES SPECIALIST FOR DR PRAJAPATI WITH LACTIC ACID OF 3.7 ORDERS RECEIVED FOR REDRAW IN AM LABS AND RECEIVED ORDERS FOR ACCU CHECKS AND INSULIN COVERAGE, WILL F/U WITH ORDERS.
--- NOTE | 2016-06-13 21:43 | NUR ---
PATIENT IS STILL OFF UNIT
--- NOTE | 2016-06-13 22:56 | NUR ---
PATIENT BACK ON UNIT FROM RADIOLOGY
[2016-06-14] VITALS: BP 111/67
--- NOTE | 2016-06-14 | NUR ---
VITAL SIGNS STABLE, NO SOB OR SIGN OF DISTRESS AT THIS TIME, CALL LIGHT WITHIN REACH. WILL CONTINUE TO MONITOR
[2016-06-14] MEDS: ALBUTEROL SULFATE/IPRATROPIU 3 ML SOL IH SCH ×4 (01:14→19:46)
--- NOTE | 2016-06-14 03:30 | NUR ---
IV LEAKING, TWO NEW IVS STARTED TO RIGHT AC AND RIGHT WRIST, PATIENT TOLERATED WELL.
[2016-06-14 04:00] VITALS: BP 127/78
--- NOTE | 2016-06-14 04:30 | NUR ---
VITAL SIGNS STABLE, NO SOB OR SIGN OF DISTRESS AT THIS TIME, CALL LIGHT WITHIN REACH. WILL CONTINUE TO MONITOR
[2016-06-14] MEDS ORDERED: PIPERACILLIN/TAZOBACTAM 3.375 GM VIAL IV ONE (04:54)
[2016-06-14] MEDS: PIPERACILLIN/TAZOBACTAM 3.375 GM in DEXTROSE 5% 50 ML IV SCH (04:55)
[2016-06-14] MEDS ORDERED: VANCOMYCIN 1,000 MG VIAL ONE (05:33)
[2016-06-14] MEDS: VANCOMYCIN HCL 750 MG in DEXTROSE 5% 250 ML IV SCH (05:36)
--- NOTE | 2016-06-14 05:55 | NUR ---
WOUND PICTURES TAKEN, UNABLE TO PRINT AT THIS TIME, NO INK, WILL FOLLOW UP WITH PRINTING.
[2016-06-14] MEDS: BLOOD GLUCOSE MONITORING 1 DEV DEV FS SCH ×4 (06:52→21:37)
--- NOTE | 2016-06-14 07:30 | NUR ---
RECEIVED PT IN BED, AWAKE, ALERT ORIENTED X1. OPENS EYES. NO SOB NOTED AT THIS TIME. NO SIGNS AND SYMPTOMS OF ACUTE PAIN OR DISCOMFORT NOTED AT THIS TIME. OFF LOAD BONY PROMINENCE. REPOSITION ORDERED. POSITIVE BOWEL SOUNDS NOTED ON FOUR QUADRANTS. GT INTACT. DRESSING DRY AND INTACT. 0 GASTRIC RESIDUAL NOTED. SKIN CARE DONE. CALL LIGHT WITHIN REACH. SAFETY PRECAUTION IN PLACE.
--- NOTE | 2016-06-14 07:30 | NUR ---
CRITICAL LAB RECEIVED PAGED DR PRAJAPATI, WAITING CALL BACK.
--- NOTE | 2016-06-14 07:37 | NUR ---
ENDORSED PATIENT TO DAY RN AT BEDSIDE, PATIENT IN STABLE CONDITION
[2016-06-14 08:00] VITALS: BP 108/54
--- NOTE | 2016-06-14 08:45 | NUR ---
WOUND CARE EVALUATION NOTES: REASON FOR EVALUATION: WOUNDS COMPLETE SKIN ASSESSMENT DONE ON THIS 75 Y/O MALE PATIENT FROM [facility], WITH INITIAL DIAGNOSIS OF SEPSIS. PAST MEDICAL HISTORY INCLUDE CVA WITH RIGHT SIDED WEAKNESS, DEMENTIA, DIABETES AND SEIZURE. ALL ABOVE INFORMATION WAS OBTAINED FROM THE ADMISSION H&P. LABS ARE WBC 30.4, H/H 8.7/26.8, GLUCOSE 166, ALBUMIN 1.4, PT/INR 10.2/1.1 AND PTT 25.3. CURRENT MEDS INCLUDE ZOSYN, MULTIVITAMINS/MINERAL, ENOXAPARIN, VANCOMYCIN, INSULIN AND MORPHINE. PATIENT IS AWAKE, NO VERBAL, EYES ABLE TO TRACK MOVEMENTS. ON 02 PER NASAL CANNULA. LUQ G TUBE, PATENT AND INTACT, NOTED TO CLAMPED AT THIS TIME. FC 16FR PATENT AND INTACT TO LIGHT NINO URINE IN MODERATE AMOUNT. SKIN WARM TO TOUCH WNL, THICKENED, YELLOW TOENAILS, +2 EDEMA, NO HAIR GROWTH AND +1 BILATERAL PEDAL PULSES. BLE ARE DRY AND FLAKY. NEEDS MAX ASSISTANCE IN TURNING. INITIAL PLAN OF CARE AND PRESSURE PREVENTIVE MEASURES DISCUSSED, UNABLE TO VERBALIZE UNDERSTANDING. WILL REINFORCE TEACHING. INTEGUMENTARY: LEFT HEEL - ARTERIAL - ABSORBING BLISTER, BROWNISH IN COLOR. PW WITH DISCOLORATION RIGHT HEEL - ARTERIAL - WITH BROWNISH DISCOLORATION SACRALCOCCYX - ST IV - 40% BLACK, 20% YELLOW AND 40% PALE RED. RIGHT SHOULDER - ST II - 100% PALE RED. PW DISCOLORED RECOMMENDATIONS: 06/13/16 0830 -CLEANSE SACRALCOCCYX WITH NS AND GAUZE, PAT DRY, APPLY THERAHONEY GEL, COVER WITH ADAPTIC AND COMPOSITE DRESSING Q DAY AND PRN WITH SOILING/DISPLACEMENT -PAINT BILATERAL HEELS WITH BETADINE, COVER WITH ABD PAD AND WRAP WITH AKASH Q OTHER DAY AND PRN WITH SOILING/DISPLACEMENT. CHECK DRESSING PLACEMENT DAILY -CLEANSE RIGHT SHOULDER WITH NS AND GAUZE, PAT DRY, AND COVER WITH FOAM DRESSING Q 3 DAYS AND PRN WITH SOILING/DISPLACEMENT. CHECK DRESSING PLACEMENT DAILY -TURN AND REPOSITION PATIENT Q2H TO LEFT AND RIGHT SIDE ONLY TO OFFLOAD SACRALCOCCYX -ASSESS AND MONITOR SKIN CONDITION DURING POSITION CHANGE, PLEASE PAY PARTICULAR ATTENTION TO SACRALCOCCYX, ELBOWS AND HEELS -PRESSURE REDISTRIBUTION SURFACE THERAPY -KEEP SKIN CLEAN AND DRY AT ALL TIMES. -SURGICAL CONSULT IF OK WITH PMD. RECOMMENDATIONS DISCUSSED WITH PRIMARY RN AND PMD, AWAITING FOR ORDERS. WILL FOLLOW UP PATIENT Q 7 DAYS AND PRN. PLEASE CONTACT [facility] FOR ANY CONCERNS, QUESTIONS AND CHANGES IN SKIN CONDITION.
[2016-06-14] MEDS ORDERED: SOD CHLORIDE IV SCH (09:00)
[2016-06-14] MEDS ORDERED: MUPIROCIN 2% OINT 22 GM TUBE TP SCH (09:00)
[2016-06-14] MEDS ORDERED: [UNRECOGNIZED DRUG - OTHER] IV SCH (09:00)
[2016-06-14] MEDS ORDERED: VANCOMYCIN IV SCH (09:00)
--- NOTE | 2016-06-14 09:00 | NUR ---
DR PRAJAPATI CAME TO SEE PT WITH NEW ORDERS MADE AND CARRIED OUT.
--- NOTE | 2016-06-14 09:00 | NUR ---
WOUND CARE NURSE BHAVIK MCDONNELL CAME TO SEE PT. WOUND CARE ASSESSMENT DONE. DRESSING CHANGED. SKIN CARE DONE.
--- NOTE | 2016-06-14 09:01 | NUR ---
PATIENT HAS BEEN SCREENED AND CATEGORIZED HIGH NUTRITION RISK. PATIENT WILL BE SEEN WITHIN 1-2 DAYS OF ADMISSION. 06/14/16-06/15/[address]
[2016-06-14] MEDS ORDERED: GAUZE TP PRN (09:20)
[2016-06-14] MEDS ORDERED: Z-GUARD PASTE TP PRN (09:20)
[2016-06-14] MEDS ORDERED: THERAHONEY GEL 42.5 GM TP PRN (09:20)
[2016-06-14] MEDS: FUROSEMIDE 40 MG/4 ML VIAL IVP SCH (10:02)
[2016-06-14] MEDS: ENOXAPARIN 40 MG/0.4 ML SYR SUBQ SCH (10:07)
[2016-06-14 10:16] VITALS: BP 138/74
[2016-06-14] MEDS: AMIODARONE 200 MG TAB PO SCH (10:17)
[2016-06-14] MEDS: METOPROLOL 25 MG TAB PO SCH ×2 (10:18→21:39)
[2016-06-14] MEDS: ISOSORBIDE DINITRATE 10 MG TAB PO SCH ×2 (10:18→21:41)
[2016-06-14] MEDS: MULTIVITAMIN/MINERALS 1 TAB PO SCH (10:19)
[2016-06-14] MEDS: MUPIROCIN 2% OINT 22 GM TUBE TP SCH (11:50)
[2016-06-14] MEDS ORDERED: FOAM DRESSING TP PRN (11:55)
--- NOTE | 2016-06-14 12:00 | NUR ---
STOOL SPECIMEN OBTAINED FOR C-DIFF TEST. SEND TO LAB.
[2016-06-14] MEDS: FOAM DRESSING TP SCH (12:05)
[2016-06-14] MEDS ORDERED: CLINICAL MONITORING MC PRN (12:35)
[2016-06-14] MEDS: THERAHONEY GEL 42.5 GM TP SCH (13:00)
[2016-06-14] MEDS: Z-GUARD PASTE TP SCH (13:00)
[2016-06-14] MEDS ORDERED: metroNIDAZOLE 500 MG TAB PO SCH (13:00)
[2016-06-14] MEDS: GAUZE TP SCH (13:00)
--- NOTE | 2016-06-14 13:00 | NUR ---
06/14/16 RD INITIAL ASSESSMENT COMPLETED PLEASE REFER TO NUTRITION ASSESSMENT UNDER CARE ACTIVITY FOR ESTIMATED NUTRITIONAL NEEDS. 1. CONTINUE MVI SUPPLEMENT 2. WHEN MEDICALLY FEASIBLE, RESUME ENTERAL NUTRITION SUPPORT: DIABETISOURCE AC TO START AT 30 ML/HR CONTINUOUS AND ADVANCE 10 ML Q8H TO A GOAL RATE OF 70 ML/HR + 150 ML WATER FLUSH Q6H (THIS WILL PROVIDE 2016 KCAL, 100 G PROTEIN, 1974 ML FREE WATER - MEETS 92% KCAL + 92% PROTEIN ESTIMATED NEEDS) 3. RD TO FOLLOW-UP 2-3 DAYS; HIGH RISK LOLA TRACY, KELLEY
--- NOTE | 2016-06-14 15:22 | NUR ---
CALLED DR. PRAJAPATI REGARDING [facility] RECOMMENDATION FOR TUBE FEEDING OF DIABETIC SOURCE AC TO START AT 30 ML PER HR THEN TO ADVANCE 10ML Q8 HRS TO GOAL RATE OF 70ML PER HR. PLUS 150 WATER FLUSH Q6 HR PER LOLA BENSON. DR. PRAJAPATI CALLED BACK AND MADE AWARE BUT PT WILL HAVE SURGERY SO NPO MAINTAINED FOR NOW.
[2016-06-14] MEDS: PIPER/TAZO 3.375GM/D5W PREMIX 50 ML IV SCH ×2 (15:32→21:37)
[2016-06-14] MEDS: METOCLOPRAMIDE 10 MG/2 ML INJ VIAL IVP SCH ×2 (15:32→21:38)
[2016-06-14 16:00] VITALS: BP 118/64
--- NOTE | 2016-06-14 16:23 | NUR ---
CALLED DR. PRAJAPATI AND VERIFIED THAT PT WONT GET ANY IV FLUIDS AT THE MOMENT. PUT PT ON SALINE LOCK.
--- NOTE | 2016-06-14 17:35 | NUR ---
SON OF PT SHELLEY CAME TO SEE PT. MADE AWARE OF PROCEDURES FOR DEBRIDEMENT AND COLOSTOMY. HE CALLED HIS SISTER MENA AND ACCORDING TO HER DOCTOR ALREADY SPOKE WITH HER REGARDING THE PROCEDURE AND GAVE HIM A GO SIGNAL TO SIGN CONSENT. SHELLEY SIGNED CONSENT, VERBALIZED UNDERTANDING. CONSENT IN TO CHART.
--- NOTE | 2016-06-14 19:20 | NUR ---
PT KEPT CLEAN DRY AND COMFORTABLE, NEEDS ATTENDED. ENDORSED TO NEXT SHIFT FOR CONTINUITY OF CARE.
--- NOTE | 2016-06-14 19:30 | NUR ---
RECEIVED REPORT FROM DAY RN AT BEDSIDE, PATIENT IS RESTING IN BED, AAOX1, NON VERBAL, OPENS EYES TO NAME CALLING OR STIMULATION. PATIENT ON O2 VIA NC, LABORED AND TACHYPNEIC BREATHING. ON CONTINUOUS PULSE OX WITH OXYGEN SATURATION AT 98%. PATIENT DOESNT APPEAR TO BE IN PAIN, FLACC-0. IVS TO RIGHT ARM PATENT AND INTACT. NOTED RIGHT SIDED WEAKNESS, EXTREMITIES FLACCID. MULTIPLE WOUNDS, SACRAL ULCER, BILATERAL HEEL ULCERS WITH DRYNESS, RIGHT SHOULDER SKIN TEAR. DRESSING DRY AND INTACT. NOTED THOMAS DRAINING YELLOW URINE TO GRAVITY, RECTAL BAG WITH GREEN WASTE DRAINING TO GRAVITY. SAFETY MEASURES CHECKED, DISCUSSED PLAN OF CARE WITH PATIENT, PATIENT UNABLE TO COMPREHEND, CALL LIGHT WITHIN REACH. WILL CONTINUE TO CLOSELY MONITOR.
[2016-06-14 20:00] VITALS: BP 119/58
[2016-06-14] MEDS: INSULIN DETEMIR 100 UNITS/ML 10 ML VIAL SUBQ SCH (21:00)
--- NOTE | 2016-06-14 21:40 | NUR ---
PM MEDS GIVEN, PATIENT RESTING IN BED WITH EYES AWAKE, BREATHING HEAVILY, O2 SATS AT 97 %. WILL CONTINUE TO CLOSELY MONITOR. LEVEMIR INSULIN NON ADMIN D/T PATIENT NPO.
--- NOTE | 2016-06-14 22:10 | NUR ---
DR BELLO IN TO SEE PATIENT, LOOKED AT PATIENT'S SACRAL WOUND.
--- NOTE | 2016-06-14 22:50 | NUR ---
PATIENT RESTING IN BED, NO SIGN OF DISTRESS, WILL CONTINUE TO CLOSELY MONITOR.
[2016-06-15] VITALS: BP 137/61
--- NOTE | 2016-06-15 | NUR ---
VITAL SIGNS STABLE, NO SOB OR SIGN OF DISTRESS 02 SATS AT 97% ON 2L NC, WILL CONTINUE TO CLOSELY MONITOR.
[2016-06-15] MEDS: ALBUTEROL SULFATE/IPRATROPIU 3 ML SOL IH SCH ×4 (00:45→19:47)
[2016-06-15] MEDS: Z-GUARD PASTE TP SCH ×2 (01:19→12:45)
--- NOTE | 2016-06-15 02:30 | NUR ---
PATIENT SLEEPING, NO SOB OR SIGN OF DISTRESS, O2 SATS MAINTAINED BETWEEN 97-99%, WILL CONTINUE TO CLOSELY MONITOR
[2016-06-15 04:00] VITALS: BP 123/65
--- NOTE | 2016-06-15 04:00 | NUR ---
VITAL SIGNS STABLE, NO SOB OR SIGN OF DISTRESS, CALL LIGHT WITHIN REACH. WILL CONTINUE TO MONITOR.
[2016-06-15] MEDS: PIPER/TAZO 3.375GM/D5W PREMIX 50 ML IV SCH ×3 (04:20→20:45)
[2016-06-15] MEDS: METOCLOPRAMIDE 10 MG/2 ML INJ VIAL IVP SCH ×3 (04:20→20:47)
--- NOTE | 2016-06-15 05:31 | NUR ---
RECEIVED CRITICAL LAB OF VANCO TROUGH 21.6, PAGED DR METCALF, RECEIVED ORDERS TO HOLD NEXT VANCO AT 0600.
[2016-06-15] MEDS: VANCOMYCIN HCL 750 MG in DEXTROSE 5% 250 ML IV SCH (06:00)
[2016-06-15] MEDS: BLOOD GLUCOSE MONITORING 1 DEV DEV FS SCH ×4 (06:29→21:00)
--- NOTE | 2016-06-15 07:30 | NUR ---
ENDORSED PATIENT TO DAY RN AT BEDSIDE, PATIENT IN STABLE CONDITION
--- NOTE | 2016-06-15 07:32 | NUR ---
RECEIVED REPORT FROM NIGHT RN. PT RESTING IN BED, AAOX1, NONVERBAL. NO S/S OF ACUTE DISTRESS, ON O2 2L NC, THOMAS CATH PATENT, RECTAL BAG PATENT. IV SITE PATENT AND INTACT. FLACC-0, DRESSING TO SACRAL AND HEELS DRY AND INTACT. CALL LIGHT WITHIN REACH, SAFETY MEASURE ENSURED, WILL CONTINUE TO MONITOR.
[2016-06-15 08:00] VITALS: BP 142/75
[2016-06-15] MEDS: ENOXAPARIN 40 MG/0.4 ML SYR SUBQ SCH (09:00)
[2016-06-15] MEDS: AMIODARONE 200 MG TAB PO SCH (09:00)
[2016-06-15] MEDS: ISOSORBIDE DINITRATE 10 MG TAB PO SCH ×2 (09:00→20:47)
[2016-06-15] MEDS: MULTIVITAMIN/MINERALS 1 TAB PO SCH (09:00)
[2016-06-15] MEDS: METOPROLOL 25 MG TAB PO SCH ×2 (09:00→20:46)
[2016-06-15] MEDS: FUROSEMIDE 40 MG/4 ML VIAL IVP SCH (10:01)
--- NOTE | 2016-06-15 10:01 | NUR ---
MORNING PILLS HELD PER DR PRAJAPATI. LOVENOX HELD DUE TO UPCOMING SURGERY, NO S/S OF ACUTE DISTRESS, WILL CONTINUE TO MONITOR
--- NOTE | 2016-06-15 11:50 | NUR ---
PT'S SON SHELLEY SPOKE TO SISTER REGARDING BLOOD TRANSFUSION. BOTH STATED OKAY TO GIVE ORDERED UNITS OF BLOOD. CONSENT SIGNED IN CHART.
[2016-06-15 12:00] VITALS: BP 153/76
[2016-06-15] MEDS ORDERED: VANCOMYCIN PER PHARMACY MC PRN (12:00)
[2016-06-15] MEDS: MUPIROCIN 2% OINT 22 GM TUBE TP SCH (12:42)
[2016-06-15] MEDS: THERAHONEY GEL 42.5 GM TP SCH (12:44)
[2016-06-15] MEDS: GAUZE TP SCH (13:00)
--- NOTE | 2016-06-15 13:08 | NUR ---
PT TAKEN OFF UNIT TO OR
[2016-06-15] MEDS ORDERED: PROPOFOL 200 MG/20 ML VIAL IV ONE (13:59)
[2016-06-15] MEDS ORDERED: BUPIVACAINE-MPF 0.25% 30 ML VIAL INJ ONE (14:10)
[2016-06-15] MEDS ORDERED: fentaNYL 0.05 MG/ML VIAL ONE (14:12)
[2016-06-15] MEDS ORDERED: ONDANSETRON 4 MG/2 ML VIAL IVP PRN (14:20)
[2016-06-15] MEDS ORDERED: HYDROmorphone 1 MG/ML AMP IVP PRN (14:20)
[2016-06-15] MEDS ORDERED: BLOOD GLUCOSE MONITORING 1 DEV DEV FS ONE (14:20)
[2016-06-15 16:00] VITALS: BP 133/66
--- NOTE | 2016-06-15 16:14 | NUR ---
PT BACK ON UNIT. NO S/S OF ACUTE DISTRESS. FLACC-0. IV SITES PATENT AND INTACT. DRESSING TO SACRAL AREA DRY AND INTACT. SON NOTIFIED. CALL LIGHT WITHIN REACH. SAFETY MEASURES ENSURED. WILL CONTINUE TO MONITOR.
[2016-06-15] MEDS: FLUCONAZOLE 200 MG/NS PREMIX 100 ML IV SCH (16:56)
[2016-06-15] MEDS ORDERED: POTASSIUM CHLORIDE 20% 40 MEQ/15 ML UDC GT SCH (17:34)
[2016-06-15] MEDS ORDERED: BOWEL EVACUANT DRINK 4,000 ML PDS GT SCH (18:00)
[2016-06-15] MEDS: INSULIN LISPRO SLIDING SCALE 100 UNITS/ML VIAL SUBQ PRN ×2 (18:26→20:49)
--- NOTE | 2016-06-15 18:38 | NUR ---
G-TUBE FEEDING STARTED. 45 ML RESIDUAL NOTED.
--- NOTE | 2016-06-15 19:31 | NUR ---
RECEIVED REPORT FROM DAY SHIFT NURSE.PT IS AWAKE, EYES OPENED, FLACC 0. ON NASAL CANNULA AT 2LPM, BREATHING EVEN AND UNLABORED, NO SOB NOTED. IV SITE IS PATENT AND INTACT. SACRAL WOUND DRESSING NOTED, DRY AND INTACT. THOMAS CATHETER IN PLACED, INDWELLING WELL. G TUBE FEEDING NOTED, FLUSHED, IRRIGATED. PLAN OF CARE DISCUSSED, UNABLE TO COMPREHEND. SAFETY MEASURES CHECKED, CALL LIGHT WITHIN REACH. WILL CONTINUE TO MONITOR.
--- NOTE | 2016-06-15 19:31 | NUR ---
ENDORSED PLAN OF CARE. PT REMAINS IN STABLE CONDITION.
[2016-06-15 20:00] VITALS: BP 136/70
--- NOTE | 2016-06-15 20:50 | NUR ---
SON AT BED SIDE, ANSWERED ALL QUESTIONS. REPOSITIONED THE PT. DUE MEDS GIVEN, PROVIDED EXPLANATION, BENEFITS AND S/E TO PT AND SON. PT TOLERATED WELL. NO DISTRESS NOTED.
[2016-06-15] MEDS: INSULIN DETEMIR 100 UNITS/ML 10 ML VIAL SUBQ SCH (21:00)
[2016-06-15] MEDS ORDERED: MAGNESIUM CITRATE 300 ML BTL PO SCH (22:00)
--- NOTE | 2016-06-15 22:00 | NUR ---
LOOSE BOWEL MOVEMENT NOTED. WOUND DRESSING WAS SOILED, CHANGED AND SECURED WITH NEW WOUND DRESSING. GOWN CHANGED. NO DISTRESS NOTED. REPOSITIONED THE PT. SAT 02= 94%.
[2016-06-16] VITALS: BP 127/68
--- NOTE | 2016-06-16 | NUR ---
V/S CHECKED AND STABLE. FLACC 0. BREATHING EVEN AND UNLABORED. NOT IN DISTRESS. REPOSITIONED THE PT.
[2016-06-16] MEDS: ALBUTEROL SULFATE/IPRATROPIU 3 ML SOL IH SCH ×4 (01:18→20:22)
[2016-06-16] MEDS: Z-GUARD PASTE TP SCH ×2 (01:23→13:00)
--- NOTE | 2016-06-16 02:37 | NUR ---
PT AWAKE NOT IN DISTRESS, NO S/S OF RESPIRATORY DISTRESS/DISCOMFORT NOTED. SAT O2= 94%.
[2016-06-16 04:00] VITALS: BP 138/61
--- NOTE | 2016-06-16 04:00 | NUR ---
EYES CLOSED, BREATHING EVEN AND UNLABORED. V/S CHECKED AND STABLE. FLACC-0. REPOSITIONED THE PT.
[2016-06-16] MEDS: METOCLOPRAMIDE 10 MG/2 ML INJ VIAL IVP SCH ×3 (05:07→21:04)
[2016-06-16] MEDS: PIPER/TAZO 3.375GM/D5W PREMIX 50 ML IV SCH ×2 (05:07→14:06)
--- NOTE | 2016-06-16 06:17 | NUR ---
AM CARE DONE. LOOSE BOWEL MOVEMENT NOTED. CLEANED TH PT. REPOSITIONED THE PT. NO DISTRESS NOTED.
[2016-06-16] MEDS: BLOOD GLUCOSE MONITORING 1 DEV DEV FS SCH ×4 (06:22→20:36)
--- NOTE | 2016-06-16 07:10 | NUR ---
RECEIVED PATIENT REPORT AT BEDSIDE. NO S/S OF DISTRESS NOTED. PATIENT ON 2L O2. PATIENT APHASIC. RECTAL BAG IN PLACE WITH LIQUID GREENISH OUTPUT. THOMAS CATHETER IN PLACE, DRAINING DARK NINO URINE. WOUND DRESSING NOTED TO BLE. DRESSINGS CLEAN DRY AND INTACT. IV LINES NOTED TO THE RIGHT AC AND RIGHT WRIST. IVF INFUSING WELL TO THE RIGHT WRIST. PATIENT ON TELE MONITORING. BED LOWERED WITH CALL LIGHT WITHIN REACH. WILL CONTINUE TO MONITOR
--- NOTE | 2016-06-16 07:30 | NUR ---
PAGED ATTENDING MD. WAITING FOR CALL BACK FROM DR ZAIDI.
--- NOTE | 2016-06-16 07:36 | NUR ---
ENDORSED PT TO DAY SHIFT NURSE. PT IN STABLE CONDITION.
--- NOTE | 2016-06-16 07:37 | NUR ---
SPOKE TO DR. CARR VIA PHONE. UPDATED THE PT'S CONDITION AND REPORTED LAB VALUE POTASSIUM 3.1. MADE NEW ORDER.
--- NOTE | 2016-06-16 07:54 | NUR ---
SPOKE TO DR PRAJAPATI VIA PHONE. REPORTED LATEST LAB VALUE FOR SODIUM 159, HEMOGLOBIN 7.3, POTASSIUM 3.1. WILL PUT NEW ORDERS.
[2016-06-16 08:00] VITALS: BP 149/67
[2016-06-16] MEDS ORDERED: POTASSIUM CHLORIDE 20% 40 MEQ/15 ML UDC PO SCH (08:15)
[2016-06-16] MEDS ORDERED: fentaNYL 0.05 MG/ML VIAL ONE (08:28)
[2016-06-16] MEDS ORDERED: MIDAZOLAM 2 MG/2 ML VIAL ONE ×2 (08:28)
[2016-06-16] MEDS ORDERED: diphenhydrAMINE 50 MG/ML VIAL ONE (08:29)
[2016-06-16] MEDS: FUROSEMIDE 40 MG/4 ML VIAL IVP SCH (09:00)
--- NOTE | 2016-06-16 09:30 | NUR ---
PER DR PRAJAPATI, TRANSFUSE 2UNITS OF PRBC TODAY
--- NOTE | 2016-06-16 10:50 | NUR ---
PATIENT BACK FROM COLONOSCOPY
[2016-06-16] MEDS ORDERED: VANCOMYCIN HCL 750 MG in DEXTROSE 5% 250 ML IV SCH (11:00)
[2016-06-16] MEDS: ENOXAPARIN 40 MG/0.4 ML SYR SUBQ SCH (11:20)
[2016-06-16] MEDS: METOPROLOL 25 MG TAB PO SCH ×2 (11:20→21:05)
[2016-06-16] MEDS: MULTIVITAMIN/MINERALS 1 TAB PO SCH (11:21)
[2016-06-16] MEDS: ISOSORBIDE DINITRATE 10 MG TAB PO SCH ×2 (11:21→21:05)
[2016-06-16] MEDS: AMIODARONE 200 MG TAB PO SCH (11:21)
[2016-06-16 12:00] VITALS: BP 133/70
[2016-06-16] MEDS: MUPIROCIN 2% OINT 22 GM TUBE TP SCH (12:00)
[2016-06-16] MEDS: THERAHONEY GEL 42.5 GM TP SCH (13:00)
[2016-06-16] MEDS: GAUZE TP SCH (13:00)
--- NOTE | 2016-06-16 14:15 | NUR ---
06/16/16 RD FOLLOW-UP ASSESSMENT COMPLETED PLEASE REFER TO NUTRITION ASSESSMENT UNDER CARE ACTIVITY FOR ESTIMATED NUTRITIONAL NEEDS. 1. CONTINUE ENTERAL NUTRITION SUPPORT: FIBERSOURCE HN AT 20 ML/HR AND ADVANCE TOLERATED TO GOAL RATE OF 70 ML/HR 2. RD TO FOLLOW-UP 2-3 DAYS; HIGH RISK LOLA TRACY, KELLEY
[2016-06-16] MEDS ORDERED: POTASSIUM CHLORIDE 20% 40 MEQ/15 ML UDC GT SCH (15:30)
--- NOTE | 2016-06-16 15:45 | NUR ---
BLOOD TRANSFUSION INITIATED. VITAL SIGNS WITHIN NORMAL LIMITS. WILL CONTINUE TO MONITOR
[2016-06-16 16:00] VITALS: BP 115/63
[2016-06-16] MEDS: FLUCONAZOLE 200 MG/NS PREMIX 100 ML IV SCH (16:19)
--- NOTE | 2016-06-16 17:20 | NUR ---
BLOOD TRANSFUSION IN PROGRESS. PATIENT COMFORTABLY RESTING IN BED. NO S/S OF DISTRESS NOTED. WILL CONTINUE TO MONITOR
[2016-06-16] MEDS ORDERED: AMIKACIN PER PHARMACY MC PRN (17:35)
[2016-06-16] MEDS: INSULIN LISPRO SLIDING SCALE 100 UNITS/ML VIAL SUBQ PRN (18:28)
[2016-06-16] MEDS ORDERED: DEXTROSE 5% IV SCH (19:00)
[2016-06-16] MEDS ORDERED: AMIKACIN IV SCH (19:00)
--- NOTE | 2016-06-16 19:15 | NUR ---
RECEIVED REPORT FROM SATHYA TOWNSEND AT BEDSIDE. INITIAL ASSESSMENT COMPLETED. PT NONVERBAL. PT'S VS STABLE. PT HAS A G TUBE PATENT AND INTACT. PT HAS A WOUND ON SACRUM COVERED WITH DRESSING DRY AND INTACT. PT HAS A RIGHT SHOULDER SKIN TEAR COVERED WITH DRESSING DRY AND INTACT. PT HAS BILATERAL HEEL ULCERS COVERED WITH DRESSINGS DRY AND INTACT. PT HAS A THOMAS CATHETER IN PLACE. PT ON 02 2L NC. PT STABLE AT THIS TIME, SAFETY MEASURES IN PLACE.WILL CONTINUE TO MONITOR.
--- NOTE | 2016-06-16 19:45 | NUR ---
REPORT GIVEN AT BEDSIDE. PATIENT ENDORSED IN STABLE CONDITION
--- NOTE | 2016-06-16 19:55 | NUR ---
TALKED TO DR. DIXON Leigh WHO IS COVERING FOR DR. PRAJAPATI TO NOTIFY HER OF PT BEEN TACHYPNEIC AFTER FIRST UNIT OF BLOOD TRANSFUSED. DR. METCALF ORDERED TO GIVE PT 2 MG OF LASIX IVP NOW ONCE AND CONTINUE WITH SECOND UNIT OF BLOOD. WILL FOLLOW UP ON ORDERS.
[2016-06-16 20:00] VITALS: BP 136/71
[2016-06-16] MEDS ORDERED: FUROSEMIDE 20 MG/2 ML VIAL IVP ONE (20:00)
--- NOTE | 2016-06-16 20:15 | NUR ---
PT'S RESPIRATION IS NOW WITHIN NORMAL RANGE. PT STABLE, WILL CONTINUE TO MONITOR PT.
[2016-06-16] MEDS: LINEZOLID 600 MG TAB GT SCH (21:05)
--- NOTE | 2016-06-16 21:16 | NUR ---
PT TOLERATED 2100 MEDS WELL. PILLS CRUSHED AND GIVEN. G TUBE PATENT. WILL CONTINUE TO MONITOR PT. PT STABLE AT THIS TIME.
--- NOTE | 2016-06-16 21:40 | NUR ---
SECOND UNIT OF BLOOD STARTED. PT STABLE, VS : BP 127/67, P 98, T 98.4, R 20. 02 SAT 95%, WILL CONTINUE TO MONITOR PT.
--- NOTE | 2016-06-16 21:49 | NUR ---
TALKED TO DR. DIXON Leigh. BLOOD GLUCOSE IS 127. STATED IT IS OK TO GIVE LEVEMIR SCHEDULED. WILL CONTINUE TO MONITOR PT.
[2016-06-16] MEDS: INSULIN DETEMIR 100 UNITS/ML 10 ML VIAL SUBQ SCH (21:53)
[2016-06-17] VITALS: BP 118/65
--- NOTE | 2016-06-17 | NUR ---
SECOND UNIT OF BLOOD COMPLETED. PT STABLE, NO SHORTNESS OF BREATH OR DISTRESS NOTED. WILL CONTINUE TO MONITOR PT.
[2016-06-17] MEDS: ALBUTEROL SULFATE/IPRATROPIU 3 ML SOL IH SCH ×4 (00:22→18:54)
[2016-06-17] MEDS: Z-GUARD PASTE TP SCH ×2 (02:10→13:00)
--- NOTE | 2016-06-17 02:15 | NUR ---
PT SLEEPING AT THIS TIME, NO SIGNS OF DISTRESS NOTED. WILL CONTINUE TO MONITOR PT.
--- NOTE | 2016-06-17 03:37 | NUR ---
CHECKED ON PT. PT STABLE, NO SHORTNESS OF BREATH NOTED. WILL CONTINUE TO MONITOR PT.
[2016-06-17 04:00] VITALS: BP 121/63
--- NOTE | 2016-06-17 05:25 | NUR ---
CALLED CT DEPARTMENT TO ASK WHEN ARE THEY COMING TO DO CT ON PT. Addendum: 06/17/16 at 3823 by Vielka Vargas RN WRONG ENTRY ON WRONG PT.
--- NOTE | 2016-06-17 05:26 | NUR ---
FISHER SWORDFISH AT BEDSIDE DRAWING MORNING LABS. WILL CONTINUE TO MONITOR PT.
[2016-06-17] MEDS: INSULIN LISPRO SLIDING SCALE 100 UNITS/ML VIAL SUBQ PRN ×3 (06:13→17:50)
[2016-06-17] MEDS: METOCLOPRAMIDE 10 MG/2 ML INJ VIAL IVP SCH ×3 (06:16→21:23)
[2016-06-17] MEDS: BLOOD GLUCOSE MONITORING 1 DEV DEV FS SCH ×4 (06:17→21:14)
--- NOTE | 2016-06-17 07:10 | NUR ---
RECEIVED PATIENT REPORT. PATIENT CURRENTLY RECEIVING BREATHING TX. NO S/S OF DISTRESS NOTED. G-TUBE FEEDING IN PLACE. IV LINE NOTED TO THE RIGHT WRIST AND AC SALINE LOCKED. IV ON THE LEFT FOREARM SALINE LOCKED. THOMAS CATHETER IN PLACE DRAINING CLEAR YELLOW URINE. WOUND DRESSING NOTED TO BLE. DRESSING CLEAN DRY AND INTACT. PATIENT ON TELE MONITORING. BED LOWERED WITH CALL LIGHT WITHIN REACH. WILL CONTINUE TO MONITOR
--- NOTE | 2016-06-17 07:21 | NUR ---
ENDORSED PLAN OF CARE TO DAY SHIFT NURSE. PT IN STABLE CONDITION.
[2016-06-17 07:55] VITALS: BP 139/73
[2016-06-17] MEDS: FOAM DRESSING TP SCH (09:00)
--- NOTE | 2016-06-17 09:00 | NUR ---
ADMINISTERED SCHEDULED MEDICATIONS VIA GTUBE. NO RESIDUALS NOTED. PATIENT TOLERATED WELL. WILL CONTINUE TO MONITOR
[2016-06-17] MEDS: ISOSORBIDE DINITRATE 10 MG TAB PO SCH ×2 (09:06→21:24)
[2016-06-17] MEDS: FLUCONAZOLE 100 MG TAB GT SCH (09:06)
[2016-06-17] MEDS: MULTIVITAMIN/MINERALS 1 TAB PO SCH (09:06)
[2016-06-17] MEDS: metroNIDAZOLE 500 MG TAB GT SCH ×3 (09:06→17:42)
[2016-06-17] MEDS: METOPROLOL 25 MG TAB PO SCH ×2 (09:07→21:24)
[2016-06-17] MEDS: AMIODARONE 200 MG TAB PO SCH (09:07)
[2016-06-17] MEDS: LINEZOLID 600 MG TAB GT SCH ×2 (09:07→21:24)
[2016-06-17] MEDS: ENOXAPARIN 40 MG/0.4 ML SYR SUBQ SCH (09:14)
[2016-06-17] MEDS: FUROSEMIDE 40 MG/4 ML VIAL IVP SCH (10:00)
[2016-06-17 12:00] VITALS: BP 125/66
--- NOTE | 2016-06-17 12:34 | NUR ---
SPOKE WITH DR DILLON. DR DILLON STATES THAT HE PLANS ON DOING THE DIVERTING COLOSTOMY ON SUNDAY
[2016-06-17] MEDS: MUPIROCIN 2% OINT 22 GM TUBE TP SCH (12:50)
[2016-06-17] MEDS: THERAHONEY GEL 42.5 GM TP SCH (13:00)
[2016-06-17] MEDS: GAUZE TP SCH (13:00)
--- NOTE | 2016-06-17 15:15 | NUR ---
ENDORSED PATIENT TO SATHYA GONZALES
--- NOTE | 2016-06-17 15:16 | NUR ---
RECEIVED REPORT FROM NIGHT RN. PT RESTING IN BED. NO S/S OF ACUTE DISTRESS. FLACC-0. IV SITE PATENT AND INTACT. CALL LIGHT WITHIN REACH. SAFETY MEASURES ENSURED. WILL CONTINUE TO MONITOR. Addendum: 06/17/16 at 1802 by Vernon Mendez RN DAY SATHYA WARD
[2016-06-17 16:00] VITALS: BP 136/65
--- NOTE | 2016-06-17 17:29 | NUR ---
PT RESTING IN BED, NO S/S OF ACUTE DISTRESS, NO SOB NOTED, SAFETY MEASURE ENSURED, CALL LIGHT WITHIN REACH, WILL CONTINUE TO MONITOR.
--- NOTE | 2016-06-17 19:22 | NUR ---
ENDORSED PLAN OF CARE TO NIGHT RN. PT REMAINS IN STABLE CONDITION.
--- NOTE | 2016-06-17 19:25 | NUR ---
RECEIVED REPORT FROM SATHYA GONZALES AT BEDSIDE. INITIAL ASSESSMENT COMPLETED. PT NONVERBAL. PT'S VS STABLE. PT HAS A G TUBE PATENT AND INTACT. PT HAS A WOUND ON SACRUM COVERED WITH DRESSING DRY AND INTACT. PT HAS IV ON RIGHT WRIST 22 G SL AND RIGHT AC 22 G SL. PT HAS A RIGHT SHOULDER SKIN TEAR COVERED WITH DRESSING DRY AND INTACT. PT HAS BILATERAL HEEL ULCERS COVERED WITH DRESSINGS DRY AND INTACT. PT HAS A THOMAS CATHETER IN PLACE. PT ON 02 2L NC. PT STABLE AT THIS TIME, SAFETY MEASURES IN PLACE.WILL CONTINUE TO MONITOR.
[2016-06-17 20:00] VITALS: BP 130/75
[2016-06-17] MEDS: INSULIN DETEMIR 100 UNITS/ML 10 ML VIAL SUBQ SCH (21:20)
--- NOTE | 2016-06-17 21:36 | NUR ---
PT TOLERATED 2100 MEDS WELL. G TUBE PATENT AND INTACT. G TUBE RESIDUAL 10 ML. WILL CONTINUE TO MONITOR PT.
[2016-06-18] VITALS: BP 128/78
[2016-06-18] MEDS: ALBUTEROL SULFATE/IPRATROPIU 3 ML SOL IH SCH ×4 (00:18→19:12)
--- NOTE | 2016-06-18 00:31 | NUR ---
PT RECEIVING BREATHING TREATMENT AT THIS TIME. PT STABLE, WILL CONTINUE TO MONITOR PT.
[2016-06-18] MEDS: Z-GUARD PASTE TP SCH ×2 (01:33→13:00)
--- NOTE | 2016-06-18 02:48 | NUR ---
ROUNDS MADE. PT SLEEPING. NO SIGNS OF DISTRESS OR DISCOMFORT NOTED. WILL CONTINUE TO MONITOR PT.
[2016-06-18 04:00] VITALS: BP 128/78
[2016-06-18] MEDS: METOCLOPRAMIDE 10 MG/2 ML INJ VIAL IVP SCH ×3 (04:41→20:35)
--- NOTE | 2016-06-18 04:42 | NUR ---
0500 MED GIVEN. PT STABLE, WILL CONTINUE TO MONITOR PT.
[2016-06-18] MEDS: BLOOD GLUCOSE MONITORING 1 DEV DEV FS SCH ×4 (06:17→20:33)
[2016-06-18] MEDS: INSULIN LISPRO SLIDING SCALE 100 UNITS/ML VIAL SUBQ PRN ×3 (06:17→17:21)
--- NOTE | 2016-06-18 07:07 | NUR ---
ENDORSED PLAN OF CARE TO DAY SHIFT NURSE. PT REMAINS IN STABLE CONDITION.
--- NOTE | 2016-06-18 07:15 | NUR ---
RECEIVED PATIENT REPORT. PATIENT IN AWAKE IN BED BUT APHASIC. NO S/S OF DISTRESS NOTED. PATIENT ON 2L O2. WOUND DRESSING TO BLE CLEAN, DRY AND INTACT. THOMAS CATHETER IN PLACE, DRAINING CLEAR YELLOW URINE. PATIENT ON TELE MONITORING. BED LOWERED WITH CALL LIGHT WITHIN REACH. WILL CONTINUE TO MONITOR
[2016-06-18 08:00] VITALS: BP 132/73
[2016-06-18] MEDS: AMIODARONE 200 MG TAB PO SCH (08:33)
[2016-06-18] MEDS: METOPROLOL 25 MG TAB PO SCH ×2 (08:35→20:35)
[2016-06-18] MEDS: metroNIDAZOLE 500 MG TAB GT SCH ×3 (08:35→17:33)
[2016-06-18] MEDS: ISOSORBIDE DINITRATE 10 MG TAB PO SCH ×2 (08:35→20:34)
[2016-06-18] MEDS: FLUCONAZOLE 100 MG TAB GT SCH (08:35)
[2016-06-18] MEDS: MULTIVITAMIN/MINERALS 1 TAB PO SCH (08:35)
[2016-06-18] MEDS: FUROSEMIDE 40 MG/4 ML VIAL IVP SCH (08:36)
[2016-06-18] MEDS: LINEZOLID 600 MG TAB GT SCH ×2 (08:36→20:33)
[2016-06-18] MEDS: ENOXAPARIN 40 MG/0.4 ML SYR SUBQ SCH (08:52)
--- NOTE | 2016-06-18 09:30 | NUR ---
ADMINISTERED DUE MEDS VIA G-TUBE. PATIENT TOLERATED WELL. PATIENT'S SON AND DAUGHTER PRESENT AT BEDSIDE
[2016-06-18 12:00] VITALS: BP 137/71
[2016-06-18] MEDS: GAUZE TP SCH (13:00)
[2016-06-18] MEDS: THERAHONEY GEL 42.5 GM TP SCH (13:00)
[2016-06-18] MEDS: MUPIROCIN 2% OINT 22 GM TUBE TP SCH (13:17)
--- NOTE | 2016-06-18 14:10 | NUR ---
PATIENT HAD A BM. STOOL MODERATE IN AMOUNT, BROWN IN COLOR AND LOOSE IN CONSISTENCY. PATIENT GIVEN PERINEAL CARE. WOUND DRESSING TO THE SACRUM CHANGED ORDERED. PATIENT TURNED AND REPOSITIONED FOR COMFORT. PATIENT TOLERATED WELL
[2016-06-18 16:00] VITALS: BP 119/69
--- NOTE | 2016-06-18 17:37 | NUR ---
ADMINISTERED DUE MEDS. TF RESIDUAL 120 ML. FEEDING PUT ON HOLD. WILL RECHECK RESIDUAL IN 1HR
--- NOTE | 2016-06-18 18:40 | NUR ---
RESIDUAL RECHECKED. 100ML RESIDUAL NOTED. FEEDING STILL ON HOLD
--- NOTE | 2016-06-18 19:17 | NUR ---
PATIENT REPORT GIVEN AT BEDSIDE. ENDORSED PATIENT IN STABLE CONDITION
--- NOTE | 2016-06-18 19:18 | NUR ---
RECEIVED REPORT FROM DAY SHIFT NURSE. PT IS AWAKE, EYES OPEN, RESTING. FLACC 0, ON TELE MONITOR. NASAL CANULA, HAS NO S/S OF RESPIRATORY DISTRESS/DISCOMFORT NOTED. ON G-TUBE FEEDING, RESIDUAL OF 50 ML. IV SITE PATENT AND INTACT, SALINE LOCK. PLAN OF CARE DISCUSSED, UNABLE TO VERBALIZE UNDERSTANDING. SAFETY MEASURES CHECKED, CALL LIGHT WITHIN REACH. WILL CONTINUE TO MONITOR.
[2016-06-18 20:00] VITALS: BP 87/57
[2016-06-18] MEDS: INSULIN DETEMIR 100 UNITS/ML 10 ML VIAL SUBQ SCH (20:51)
--- NOTE | 2016-06-18 20:51 | NUR ---
DUE MEDS GIVEN, TOLERATED WELL. BS CHECKED BSL= 138, NO INSULIN COVERAGE. REPOSITIONED THE PT, NO DISTRESS NOTED.
[2016-06-18] MEDS ORDERED: AMIKACIN 1,000 MG in DEXTROSE 5% 100 ML IV SCH (21:00)
--- NOTE | 2016-06-18 22:00 | NUR ---
REPOSITIONED THE PT, NO DISTRESS NOTED. SAT 02: 98%, NO S/S OF RESPIRATORY DISTRESS/DISCOMFORT NOTED.
[2016-06-19] VITALS: BP 93/57
--- NOTE | 2016-06-19 | NUR ---
V/S CHECKED, FLACC 0. ON NASAL CANNULA, HAS NO S/S OF RESPIRATORY DISTRESS/DISCOMFORT NOTED. CALL LIGHT WITHIN REACH.
[2016-06-19] MEDS: ALBUTEROL SULFATE/IPRATROPIU 3 ML SOL IH SCH ×4 (00:11→18:51)
--- NOTE | 2016-06-19 00:40 | NUR ---
SUCTIONED PATIENT ORALLY WITH YANKUER, SMALL AMOUT OF DRY SECREATION OBTAINED FROM BACK OF MOUTH. NO SOB OR RESP. DISTRESS NOTED HR-92, SAO2-97%
[2016-06-19] MEDS: Z-GUARD PASTE TP SCH ×2 (01:14→12:28)
--- NOTE | 2016-06-19 02:15 | NUR ---
PT CHECKED. EYES CLOSED, BREATHING EVEN AND UNLABORED. ON NASAL CANNULA, HAS NO S/S OF RESPIRATORY DISTRESS/DISCOMFORT NOTED. REPOSITIONED THE PT. CALL LIGHT WITHIN REACH.
--- NOTE | 2016-06-19 02:30 | NUR ---
SPOKE TO DR AHN VIA PHONE. UPDATED PT'S CONDITION. MADE AN ORDER TO NPO EXCEPT MED THE PT. WILL CARRY OUT NEW ORDER.
[2016-06-19 04:00] VITALS: BP 112/67
--- NOTE | 2016-06-19 04:00 | NUR ---
V/S CHECKED AND STABLE. ON NASAL CANNULA, HSA NO S/S OF RESPIRATORY DISTRESS/DISCOMFORT NOTED. CALL LIGHT WITH REACH. REPOSITIONED TH PT. CALL LIGHT WITHIN REACH.
[2016-06-19] MEDS: METOCLOPRAMIDE 10 MG/2 ML INJ VIAL IVP SCH ×3 (04:15→20:48)
[2016-06-19] MEDS: BLOOD GLUCOSE MONITORING 1 DEV DEV FS SCH ×4 (05:54→21:06)
[2016-06-19] MEDS: INSULIN LISPRO SLIDING SCALE 100 UNITS/ML VIAL SUBQ PRN ×3 (05:55→21:09)
--- NOTE | 2016-06-19 06:13 | NUR ---
LOOSE BOWEL MOVEMENT NOTED. GOWN CHANGED, WOUND DRESSING CHANGED. REPOSITIONED THE PT. NO DISTRESS NOTED.
--- NOTE | 2016-06-19 07:30 | NUR ---
REPORT GIVEN TO DAY SHIFT NURSE FOR CONTINUITY OF CARE. PT IN STABLE CONDITION.
[2016-06-19 08:00] VITALS: BP 130/61
[2016-06-19] MEDS: ISOSORBIDE DINITRATE 10 MG TAB PO SCH ×2 (09:00→20:49)
[2016-06-19] MEDS: metroNIDAZOLE 500 MG TAB GT SCH ×3 (09:27→17:39)
[2016-06-19] MEDS: FLUCONAZOLE 100 MG TAB GT SCH (09:27)
[2016-06-19] MEDS: LINEZOLID 600 MG TAB GT SCH ×2 (09:28→20:48)
[2016-06-19] MEDS: MULTIVITAMIN/MINERALS 1 TAB PO SCH (09:28)
[2016-06-19] MEDS: METOPROLOL 25 MG TAB PO SCH ×2 (09:29→20:49)
[2016-06-19] MEDS: FUROSEMIDE 40 MG/4 ML VIAL IVP SCH (09:30)
--- NOTE | 2016-06-19 09:30 | NUR ---
DR. PRAJAPATI MADE AWARE OF NO SURGERY TODAY AND ELEVATED SODIUM LEVEL. PT TOLERATED AM MEDS WELL. NO S/S OF ACUTE DISTRESS. FLACC-0. CALL LIGHT WITHIN REACH. SAFETY MEASURE ENSURED. WILL CONTINUE TO MONITOR.
[2016-06-19] MEDS: AMIODARONE 200 MG TAB PO SCH (09:31)
[2016-06-19] MEDS: ENOXAPARIN 40 MG/0.4 ML SYR SUBQ SCH (09:40)
[2016-06-19 12:00] VITALS: BP 106/61
[2016-06-19] MEDS: THERAHONEY GEL 42.5 GM TP SCH (12:28)
[2016-06-19] MEDS: GAUZE TP SCH (12:28)
--- NOTE | 2016-06-19 13:05 | NUR ---
06/19/16 RD FOLLOW-UP ASSESSMENT COMPLETED PLEASE REFER TO NUTRITION ASSESSMENT UNDER CARE ACTIVITY FOR ESTIMATED NUTRITIONAL NEEDS. 1. RESUME ENTERAL NUTRITION SUPPORT: DIABETISOURCE AC AT 20 ML/HR; ADVANCE TOLERATED TO GOAL RATE OF 75 ML/HR CONTINUOUS (PROVIDES 2160 KCAL, 108 GM PROTEIN, 1472 ML FREE WATER - MEETS 99% KCAL+PROTEIN ESTIMATED NEEDS) 2. RD TO FOLLOW-UP 2-3 DAYS; HIGH RISK LOLA TRACY, KELLEY
--- NOTE | 2016-06-19 13:23 | NUR ---
PT RESTING IN BED. NO S/S OF ACUTE DISTRESS. FLACC-0. CALL LIGHT WITHIN REACH. SAFETY MEASURES ENSURED. WILL CONTINUE TO MONITOR.
--- NOTE | 2016-06-19 15:00 | NUR ---
DR. KEY IN TO SEE PT. PT AND SON SHELLEY UPDATED ON PLAN OF CARE. WILL CONTINUE TO MONITOR.
[2016-06-19] MEDS: DEXTROSE 5% 1,000 ML IV SCH (15:10)
[2016-06-19 16:00] VITALS: BP 116/62
--- NOTE | 2016-06-19 18:11 | NUR ---
200 ML FREE WATER FLUSH ADMINISTERED. PT TOLERATED WELL.
--- NOTE | 2016-06-19 19:25 | NUR ---
RECEIVED REPORT TO DAY SHIFT NURSE. PT IS RESTING, NOT IN DISTRESS, FLACC 0. ON NASAL CANNULA, HAS NO S/S OF RESPIRATORY DISTRESS/DISCOMFORT NOTED. IV SITE PATENT AND INTACT, INFUSING WELL. THOMAS CATHETER IN PLACED. PLAN OF CARE DISCUSSED, UNABLE TO VERBALIZE UNDERSTANDING. SAFETY MEASURES CHECKED, CALL LIGHT WITHIN REACH. WILL CONTINUE TO MONITOR.
--- NOTE | 2016-06-19 19:37 | NUR ---
ENDORSED PLAN OF CARE TO NIGHT RN. PT REMAINS IN STABLE CONDITION.
[2016-06-19 20:00] VITALS: BP 109/65
[2016-06-19] MEDS: INSULIN DETEMIR 100 UNITS/ML 10 ML VIAL SUBQ SCH (21:07)
--- NOTE | 2016-06-19 21:10 | NUR ---
DUE MEDS GIVEN. PT TOLERATED WELL. BS CHECKED, BSL = 183, COVERAGE WAS GIVEN.
--- NOTE | 2016-06-19 22:00 | NUR ---
REPOSITIONED THE PT. FLACC 0. NO DISTRESS NOTED. CALL LIGHT WITH REACH.
--- NOTE | 2016-06-19 23:15 | NUR ---
RECEIVED A CALL FROM DR LAWRENCE. HE IS ASKING THE RESULT FOR THE BMP. I TOLD HIM THAT I WILL FOLLOW-UP TO THE LAB. STATED TO STOP THE IV FLUID AND WILL CALL HIM BACK ONCE THE RESULT OF BMP COMES IN.
[2016-06-20] VITALS: BP 113/65
--- NOTE | 2016-06-20 00:05 | NUR ---
CALLED DR. LAWRENCE. UPDATED BMP RESULT. MADE AN ODER TO RESUME IVF AND INCREASE RATE TO 100 ML/HR, WILL CARRY OUT MD ORDER.
[2016-06-20] MEDS: ALBUTEROL SULFATE/IPRATROPIU 3 ML SOL IH SCH ×4 (01:08→19:50)
[2016-06-20] MEDS: Z-GUARD PASTE TP SCH ×2 (01:47→13:06)
--- NOTE | 2016-06-20 02:00 | NUR ---
FLUSHED 200 ML OF WATER THROUGH G TUBE. PT TOLERATED WELL.
--- NOTE | 2016-06-20 02:21 | NUR ---
REPOSITIONED THE PT. SAT O2= 98%. CALL LIGHT WITHIN REACH. IV INFUSING WELL.
[2016-06-20 04:00] VITALS: BP 121/67
--- NOTE | 2016-06-20 04:00 | NUR ---
V/S CHECKED AND STABLE. REPOSITIONED THE PT. NO DISTRESS NOTED. IV SITE IS PATENT AND INTACT, INFUSING WELL.
[2016-06-20] MEDS: METOCLOPRAMIDE 10 MG/2 ML INJ VIAL IVP SCH ×3 (04:47→20:31)
[2016-06-20] MEDS: INSULIN LISPRO SLIDING SCALE 100 UNITS/ML VIAL SUBQ PRN ×4 (05:22→20:47)
--- NOTE | 2016-06-20 06:00 | NUR ---
AM CARE DONE. GOWN CHANGED. REPOSITIONED THE PT. FLUSH 200 ML OF FREE WATER THROUGH G-TUBE.
--- NOTE | 2016-06-20 07:20 | NUR ---
REPORT GIVEN TO DAY SHIFT NURSE FOR CONTINUITY OF CARE. PT IN STABLE CONDITION.
--- NOTE | 2016-06-20 07:21 | NUR ---
PT AWAKE, APHASIC WITH TRACING, NO SIGNS OF ACUTE DISTRESS, BREATHING EVEN AND UNLABORED BILATERALLY, BOWEL SOUNDS ACTIVE IN ALL 4 QUADRANTS, G TUBE IN RUQ NOT INFUSING AT THIS TIME, NO RESIDUAL IN G TUBE, CURRENTLY NPO, ABDOMEN SOFT NO DISTENTION, BEDFAST, BOWEL AND BLADDER INCONTINENCE WITH THOMAS CATHETER IN PLACE, SKIN SACRAL WOUND COVERED WITH COMPOSITE DRY DRESSING, BILATERAL WOUNDS ON HEELS COVERED WITH DRY DRESSING, RIGHT SHOULDER SKIN TEAR, BED ALARM ON, IN LOW POSITION WITH BILATERAL HALF SIDE RAILS UP, CALL LIGHT WITHIN REACH.
[2016-06-20] MEDS: BLOOD GLUCOSE MONITORING 1 DEV DEV FS SCH ×4 (07:41→20:30)
--- NOTE | 2016-06-20 07:55 | NUR ---
POSSIBLE SURGERY TODAY WITH DR DILLON, PER COAT CHECK ATTENDANT NURSE. WILL HOLD ALL BLOOD THINNERS TODAY.
[2016-06-20 08:00] VITALS: BP 113/61
[2016-06-20] MEDS: FUROSEMIDE 40 MG/4 ML VIAL IVP SCH (08:45)
--- NOTE | 2016-06-20 08:45 | NUR ---
WAS SEEN BY DR DILLON, WAS NOTIFIED NO SURGERY TODAY. WILL CONTINUE WITH BLOOD THINNER THERAPY.
[2016-06-20] MEDS: MULTIVITAMIN/MINERALS 1 TAB PO SCH (08:46)
[2016-06-20] MEDS: ISOSORBIDE DINITRATE 10 MG TAB PO SCH ×2 (08:46→20:33)
[2016-06-20] MEDS: metroNIDAZOLE 500 MG TAB GT SCH ×3 (08:46→16:16)
[2016-06-20] MEDS: METOPROLOL 25 MG TAB PO SCH ×2 (08:47→20:33)
[2016-06-20] MEDS: LINEZOLID 600 MG TAB GT SCH ×2 (08:47→20:33)
[2016-06-20] MEDS: FLUCONAZOLE 100 MG TAB GT SCH (08:47)
[2016-06-20] MEDS: AMIODARONE 200 MG TAB PO SCH (08:47)
[2016-06-20] MEDS: DEXTROSE 5% 1,000 ML IV SCH ×2 (08:53→18:59)
[2016-06-20] MEDS: ENOXAPARIN 40 MG/0.4 ML SYR SUBQ SCH (08:54)
[2016-06-20] MEDS: FOAM DRESSING TP SCH (08:59)
--- NOTE | 2016-06-20 10:18 | NUR ---
SS NOTE: SENT CURRENT MICROBIOLOGY TO [facility], RECEIVED FAX CONFIRMATION
--- NOTE | 2016-06-20 10:18 | NUR ---
RECEIVED NEW ORDERS FROM DR PRAJAPATI TO RESTART G TUBE FEEDINGS, WILL CARRY OUT.
--- NOTE | 2016-06-20 10:35 | NUR ---
SPOKE WITH DR LAWRENCE, RECEIVED NEW LAB ORDER, WILL CARRY OUT.
[2016-06-20 11:43] VITALS: BP 112/71
[2016-06-20] MEDS: THERAHONEY GEL 42.5 GM TP SCH (13:05)
[2016-06-20] MEDS: GAUZE TP SCH (13:05)
[2016-06-20 16:00] VITALS: BP 122/66
--- NOTE | 2016-06-20 19:25 | NUR ---
PT AWAKE, ALERT AND ORIENTED X1, NO SIGNS OF ACUTE DISTRESS, BREATHING EVEN AND UNLABORED. BED IN LOW POSITION WITH BILATERAL HALF SIDE RAILS UP, CALL LIGHT WITHIN REACH. GAVE REPORT TO MONITORING ENGINEER NURSE FOR CONTINUITY OF CARE.
--- NOTE | 2016-06-20 19:26 | NUR ---
RECEIVED REPORT FROM DAY RN FOR CONTINUITY OF CARE. PATIENT IS APHASIC, RESPONDS TO VOICE AND STIMULI. SHIFT ASSESSMENT DONE, VS TAKEN, STABLE AT THIS TIME. NO S/S OF RESPIRATORY DISTRESS NOTED ON 2L NC. FLACC-0. IV TO LT WRIST, LT FA, AND RT FA PATENT AND FLUSHED. THOMAS CATHETER IN PLACE DRAINING YELLOW URINE TO GRAVITY. G TUBE IN PLACE, MINIMAL RESIDUAL NOTED.PT HAS SACRAL WOUND DRESSING DRY AND INTACT. BILATERAL HEEL PRESSURE ULCER AND RT SHOULDER SKIN TEAR. SAFETY/ FALL PRECAUTIONS ENFORCED. WILL CONTINUE TO MONITOR.
[2016-06-20 20:00] VITALS: BP 132/67
--- NOTE | 2016-06-20 20:33 | NUR ---
RESIDUAL CHECKED, 20 ML NOTED, DUE MEDICATIONS ADMINISTERED VIA G TUBE. REPOSITIONED PATIENT AND CLEANED. WILL CONTINUE TO MONITOR.
[2016-06-20] MEDS: INSULIN DETEMIR 100 UNITS/ML 10 ML VIAL SUBQ SCH (20:48)
--- NOTE | 2016-06-20 22:00 | NUR ---
REPOSITIONED AND CHANGED PT. NO S/S OF DISTRESS OR DISCOMFORT NOTED. WILL CONTINUE TO MONITOR.
[2016-06-21] VITALS: BP 115/51
--- NOTE | 2016-06-21 00:15 | NUR ---
VS TAKEN, STABLE AT THIS TIME. TURNED PATIENT AND REPOSITIONED. SAFETY MEASURES ENFORCED. WILL CONTINUE TO MONITOR.
[2016-06-21] MEDS: ALBUTEROL SULFATE/IPRATROPIU 3 ML SOL IH SCH ×4 (01:59→18:52)
--- NOTE | 2016-06-21 02:00 | NUR ---
REPOSITIONED AND TURNED PATIENT TO OFFLOAD PRESSURE. WOUND CARE PERFORMED PER SOILING. NO S/S OF DISTRESS NOTED, O2 SAT AT 98% ON 2L NC. WILL CONTINUE TO MONITOR.
[2016-06-21] MEDS: Z-GUARD PASTE TP SCH ×2 (02:17→12:35)
[2016-06-21] MEDS: DEXTROSE 5% 1,000 ML IV SCH ×2 (02:17→09:51)
--- NOTE | 2016-06-21 03:56 | NUR ---
PT IV TO RT AC INFILTRATED, REMOVED WITH CANNULA INTACT. VS TAKEN, STABLE AT THIS TIME. TURNED AND REPOSITIONED PATIENT. SAFETY MEASURES ENFORCED. CALL LIGHT WITHIN REACH.
[2016-06-21 04:00] VITALS: BP 110/50
[2016-06-21] MEDS: METOCLOPRAMIDE 10 MG/2 ML INJ VIAL IVP SCH ×3 (05:01→21:55)
--- NOTE | 2016-06-21 05:01 | NUR ---
PT VOMITED X1, MEDICATED PER MD ORDER. CHANGED LINENS AND PROVIDED ORAL CARE. WILL CONTINUE TO MONITOR.
--- NOTE | 2016-06-21 06:05 | NUR ---
TURNED AND REPOSITIONED, TOLERATED WELL WITH NO VOMITING AT THIS TIME. WILL CONTINUE TO MONITOR.
[2016-06-21] MEDS: BLOOD GLUCOSE MONITORING 1 DEV DEV FS SCH ×4 (06:42→21:51)
--- NOTE | 2016-06-21 07:10 | NUR ---
HHN TX GIVEN. NO SOB OR DISTRESS NOTED. PT SAT IS 96% ON 2 L NC. PT RESTING COMFORTABLY. WILL CONTINUE TO MONITOR.
--- NOTE | 2016-06-21 07:30 | NUR ---
ENDORSED PATIENT TO DAY RN FOR CONTINUITY OF CARE.
--- NOTE | 2016-06-21 07:31 | NUR ---
PT AWAKE, APHASIC WITH TRACING, NO SIGNS OF ACUTE DISTRESS, BREATHING EVEN AND UNLABORED BILATERALLY, BOWEL SOUNDS ACTIVE IN ALL FOUR QUADRANTS, NO SIGNS OF ABDOMINAL DISTENTION, G TUBE IN PLACE IN LUQ AUSCULTATED TO CHECK PLACEMENT, RESIDUAL GREATER THAN 100ML WILL CONTINUE TO HOLD FEEDING, BEDBOUND, SACRAL PRESSURE ULCER COVERED WITH COMPOSITE DRESSING, RIGHT SHOULDER SKIN LACERATION COVERED WITH DRY DRESSING, BILATERAL HEEL WOUNDS COVERED WITH DRY DRESSINGS, FLACC =0, TELE MONITOR ON, IV PATENT WITH NO REDNESS AROUND SITE, BED IN LOW POSITION WITH BILATERAL HALF SIDE RAILS UP, CALL LIGHT WITHIN REACH.
[2016-06-21 08:00] VITALS: BP 104/57
[2016-06-21] MEDS: metroNIDAZOLE 500 MG TAB GT SCH ×3 (09:45→16:43)
[2016-06-21] MEDS: FLUCONAZOLE 100 MG TAB GT SCH (09:45)
[2016-06-21] MEDS: AMIODARONE 200 MG TAB PO SCH (09:45)
[2016-06-21] MEDS: MULTIVITAMIN/MINERALS 1 TAB PO SCH (09:45)
[2016-06-21] MEDS: LINEZOLID 600 MG TAB GT SCH ×2 (09:45→21:56)
[2016-06-21] MEDS: ISOSORBIDE DINITRATE 10 MG TAB PO SCH (09:46)
[2016-06-21] MEDS: METOPROLOL 25 MG TAB PO SCH (09:46)
[2016-06-21] MEDS: ENOXAPARIN 40 MG/0.4 ML SYR SUBQ SCH (09:50)
--- NOTE | 2016-06-21 10:00 | NUR ---
RECHECKED RESIDUAL IN G TUBE, RESIDUAL 110ML, WILL CONTINUE TO HOLD TUBE FEEDING.
--- NOTE | 2016-06-21 10:27 | NUR ---
SS NOTE: [place] [facility][phone][place] THEY DO NOT HAVE AN ISO BED AVAILABLE FOR PT TODAY.
[2016-06-21] MEDS: INSULIN LISPRO SLIDING SCALE 100 UNITS/ML VIAL SUBQ PRN ×2 (11:13→15:53)
[2016-06-21 12:00] VITALS: BP 97/58
[2016-06-21] MEDS ORDERED: POTASSIUM CHLORIDE 20% 40 MEQ/15 ML UDC GT SCH ×2 (12:20→16:30)
[2016-06-21] MEDS: GAUZE TP SCH (12:35)
[2016-06-21] MEDS: THERAHONEY GEL 42.5 GM TP SCH (12:35)
--- NOTE | 2016-06-21 13:45 | NUR ---
FOUND PT ON ROOM AIR SATTING 97% HR 71. WILL CONTINUE TO MONITOR. Addendum: 06/21/16 at 1347 by Erik Alejandra RT SON AT BEDSIDE
[2016-06-21 16:00] VITALS: BP 106/57
[2016-06-21] MEDS: NACL 0.45% 1,000 ML IV SCH (16:42)
[2016-06-21] MEDS: AMIKACIN 500 MG in DEXTROSE 5% 100 ML IV SCH (16:43)
--- NOTE | 2016-06-21 18:43 | NUR ---
PT ALERT AND ORIENTED, NO SIGNS OF ACUTE DISTRESS, BED IN LOW POSITION WITH BILATERAL HALF SIDE RAILS UP, CALL LIGHT WITHIN REACH, WILL ENDORSE TO BARBER INSTRUCTOR NURSE FOR CONTINUITY OF CARE.
--- NOTE | 2016-06-21 19:15 | NUR ---
RECEIVED REPORT FROM MORNING NURSE AT BEDSIDE, PT IS AAOX1, APHASIC, UNABLE TO FOLLOW COMMANDS AND MAKE NEEDS KNOWN, FLACC 0, NO S/S OF SOB/DISTRESS, BREATHING EVEN AND UNLABORED, CLEAR LUNG SOUNDS, ON RA. ON TELE MONITOR WITH JUNCTIONAL RHYTHM PAC, SOFT ABDOMEN WITH ACTIVE BOWEL SOUNDS, GT PATENT, RESIDULED 5ML, CURRENTLY FEEDING WITH DIABETICSOURCE AT 65ML/HR, INCONTINENT WITH B&B'S, BEDBOUND, RIGHT SIDE WEAKNESS NOTED, AFEBRILE, SKIN IS WARM AND DRY TO TOUCH, OPEN WOUND PRESENT (SEE WOUND ASSESSMENT). VSS. IV SITE TO RIGHT WRIST 22GA RUNNING 1/2NS AT 50ML/HR, LEFT FOREARM 22GA SL, PATENT AND INTACT. ASPIRATION PRECAUTION AND FALL PRECAUTION MAINTAINED, CALL LIGHT WITHIN REACH, WILL CONTINUE TO MONITOR.
[2016-06-21 20:00] VITALS: BP 106/54
--- NOTE | 2016-06-21 21:15 | NUR ---
ACCU CHECK PERFORMED WITH 143MG/DL, SCHEDULED MEDICATION GIVEN, PT TOLERATED WELL.
[2016-06-21] MEDS: ISOSORBIDE DINITRATE 10 MG TAB PEG SCH (21:55)
[2016-06-21] MEDS: METOPROLOL 25 MG TAB GT SCH (21:55)
[2016-06-21] MEDS: INSULIN DETEMIR 100 UNITS/ML 10 ML VIAL SUBQ SCH (21:58)
[2016-06-22] VITALS: BP 93/52
--- NOTE | 2016-06-22 | NUR ---
NO CHANGE OF CONDITION AT THIS TIME,VSS, POSITION CHANGED FOR OFF LOAD PRESSURE.
[2016-06-22] MEDS: ALBUTEROL SULFATE/IPRATROPIU 3 ML SOL IH SCH ×4 (01:05→18:46)
[2016-06-22] MEDS: Z-GUARD PASTE TP SCH ×2 (01:14→13:08)
[2016-06-22 04:00] VITALS: BP 108/57
--- NOTE | 2016-06-22 04:00 | NUR ---
NO CHANGE OF CONDITION AT THIS TIME,VSS, POSITION CHANGED FOR OFF LOAD PRESSURE.
[2016-06-22] MEDS: METOCLOPRAMIDE 10 MG/2 ML INJ VIAL IVP SCH ×3 (05:28→20:49)
--- NOTE | 2016-06-22 06:30 | NUR ---
ACCU CHECK PERFORMED WITH RESULT 212MG/DL, 4 UNITS OF INSULIN GIVEN.
[2016-06-22] MEDS: BLOOD GLUCOSE MONITORING 1 DEV DEV FS SCH ×4 (06:39→20:36)
[2016-06-22] MEDS: INSULIN LISPRO SLIDING SCALE 100 UNITS/ML VIAL SUBQ PRN ×2 (06:40→17:28)
--- NOTE | 2016-06-22 07:20 | NUR ---
RECEIVED REPORT AT BEDSIDE FROM NIGHT NURSE. PT IS SLEEPING AND SHOWS NO S/S OF DISTRESS WITH FLACC OF 0. IV ON R HAND WAS FOUND DISCONTINUED. CONTINUED IV FLUIDS ON THE L FA PATENT AND INTACT. NOTED DRESSINGS CLEAN DRY AND INTACT ON BOTH HEELS. PT HAS GT FEEDING RUNNING WITH NO RESIDUALS AT THIS TIME. PT ON ROOM AIR O2 SAT AT 90% AND HR 92. PT BED IS LOWERED, SEMI-FOWLERS, WITH CALL LIGHT WITHIN REACH.
--- NOTE | 2016-06-22 07:30 | NUR ---
PT IS IN STABLE CONDITION AT THIS TIME, REPORT GIVEN TO MORNING SHIFT NURSE FOR CONTINUE OF CARE.
--- NOTE | 2016-06-22 07:50 | NUR ---
PT IS BEING SEEN BY RT. PT SATURATION AT 88%. WILL CONTINUE TO MONITOR.
--- NOTE | 2016-06-22 07:53 | NUR ---
FOUND PT ON RA SATTING 88%. HHN TX IS GIVEN. WILL PUT PT ON 2 L NC AND WILL CONTINUE TO MONITOR.
[2016-06-22 08:00] VITALS: BP 123/61
--- NOTE | 2016-06-22 08:00 | NUR ---
PT IN ROOM RESTING SAT O2 AT 95% WITH NC 2L O2. PT SHOWS NO S/S OF DISTRESS.
[2016-06-22] MEDS: ISOSORBIDE DINITRATE 10 MG TAB PEG SCH ×2 (09:54→20:36)
[2016-06-22] MEDS: METOPROLOL 25 MG TAB GT SCH ×2 (09:55→20:36)
[2016-06-22] MEDS: AMIODARONE 200 MG TAB PO SCH (09:55)
[2016-06-22] MEDS: LINEZOLID 600 MG TAB GT SCH ×2 (09:55→20:49)
[2016-06-22] MEDS: metroNIDAZOLE 500 MG TAB GT SCH ×3 (09:55→16:57)
[2016-06-22] MEDS: MULTIVITAMIN/MINERALS 1 TAB PO SCH (09:56)
--- NOTE | 2016-06-22 10:00 | NUR ---
ADMINISTERED PT MEDICATIONS. PT TOLERATED WELL. PT ON NC 2L O2 SAT O2 AT 93% WILL CONTINUE TO MONITOR.
[2016-06-22] MEDS: ENOXAPARIN 40 MG/0.4 ML SYR SUBQ SCH (10:01)
--- NOTE | 2016-06-22 10:30 | NUR ---
PT WAS REPOSITIONED AND GIVEN WOUND CARE AT THE SACRAL ARE WOUND. NOTED NEW WOUND ON THE RIGHT LOWER BUTTOCK. WILL TAKE PICTURES TO DOCUMENT NEW OCCURRENCE. WILL REPOSITIONED Q2H AND APPLY Z GUARD AND CHANGE WOUND DRESSINGS NEEDED.
[2016-06-22] MEDS: FLUCONAZOLE 100 MG TAB GT SCH (10:51)
--- NOTE | 2016-06-22 11:30 | NUR ---
DID NOT ADMINISTER INSULIN SLIDING SCALE BC PT GT FEEDING IS BEING WITH HELD UNTIL RESIDUAL IS < 50CC. PLEASE SEE TUBE FEEDING ORDERS.
[2016-06-22 12:00] VITALS: BP 147/65
--- NOTE | 2016-06-22 12:20 | NUR ---
PT HAD BM. PT WAS REPOSITIONED, GIVEN JASBIR CARE, AND GIVEN WOUND CARE ORDERED IN THE SACRAL AREA. RODRIGUEZ LUCAS. WILL CONTINUE TO MONITOR.
--- NOTE | 2016-06-22 12:30 | NUR ---
RECEIVED RECOMMENDATIONS FROM YOVANY BENSON TO DECREASING TF RATE TO 60 ML/HR CONTINUOUS + CONTINUE 200 ML WATER FLUSH Q3H + ADD PROSOURCE NO CARB TID VIA G-TUBE. DR PRAJAPATI NOTIFIED AND AGREES WITH SUGGESTION. WILL INSERT ORDER.
--- NOTE | 2016-06-22 12:31 | NUR ---
06/22/16 RD FOLLOW-UP ASSESSMENT COMPLETED PLEASE REFER TO NUTRITION ASSESSMENT UNDER CARE ACTIVITY FOR ESTIMATED NUTRITIONAL NEEDS. 1. RECOMMEND DECREASING TF RATE TO 60 ML/HR CONTINUOUS + CONTINUE 200 ML WATER FLUSH Q3H + ADD PROSOURCE NO CARB TID VIA G-TUBE (PROVIDES 1908 KCAL, 131 GM PROTEIN, 2777 ML FREE WATER - MEETS 87% KCAL + 100% PROTEIN ESTIMATED NEEDS) 2. RD TO FOLLOW-UP 2-3 DAYS; HIGH RISK LOLA TRACY, KELLEY
[2016-06-22] MEDS: GAUZE TP SCH (13:00)
--- NOTE | 2016-06-22 13:00 | NUR ---
PT RESIDUAL IS 500CC. HELD FEEDING. WILL ASSESS IN ONE HOUR.
[2016-06-22] MEDS: THERAHONEY GEL 42.5 GM TP SCH (13:08)
[2016-06-22] MEDS: NACL 0.45% 1,000 ML IV SCH (13:08)
--- NOTE | 2016-06-22 13:30 | NUR ---
DR PRAJAPATI WAS NOTIFIED OF THE AMOUNT OF RESIDUAL FROM PT. MD ORDERED TO HOLD FEEDING AND REASSESS. NO NEW ORDERS TO CHANGE FEEDING RATE, FREE H20, OR IVF. WILL CONTINUE TO MONITOR.
--- NOTE | 2016-06-22 14:00 | NUR ---
PT RESIDUAL WAS >120CC. CONTINUED TO HOLD FEEDING. WILL REASSESS IN A HOUR.
--- NOTE | 2016-06-22 14:00 | NUR ---
PT PLACED ON NPO FOR TOMORROWS PROCEDURE. LAST ORDERS FOR TUBE FEEDING WAS DIABETI SOURCE 60 ML/HR WITH FREE H20 FLUSH 150 CC Q4H ADD PROSOURCE NO CARB TID VIA G-TUBE. PER DR PRAJAPATI AND DR CARMEN.
--- NOTE | 2016-06-22 14:30 | NUR ---
PT HAD A BM AND GIVEN PERINEAL CARE. PT GIVEN WOUND CARE ORDERED. PT REPOSITIONED
--- NOTE | 2016-06-22 14:50 | NUR ---
PT SEEN BY DR CARMEN. DR IS AWARE OF 500CC RESIDUAL FROM THIS MORNING AND ORDERED TO REDUCED FREE H20 TO 150CC Q4H. WILL APPLY ORDER TO PT CHART.
[2016-06-22] MEDS ORDERED: POTASSIUM CHLORIDE 20% 40 MEQ/15 ML UDC GT SCH (15:30)
[2016-06-22 16:00] VITALS: BP 98/56
--- NOTE | 2016-06-22 16:00 | NUR ---
REASSESSED PT RESIDUAL AT 400 CC. GT FEEDING IS STILL BEING WITH HELD. PT IS IN BED AND SHOWS NO S/S OF DISTRESS.
--- NOTE | 2016-06-22 16:20 | NUR ---
EDMUND NEVAREZ WAS PAGED TO NOTIFY ABOUT PT'S RESIDUAL STATUS. WILL AWAIT FOR HIS CALL.
--- NOTE | 2016-06-22 16:50 | NUR ---
PT HAD SMALL BM. PT WAS GIVEN PERICARE AND REPOSITIONED. PT GIVEN WOUND CARE ORDERED IN THE SACRAL AREA. ALSO BOTH HEEL DRESSING WERE CHANGED. PT TOLERATED PROCEDURES WELL. WILL CONTINUE TO MONITOR.
[2016-06-22] MEDS: AMIKACIN 500 MG in DEXTROSE 5% 100 ML IV SCH ×2 (16:57→18:28)
--- NOTE | 2016-06-22 17:00 | NUR ---
REASSESSED PT RESIDUAL AT 300CC. WILL CONTINUE TO MONITOR.
--- NOTE | 2016-06-22 19:00 | NUR ---
PT RESIDUAL DECREASED TO 20 CC. PT FEEDING RESUMED AT 60ML/HR WITH FREE H2O FLUSH 150CC Q4H PER DR PRAJAPATI AND DR CARMEN. PT WILL BE NPO AFTER MIDNIGHT.
--- NOTE | 2016-06-22 19:30 | NUR ---
GAVE REPORT TO NIGHT NURSE AT BEDSIDE. PT ENDORSED IN STABLE CONDITION.
[2016-06-22 20:30] VITALS: BP 97/57
--- NOTE | 2016-06-22 20:30 | NUR ---
SEEN PT APPEARS ASLEEP BUT AROUSABLE, APHASIC. INITIAL ASSESSMENT DONE. VITAL SIGNS CHECKED AND WNL. GTUBE RESIDUAL CHECKED:100ML. FEEDING HELD FOR NOW AND WILL RECHECK AGAIN IN AN HOUR. PT REPOSITIONED FOR COMFORT. SAFETY REINFORCED. PT REMAINS ON ISOLATION. WILL CONTINUE TO MONITOR.
[2016-06-22] MEDS: INSULIN DETEMIR 100 UNITS/ML 10 ML VIAL SUBQ SCH (20:37)
--- NOTE | 2016-06-22 20:45 | NUR ---
BLOOD SUGAR CHECKED:146. NO COVERAGE NEEDED. PT WILL BE NPO AFTER MIDNIGHT AND FEEDING HAS BEEN HELD FOR A WHILE. BP=97/57. BP MEDS WILL NOT BE GIVEN PER PARAMETERS.
--- NOTE | 2016-06-22 20:50 | NUR ---
PT MORE AWAKE NOW, HAD SMALL AMOUNT OF BROWN, LOOSE STOOL. PERICARE RENDERED BY MANUFACTURERS REPRESENTATIVE. SACRAL WOUND DRESSING STILL INTACT W/ SMALL AMOUNT OF DRAINAGE. ZGUARD APPLIED ORDERED.
--- NOTE | 2016-06-22 22:00 | NUR ---
PT AWAKE. GTUBE RESIDUAL CHECKED:100ML. CONTINUE TO HOLD FEEDING. WILL RECHECK IN AN HOUR. PT REPOSITIONED. WILL CONTINUE TO MONITOR.
--- NOTE | 2016-06-22 23:00 | NUR ---
PT'S GTUBE RESIDUAL STILL 100ML. FEEDING CONTINUE TO BE HELD. PT WILL BE NPO AFTER MIDNIGHT. WILL CLOSELY MONITOR.
[2016-06-23] MEDS: ALBUTEROL SULFATE/IPRATROPIU 3 ML SOL IH SCH ×3 (00:15→19:41)
[2016-06-23 00:40] VITALS: BP 99/54
[2016-06-23] MEDS: Z-GUARD PASTE TP SCH ×2 (00:50→13:23)
--- NOTE | 2016-06-23 00:50 | NUR ---
SEEN PT AWAKE. VITAL SIGNS CHECKED. PT'S GTUBE RESIDUAL CHECKED:60ML. PT IS NOW NPO FOR AM SURGERY. PT HAD SMALL AMOUNT OF BROWN, LOOSE STOOL. PERICARE RENDERED. SACRAL DRESSING STILL INTACT. RT LOWER ISCHIUM WOUND DRESSING CHANGED. PT REPOSITIONED FOR COMFORT. WILL CONTINUE TO MONITOR.
[2016-06-23 04:00] VITALS: BP 106/59
--- NOTE | 2016-06-23 04:15 | NUR ---
PT ASLEEP BUT AROUSABLE. VITAL SIGNS CHECKED AND WNL. GTUBE RESIDUAL CHECKED: 45ML THEN FLUSHED W/ 20ML WATER. PT REPOSITIONED FOR COMFORT.
[2016-06-23] MEDS: METOCLOPRAMIDE 10 MG/2 ML INJ VIAL IVP SCH ×3 (05:14→20:40)
--- NOTE | 2016-06-23 06:45 | NUR ---
BLOOD SUGAR CHECKED:166. WILL NOT COVER DUE TO PT IS NPO FOR SURGERY TODAY. PT REPOSITIONED FOR COMFORT.
[2016-06-23] MEDS: BLOOD GLUCOSE MONITORING 1 DEV DEV FS SCH ×4 (06:49→20:39)
--- NOTE | 2016-06-23 07:00 | NUR ---
SPOKE TO SON SHELLEY REGARDING CONSENT FOR SURGERY. HE SAID HE ALREADY GAVE CONSENT LAST WEEK. INFORMED HIM THAT THE CONSENT . HE SAID "OK, I'M GIVING CONSENT FOR SURGERY." GAVE THE PHONE TO CHARGE NURSE MICHELE TO VERIFY. AFTER WHICH, HE SAID IF HIS SISTER WAS CALLED ABOUT THE SURGERY. TOLD HIM "NO". HE SAID TO CALL HIS SISTER CANDELARIA FIRST. CONTACT NUMBER: .
--- NOTE | 2016-06-23 07:02 | NUR ---
CALLED CANDELARIA BUT WENT STRAIGHT TO [employer]. LEFT MESSAGE TO CALL BACK [facility] [phone]. WILL AWAIT FOR CALL BACK.
--- NOTE | 2016-06-23 07:20 | NUR ---
RECEIVED PATIENT REPORT AT BEDSIDE. PATIENT AWAKE WITH NO S/S OF DISTRESS NOTED. PATIENT ON 2L O2. THOMAS CATHETER IN PLACE DRAINING YELLOW URINE. IV LINE TO THE RIGHT HAND INTACT WITH IVF INFUSING WELL. G-TUBE FEEDING ON HOLD FOR SCHEDULED COLOSTOMY PLACEMENT FOR TODAY. PATIENT ON TELE MONITORING. BED LOWERED WITH CALL LIGHT WITHIN REACH. WILL CONTINUE TO MONITOR
--- NOTE | 2016-06-23 07:40 | NUR ---
Called Jacek Hoffman regarding consent for Surgery today. She said "I thought it was done last week because I gave consent." Told her it wasn't done. She said to let the doctor call her. will notify dr Olsen. [facility].
--- NOTE | 2016-06-23 07:49 | NUR ---
PAGED DR DILLON REGARDING NEED FOR HIM TO CALL THE DAUGHTER.
[2016-06-23 08:00] VITALS: BP 106/58
[2016-06-23] MEDS: NACL 0.45% 1,000 ML IV SCH ×2 (08:25→12:23)
--- NOTE | 2016-06-23 08:38 | NUR ---
SPOKE WITH CANDELARIA ART, PATIENT'S DPOA, AND ASKED FOR CONSENT FOR THE PROCEDURE DIVERTING COLOSTOMY THAT IS SCHEDULED FOR TODAY. CANDELARIA SAID SHE WANTS TO SPEAK WITH DR DILLON FIRST BEFORE SHE GIVES ANY CONSENT. PAGED DR DILLON. WAITING FOR CALL BACK
[2016-06-23] MEDS: FOAM DRESSING TP SCH (09:00)
[2016-06-23] MEDS: FLUCONAZOLE 100 MG TAB GT SCH (09:00)
[2016-06-23] MEDS: ISOSORBIDE DINITRATE 10 MG TAB PEG SCH ×2 (09:00→20:40)
[2016-06-23] MEDS: AMIODARONE 200 MG TAB PO SCH (09:00)
[2016-06-23] MEDS: METOPROLOL 25 MG TAB GT SCH ×2 (09:00→20:40)
[2016-06-23] MEDS: ENOXAPARIN 40 MG/0.4 ML SYR SUBQ SCH (09:00)
[2016-06-23] MEDS: LINEZOLID 600 MG TAB GT SCH ×2 (09:00→20:40)
[2016-06-23] MEDS: metroNIDAZOLE 500 MG TAB GT SCH ×3 (09:00→17:00)
[2016-06-23] MEDS: POTASSIUM CHLORIDE 20% 40 MEQ/15 ML UDC GT SCH (09:00)
[2016-06-23] MEDS: MULTIVITAMIN/MINERALS 1 TAB PO SCH (09:00)
--- NOTE | 2016-06-23 10:35 | NUR ---
WOUND CARE NOTES: SEEN PATIENT FOR FOLLOW UP. PLEASE REFER TO WOUND ASSESSMENT FLOWSHEET FOR UPDATED ENTRY. CARE PLAN AND ORDERS UPDATED. WILL CONTINUE TO FOLLOW UP PATIENT.
[2016-06-23 12:00] VITALS: BP 103/49
--- NOTE | 2016-06-23 12:39 | NUR ---
SPOKE WITH DR DILLON AND MADE HIM AWARE THAT CONSENT HAS BEEN OBTAINED FOR THE DIVERTING COLOSTOMY PROCEDURE
[2016-06-23] MEDS: GAUZE TP SCH (13:24)
[2016-06-23] MEDS: THERAHONEY GEL 42.5 GM TP SCH (13:24)
--- NOTE | 2016-06-23 13:35 | NUR ---
PATIENT LEFT THE UNIT FOR DIVERTING COLOSTOMY PROCEDURE
[2016-06-23] MEDS ORDERED: AMIKACIN 500 MG/2 ML VIAL IV ONE (14:25)
[2016-06-23] MEDS ORDERED: SEVOFLURANE 250 ML BTL INH ONE (14:25)
[2016-06-23] MEDS ORDERED: fentaNYL 0.05 MG/ML VIAL ONE (14:40)
[2016-06-23] MEDS ORDERED: BUPIVACAINE-MPF/EPI 0.25% 30 ML VIAL INJ ONE (15:10)
[2016-06-23] MEDS ORDERED: NACL 0.45% 1,000 ML IV SCH (15:20)
[2016-06-23] MEDS ORDERED: diphenhydrAMINE 50 MG/ML VIAL IVP PRN (15:20)
[2016-06-23] MEDS ORDERED: ONDANSETRON 4 MG/2 ML VIAL IVP PRN (15:20)
[2016-06-23] MEDS ORDERED: BLOOD GLUCOSE MONITORING 1 DEV DEV FS ONE (15:20)
[2016-06-23 16:00] VITALS: BP 154/78
--- NOTE | 2016-06-23 16:45 | NUR ---
PATIENT BACK FROM SURGERY. PATIENT AWAKE. NO S/S OF DISTRESS NOTED. COLOSTOMY IN PLACE. VITAL SIGNS WITHIN NORMAL LIMITS. WILL CONTINUE TO MONITOR
[2016-06-23] MEDS ORDERED: AMIKACIN PER PHARMACY MC PRN (17:55)
[2016-06-23] MEDS: AMIKACIN 500 MG in DEXTROSE 5% 100 ML IV SCH (18:01)
--- NOTE | 2016-06-23 19:09 | NUR ---
ENDORSED CONTINUITY OF CARE TO THE NIGHT NURSE. PATIENT IN STABLE CONDITION
--- NOTE | 2016-06-23 19:30 | NUR ---
RECEIVED REPORT FROM [facility] NURSE. PT RESTING COMFORTABLY IN BED, FLACC 0, NO S/S OF ACUTE DISTRESS, APHASIC. ALL NEEDS MET. INFORMATION WRITER IN PLACE. PT ON O2 2L NC. GTUBE IN PLACE, FEEDING ON HOLD PER MD. THOMAS CATH IN PLACE, DRAINING CLEAR YELLOW URINE. NEW COLOSTOMY IN PLACE, DRAINING SANGUINOUS DISCHARGE. DRESSINGS ON SACRAL, BILATERAL HEELS AND RIGHT SHOULDER CLEAN DRY AND INTACT. IV ACCESS ASYMPTOMATIC, PATENT AND INTACT. IVF INFUSING WELL. DISCUSSED PLAN OF CARE WITH PT, PT APHASIC, WILL CONTINUE TO REINFORCE. SAFETY MEASURES ENSURED. CALL LIGHT WITHIN REACH. WILL CONTINUE TO MONITOR.
[2016-06-23 20:00] VITALS: BP 136/74
[2016-06-23] MEDS: INSULIN LISPRO SLIDING SCALE 100 UNITS/ML VIAL SUBQ PRN (20:41)
[2016-06-23] MEDS: INSULIN DETEMIR 100 UNITS/ML 10 ML VIAL SUBQ SCH (20:41)
--- NOTE | 2016-06-23 20:50 | NUR ---
GTUBE ASYMPTOMATIC, PLACEMENT CONFIRMED, RESIDUAL 0ML, PATENT. BLOOD GLUCOSE 178, PT FEEDING HELD PER MD ORDERS, INSULIN LEVEMIR AND INSULIN HUMALOG HELD. ADMINISTERED DUE MEDICATIONS WITH EDUCATION. PT TOLERATED MEDS WELL. IVF INFUSING WELL. EMPTIED 200ML RED SEROSANGUINOUS FLUID FROM COLOSTOMY, STOMA IS PINK AND MOIST. ORAL CARE PERFORMED. PT TOLERATED WELL. PT RESTING WELL, OFFLOAD PRESSURES SITES. ALL NEEDS MET. SAFETY MEASURES ENSURED. WILL CONTINUE TO MONITOR.
[2016-06-24] VITALS: BP 146/67
--- NOTE | 2016-06-24 | NUR ---
PT REPOSITIONED, OFFLOAD PRESSURE SITES. CONDITION STABLE. IVF INFUSING WELL. ALL NEEDS MET. SAFETY MEASURES ENSURED. WILL CONTINUE TO MONITOR.
[2016-06-24] MEDS: ALBUTEROL SULFATE/IPRATROPIU 3 ML SOL IH SCH ×4 (00:38→19:43)
--- NOTE | 2016-06-24 00:57 | NUR ---
KANDIS, TRANSFER NURSE FROM [facility]. GAVE REPORT, DISCUSSED AND REVIEWED PLAN OF CARE. KANDIS STATED THAT HE WILL BE LOOKING FOR AN ADMITTING DOCTOR THEN HE WILL LOOK FOR AN AVAILABLE BED. Addendum: 06/24/16 at 0256 by Kiran Wagoner RN WRONG PATIENT
[2016-06-24] MEDS: Z-GUARD PASTE TP SCH ×2 (01:00→13:41)
--- NOTE | 2016-06-24 01:30 | NUR ---
PT SON AT BEDSIDE. PT HAVING NONPRODUCTIVE COUGHS INTERMITTENTLY. PT'S SON REQUESTING BREATHING TREATMENT. CALLED RT. RT ABDULAZIZ IN TO EXPLAIN TO PT'S SON THAT PT JUST RECEIVED BREATHING TREATMENT 30MINS AGO, PT IS CLEARING WELL, LUNG SOUNDS CLEAR, SPO2 100%. PT'S SON VERBALIZES UNDERSTANDING AND REQUESTS FOR PAIN MEDICATION FOR THE PT. WILL MEDICATE WITH TYLENOL.
[2016-06-24] MEDS ORDERED: oxyCODONE/APAP 5/325 MG 1 TAB TAB PO PRN (01:35)
--- NOTE | 2016-06-24 01:40 | NUR ---
PT'S SON STATED THAT PT LOOKS TO BE IN DISCOMFORT. PT'S SON REQUESTING TO ADMINISTER TYLENOL WELL ANOTHER MEDICATION THAT IS STRONGER. STARTED PREPARING TYLENOL FOR ADMINISTERATION. PAGED DR ZAIDI, BATCHING OPERATOR FOR DR PRAJAPATI. DR ZAIDI CALLED, RECEIVED ORDERS FOR PERCOCET 5/325 PO Q4 PRN. TYLENOL THAT WAS PREPARED AT BEDSIDE WAS WASTED, WITNESSED BY SATHYA HUTCHINS. SEE PAIN ASSESSMENT. GTUBE PLACEMENT VERIFIED, RESIDUAL 0ML, PERCOCET ADMINISTERED. PT TOLERATED WELL. SAFETY MEASURES ENSURED. CONDITION STABLE. WILL CONTINUE TO MONITOR.
--- NOTE | 2016-06-24 03:22 | NUR ---
NOTIFIED BY WELLNESS PROGRAM ADMINISTRATOR OF RUN OF V-TACH. PT SLEEPING, VS STABLE, NO S/S OF ACUTE DISTRESS. WILL CONTINUE TO MONITOR.
[2016-06-24 04:00] VITALS: BP 125/68
[2016-06-24] MEDS: METOCLOPRAMIDE 10 MG/2 ML INJ VIAL IVP SCH ×3 (04:47→20:57)
[2016-06-24] MEDS: BLOOD GLUCOSE MONITORING 1 DEV DEV FS SCH ×4 (06:23→21:00)
[2016-06-24] MEDS: INSULIN LISPRO SLIDING SCALE 100 UNITS/ML VIAL SUBQ PRN ×3 (06:24→20:49)
--- NOTE | 2016-06-24 06:31 | NUR ---
BLOOD GLUCOSE 244, 4 UNITS INSULIN HUMALOG ADMINISTERED WITH EDUCATION. PT TOLERATED WELL. CONDITION STABLE. NO S/S OF ACUTE DISTRESS. SAFETY MEASURES ENSURED. CALL LIGHT WITHIN REACH. WILL CONTINUE TO MONITOR.
--- NOTE | 2016-06-24 07:34 | NUR ---
ENDORSED PLAN OF CARE TO DAYSHIFT NURSE. CONDITION STABLE.
--- NOTE | 2016-06-24 07:35 | NUR ---
RECEIVED REPORT FROM THE RADIO MECHANIC APPRENTICE NURSE AT BEDSIDE FOR CONTINUITY OF CARE. PT IS SLEEPING. I UPDATED THE BOARD. PT HAS A NC O2 AT 2L. PT HAS AN IV R HAND 24G 1/2 NS AT 80ML INFUSING. PER RADIO MECHANIC APPRENTICE NURSE, PT IS S/P COLOSTOMY. STOMA IS RED AND DRAINING BLOODY FLUID. GT IN PLACE. BEEN HELD FOR SURGERY BUT THERE IS AN ORDER TO RESUME TODAY. THOMAS IN PLACE. PT HAS WOUND CARE SCHEDULED. PU ON SACRAL AREA, BILATERAL HEELS AND R SHOULDER. PT ON BREATHING TX. V/S WITHIN NORMAL LIMITS. WILL CONTINUE TO MONITOR PT.
[2016-06-24 08:00] VITALS: BP 116/67
[2016-06-24] MEDS: POTASSIUM CHLORIDE 20% 40 MEQ/15 ML UDC GT SCH (09:45)
[2016-06-24] MEDS: MULTIVITAMIN/MINERALS 1 TAB PO SCH (09:45)
[2016-06-24] MEDS: FLUCONAZOLE 100 MG TAB GT SCH (09:45)
[2016-06-24] MEDS: ISOSORBIDE DINITRATE 10 MG TAB PEG SCH ×2 (09:45→20:57)
[2016-06-24] MEDS: ENOXAPARIN 40 MG/0.4 ML SYR SUBQ SCH (09:45)
[2016-06-24] MEDS: AMIODARONE 200 MG TAB PO SCH (09:45)
[2016-06-24] MEDS: METOPROLOL 25 MG TAB GT SCH ×2 (09:45→20:55)
[2016-06-24] MEDS: metroNIDAZOLE 500 MG TAB GT SCH ×3 (09:45→17:27)
--- NOTE | 2016-06-24 10:24 | NUR ---
06/24/16 RD FOLLOW UP COMPLETED PLEASE REFER TO NUTRITION PROGRESS NOTE UNDER CARE ACTIVITY FOR ESTIMATED NUTRITION NEEDS. RD RECOMMENDATIONS: 1. CONTINUE CURRENT ENTERAL FEEDING ORDERED. 2. RD WILL F/U 2-3 DAYS; HIGH RISK. HAROLDO RUSSELL MS, RDN
[2016-06-24 12:00] VITALS: BP 123/60
[2016-06-24] MEDS: NACL 0.45% 1,000 ML IV SCH (12:41)
--- NOTE | 2016-06-24 12:45 | NUR ---
RESTARTED HIS TUBE FEEDING. R/T WAS HERE FOR BREATHING TX. TOOK DOWN ALL OLD TUBING, HUNG NEW TUBING. PT TOLERATING WELL. WILL CONTINUE TO MONITOR PT.
[2016-06-24] MEDS: GAUZE TP SCH (13:00)
[2016-06-24] MEDS: THERAHONEY GEL 42.5 GM TP SCH (13:41)
--- NOTE | 2016-06-24 14:10 | NUR ---
DRESSING CHANGED FOR SHOULDER AND SACRAL AREA. PT TOLERATED WELL. PT HAS RESIDUAL OF 120ML. HOLDING FEEDING FOR AN HOUR. WILL RESUME. TURNED PT. PT IS SLEEPING COMFORTABLY. WILL CONTINUE TO MONITOR PT.
--- NOTE | 2016-06-24 15:17 | NUR ---
DR. METCALF WROTE ORDERS FOR D/C, IF OK PER DR. DILLON. CALLED DR DILLON. PT OK FOR DISCHARGE. SON IS HERE. NOTIFIED HIM OF THE TRANSFER BACK TO [facility] [place] START ON [place].
--- NOTE | 2016-06-24 15:46 | NUR ---
RESTARTED THE G TUBE FEEDING, DIABETI SOURCE AC AT 30ML/HR TO ADVANCE 10ML Q 8 H TO GOAL RATE OF 70ML/HR. 150ML WATER FLUSH Q 6H. Addendum: 06/24/16 at 1549 by Edyta Henry RN PER [facility], THEY ARE NOT READY TO RECEIVE PT UNTIL SUNDAY.
[2016-06-24 16:00] VITALS: BP 138/75
--- NOTE | 2016-06-24 16:52 | NUR ---
SPOKE WITH DR METCALF REGARDING BIPAP ORDER , DR METCALF STATED PATIENT DOESN'T NEED BIPAP AT THIS TIME . CALLED BACK TO [facility] SPOKE WITH AMANDA SHE WANTED ME TO TALK TO JAEL [phone] LEFT A MESSAGE FOR JAEL ,WAITING FOR CALL BACK.
[2016-06-24] MEDS: AMIKACIN 500 MG in DEXTROSE 5% 100 ML IV SCH (17:27)
--- NOTE | 2016-06-24 18:19 | NUR ---
PT RESTING COMFORTABLY. PT IS AWAKE. KEEPS PULLING THE NC OFF OF HIS NOSE. CONTINUOUS O2 SAT AT 92-93% NO SIGNS OF DISTRESS. FEEDING TUBE AT 30ML/HR. PT TOLERATING WELL. D/C POSSIBLY ON SUNDAY D/T BED AVAILABILITY AT [facility] [place]. SON AWARE.
--- NOTE | 2016-06-24 19:15 | NUR ---
ENDORSED PT TO THE SALES ADVISORY MANAGER NURSE AT BEDSIDE FOR CONTINUITY OF CARE. PT IS IN STABLE CONDITION.
--- NOTE | 2016-06-24 19:20 | NUR ---
RECEIVED REPORT, ASSUMED CARE. PT AWAKE, NONVERBAL. NO S/S OF RESPIRATORY DISTRESS, NO FACIAL GRIMACING OR MOANING INDICATING PAIN AT THIS TIME. G-TUBE FEEDING INFUSING, PT TOLERATING WELL. COLOSTOMY BAG INTACT. KEPT COMFORTABLE. WILL TURN AND REPOSITION Q2H DUE TO SACRAL PRESSURE ULCER. WILL CONTINUE TO MONITOR.
[2016-06-24 20:00] VITALS: BP 114/56
[2016-06-24] MEDS: INSULIN DETEMIR 100 UNITS/ML 10 ML VIAL SUBQ SCH (21:22)
--- NOTE | 2016-06-24 22:34 | NUR ---
ROUNDS MADE, PT STILL AWAKE. PT NOTED INTERMITTENTLY TAKING THE NASAL CANNULA OFF. PT O2 95-96% ROOM AIR. NO ACUTE CHANGES OBSERVED AT THIS TIME. WILL CONTINUE TO MONITOR
[2016-06-25] VITALS: BP 110/58
[2016-06-25] MEDS: Z-GUARD PASTE TP SCH ×2 (01:16→13:34)
[2016-06-25] MEDS: ALBUTEROL SULFATE/IPRATROPIU 3 ML SOL IH SCH ×2 (01:31→07:28)
[2016-06-25 04:16] VITALS: BP 125/65
[2016-06-25] MEDS: METOCLOPRAMIDE 10 MG/2 ML INJ VIAL IVP SCH ×2 (05:06→13:42)
[2016-06-25] MEDS: BLOOD GLUCOSE MONITORING 1 DEV DEV FS SCH ×2 (06:11→11:30)
--- NOTE | 2016-06-25 07:30 | NUR ---
PT AWAKE AT THIS TIME. NO FACIAL GRIMACING R/T PAIN. NO S/S RESPIRATORY DISTRESS. ENDORSED TO NEXT SHIFT FOR CONTINUITY OF CARE. PT IN STABLE CONDITION.
--- NOTE | 2016-06-25 07:40 | NUR ---
RECEIVED REPORT FROM SATHYA GHOTRA. PT IS RESTING IN BED, PT IS AWAKE, PT IS APHASIC, HAS AN IN IV ON THE HIS RIGHT HAND, PATENT, INTACT, FLUSHING WELL, PT HAS SACRAL WOUND, RIGHT PRESSURE ULCER AND BILATERAL HEEL WOUND, DRESSING IS DRY AND INTACT, PT HAS A COLOSTOMY ON THE LEFT SIDE OF HIS ABDOMEN, MINIMAL CRANBERRY LIKE COLOR IN THE BAG, PT HAS A FEEDING TUBE ON THE LEFT SIDE OF HIS ABDOMEN, DIABETESOURCE AT 50ML/HR, 10ML OF RESIDUAL, THOMAS CATHETER IS IN PLACE WITH 250 ML OF CLEAR YELLOW URINE, PT IS ON O2 2L NC, NO S/S OF RESPIRATORY DISTRESS OR DISCOMFORT NOTED, SAFETY/FALL/ASPIRATION PRECAUTIONS ARE IN PLACE, DISCUSSED PLAN OF CARE WITH PT, PT UNABLE TO COMPREHEND, CALL LIGHT IS WITHIN REACH, WILL CONTINUE TO MONITOR.
[2016-06-25 08:00] VITALS: BP 151/66
[2016-06-25] MEDS: MULTIVITAMIN/MINERALS 1 TAB PO SCH (09:54)
[2016-06-25] MEDS: METOPROLOL 25 MG TAB GT SCH (09:55)
[2016-06-25] MEDS: AMIODARONE 200 MG TAB PO SCH (09:55)
--- NOTE | 2016-06-25 09:55 | NUR ---
DUE MEDICATIONS WERE GIVEN, PT TOLERATED WELL, NO S/S OF RESPIRATORY DISTRESS OR DISCOMFORT NOTED, CALL LIGHT WITHIN REACH, WILL CONTINUE TO MONITOR.
[2016-06-25] MEDS: ISOSORBIDE DINITRATE 10 MG TAB PEG SCH (09:56)
[2016-06-25] MEDS: POTASSIUM CHLORIDE 20% 40 MEQ/15 ML UDC GT SCH (09:56)
--- NOTE | 2016-06-25 10:00 | NUR ---
CALLED [facility] REGARDING AVAILABILITY OF BED , SPOKE WITH EUSTIS BED COORDINATOR STATED THEY HAVE AN ISOLATION BED AND PATIENT CAN GO TO ROOM 34B
[2016-06-25] MEDS: ENOXAPARIN 40 MG/0.4 ML SYR SUBQ SCH (10:21)
--- NOTE | 2016-06-25 11:13 | NUR ---
LEFT A MESSAGE TO SHELLEY [phone] PATENT'S SON THAT PATIENT IS GOING TO [facility] ROOM 34B
[2016-06-25 12:00] VITALS: BP 113/62
--- NOTE | 2016-06-25 12:00 | NUR ---
PT IS RESTING IN BED, AWAKEN WHEN NAME CALLED, CALL LIGHT IS WITHIN REACH, WILL CONTINUE TO MONITOR.
--- NOTE | 2016-06-25 13:00 | NUR ---
WOUND DRESSINGS CHANGED, PT TOLERATED WELL.
[2016-06-25] MEDS: GAUZE TP SCH (13:34)
[2016-06-25] MEDS: THERAHONEY GEL 42.5 GM TP SCH (13:34)
--- NOTE | 2016-06-25 13:50 | NUR ---
CALLED THE PATIENT'S [facility] AT [phone], GAVE REPORT TO MARICEL MCDONNELL. I DID LET HER KNOW THE PATIENT WAS SCHEDULED TO BE PICKED UP AT 1500.
--- NOTE | 2016-06-25 15:20 | NUR ---
DISCHARGE INSTRUCTIONS GIVEN TO PT, ID WRIST BAND REMOVED, IV REMOVED, CATHETER TIP INTACT, PT PICKED UP BY TRANSPORT VIA GURNEY. PT LEFT IN STABLE CONDITION.
== END 2016-06-25 15:20 | DRG 853 ==
LOC: MED 15:39 → MTU 18:47
PROVIDERS: ADMIT Hospitalist; ATTEND Hospitalist
PROC: 0JB70ZZ Excision of Back Subcutaneous Tissue and Fascia, Open Approach (ICD-10-PCS; principal; 2016-06-15 12:45)
PROC: 30233N1 Transfusion of Nonautologous Red Blood Cells into Peripheral Vein, Percutaneous Approach (ICD-10-PCS; 2016-06-16)
PROC: 0DBM8ZZ Excision of Descending Colon, Via Natural or Artificial Opening Endoscopic (ICD-10-PCS; 2016-06-16)
PROC: 0DBL8ZZ Excision of Transverse Colon, Via Natural or Artificial Opening Endoscopic (ICD-10-PCS; 2016-06-16)
PROC: 0DBP8ZX Excision of Rectum, Via Natural or Artificial Opening Endoscopic, Diagnostic (ICD-10-PCS; 2016-06-16)
PROC: 0D1L0Z4 Bypass Transverse Colon to Cutaneous, Open Approach (ICD-10-PCS; 2016-06-23)
DX: A41.9 Sepsis, unspecified organism (principal); E43 Unspecified severe protein-calorie malnutrition; L89.154 Pressure ulcer of sacral region, stage 4; E87.0 Hyperosmolality and hypernatremia; N17.9 Acute kidney failure, unspecified; B37.49 Other urogenital candidiasis; M86.9 Osteomyelitis, unspecified; I69.351 Hemiplegia and hemiparesis following cerebral infarction affecting right dominant side; D47.3 Essential (hemorrhagic) thrombocythemia; D64.9 Anemia, unspecified; E11.22 Type 2 diabetes mellitus with diabetic chronic kidney disease; F01.50 Vascular dementia, unspecified severity, without behavioral disturbance, psychotic disturbance, mood disturbance, and anxiety; G40.909 Epilepsy, unspecified, not intractable, without status epilepticus; H26.9 Unspecified cataract; I12.9 Hypertensive chronic kidney disease with stage 1 through stage 4 chronic kidney disease, or unspecified chronic kidney disease; J45.909 Unspecified asthma, uncomplicated; L08.9 Local infection of the skin and subcutaneous tissue, unspecified; R13.10 Dysphagia, unspecified; E87.5 Hyperkalemia; E78.00 Pure hypercholesterolemia, unspecified; K64.9 Unspecified hemorrhoids; N18.3 Chronic kidney disease, stage 3 (moderate); R15.9 Full incontinence of feces; Y95 Nosocomial condition; Z66 Do not resuscitate; Z93.1 Gastrostomy status; Z79.899 Other long term (current) drug therapy; I69.320 Aphasia following cerebral infarction; Z68.21 Body mass index [BMI] 21.0-21.9, adult; Z74.01 Bed confinement status; Z28.21 Immunization not carried out because of patient refusal

== ENCOUNTER 2016-06-27 08:40 | Inpatient (IN) | payer OTHER ==
[~2016-06-27] VITALS: Ht 185.4 cm; Wt 63.5 kg
[2016-06-27] VITALS (14 sets, daily range): BP systolic 75–116; BP diastolic 40–78
--- NOTE | 2016-06-27 08:40 | NUR ---
PT HAS EXISISTING DARK SPOT ON LEFT CHEECK AND BRIDGE OF NOSE
--- NOTE | 2016-06-27 08:40 | NUR ---
Patient was BIBA and taken to bed 03 via gurney per EMS. RT at bedside.
--- NOTE | 2016-06-27 08:40 | NUR ---
PT BIB EMS PLACED ON VISION BIPAP 12\6 RR 12 FIO2 60 ALARMS ARE ON AND FUNCTIONAL APNEA SET 20 SECONDS BS CRACKLES PT IN HF WEARING F\F MASK SIZE LG PT IS QUIET HHN GIVEN I\L AT 0902 WITH 6 MG DUONEB Addendum: 06/27/16 at 1111 by Melly Hardin RT GEL UNDER MASK
--- NOTE | 2016-06-27 08:45 | NUR ---
INCREASED FIO2 TO 100
[2016-06-27] MEDS ORDERED: ALBUTEROL SULFATE/IPRATROPIU 3 ML SOL IH ONE ×2 (08:55)
[2016-06-27] MEDS ORDERED: SODIUM BICARBONATE 8.4% PFS 50 MEQ/50 ML SYR IVP ONE ×3 (09:00→17:25)
[2016-06-27] MEDS ORDERED: VANCOMYCIN 1GM/DEXT 5% PREMIX 200 ML IV ONE (09:15)
[2016-06-27] MEDS ORDERED: PIPERACILLIN/TAZOBACTAM 3.375 GM in DEXTROSE 5% 50 ML IV ONE (09:15)
[2016-06-27] MEDS ORDERED: NACL 0.9% 1,000 ML IV ONE (09:15)
[2016-06-27] MEDS ORDERED: VANCOMYCIN PER PHARMACY MC PRN (09:15)
--- NOTE | 2016-06-27 09:19 | NUR ---
[place] [facility] [place]P [place], INITIAL SPO2 78% ON N/C; PLACED ON CPAP BY EMS SPO2 90%; CURRENT CPAP SETTINGS 01/10, FIO2 60; HX; DM, CVA, DEMENTIA, HYPERKALEMIA, ANEMIA, GTUBE, COLOSTOMY;PT IS NON VERBAL; PT HAS COLOSTOMY;IFC;W/ MRSA ON SACRAL AREA;SKIN IS PINK/WARM/DRY; HR EVEN AND REGULAR; PATIENT POSITIONED FOR COMFORT; HOB ELEVATED; BEDRAILS UP X2; BED DOWN. ER MD MADE AWARE OF PT STATUS.
[2016-06-27] MEDS ORDERED: PIPERACILLIN/TAZOBACTAM 3.375 GM VIAL IV ONE (09:31)
--- NOTE | 2016-06-27 09:46 | NUR ---
NOELLEC INSERTED BY
[2016-06-27] MEDS ORDERED: DEXTROSE 50% IVP (10:07)
[2016-06-27] MEDS ORDERED: AMIODARONE HCL200 MG GT (10:07)
[2016-06-27] MEDS ORDERED: COLACE100 MG GT (10:07)
[2016-06-27] MEDS ORDERED: FLEET ENEMA 13135 ML RC (10:07)
[2016-06-27] MEDS ORDERED: TYLENOL325 M2 GT (10:07)
[2016-06-27] MEDS ORDERED: GLUCAGON HCL1 MG IM (10:07)
[2016-06-27] MEDS ORDERED: INSULIN HUMAN REGULAR 100 UNITS/ML 10 ML VIAL IVP ONE ×2 (10:15)
[2016-06-27] MEDS ORDERED: CALCIUM GLUCONATE 10% 1000 MG/10 ML VIAL IVP ONE (10:15)
[2016-06-27] MEDS ORDERED: CALCIUM CHLORIDE 10% 100 MG/ML SYR IVP ONE (10:15)
[2016-06-27] MEDS ORDERED: DEXTROSE 50% 50 ML SYR IVP ONE ×2 (10:15)
--- NOTE | 2016-06-27 10:20 | NUR ---
CENTRAL LINE INSERTED BY CHARLES MICHAELS.
--- NOTE | 2016-06-27 10:28 | NUR ---
XRAY AT BEDSIDE.
--- NOTE | 2016-06-27 10:35 | NUR ---
BIPAP CHECK BS CRACKLES PT QUIET
--- NOTE | 2016-06-27 11:13 | NUR ---
PT LYING ON BED;REPOSITIONED PT BY JOSE FRANCISCO AND EMT;ALL MONITORS IN PLACED;WILL CONTINUE TO MONITOR PT.
--- NOTE | 2016-06-27 11:32 | NUR ---
Patient will be admitted to care of DR Morton. Admited to ICU 1. Will go to rooM 1. Belongings list completed. Report to SATHYA VEGA.
--- NOTE | 2016-06-27 11:46 | NUR ---
PT TRANSFERRED TO ICU 1 WITHOUT INCIDENT
--- NOTE | 2016-06-27 11:55 | NUR ---
ADMITTED PT FROM ER BY HUMAIRA ACCOMPANIED BY RT.EMT AND RN ALEXANDRA . MODIFIED DNR STATUS. PT OPEN EYES, DOES NOT FOLLOW COMMANDS. ON BIPAP WITH ACCESSORY MUSCLE USE. LUNG SOUNDS COARSE BILATERALLY UPON AUSCULTATION.G-TUBE AND COLOSTOMY BAG NOTED. THOMAS CATH IN PLACE WITHOUT URINE NOTED IN THE BAG. PT UNABLE TO MOVE ALL HIS EXTREMITIES. SKIN NON INTACT ( SEE WOUND ASSESSMENT). PT HAS A CENTRAL LINE TRIPLE LUMEN CATH TO RIGHT SUBCLAVIAN WITH POSITIVE BLOOD RETURN. HOB ELEVATED 30 DEGREES WITH LOW BED POSITION, SAFETY MEASURES IN PLACE WILL CONTINUE TO MONITOR.
--- NOTE | 2016-06-27 12:05 | NUR ---
ICU CALLED;ASKED HOW MANY LITERS OF NS WAS GIVEN TO PT;INFORMED THEM 2 L WAS GIVEN;NOTIFIED ER TO PUT ORDER OF SALINE 1 L TO COMPUTER; SAID HE WILL PUT THE ORER; 2ND BAG OF 1 L NS WAS ADMINISTERED AT AROUND 1045;VIA RT SUBCLAVIAN CENTRAL LINE; 1 L OF NS WAS INFUSED AT AROUND 1125 .
--- NOTE | 2016-06-27 12:21 | NUR ---
BIPAP CHECK BS CRACKLES
[2016-06-27] MEDS: NACL 0.9% 1,000 ML IV SCH ×2 (12:34→12:43)
[2016-06-27] MEDS ORDERED: ENOXAPARIN 30 MG/0.3 ML SYR SUBQ SCH (12:55)
[2016-06-27] MEDS ORDERED: ENOXAPARIN 40 MG/0.4 ML SYR SUBQ SCH (13:00)
[2016-06-27] MEDS: SODIUM BICARBONATE 8.4% 50 MEQ in NACL 0.45% 1,000 ML IV SCH ×2 (13:41→19:29)
--- NOTE | 2016-06-27 14:05 | NUR ---
CRITICAL LAB REPORT RECEIVED FROM LAB LACTIC ACID 19.0, CALLED DR. HADDAD. NO NEW ORDER RECEIVED AT THIS TIME.
--- NOTE | 2016-06-27 15:09 | NUR ---
BIPAP CHECK BS CRACKLES
--- NOTE | 2016-06-27 16:54 | NUR ---
BIPAP CHECK BS CRACKLES
--- NOTE | 2016-06-27 17:00 | NUR ---
NOTIFIED RT SPUTUM WAS CONTAMINATED, NEED TO COLLECT AGAIN.
--- NOTE | 2016-06-27 17:13 | NUR ---
REPEAT MORTUARY OPERATIONS MANAGER LG DORIS TAKEN TO LAB
--- NOTE | 2016-06-27 17:25 | NUR ---
NEPHROLOGY WAS NOTIFIED OF BMP REPORT (DRAWN @ 1604HR) SERUM K 5.7,CARBON DIOXIDE 11.7,BUN 46 , CREATININE 3.1 AND WAS UPDATED OF THE PATIENT 'S CONDITION. ORDER RECEIVED FOR C.T SCAN OF ABDOMEN AND GIVE 2 AMP OF SODIUM BICARBONATE IVP X 1. NURSE GARY WAS INFORMED.
--- NOTE | 2016-06-27 17:40 | NUR ---
CALLED CT DEPARTMENT TO SEE IF THEY CAN DO THE TEST NOW. [facility] STATES THAT THEY ARE VERY BUSY WITH ER PATIENTS RIGHT NOW ,MAY BE WE CAN DO IT LATER.
[2016-06-27] MEDS: PIPER/TAZO 2.25GM/D5W PREMIX 50 ML IV SCH ×2 (17:44→23:49)
[2016-06-27] MEDS ORDERED: PIPER/TAZO 3.375GM/D5W PREMIX 50 ML IV SCH (18:00)
--- NOTE | 2016-06-27 18:15 | NUR ---
TURNED AND REPOSITIONED PT, PT HAD 20 ML EMESIS WHILE TURNING PT, SUCTIONED PT AND CLEANED PT.
--- NOTE | 2016-06-27 19:10 | NUR ---
REPORT GIVEN TO SYDNEE MCDONNELL.
--- NOTE | 2016-06-27 19:33 | NUR ---
RECEIVED REPORT FROM GARY MCDONNELL. PATIENT IS ON BEDREST AND IS BEDBOUND. VITAL SIGNS ARE STABLE AND PATIENT IS AFEBRILE. NO SIGNS OF RESPIRATORY DISTRESS OR SOB NOTED. PATIENT IS ON BIPAP WITH SETTINGS OF I/E 12/6, FIO2 100%, AND RATE OF 12. CRACKLES ARE HEARD UPON AUSCULTATION. BOWEL SOUNDS ARE HYPOACTIVE. THERE IS A G-TUBE PRESENT CLAMPED. THERE IS ALSO A COLOSTOMY BAG WITH SMALL AMOUNT OF LIQUID BROWN STOOL NOTED. THERE IS THOMAS CATHETER DRAINING TO GRAVITY WITH SCANT AMOUNT OF CLEAR YELLOW URINE NOTED. THERE IS A #22 IN THE RIGHT HAND SALINE LOCKED, WHICH IS DRY AND INTACT. THERE IS A TRIPLE LUMEN CATHETER IN THE PATIENT'S RIGHT SUBCLAVIAN. PATIENT IS RECEIVING SODIUM BICARBONATE AT 150 ML/HR. SITE IS DRY, INTACT, AND ASYMPTOMATIC. PATIENT HAS WOUNDS TO THE SACRAL AREA, RIGHT SHOULDER, AND RIGHT BUTTOCK. HOB AT 30 DEGREES WITH BED IN LOW POSITION. WILL CONTINUE TO MONITOR PATIENT. Addendum: 06/27/16 at 2228 by Tc Addison RN WOUNDS NOTED ON BILATERAL HEELS. BOTH ARE COVERED WITH COMPOSITE DRESSINGS. DRESSINGS ARE DRY AND INTACT.
--- NOTE | 2016-06-27 19:53 | NUR ---
RCV'D PT ON BIPAP SETTINGS ARE 12/6, 12,100%. BIPAP IS PLUGGED INTO RED OUTLET. ALARMS ARE ON AND AUDIBLE. PT IS ASLEEP HR 82 SAT 100% DIMINISHED BS. NO SOB OR DISTRESS NOTED. WILL CONTINUE TO MONITOR.
--- NOTE | 2016-06-27 20:05 | NUR ---
PATIENT OFF UNIT FOR CT SCAN OF ABDOMEN WITHOUT CONTRAST.
--- NOTE | 2016-06-27 20:05 | NUR ---
TRANSFERED PT TO CT ON NONREBREATHER MASK AND BACK TO ICU WITH OUT INCIDENT. CHANGED PT BIPAP MASK TO MEDIUM SIZE FOR A BETTER FIT. RN SYDNEE AND SATHYA MINA AT BEDSIDE.
--- NOTE | 2016-06-27 20:25 | NUR ---
PATIENT BACK ON UNIT FROM PROCEDURE. PATIENT REPOSITIONED TO OFFLOAD PRESSURE AREAS. NO SIGNS OF RESPIRATORY DISTRESS NOTED. HOB AT 30 DEGREES WITH BED IN LOW POSITION. CONTINUE TO MONITOR PATIENT.
--- NOTE | 2016-06-27 20:42 | NUR ---
BIPAP CHECK DONE. NO SOB OR DISTRESS NOTED. WILL CONTINUE TO MONITOR.
--- NOTE | 2016-06-27 21:50 | NUR ---
PAGED DR. MEDRANO TO RELAY CRITICAL LAB RESULT AND CT ABDOMEN,PELVIS RESULT; WITH NEW ORDER, CARRIED OUT.
--- NOTE | 2016-06-27 22:00 | NUR ---
CONNECTED G-TUBE TO LOW INTERMITTENT SUCTIONING PER DR. MEDRANO'S ORDERS. 1100ML OF LIGHT BROWN GASTRIC OUTPUT NOTED. WILL CONTINUE TO MONITOR.
--- NOTE | 2016-06-27 23:00 | NUR ---
RESPIRATORY THERAPIST AT BEDSIDE. NO SIGNS OF RESPIRATORY DISTRESS NOTED. CONTINUE TO MONITOR.
--- NOTE | 2016-06-27 23:55 | NUR ---
PATIENT REPOSITIONED FOR COMFORT. NO SIGNS OF RESPIRATORY DISTRESS NOTED. OUTPUT OF 200ML OF COFFEE BROWN GASTRIC DRAINAGE NOTED. HOB AT 30 DEGREES WITH BED IN LOW POSITION. CONTINUE TO MONITOR.
[2016-06-28] VITALS (23 sets, daily range): BP systolic 82–110; BP diastolic 34–58
[2016-06-28] MEDS: NACL 0.9% IRR 250 ML BOTTLE IR SCH ×2 (00:36→13:00)
[2016-06-28] MEDS: SODIUM BICARBONATE 8.4% 50 MEQ in NACL 0.45% 1,000 ML IV SCH ×2 (02:36→09:20)
--- NOTE | 2016-06-28 02:46 | NUR ---
PATIENT REPOSITIONED TO OFFLOAD PRESSURE AREAS. NO SIGNS OF RESPIRATORY DISTRESS. HOB AT 30 DEGREES WITH BED IN LOW POSITION. WILL CONTINUE TO MONITOR PATIENT.
--- NOTE | 2016-06-28 04:50 | NUR ---
SOLE ROUNDING MACHINE OPERATOR MANUELITO AT BEDSIDE FOR SCHEDULED MORNING LAB DRAWS.
--- NOTE | 2016-06-28 05:00 | NUR ---
MORNING AND CATHETER CARE PROVIDED. CHANGED LINENS AND GOWN. ORAL CARE RENDERED. PATIENT REPOSITIONED FOR COMFORT. NO SIGNS OF SOB NOTED. HOB AT 30 DEGREES WITH BED IN LOW POSITION. WILL CONTINUE TO MONITOR PATIENT.
[2016-06-28] MEDS: PIPER/TAZO 2.25GM/D5W PREMIX 50 ML IV SCH ×3 (05:13→17:21)
--- NOTE | 2016-06-28 06:33 | NUR ---
RECEIVED PT ON VISION ST 12\6 RR 12 FIO2 100 BS DIMINISHED WITH CRACKLES PT IN HF QUIET WEARING F\F MASK SIZE MED BIPAP PLUGGED INTO RED OUTLET Addendum: 06/28/16 at 0642 by Melly Hardin RT DECREASED FIO2 TO 80 SPO2 100
--- NOTE | 2016-06-28 06:38 | NUR ---
RESPIRATORY THERAPIST AT BEDSIDE. NO SIGNS OF SOB NOTED. WILL CONTINUE TO MONITOR.
--- NOTE | 2016-06-28 07:02 | NUR ---
PATIENT IN STABLE CONDITION. ALL PATIENT'S NEEDS MET DURING SHIFT. ENDORSED CONTINUITY OF CARE TO GARY MCDONNELL.
--- NOTE | 2016-06-28 07:14 | NUR ---
PAGED , NOTIFIED HGB 7.6, HCT 24.8, WBC 13.6. PT HAD COFFEE GROUND EMESIS AT HEALTH EVALUATOR, ORDER RECEIVED TO CHECK CBC AT 1400, WILL CARRY OUT ORDER.
--- NOTE | 2016-06-28 07:30 | NUR ---
RECEIVED REPORT FROM SYDNEE MCDONNELL. PT OPENS EYES DOES NOT FOLLOW COMMANDS. BEDSIDE MONITOR SHOWS SR. PATIENT IS ON BIPAP WITH SETTINGS OF I/E 12/6, FIO2 80%, AND RATE OF 12.NO SIGNS OF RESPIRATORY DISTRESS OR SOB NOTED. G-TUBE CONNECTED TO LOW INTERMITTENT SUCTION, 280 ML COFFEE GROUND EMESIS NOTED. A COLOSTOMY BAG WITH SMALL AMOUNT OF LIQUID BROWN STOOL NOTED. THOMAS CATHETER DRAINING TO GRAVITY WITH SCANT AMOUNT OF CLOUDY YELLOW URINE NOTED. IV TO RIGHT HAND #22 IN THE RIGHT HAND SALINE LOCKED, DRY AND INTACT. A TRIPLE LUMEN CATHETER IN THE PATIENT'S RIGHT SUBCLAVIAN. PATIENT IS ON SODIUM BICARBONATE AT 150 ML/HR. SITE IS DRY, INTACT, AND ASYMPTOMATIC. SKIN NON INTACT ( SEE WOUND ASSESSMENT )HOB AT 30 DEGREES WITH BED IN LOW POSITION. WILL CONTINUE TO MONITOR PATIENT.
[2016-06-28] MEDS ORDERED: DEXTROSE 50% 50 ML SYR IVP ONE (07:37)
--- NOTE | 2016-06-28 07:45 | NUR ---
CALLED IN, NOTIFIED DR. HADDAD GLUCOSE 27, K 5.5. ORDER RECEIVED, WILL CARRY OUT.
[2016-06-28] MEDS ORDERED: DEXT 5% /NACL 0.9% 1,000 ML IV SCH (07:50)
[2016-06-28] MEDS ORDERED: DEXTROSE 50% 50 ML SYR IVP SCH (08:15)
--- NOTE | 2016-06-28 08:15 | NUR ---
RECHECKED BLOOD SUGAR 89.
[2016-06-28] MEDS ORDERED: SODIUM POLYSTYRENE 15 GM/60 ML UDBTL PR SCH (08:30)
[2016-06-28] MEDS ORDERED: DEXT 5% / NACL 0.45% 1,000 ML IV SCH (08:35)
[2016-06-28] MEDS ORDERED: THERAHONEY GEL 42.5 GM TP PRN (08:45)
[2016-06-28] MEDS ORDERED: GAUZE TP PRN (08:45)
[2016-06-28] MEDS ORDERED: Z-GUARD PASTE TP PRN (08:45)
--- NOTE | 2016-06-28 08:49 | NUR ---
BIPAP CHECK BS DIMINISHED DECREASED FIO2 TO 70 SPO2 100
[2016-06-28] MEDS: Z-GUARD PASTE TP SCH (09:00)
[2016-06-28] MEDS ORDERED: ENOXAPARIN 30 MG/0.3 ML SYR SUBQ SCH (09:00)
--- NOTE | 2016-06-28 09:04 | NUR ---
PATIENT HAS BEEN SCREENED AND CATEGORIZED HIGH NUTRITION RISK. PATIENT WILL BE SEEN WITHIN 1-2 DAYS OF ADMISSION. 06/27/16-06/28/[address]
--- NOTE | 2016-06-28 09:22 | NUR ---
DECREASED FIO2 TO 50 POST ABG SPO2 100
[2016-06-28] MEDS ORDERED: PROBIOTIC SCREEN 1 EA MISC MC PRN (09:40)
[2016-06-28] MEDS: GAUZE TP SCH (09:51)
--- NOTE | 2016-06-28 10:08 | NUR ---
TURNED AND REPOSITIONED PT, NO S/S OF RESPIRATORY DISTRESS NOTED.
--- NOTE | 2016-06-28 10:38 | NUR ---
BIPAP CHECK BS CL\DIM PT ASLEEP
--- NOTE | 2016-06-28 10:40 | NUR ---
DISCOLORATION NOTED ON NOSE, LEFT AND RIGHT FACE. PICTURES TAKEN.
--- NOTE | 2016-06-28 11:16 | NUR ---
DR. HADDAD IN TO ASSESS PT.UPDATED PT CONDITION, WILL FOLLOW UP.
--- NOTE | 2016-06-28 11:40 | NUR ---
06/28/16 RD INITIAL ASSESSMENT COMPLETED PLEASE REFER TO NUTRITION ASSESSMENT UNDER CARE ACTIVITY FOR ESTIMATED NUTRITIONAL NEEDS. 1. WHEN MEDICALLY FEASIBLE, INITIATE ENTERAL NUTRITION SUPPORT VIA G-TUBE: DIABETISOURCE AC TO START SLOW AT 30 ML/HR AND ADVANCE 10 ML Q8H TO A GOAL RATE OF 65 ML/HR (PROVIDES 1872 KCAL, 93 GM PROTEIN, 1276 ML FREE WATER - MEETS 100% KCAL + 98% PROTEIN ESTIMATED NEEDS) 2. WHEN MEDICALLY FEASIBLE, ADD VITAMIN C SUPPLEMENTATION [id number] MG/DAILY 3. RD TO FOLLOW-UP 2-3 DAYS; HIGH RISK LOLA TRACY, KELLEY
--- NOTE | 2016-06-28 12:11 | NUR ---
DR. MEDRANO IN TO ASSESS PT. DR. MEDRANO CALLED PT'S DAUGHTER CANDELARIA ART [phone] REGARDING PT SITUATION AND FUTURE PLAN, PER DR. MEDRANO NO DIALYSIS RECOMMENDED.CANDELARIA WILL HAVE DISCUSSION WITH HER SIBLINGS.
[2016-06-28] MEDS: THERAHONEY GEL 42.5 GM TP SCH (13:00)
--- NOTE | 2016-06-28 13:07 | NUR ---
BIPAP CHECK BS CLEAR GEL UNDER MASK PT ASLEEP
[2016-06-28] MEDS: SODIUM BICARBONATE 8.4% 50 MEQ in DEXT 5% / NACL 0.45% 1,000 ML IV SCH (13:50)
--- NOTE | 2016-06-28 15:29 | NUR ---
NOTIFIED DR. HADDAD REGARDING GLUCOSE MONITORING SLIDING SCALE. NO ORDER RECEIVED. DR. HADDAD AWARE WBC 15.9, HGB 7.7, HCT 25.[address] H[address]AD, CHECK OCCULT BLOOD AND C-DIFF, WILL CARRY OUT.
--- NOTE | 2016-06-28 16:18 | NUR ---
PT'S SON PRESENT AT BEDSIDE, UPDATED PT'S CONDITION.
--- NOTE | 2016-06-28 17:16 | NUR ---
BIPAP CHECK BS CL\DIM PT ASLEEP GEL UNDER MASK DECREASE FIO2 TO 40 SPO2 100
--- NOTE | 2016-06-28 18:09 | NUR ---
TURNED AND REPOSITIONED PT. NO S/S OF RESPIRATORY DISTRESS NOTED. BIPAP SETTING FIO2 40% AT THIS TIME.
--- NOTE | 2016-06-28 18:30 | NUR ---
CHANGING EKG RHYTHM , 12 EKG REQUESTED.
--- NOTE | 2016-06-28 19:10 | NUR ---
CALLED IN, CHARGE NURSE BARNETT NOTIFIED 12 EKG RHYTHM AND PT'S SON CAME TO ADD ACLS DRUGS TO CODE STATUS . DR. HADDAD ORDER BMP PLUS MAG LEVEL.
--- NOTE | 2016-06-28 19:15 | NUR ---
REPORT GIVEN TO FRANKLIN MCDONNELL .
--- NOTE | 2016-06-28 19:16 | NUR ---
RECEIVED REPORT FROM SATHYA VEGA. AT BEDSIDE. PT AOX1, OPENS EYES DOES NOT FOLLOW COMMANDS. FLACC 0, ON BIPAP WITH SETTINGS OF I/E 12/6, FIO2 40%, RATE 12, DIMINISHED CLEAR LUNG SOUNDS, NO SIGNS OF RESPIRATORY DISTRESS OR SOB NOTED. ON SHIPWRIGHT WITH SR, REGULAR HR. RIGHT SUBCLAVIAN CENTRAL LING NOTED TO RIGHT UPPER CHEST WITH TLC, FLUSHED WITH NS, PATENT WITH GOOD BLOOD RETURN, CURRENTLY RUNNING SODIUM BICARBONATE AT 100ML/HR AND D5 1/2 NS AT 50ML/HR. PERIPHERAL LINE TO RIGHT HAND 22GA, SL, PATENT AND INTACT. G-TUBE CONNECTED TO LOW INTERMITTENT WALL SUCTION WITH COFFEE GROUND EMESIS NOTED. COLOSTOMY BAG NOTED TO LEFT LOWER ABDOMEN WITH SMALL AMOUNT OF LIQUID BROWN STOOL. THOMAS CATHETER INPLACE DRAINING TO GRAVITY WITH SCANT AMOUNT OF CLOUDY YELLOW URINE. AFEBRILE, SKIN IS WARM AND DRY TO TOUCH, NON INTACT ( SEE WOUND ASSESSMENT ), NOT ABLE TO MOVE ALL EXTREMITIES, ON CONTACT ISOLATION, VSS. CODE STATUS CHANGED TO MODIFIED ACLS DRUG AND BIPAP PER REPORT, SAFETY MEASURES MAINTAINED, ASPIRATION PRECAUTION INPLACE, WILL CONTINUE TO MONITOR PATIENT.
--- NOTE | 2016-06-28 20:00 | NUR ---
ON BIPAP, NO S/S OF DISTRESS, VSS. POSITION CHANGED FOR OFF LOAD PRESSURE.
--- NOTE | 2016-06-28 21:07 | NUR ---
PAGED DR. HADDAD AND RECEIVED A CALL BACK. DR. HADDAD NOTIFIED ABOUT THE CRITICAL LAB RESULTS BUN 6.1, CREA 3.4. DR. HADDAD ALSO NOTIFIED OF PATIENT'S BLOOD SUGAR LEVEL OF 203. NO ORDERS MADE AT THIS TIME. ALSO CLARIFIED WITH DR. HADDAD ABOUT THE CODE STATUS REGARDING THE ACLS AND VASOPRESSORS DRUGS. PER DR. HADDAD NO VASOPRESSORS TO BE ADMINISTER, ACLS DRUGS ONLY. DR. HADDAD IS ALSO AWARE OF PT'S BP AT THIS TIME 89/46. WILL CONTINUE TO MONITOR. Addendum: 06/28/16 at 8222 by Palma Garcia RN DR. HADDAD AWARE OF PT'S LOW BP, NO ORDERS MADE.
--- NOTE | 2016-06-28 22:00 | NUR ---
VSS, POSITION CHANGED FOR OFF LOAD PRESSURE.
[2016-06-29] VITALS (21 sets, daily range): BP systolic 93–122; BP diastolic 42–63
[2016-06-29] MEDS: SODIUM BICARBONATE 8.4% 50 MEQ in DEXT 5% / NACL 0.45% 1,000 ML IV SCH
--- NOTE | 2016-06-29 | NUR ---
NO CHANGE OF CONDITION AT THIS TIME, VSS. POSITION CHANGED FOR OFF LOAD PRESSURE.
--- NOTE | 2016-06-29 00:15 | NUR ---
ACCU CHECK PERFORMED WITH RESULT OF 197MG/DL.
[2016-06-29] MEDS: NACL 0.9% IRR 250 ML BOTTLE IR SCH ×2 (01:00→13:00)
--- NOTE | 2016-06-29 02:00 | NUR ---
NO S/S OF DISTRESS, VSS, POSITION CHANGED FOR OFFLOAD PRESSURE
--- NOTE | 2016-06-29 04:00 | NUR ---
AM CARE PROVIDED, POSITION CHANGED FOR OFF LOAD PRESSURE, NO CHANGE OF CONDITION AT THIS TIME. VSS.
[2016-06-29] MEDS: PIPER/TAZO 2.25GM/D5W PREMIX 50 ML IV SCH ×5 (05:34→23:07)
--- NOTE | 2016-06-29 06:00 | NUR ---
NO CHANGE OF CONDITION AT THIS TIME. POSITION CHANGED FOR OFF LOAD PRESSURE. VSS.
--- NOTE | 2016-06-29 07:01 | NUR ---
RECEIVED PT ON BIPAP, SETTINGS 12/6, R12 AND FIO2 40%. PT IS TOLERATING BIPAP WELL AT THIS TIME PT REMAINS TACHYPNEIC. BIPAP ALARMS ARE ON AND FUNCTIONING. BIPAP IS PLUGGED INTO RED OUTLET. PROTECTA-GEL IS PLACED UNDER MASK. B.S DIMINISHED BILATERALLY. WILL CONTINUE TO MONITOR.
--- NOTE | 2016-06-29 07:15 | NUR ---
REPORT GIVEN TO SATHYA LOVE FOR CONTINUE OF CARE, PT IS IN STABLE CONDITION AT THIS TIME.
--- NOTE | 2016-06-29 07:30 | NUR ---
received report from tera bhatt.PT ON LEFT SIDE POSITION .SKIN DRY WARM TO TOUCH , ON BI PAP O2 AT 40%. IV FLUID SITE HAS TLC ON RT SUBCLAVIAN. THE SITE IS DRY THE DRESSING INTACT.ABDOMINAL FIRM COLOSTOMY BAG HAS SMALL AMOUT OF LIQUID BROWN CONTENT,G,TUBE .TO LOW GOMCO SUCTION HAS SMALL BROWN LIQUID CONTENT RETURN, THOMAS CATH DRAIN YELLOW URINE . BOTH FEET DRESSING DRY AND INTACT, PT ON CONTACT ISOLATION . HE IS COMFOT AND V/S IS IN NORMAL LIMIT AT THE TIME.
[2016-06-29] MEDS: PANTOPRAZOLE 40 MG INJ VIAL IVP SCH (08:24)
[2016-06-29] MEDS ORDERED: SODIUM BICARBONATE 8.4% 50 MEQ in DEXT 5% / NACL 0.45% 1,000 ML IV SCH (08:35)
--- NOTE | 2016-06-29 08:51 | NUR ---
DR MEDRANO AT BEDSIDE AND SEEN PATIENT. WILL FOLLOW UP WITH ORDERS.
[2016-06-29] MEDS: LACTOBACILLUS RHAMNOSUS GG 1 EACH CAP PO SCH (09:00)
--- NOTE | 2016-06-29 09:10 | NUR ---
FIO2 TITRATED TO 35%. SPO2 REMANS AT 98% WILL CONTINUE TO MONITOR.
--- NOTE | 2016-06-29 09:15 | NUR ---
PLACED A PAGE TO DR. MEDRANO REGARDING ELEVATED BUN AND CREATININE LEVEL. AWAITING FOR CALL BACK.
--- NOTE | 2016-06-29 09:30 | NUR ---
PLACED A PAGE AGAIN TO DR. MEDRANO.
--- NOTE | 2016-06-29 09:40 | NUR ---
DR. MEDRANO CALLED BACK AND MADE AWARE OF BUN AND CREATININE LEVELS. ORDER RECEIVED TO D/C CURRENT IVF WITH BICARB AND CHANGED TO HALF NS AT 100 MLS/HR. ORDERS TRANSCRIBED AND CARRIED OUT.
--- NOTE | 2016-06-29 10:00 | NUR ---
TURNED AND REPOSITIONED PATIENT TO THE RIGHT SIDE.
[2016-06-29] MEDS: NACL 0.45% 1,000 ML IV SCH ×3 (10:23→22:48)
--- NOTE | 2016-06-29 11:30 | NUR ---
PATIENT IS RESTING AND IN STABLE CONDITION. Addendum: 06/29/16 at 1744 by Manuela Quach RN DOCUMENTATION SHOULD BE UNDER NURSE NOT UNIT DIRECTOR
[2016-06-29] MEDS: Z-GUARD PASTE TP SCH (13:00)
[2016-06-29] MEDS: THERAHONEY GEL 42.5 GM TP SCH (13:00)
--- NOTE | 2016-06-29 13:27 | NUR ---
FIO2 DECREASED TO 30%. BIPAP CHECK COMPLETED, PT STATUS REMAINS THE SAME. PT IS RESTING IN BED. BIPAP ALARMS REMAIN ON AND FUNCTIONING. PT DOES NOT SEEM FIT TO BE WEANED OFF OF BIPAP AT THIS TIME.
[2016-06-29] MEDS ORDERED: NACL 0.9% 250 ML IV SCH (16:10)
--- NOTE | 2016-06-29 16:10 | NUR ---
DR HOPKINS IN AND SEEN PATIENT, WITH NEW ORDERS TO BOLUS NORMAL SALINE 250 ML. CARRIED OUT. LATEST BP 99/52.
--- NOTE | 2016-06-29 16:55 | NUR ---
BIPAP CHECK COMPLETED. NO CHANGES MADE, BIPAP ALARMS REMAIN ON AND FUNCTIONING. MASK ADJUSTED FOR PT COMFORT.
--- NOTE | 2016-06-29 17:00 | NUR ---
PATIENT 'S SON SHELLEY CAME AND SEEN PATIENT. UPDATED OF PATIENT'S CONDITION. CONCERNS AND QUESTIONS ANSWERED. MADE AWARE OF PATIENT TRANSFERRING TO [facility].
--- NOTE | 2016-06-29 18:40 | NUR ---
TRANSFERRED PATIENT TO [facility] RM 116 IN STABLE CONDITION. REPORT GIVEN TO PRIMARY RN AUBREY. PLACED PATIENT TO A PRESSURE REDISTRIBUTION SURFACE THERAPY.
--- NOTE | 2016-06-29 19:00 | NUR ---
RECEIVED PT FROM ICU NURSE. PT BP: 105/51, HR: 86, O2 SAT 99% VIA OXIMIZER NASAL CANNULA AT 9LPM, RESPIRATIONS 24. NOTED RIGHT SUBCLAVIAN LINE PATENT AND INTACT WITH IVF'S RUNNING. NOTED R AND L HEEL DRX'S CLEAN DRY AND INTACT. PT HAS SACRAL WOUND WITH CLEAN AND INTACT DRX. PT FEET WERE ELEVATED AND PT WAS TURNED AND REPOSITIONED TO THE RIGHT SIDE. NOTED LEFT SIDE OF FACE AND LEFT EAR WITH ECCHYMOSIS FROM BIPAP VIA ICU NURSE. WILL ENDORSE PT REPORT AND MD ORDERS TO NIGHT NURSE. Addendum: 06/29/16 at 1939 by Alyssa Burgos RN RESPIRATIONS 30
--- NOTE | 2016-06-29 19:15 | NUR ---
TRANSFER PT FROM ICU TO THE FLOOR ROOM 116, VIA OXIMIZER 4L, SAT 99%, NO RESP. DISTRESS NOTED, AND CALLED DR PRAJAPATI TO CHANGE THE BIPAP ORDER PRN , PT IS DOING WELL NO RESPIRATORY DISTRESS AT THIS TIME, AND PT HAVE SOME DISCOLORATION OF THE SKIN IN BOTH SIDE OF THE BRIDGE OF THE NOSE DUE TO BIPAP.
--- NOTE | 2016-06-29 19:25 | NUR ---
RECEIVED FROM AM RN IN BED NON VERBAL. TRANSFERRED FROM ICU AT 1900 PER RN / AM. TOTAL CARE. ON OXYMIZER AT 9 LPM, THOMAS CATHETER IN PLACE WITH DARK YELLOW COLORED URINE. NPO STATUS RT WITH COFFEE GROUND RESIDUAL OF 200 ML PER ICU STAFF. NO GT FEEDING AT THIS TIME TILL FURTHER ORDERS. WITH RIGHT CENTRAL LINE SUBCLAVIAN ON 02/06 NS AT 100 ML/H. WILL BE TURNED Q 2H. PILLOW SUPPORT TO PRESSURE AREAS . AFEBRILE AND DX. OF RESPIRATORY DISTRESS. MODIFIED CODE. TELEMETRY MONITORING. Addendum: 06/30/16 at 0058 by Elda Montgomery RN ON 4LPM/OXYMIZER.
--- NOTE | 2016-06-29 19:25 | NUR ---
GAVE REPORT TO NIGHT NURSE AT BEDSIDE. PT ENDORSED IN STABLE CONDITION.
--- NOTE | 2016-06-29 22:00 | NUR ---
PT. TURNED TO SIDES BY CORPORATE LAW ASSISTANT WITH PILLOW SUPPORT TO PRESSURE AREAS. TOTAL CARE. NEEDS WILL BE ANTICIPATED AND MET. FLACC 0-. 02 SAT AT 100 % ON OXYMIZER AT 9 LPM. Addendum: 06/30/16 at 0057 by Elda Montgomery RN 4 LPM/OXYMIZER.
--- NOTE | 2016-06-30 | NUR ---
PT. TURNED TO SIDES BY CNAS Q2H. TOTAL CARE. PILLOW SUPPORT TO PRESSURE AREAS. 02 AT 4LPM/OXYMIZER. NEEDS WILL BE ANTICIPATED AND MET.
[2016-06-30 00:59] VITALS: BP 106/60
[2016-06-30] MEDS: NACL 0.9% IRR 250 ML BOTTLE IR SCH ×2 (01:00→11:32)
--- NOTE | 2016-06-30 01:08 | NUR ---
CK PT SATURATION IS 98% IN 4L OXIMIZER, NO RESPIRATORY DISTRESS NOTED AT THIS TIME
--- NOTE | 2016-06-30 03:59 | NUR ---
SLEEPING. TURNED Q 2H.
[2016-06-30 04:04] VITALS: BP 110/58
[2016-06-30] MEDS: PIPER/TAZO 2.25GM/D5W PREMIX 50 ML IV SCH ×4 (05:02→23:57)
--- NOTE | 2016-06-30 06:28 | NUR ---
NEEDS ANTICIPATED AND MET. TOTAL CARE. NO RESTLESSNESS. NO SOB. 02 SAT AT 98 TO 100 % WITH OXYMIZER AT 4LPM. CL WITH 3 PORTS FLUSHED.
--- NOTE | 2016-06-30 07:30 | NUR ---
ENDORSED TO THE NEXT RN FOR CONTINUITY OF CARE. NO SOB. ON OXYMIZER AT 4LPM. NO RESTLESSNESS NOTED. TELEMETRY MONITORING.
--- NOTE | 2016-06-30 07:31 | NUR ---
RECEIVED REPORT FROM NIGHT NURSE AT PT BEDSIDE. PT RESTING IN BED. APHASIC, ALERT TO SELF. NO S/S OF RESPIRATORY DISTRESS, ON O2 OXIMIZER @ 4L. HAS COLOSTOMY BAG WITH DRAINAGE, G-TUBE PATENT AND INTACT, NO RESIDUAL NOTED. PATIENT TO BE PLACED ON LOW INTERMITTENT SUCTION. NPO AT THIS TIME. PT HAS WEAKNESS BLE, BUE. EDEMA NOTED ON ALL EXTREMITIES. PT HAS THOMAS IN PLACE, DRAIN TO GRAVITY. RT SUBCLAVIAN CENTRAL LINE IN PLACE, ALL LUMENS BLOOD RETURN AND PATENT. BED IN LOWEST POSITION, WILL CONTINUE TO MONITOR.
[2016-06-30 08:00] VITALS: BP 124/61
[2016-06-30] MEDS: LACTOBACILLUS RHAMNOSUS GG 1 EACH CAP PO SCH (08:22)
[2016-06-30] MEDS: PANTOPRAZOLE 40 MG INJ VIAL IVP SCH (08:22)
[2016-06-30] MEDS: Z-GUARD PASTE TP SCH (08:24)
--- NOTE | 2016-06-30 09:00 | NUR ---
PATIENT SEEN BY DR. HADDAD AT BEDSIDE. PT TO BE STARTED ON TUBE FEEDING. NO S/S OF ACUTE DISTRESS NOTED.
--- NOTE | 2016-06-30 09:50 | NUR ---
CRITICAL VALUE LAB RECEIVED, DR. CATIE HERNANDES.
[2016-06-30] MEDS: FLUCONAZOLE 100 MG/NS PREMIX 50 ML IV SCH (10:24)
--- NOTE | 2016-06-30 10:30 | NUR ---
PATIENT STARTED ON TUBE FEEDING @ 35ML/HR. AWAITING CALLBACK FOR PAGE TO DR. HADDAD. Addendum: 06/30/16 at 1053 by Isaiah Johnson RN 30ML/HR NOT 35.
--- NOTE | 2016-06-30 10:41 | NUR ---
SS NOTE: PER [place] AT [facility] ([phone]), THEY ARE CONTRACTED WITH [facility]. I SPOKE WITH PT'S DTR, CANDELARIA REGARDING THE PHYSICIAN'S ORDER FOR HOSPICE. SHE STATED THAT THEY HAD [facility] BEFORE AND THEY WOULD LIKE TO TRY [facility]. SHE ALSO STATED THAT HER BROTHER, SHELLEY CAN SIGN FOR PT'S HOSPICE CONSENT FORMS. Addendum: 06/30/16 at 1103 by Cathleen Knutson SS I SPOKE WITH PT'S SON, SHELLEY AND MADE HIM AWARE OF THE ABOVE INFORMATION.
[2016-06-30] MEDS: THERAHONEY GEL 42.5 GM TP SCH (11:32)
[2016-06-30] MEDS: NACL 0.45% 1,000 ML IV SCH (11:32)
[2016-06-30 12:00] VITALS: BP 120/60
--- NOTE | 2016-06-30 13:12 | NUR ---
SS NOTE: PER [place] FROM [facility], THEIR RN - DHAVAL WILL BE MEETING WITH PT'S SON, SHELLEY AROUND 1330 TODAY.
[2016-06-30] MEDS ORDERED: POTASSIUM CHLORIDE 20% 40 MEQ/15 ML UDC GT SCH (13:20)
--- NOTE | 2016-06-30 14:20 | NUR ---
DHAVAL WALLACE SPEAKING WITH SON AT PT'S BEDSIDE.
[2016-06-30] MEDS ORDERED: ALBUTEROL SULFATE/IPRATROPIU 3 ML SOL IH PRN (14:35)
[2016-06-30 16:00] VITALS: BP 116/65
--- NOTE | 2016-06-30 16:10 | NUR ---
ASSISTED PATIENT IN CHANGING OF POSITIONS. COLOSTOMY BAG EMPTIED AND CHANGED. PATIENT STARTED ON BLOOD TRANSFUSION. NO S/S OF ACUTE DISTRESS. WILL CONTINUE TO MONITOR.
--- NOTE | 2016-06-30 17:30 | NUR ---
PER DHAVAL WALLACE, PATIENT WILL BE ACCEPTED FOR HOSPICE TOMORROW AFTER BLOOD TRANSFUSION HAS COMPLETED.
[2016-06-30] MEDS: ALBUTEROL SULFATE/IPRATROPIU 3 ML SOL IH SCH (19:26)
--- NOTE | 2016-06-30 19:29 | NUR ---
FIRST UNIT OF PRBC COMPLETED AT BEDSIDE. NO S/S OF ACUTE DISTRESS. VITAL SIGNS STABLE. ENDORSED PLAN OF CARE TO SATHYA ESCALANTE AT PT BEDSIDE.
--- NOTE | 2016-06-30 19:30 | NUR ---
RECEIVED REPORT FROM MORNING SHIFT RN AT BEDSIDE. PT AOX1, OPENS EYES DOES NOT FOLLOW COMMANDS. FLACC 0, ON O2 AT 4L VIA NC, DIMINISHED LUNG SOUNDS, NO SIGNS OF RESPIRATORY DISTRESS OR SOB NOTED. ON DIRECTOR OF PULMONARY UNIT WITH SR, REGULAR HR. RIGHT SUBCLAVIAN CENTRAL LING NOTED TO RIGHT UPPER CHEST WITH TLC, FLUSHED WITH NS, PATENT WITH GOOD BLOOD RETURN, CURRENTLY RUNNING 1/2NS AT 100ML/HR. PERIPHERAL LINE TO RIGHT HAND 22GA, SL, PATENT AND INTACT. G-TUBE INPLACE WITH FEEDING DIABETISOURCE AT 30ML/HR, COLOSTOMY BAG INPLACE TO LEFT ABDOMEN WITH SMALL AMOUNT OF LIQUID BROWN STOOL. THOMAS CATHETER INPLACE DRAINING TO GRAVITY WITH SCANT AMOUNT OF CLOUDY YELLOW URINE. AFEBRILE, SKIN IS WARM AND DRY TO TOUCH, NON INTACT ( SEE WOUND ASSESSMENT ), NOT ABLE TO MOVE ALL EXTREMITIES, ON CONTACT ISOLATION, VSS. SAFETY MEASURES MAINTAINED, ASPIRATION PRECAUTION INPLACE, WILL CONTINUE TO MONITOR PATIENT.
--- NOTE | 2016-06-30 19:45 | NUR ---
VSS, 2ND PACK OF RBC STARTED, WILL CONTINUE TO MONITOR.
[2016-06-30 20:00] VITALS: BP 117/58
--- NOTE | 2016-06-30 23:50 | NUR ---
REPORT GIVEN TO SATHYA MINA FOR CONTINUE OF CARE, PT IS IN STABLE CONDITION AT THIS TIME.
[2016-07-01] VITALS: BP 118/62
--- NOTE | 2016-07-01 | NUR ---
RECEIVED F4ROM PREVIOUS RN SLEEPING. GT IN PLACE AND NO VOMITING NOTED OR ANY COUGHING NOTED. 1O ML RESIDUAL NOTED AT THIS TIME.TOTAL CARE. NEEDS WILL BE ANTICIPATED AND WILL BE MET. TURNING TO SIDES Q 2H WITH PILLOW SUPPORT TO PRESSURE AREAS.
[2016-07-01] MEDS: NACL 0.9% IRR 250 ML BOTTLE IR SCH ×2 (01:00→13:00)
[2016-07-01] MEDS: ALBUTEROL SULFATE/IPRATROPIU 3 ML SOL IH SCH ×3 (01:23→12:53)
[2016-07-01 04:00] VITALS: BP 123/56
[2016-07-01] MEDS: NACL 0.45% 1,000 ML IV SCH ×2 (04:23→11:45)
--- NOTE | 2016-07-01 04:54 | NUR ---
PT. TURNED Q 2H . NEEDS ANTICIPATED. TOTAL CARE. OPENS EYES WHEN TOUCHED. NONE VERBAL. NO RESTLESSNESS NOTED THIS SHIFT.
[2016-07-01] MEDS: PIPER/TAZO 2.25GM/D5W PREMIX 50 ML IV SCH ×2 (05:35→12:36)
--- NOTE | 2016-07-01 06:35 | NUR ---
RE-CHECKED PT.S RESIDUAL FROM GT . RESIDUAL IS 5 ML. TOLERATING FEEDING WELL. HOB UP 30 DEGREES FOR ASPIRATION PRECAUTION. TURNED Q 2H WITH PILLOW SUPPORT TO PRESSURE AREAS.
--- NOTE | 2016-07-01 07:15 | NUR ---
RECEIVED PATIENT REPORT AT BEDSIDE. PATIENT ASLEEP WITH NO S/S OF DISTRESS NOTED. VSS WITHIN NORMAL LIMITS. PATIENT ON OXIMIZER RECEIVING 4L O2. G-TUBE FEEDING IN PLACE. COLOSTOMY IN PLACE. THOMAS CATHETER DRAINING YELLOW URINE NOTED. TRIPLE LUMEN RIGHT SUBCLAVIAN CENTRAL LINE IN PLACE WITH IVF INFUSING WELL. PATIENT ON TELE MONITORING. BED LOWERED WITH CALL LIGHT WITHIN REACH. WILL CONTINUE TO MONITOR
--- NOTE | 2016-07-01 07:31 | NUR ---
ENDORSED TO THE NEXT RN FOR CONTINUITY OF CARE. . NO RESTLESSNESS NOTED. . TELEMETRY MONITORING. NO VOMITING THIS SHIFT. HOB UP 30 DEGREES FOR ASPIRATION PRECAUTIONS.
[2016-07-01 08:00] VITALS: BP 124/61
[2016-07-01] MEDS: PANTOPRAZOLE 40 MG INJ VIAL IVP SCH (08:43)
[2016-07-01] MEDS: LACTOBACILLUS RHAMNOSUS GG 1 EACH CAP PO SCH (08:43)
--- NOTE | 2016-07-01 09:15 | NUR ---
ADMINISTERED DUE MEDS. NO RESIDUALS NOTED. FEEDING RATE INCREASED TO 50ML/HR PER RD RECOMMENDATION. WILL CONTINUE TO MONITOR
--- NOTE | 2016-07-01 09:48 | NUR ---
SPOKE WITH DR ZAIDI. PER PATIENT IS CLEARED TO BE DISCHARGED
[2016-07-01] MEDS: GAUZE TP SCH (09:49)
[2016-07-01] MEDS: Z-GUARD PASTE TP SCH (09:49)
[2016-07-01] MEDS: FLUCONAZOLE 100 MG/NS PREMIX 50 ML IV SCH (10:28)
[2016-07-01 12:00] VITALS: BP 132/65
[2016-07-01] MEDS: THERAHONEY GEL 42.5 GM TP SCH (13:00)
--- NOTE | 2016-07-01 13:00 | NUR ---
WOUND DRESSING CHANGED ORDERED. PICTURES TAKEN AND FILED IN THE CHART.
--- NOTE | 2016-07-01 13:01 | NUR ---
DECREASED FIO2 TO 3L OXYMIZER [id number]
--- NOTE | 2016-07-01 16:20 | NUR ---
PATIENT DISCHARGED BACK [place] [facility] [place]. PATIENT'S SON SIGNED ALL OF THE PATIENT'S DISCHARGE PAPERS. DISCHARGE INSTRUCTIONS GIVEN. PERIPHERAL IV LINE DISCONTINUED. TELE LEADS TAKEN OFF. THOMAS CATHETER, PEG, AND CENTRAL LINE LEFT INTACT. PATIENT LEFT WITH ALL OF HIS BELONGINGS AND DISCHARGE PAPERS. PATIENT LEFT IN STABLE CONDITION
== END 2016-07-01 16:20 | DRG 871 ==
LOC: MED 08:40 → MIC 11:36 → MTU 06-29 18:46
PROVIDERS: ADMIT Internal Medicine; ATTEND Internal Medicine
PROC: 5A09457 Assistance with Respiratory Ventilation, 24-96 Consecutive Hours, Continuous Positive Airway Pressure (ICD-10-PCS; principal; 2016-06-27)
PROC: 02H633Z Insertion of Infusion Device into Right Atrium, Percutaneous Approach (ICD-10-PCS; 2016-06-27)
PROC: 30233N1 Transfusion of Nonautologous Red Blood Cells into Peripheral Vein, Percutaneous Approach (ICD-10-PCS; 2016-06-30)
DX: A41.50 Gram-negative sepsis, unspecified (principal); J69.0 Pneumonitis due to inhalation of food and vomit; I21.4 Non-ST elevation (NSTEMI) myocardial infarction; J96.21 Acute and chronic respiratory failure with hypoxia; E43 Unspecified severe protein-calorie malnutrition; R65.21 Severe sepsis with septic shock; N17.0 Acute kidney failure with tubular necrosis; E87.0 Hyperosmolality and hypernatremia; E87.2 Acidosis; I69.351 Hemiplegia and hemiparesis following cerebral infarction affecting right dominant side; K56.60 Unspecified intestinal obstruction; K56.7 Ileus, unspecified; Z68.1 Body mass index [BMI] 19.9 or less, adult; E87.5 Hyperkalemia; F03.90 Unspecified dementia, unspecified severity, without behavioral disturbance, psychotic disturbance, mood disturbance, and anxiety; J44.9 Chronic obstructive pulmonary disease, unspecified; D64.9 Anemia, unspecified; R74.0 Nonspecific elevation of levels of transaminase and lactic acid dehydrogenase [LDH]; E11.22 Type 2 diabetes mellitus with diabetic chronic kidney disease; E11.649 Type 2 diabetes mellitus with hypoglycemia without coma; G40.909 Epilepsy, unspecified, not intractable, without status epilepticus; I12.9 Hypertensive chronic kidney disease with stage 1 through stage 4 chronic kidney disease, or unspecified chronic kidney disease; N18.9 Chronic kidney disease, unspecified; Z51.5 Encounter for palliative care; Z66 Do not resuscitate; Z74.01 Bed confinement status; Z79.4 Long term (current) use of insulin; Z93.1 Gastrostomy status; Z93.3 Colostomy status; Z79.899 Other long term (current) drug therapy; Z28.21 Immunization not carried out because of patient refusal; Z87.891 Personal history of nicotine dependence; Z87.440 Personal history of urinary (tract) infections; Z87.01 Personal history of pneumonia (recurrent)